=== PATIENT | female | born 1940 | race Caucasian/White ===

== ENCOUNTER → 2016-09-09 | Outpatient (CLI) | payer BC ==
[~2016-09-09] MED LIST: ANT125 PO; ASPI81TA28 PO; CALCTAB5 PO; CHOL100010 PO; CHOL2000 PO; HYDR-5688 PO; LEVO25TA34 PO; LEVO25TA5 PO; LISI-461 PO; MECL1TAB40 PO; MULT-190 PO; MULTTAB58 PO; PANT40TA PO; PSYL55.43 PO; SENNTAB23 PO; SIMV20TA2 PO; SYMIN160 INH; TIOTCAP INH; TRAZ100T29 PO
--- NOTE | 2016-09-09 12:27 | DIAGNOSTIC IMAGING REPORT ---
CT OF THE CHEST WITHOUT IV CONTRAST CLINICAL HISTORY: Pulmonary nodule. COMPARISON STUDY: Chest CT March 10, 2016 and October 04, 2014. CT DOSE: 196.64 mGy.cm TECHNIQUE: Axial images of the chest were obtained without IV contrast. Images were reviewed in the axial, sagittal, and coronal planes. IV contrast was not administered for this examination. FINDINGS: No enlarged axillary, mediastinal or hilar lymph nodes are present. The 11 mm ground glass nodule with the left upper lobe shown on image 58 of 301 remains unchanged since exam of March 10, 2016. A 6 mm left lower lobe groundglass nodule shown on image 103 is also unchanged. A few additional pulmonary nodules are unchanged. There are no new nodules. There is no pneumothorax or pleural effusion. Mild cardiomegaly is noted. There is no pericardial effusion. Post surgical findings within the lumbar spine are partially imaged. Compression deformity of the T12 vertebral body is unchanged. IMPRESSION: 1. No significant change in the 11 mm groundglass nodule within the left upper lobe. Despite stability, this may reflect a low-grade malignancy and continued imaging follow up is recommended. 2. No change in the 6 mm groundglass nodule within the left lower lobe which should be assessed on subsequent exams. 3. No new pulmonary nodules identified. 4. No thoracic lymphadenopathy. Electronically signed by: William Pathka M.D. 09/09/2016 12:25 PM
== END | disposition home or self-care (01) ==
LOC: C.CTS 11:36
PROVIDERS: ATTEND Internal Medicine Pulmonary Disease
DX: R91.1 Solitary pulmonary nodule (principal)

== ENCOUNTER → 2016-11-13 | Outpatient (CLI) | payer BC ==
[~2016-11-13] MED LIST changes: -CHOL2000 PO; -HYDR-5688 PO; -LEVO25TA5 PO; -LISI-461 PO; -MECL1TAB40 PO
--- NOTE | 2016-11-13 16:02 | MAMMOGRAPHY REPORT ---
BILATERAL DIGITAL SCREENING MAMMOGRAM TOMOSYNTHESIS WITH CAD: 11/13/2016 CLINICAL HISTORY: Routine screening. Patient has no complaints. TECHNIQUE: Breast tomosynthesis in addition to standard 2D mammography was performed. Current study was also evaluated with a Computer Aided Detection (CAD) system. COMPARISON: Comparison is made to exams dated: 11/15/2015 ultrasound, 11/15/2015 mammogram, 11/11/2015 mammogram, 11/07/2014 mammogram, 07/06/2014 ultrasound, and 07/06/2014 mammogram - [facility]. BREAST COMPOSITION: The tissue of both breasts is heterogeneously dense, which may obscure small ma sses. FINDINGS: No suspicious masses, calcifications, or areas of architectural distortion are noted in e ither breast. There has been no significant interval change compared to prior exams. IMPRESSION: ACR BI-RADS CATEGORY 1: NEGATIVE There is no mammographic evidence of malignancy. A 1 year screening mammogram is recommended. The p atient will receive written notification of the results. Approximately 10% of breast cancers are not detected with mammography. A negative mammographic repor t should not delay biopsy if a clinically suggestive mass is present. Rosa Bullock M.D. /:11/13/2016 13:38:29 Director Of Women'S Services: Katalina Yo, [facility] letter sent: Normal 1/2 BI-RADS Code: ACR BI-RADS Category 1: Negative
== END | disposition home or self-care (01) ==
LOC: C.MAMM 08:55
PROVIDERS: ATTEND Family Medicine
DX: Z12.31 Encounter for screening mammogram for malignant neoplasm of breast (principal)

== ENCOUNTER → 2017-01-22 | Outpatient (CLI) | payer BC ==
--- NOTE | 2017-01-22 11:11 | DIAGNOSTIC IMAGING REPORT ---
RIGHT FOOT MIN 3 VIEWS ROUTINE CLINICAL HISTORY: PAIN IN RIGHT FOOT Right pain COMPARISON: None. DISCUSSION: Moderate generalized degenerative change. Significant degenerative change of the articular surface loss distal aspect second metatarsal. Probable prior bunionectomy distal first metatarsal. There is no evidence for soft tissue swelling. IMPRESSION: Degenerative and apparent postoperative change. No acute process. Electronically signed by: Jeff Pastor M.D. 01/22/2017 11:10 AM Dictated Date/Time: 01/22/2017 11:06 AM
== END | disposition home or self-care (01) ==
LOC: C.RAD1850 10:55
PROVIDERS: ATTEND Family Medicine
DX: M79.671 Pain in right foot (principal)

== ENCOUNTER → 2017-01-29 | Outpatient (CLI) | payer BC ==
--- NOTE | 2017-01-29 15:20 | DIAGNOSTIC IMAGING REPORT ---
RIGHT ANKLE 3 VIEWS HISTORY: RIGHT ANKLE PAIN Right COMPARISON: None. FINDINGS: There is no fracture or dislocation. Diffuse soft tissue swelling. No radiopaque foreign bodies. IMPRESSION: No fractures. Electronically signed by: Mikel Carney M.D. 01/29/2017 3:19 PM Dictated Date/Time: 01/29/2017 3:18 PM
== END | disposition home or self-care (01) ==
LOC: C.RDSM 14:18
PROVIDERS: ATTEND Physician Assistant
DX: M79.671 Pain in right foot (principal)

== ENCOUNTER → 2017-06-03 | Outpatient (CLI) | payer BC ==
--- NOTE | 2017-06-03 12:07 | DIAGNOSTIC IMAGING REPORT ---
VIDEO SWALLOW CLINICAL HISTORY: 76 years-old Female with R13.10 Dysphagiascheduled at [facility] on 06/[facility]17 at 11:30/ patient a. Acute dysphagia. TECHNIQUE: Video fluoroscopic evaluation of swallowing was performed in the AP and lateral projections by the speech pathology staff. The patient is fed nectar-thick and thin liquid barium, a barium coated wafer, and barium pudding. FLUOROSCOPY TIME: 1.7 minutes. COMPARISON STUDY: CT chest 09/09/2016. FINDINGS: There is normal hyoid excursion and epiglottic deflection. There is minimal penetration of thin liquids without aspiration identified. Swallowing function is otherwise within normal limits. Fusion hardware at C3-C4 incidentally noted. IMPRESSION: 1. No aspiration identified. 2. Please see the speech pathologist report for detailed findings and recommendations. Electronically signed by: Emiliano Rain M.D. 06/03/2017 12:06 PM Dictated Date/Time: 06/03/2017 12:02 PM
--- NOTE | 2017-06-03 17:59 | SWALLOWING EVALUATION ---
REFERRING SPEECH PATHOLOGIST: n/a HISTORY: This 76 year-old female was referred for a VFSS at [facility] in order to address c/o globus sensation. The patient has a PMH significant for GERD (Protonix q.d.), hypertension, asthma, depression and c-spine surgery occurring in 2008. Currently the patient's diet level is regular. PROCEDURE: The patient was seen in the Radiology Department of [facility] for the VFSS. Cursory examination of the oral cavity revealed upper and lower dentures of adequate fit. Movement of the articulators was WNL. The patient was seated on a stool and was viewed in both the Anterior-Posterior (A-P) and Lateral planes. Volitional phonation exercises completed in the A-P plane revealed bilateral vocal fold movement and vocal intensity within functional limits. In the lateral plane, the patient was given the following boluses: 1 tsp. thin liquid barium x 2, single swallow thin liquid barium self-presented from a cup, sequential swallows of thin liquid barium self-presented from a straw, 1 tsp. nectar-thick liquid barium, single swallow nectar-thick liquid barium self-presented from a straw, 1 tsp. barium pudding, and 1 club cracker with barium pudding. The patient was then repositioned into the A-P plane and given 1 tsp. barium pudding. RESULTS: Oral Stage: Labial seal, lingual control during oral bolus hold, mastication, bolus transport were all complete/WNL. There was collection of cracker bolus on tongue, palate and teeth after initial swallow of cracker but this cleared with dry swallows the patient produced independently. Initiation of pharyngeal swallow when the bolus head was in the valleculae. Oral stage of swallow WNL. Pharyngeal Stage: Soft palate elevation, laryngeal elevation, anterior hyoid excursion, epiglottic inversion, laryngeal vestibular closure, pharyngeal stripping wave and pharyngeal contraction were complete. Distention and duration of PES opening was complete. Tongue base retraction was complete. No pharyngeal bolus retention after the swallow. There was no aspiration during this study. The patient demonstrated normal pharyngeal swallow function. Esophageal Stage: A pudding bolus transited the esophagus without retention. SUMMARY/RECOMMENDATIONS: This patient presents with normal oral-pharyngeal swallow mechanics. The following is recommended: 1. If globus sensation persists, then consider a SLIPPERY diet. Choose foods that are slippery, loose, moist; avoid foods that are doughy, thick, pasty, dry (e.g. soft breads); use condiments/healthy oils/sauces as needed to make foods slippery 2. Consideration of f/u with gastroenterology if globus sensation persists. Can be a sign of poor GERD control. 3. Pt demonstrated obvious s/s anxiety/depression. Became tearful when discussing family-related stress she is experiencing. Anxiety can contribute to globus sensation/digestive issues. Consider f/u for anxiety. A summary of the results and recommendations was discussed with the patient and her immediately following the study. They are anticipating f/u with referring PA-C and/or PCP. Thank you for referral of this patient. Please contact me at if any additional information is needed.
== END | disposition home or self-care (01) ==
LOC: C.RAD 11:00
PROVIDERS: ATTEND Physician Assistant
DX: R13.10 Dysphagia, unspecified (principal)

== ENCOUNTER → 2017-06-18 | Outpatient (CLI) | payer BC ==
[2017-06-18 17:19] LABS: BASO % 0.8 %; BASO ABS # 0.06 K/uL (0-0.2); COMPLETE YES; EOS % 2.5 %; HEMATOCRIT 44.9 % (37-47); IG% 0.1 %; LYMPH % 19.7 %; LYMPH ABS # 1.43 K/uL (1.2-3.4); MEAN CELL VOLUME 97.4 fL (80-100); MEAN CORPUSCULAR HEMOGLOBIN 31.7 pg (25-34); MEAN CORPUSCULAR HGB CONC 32.5 g/dl (32-36); MEAN PLATELET VOLUME 11.4 fL (7.4-10.4); MONO % 11.1 %; NEUT % 65.8 %; PLATELET COUNT 186 K/uL (130-400); RED BLOOD COUNT 4.61 M/uL (4.2-5.4); WHITE BLOOD COUNT 7.27 K/uL (4.8-10.8)
[2017-06-18 17:41] LABS: ALT/SGPT 55 U/L (12-78); AMYLASE 60 U/L (25-115); AST/SGOT 33 U/L (15-37); BLOOD UREA NITROGEN 25 mg/dl (7-18); BUN/CREATININE RATIO 26.1 (10-20); CALCIUM 8.9 mg/dl (8.5-10.1); CARBON DIOXIDE 31 mmol/L (21-32); CHLORIDE 105 mmol/L (98-107); CREATININE 0.95 mg/dl (0.60-1.20); GLUCOSE 96 mg/dl (70-99); POTASSIUM 4.3 mmol/L (3.5-5.1); SODIUM 138 mmol/L (136-145)
[2017-06-18 17:43] LABS: ALB/GLOB RATIO 1.3 (0.9-2); ALKALINE PHOSPHATASE 122 U/L (45-117)
== END | disposition home or self-care (01) ==
LOC: C.LAB1850 16:42
PROVIDERS: ATTEND Family Medicine
DX: K21.9 Gastro-esophageal reflux disease without esophagitis (principal)

== ENCOUNTER 2017-08-14 19:15 | Emergency (ER) | payer BC ==
[~2017-08-14] VITALS: Ht 149.9 cm; Wt 62.0 kg
[2017-08-14 19:18] VITALS: TEMP 36.9; Ht 149.9 cm; Wt 62.0 kg
[2017-08-14] MEDS ORDERED: CHOL2000 PO (19:58)
[2017-08-14] MEDS ORDERED: LEVO25TA5 PO (20:00)
[2017-08-14] MEDS ORDERED: MECL1TAB40 PO (20:01)
[2017-08-14] MEDS ORDERED: LISI-461 PO (20:04)
--- NOTE | 2017-08-14 20:13 | DIAGNOSTIC IMAGING REPORT ---
R KNEE 1 OR 2 VIEWS ROUTINE CLINICAL HISTORY: Right knee pain following fall with twisting injury. COMPARISON: Right knee radiographs September 20, 2013. FINDINGS: Alignment of the right knee is anatomic. Total right knee arthroplasty is noted. There is no periprosthetic fracture or lucency. A suspected small to moderate size right knee joint effusion is present. IMPRESSION: 1. Status post total right knee arthroplasty. No periprosthetic fracture or lucency. 2. Suspected small to moderate right knee joint effusion. Electronically signed by: William Pathak M.D. 08/14/2017 8:12 PM Dictated Date/Time: 08/14/2017 8:11 PM
--- NOTE | 2017-08-14 20:18 | EMERGENCY ROOM VISIT NOTE ---
ED Visit Note First contact with patient: 19:22 CHIEF COMPLAINT: Right Knee injury HISTORY OF PRESENT ILLNESS: This 77-year-old female presents the ER with chief complaint of right knee pain. The patient states at approximately 4:30 she was in a crawl space and twisted her right knee and then fell striking the inside of her right knee on floor. The patient states she is able to bear weight but it is painful. The patient had a right knee replacement done in [address] Dillon. The patient denies any locking or giving out of the knee. The patient does admit that she normally has a "clunk" in her right knee. REVIEW OF SYSTEMS: 6 system review was performed and was negative unless stated otherwise in history of present illness. PMH: The patient is healthy; asthma, GERD, hypothyroidism, right knee replacement SOCIAL HISTORY: Patient lives with her .. PHYSICAL EXAM: Vital Signs: Were reviewed Reviewed Nurse's notes. GENERAL: 77- year-old white female appears in no acute distress. MENTAL STATUS: Alert, oriented, and cooperative. RIGHT KNEE: No gross bony deformity noted. No erythema or edema noted. There is a vertical incision noted consistent with her prior knee replacement. The patient has tenderness palpation over the medial joint space otherwise nontender. The patient has slight increased lasticity with anterior drawer. There is no joint effusion. Full range of motion. EMERGENCY DEPARTMENT COURSE: The patient was evaluated. The patient was offered pain medication but declined. The patient was independently evaluated by Dr. Gay who agreed with treatment plan. X-ray of the right knee was ordered by the radiologist and myself. DIAGNOSTICS:R KNEE 1 OR 2 VIEWS ROUTINE CLINICAL HISTORY: Right knee pain following fall with twisting injury. COMPARISON: Right knee radiographs September 20, 2013. FINDINGS: Alignment of the right knee is anatomic. Total right knee arthroplasty is noted. There is no periprosthetic fracture or lucency. A suspected small to moderate size right knee joint effusion is present. IMPRESSION: 1. Status post total right knee arthroplasty. No periprosthetic fracture or lucency. 2. Suspected small to moderate right knee joint effusion. Electronically signed by: William Pathak M.D. 08/14/2017 8:12 PM Dictated Date/Time: 08/14/2017 8:11 PM The patient was informed of the findings. The patient was placed in a knee immobilizer and given a walker. The patient was discharged home in stable condition. DIAGNOSIS: Right Sprained Knee DISCHARGE INSTRUCTIONS: Ibuprofen 600 mg every 6 hours with food for pain. Ice and elevation as much as possible over the next 24 hours. Wear knee immobilizer and use walker for ambulation until evaluated by orthopedics. Call Dr. Dillon on Wednesday for follow-up appointment. Problem List Medical Problems: (1) Asthma Status: Chronic Current/Historical Medications Scheduled Aspirin (Aspirin Ec), 81 MG PO DAILY Budesonide/Formoterol Fumarate (Symbicort 160/4.5 Inhaler ), 2 PUFFS INH BID Calcium (Caltrate), 1,200 MG PO DAILY Cholecalciferol (Vitamin D3), 2,000 UNITS PO DAILY Levothyroxine Sodium (Levothyroxine Sodium), 25 MCG PO DAILY Lisinopril (Zestril), 10 MG PO DAILY Multiple Vitamin (Multivitamin), 1 TAB PO DAILY Ocuvite Preservision (Ocuvite Preservision), 1 TAB PO BID Pantoprazole (Protonix), 40 MG PO DAILY Psyllium (Metamucil Powder), 2 TBS PO BID PRN Sennosides-Docusate Sodium (Stool Softener), 100 MG PO BID Simvastatin (Zocor), 20 MG PO QPM Tiotropium [place] (Spiriva Handihaler), 1 CAP INH DAILY Trazodone Hcl (Trazodone), 100 MG PO HS Scheduled PRN Meclizine Hcl (Meclizine Hcl), 12.5 MG PO TID PRN for Dizziness or Vertigo Allergies Coded Allergies: Adhesives (Verified Allergy, Unknown, LOCAL SKIN IRRITATION, 04/06/16) Vital Signs Date Time Temp Pulse Resp B/P (MAP) Pulse Ox O2 Delivery O2 Flow Rate FiO2 08/14/17 19:18 36.9 90 16 170/91 97 Room Air Departure Information Referrals Brandyn Pelayo D.O. (PCP) Patient Instructions My [facility]
--- NOTE | 2017-08-14 20:20 | EMERGENCY ROOM VISIT NOTE ---
ED Visit Note First contact with patient: 19:22 This Patient was discussed with the physician client account assistant, Francine Pastor PA-C. The pertinent historical and physical exam findings were confirmed. I agree with the studies ordered and with the interpretations of these studies. I agree with the disposition and care plan.
[2017-08-14] MEDS ORDERED: IBUPROFEN 600 MG TAB PO STA (20:38)
[2017-08-14 20:53] VITALS: BP 174/82; PULSE 89; O2SAT 93
== END 2017-08-14 20:50 | disposition home or self-care (01) ==
LOC: C.EDB 19:15 → C.EDD 20:50
DX: S83.91XA Sprain of unspecified site of right knee, initial encounter (principal); W01.198A Fall on same level from slipping, tripping and stumbling with subsequent striking against other object, initial encounter; Z96.651 Presence of right artificial knee joint; J45.909 Unspecified asthma, uncomplicated; K21.9 Gastro-esophageal reflux disease without esophagitis; E03.9 Hypothyroidism, unspecified; Z79.82 Long term (current) use of aspirin; Z79.899 Other long term (current) drug therapy

== ENCOUNTER → 2017-08-24 | Outpatient (CLI) | payer BC ==
[~2017-08-24] MED LIST changes: -ANT125 PO; -CHOL100010 PO; +CHOL2000 PO; -LEVO25TA34 PO; +LEVO25TA5 PO; +LISI-461 PO; +MECL1TAB40 PO
--- NOTE | 2017-08-24 17:07 | DIAGNOSTIC IMAGING REPORT ---
CT OF THE RIGHT KNEE WITHOUT CONTRAST CLINICAL HISTORY: Acute right knee pain. COMPARISON STUDY: Right knee radiographs August 14, 2017. TECHNIQUE: Axial images of the right knee were obtained without IV contrast. Sagittal and coronal reconstructions were viewed. FINDINGS: Note is made of an acute nondisplaced periprosthetic fracture that involves the medial femoral condyle. This extends to the cortex of the medial metaphysis. Evaluation for additional fractures is difficult given the fact related to the right knee arthroplasty. However, no additional fractures are identified. Subcutaneous edema is noted as well as a moderate sized right knee joint effusion. There may be a small popliteal cyst, partially imaged on this exam. IMPRESSION: 1. Acute nondisplaced periprosthetic fracture of the medial femoral condyle, as described above. 2. No additional fractures identified although evaluation is difficult given streak artifact from the right knee arthroplasty. 3. Moderate size right knee joint effusion. Electronically signed by: William Pathak M.D. 08/24/2017 5:06 PM Dictated Date/Time: 08/24/2017 4:54 PM
== END | disposition home or self-care (01) ==
LOC: C.CTS 15:20
PROVIDERS: ATTEND Orthopaedic Surgery
DX: M97.11XA Periprosthetic fracture around internal prosthetic right knee joint, initial encounter (principal); M25.461 Effusion, right knee; Z96.651 Presence of right artificial knee joint

== ENCOUNTER → 2017-09-21 | Outpatient (CLI) | payer BC ==
--- NOTE | 2017-09-21 15:26 | DIAGNOSTIC IMAGING REPORT ---
CHEST 2 VIEWS ROUTINE CLINICAL HISTORY: CHRONIC COUGH, CHRONIC OBSTRUCTIVE PULMONARY DISEASE COMPARISON STUDY: 10/04/2014 FINDINGS: The cardiac and mediastinal contours are normal. There is no evidence of focal pulmonary consolidation. There is no evidence of failure. No pleural effusions are visualized.[ There are postsurgical changes within the cervical spine and lumbar spine. There is a T12 compression deformity. T12 pedicle screws continue to project over the T11-12 disc on the lateral view. IMPRESSION: No active disease in the chest. Electronically signed by: Rian Carson M.D. 09/21/2017 3:25 PM Dictated Date/Time: 09/21/2017 3:24 PM
== END | disposition home or self-care (01) ==
LOC: C.RAD1850 15:07
PROVIDERS: ATTEND Physician Assistant
DX: J44.9 Chronic obstructive pulmonary disease, unspecified (principal)

== ENCOUNTER → 2017-11-16 | Outpatient (CLI) | payer BC ==
--- NOTE | 2017-11-16 15:12 | MAMMOGRAPHY REPORT ---
BILATERAL DIGITAL SCREENING MAMMOGRAM TOMOSYNTHESIS WITH CAD: 11/16/2017 CLINICAL HISTORY: Routine screening. Patient has no complaints. TECHNIQUE: Breast tomosynthesis in addition to standard 2D mammography was performed. Current study was also evaluated with a Computer Aided Detection (CAD) system. COMPARISON: Comparison is made to exams dated: 11/13/2016 mammogram, 11/15/2015 mammogram, 11/11/2015 ma mmogram, 11/07/2014 mammogram, 07/06/2014 mammogram, and 11/06/2013 mammogram - [facility]. BREAST COMPOSITION: The tissue of both breasts is heterogeneously dense, which may obscure small mas ses. FINDINGS: There are stable asymmetries in the medial right breast. Mild vascular calcification and s cattered benign-appearing coarse, rounded punctate microcalcifications. No new suspicious mass, arch itectural distortion or cluster of microcalcifications is seen. IMPRESSION: ACR BI-RADS CATEGORY 1: NEGATIVE There is no mammographic evidence of malignancy. A 1 year screening mammogram is recommended. The pa tient will receive written notification of the results. Approximately 10% of breast cancers are not detected with mammography. A negative mammographic report should not delay biopsy if a clinically suggestive mass is present. Zeinab Wadsworth M.D. ay/:11/16/2017 14:16:49 Negative Restorer: Rochelle COMER(Nikhil)(Amanda)(BD), [facility] letter sent: Normal 1/2 BI-RADS Code: ACR BI-RADS Category 1: Negative
== END | disposition home or self-care (01) ==
LOC: C.MAMM 09:51
PROVIDERS: ATTEND Family Medicine
DX: Z12.31 Encounter for screening mammogram for malignant neoplasm of breast (principal)

== ENCOUNTER 2022-06-17 13:10 | Inpatient (IN) ==
[2022-06-17] MEDS ORDERED: MoRPHine SULFATE 2 MG/ML CARP IV PRN (13:26)
--- NOTE | 2022-06-17 13:40 | Emergency Department Note ---
Impression & Plan Closed hip fracture, Fall ED Provider Note NAME: BARBARA ORTIZ AGE: 81 SEX: F : 1940 ARRIVES VIA: Ambulance INFORMANT: Patient ED PROVIDER(S): Song Barragan DO CHIEF COMPLAINT: left hip pain HPI: Patient is an 81-year-old female who presents the ER for left hip pain. This started earlier today about an hour prior to arrival where she fell onto her left hip. She was unable to get up. Pain is a 10 out of 10. Significantly worse with movement. She did hit her head but denies any headache or neck pain. No chest pain or shortness of breath. No nausea vomiting or diarrhea. No other exacerbating or remitting factors. ROS: See above HPI for pertinent positives & negatives. A total of 10 systems reviewed and were otherwise negative. PAST MEDICAL HISTORY:See Below PAST SURGICAL HISTORY:See Below FAMILY HISTORY:See Below SOCIAL HISTORY:See Below HOME MEDICATIONS:See Below ALLERGIES:See Below VITALS:See Below PHYSICAL EXAMINATION: GENERAL: alert, well appearing, well nourished, no distress, non-toxic HEAD: normal cephalic, atraumatic EYE EXAM: normal conjunctiva, PERRL and EOM's grossly intact OROPHARYNX:mucous membranes are moist NECK: supple, no nuchal rigidity, no adenopathy, non-tender CHEST: stable to compression anteriorly and posteriorly LUNGS: clear to auscultation. Normal chest wall mechanics HEART: no murmurs, S1 normal and S2 normal ABDOMEN: abdomen soft, non-tender, normo-active bowel sounds, no masses, no rebound or guarding. PELVIS: stable to compression anteriorly and posteriorly BACK: Back is symmetrical on inspection and there is no deformity, no midline tenderness, no CVA tenderness. UPPER EXTREMITIES: full active and passive range of motion of all joints without tenderness to palpation LOWER EXTREMITIES: No tenderness on palpation entire right lower extremity. Tenderness on palpation of the left hip. No tenderness throughout the mid femur, knee tib-fib or ankle. DPs 2 out of 4. NEURO EXAM: Normal sensorium, cranial nerves II-XII grossly intact, normal speech, no gross weakness of arms. GCS: 15. MEDICAL DECISION MAKING: Patient is a 81-year-old female who presents ER following mechanical fall. IV was established blood was obtained. Labs show no significant leukocytosis or anemia. INR unremarkable. BMP with creatinine 1.23. LFTs bilirubin was unremarkable. UA was clean. COVID was negative. X-rays of the pelvis and hip show left intertroch fracture. CT head and chest x-ray was unremarkable. Patient was given IV morphine. She was updated bedside. Discussed with hospitalist for further evaluation Dr. Andre Chawla. Triage Nursing notes reviewed. Limited review of prior medical records performed Vital Signs: reviewed and remarkable for HTN Differential diagnosis: Differential diagnoses include major intracranial, cervical, spinal, thoracic, abdominal, pelvic and neurologic injury. Fracture, contusion, sprain, strain, laceration, abrasions included as well. ER treatment provided: See below Diagnostics interpreted by me: ECG: Sinus rhythm rate 85 Left bundle branch block Left axis QTC 483 Cardiac Monitoring: An order was placed for continuous cardiac monitoring. The monitor shows a rate of 90 with sinus rhythm. Laboratory studies: As stated above and show below. Imaging studies: X-ray of the left hip shows a fracture CT head was negative Consultation(s): As described above Procedures: none Critical Care: None Past Med/Surg History Medical History Asthma Chronic back pain Chronic obstructive pulmonary disease Dyslipidemia GERD (gastroesophageal reflux disease) Hyperlipidemia Hypertension Hypothyroidism Multiple pulmonary nodules determined by computed tomography of lung Osteoarthritis Pulmonary nodule Spinal stenosis Surgical History H/O rotator cuff surgery H/O Spinal surgery History of appendectomy History of bilateral cataract extraction History of bladder surgery bladder tack History of bunionectomy of left great toe History of bunionectomy of right great toe History of carpal tunnel surgery of left wrist History of colonoscopy History of dilatation and curettage History of esophagogastroduodenoscopy (EGD) History of hysterectomy History of lumbar spinal fusion x4 History of open reduction and internal fixation (ORIF) procedure left wrist, hardware removed History of repair of right rotator cuff History of tooth extraction all teeth History of total right knee replacement (TKR) Hx of cataract surgery Hx of cervical spine surgery normal ROM Family History Sister Family history of diabetes mellitus 2 Other No family history of adverse response to anesthesia Social History Smoking Status: Never smoker Second Hand Exposure: Yes; Hx Alcohol Use: No Hx Substance Use: No Preferred Language: Moldovan Communication Ability: Effective Visual Impairment: Partially Limited Hearing Ability: Normal Bindery Machine Tender Required: No Beliefs That Will Affect Care: None marital status: Current Living Situation: Spouse and Family Current Living Situation Comment: Lives with and grandson Feels Safe at Home: Yes caffeine: Yes during the past year weight has: remained stable Assistive Devices: Denture - Upper, Denture - Lower, Glasses and Nebulizer Allergies Allergies Allergy/AdvReac Type Severity Reaction Status Date / Time adhesive Allergy Mild LOCAL SKIN Verified 06/17/22 14:59 IRRITATION Home Meds Home Medications Medication Instructions Recorded Confirmed meclizine 12.5 mg tablet 12.5 mg PO TID PRN Dizziness 12/21/18 06/17/22 multivitamin 1 tab PO QAM 12/21/18 06/17/22 pantoprazole 40 mg tablet,delayed 40 mg PO QAM 12/21/18 06/17/22 release vitamins A,C,O-htjp-gumfzj 2,148 1 tab PO BID 12/21/18 06/17/22 mcg-113 mg-45 mg-17.4 mg tablet (PreserVision AREDS) levothyroxine 25 mcg tablet 25 mcg PO QAM 07/25/19 06/17/22 (Synthroid) meloxicam 15 mg tablet 15 mg PO QAM 07/25/19 06/17/22 simvastatin 20 mg tablet 20 mg PO QPM 07/25/19 06/17/22 calcium carbonate 600 mg-vitamin 1 tab PO QAM 12/23/20 06/17/22 D3 20 mcg (800 unit) chewable tablet (Caltrate 600 plus D) acetaminophen 325 mg capsule 325 mg PO QID PRN Sleep 02/13/22 06/17/22 (Tylenol) irbesartan 150 mg tablet 150 mg PO DAILY 02/13/22 06/17/22 tramadol 50 mg tablet 50 mg PO DAILY 02/13/22 06/17/22 trazodone 100 mg tablet 100 mg PO HS 02/13/22 06/17/22 amlodipine 2.5 mg tablet 2.5 mg PO DAILY 02/20/22 06/17/22 Previous Rx's Medication Instructions Recorded fluticasone fur. 100 mcg-umeclid 1 inh inhalation DAILY #3 Inhalers 06/10/22 62.5 mcg-vilant 25 mcg inhalat.powder (Trelegy Ellipta) Results & Data (ED) Vital Signs Vital Signs - 24 hr 06/17/22 13:19 06/17/22 14:45 06/17/22 16:00 Temperature 37.0 C Temperature Source Oral Pulse Rate 83 Pulse Rate [Apical] 80 89 Pulse Rhythm Regular Pulse Rhythm [Apical] Regular Pulse Strength Normal Pulse Strength [Apical] Normal Respiratory Rate 20 18 18 Respiratory Effort / Characteristics Non-Labored Spontaneous Non-Labored Respiratory Depth Normal Normal Respiratory Pattern Regular Regular Blood Pressure 205/79 H Blood Pressure [Left Arm] 171/70 H 141/66 H Blood Pressure Mean 121 Blood Pressure Mean [Left Arm] 103 91 Blood Pressure Position Sitting Blood Pressure Position [Left Arm] Lying Pulse Oximetry 97 96 97 Oxygen Delivery Method Room Air Room Air Sepsis Recent Fever Within 48 Hours No Sepsis New/Unexplained Change in Mental Status No Sepsis Action Taken by Nursing No Action Required Laboratory Data Result diagrams: 06/17/22 13:30 06/17/22 13:30 Lab Results 06/17/22 06/17/22 06/17/22 Range/Units 13:30 13:30 13:30 WBC 7.30 (4.8-10.8) K/ul RBC 4.07 (3.93-5.22) M/uL Hgb 13.7 (12.0-16.0) g/dl Hct 40.3 (34.1-44.9) % MCV 99.0 (80.0-100.0) fL MCH 33.7 (25.0-34.0) pg MCHC 34.0 (32.0-36.0) g/dL RDW Std Deviation 45.2 (36.4-46.3) fL RDW Coeff of Rajiv 12.3 (11.5-14.5) % Plt Count 145 (130-400) K/uL MPV 11.0 (9.4-12.3) fL Immature Gran % (Auto) 0.4 % Neut % (Auto) 73.6 % Lymph % (Auto) 14.7 % [place] % (Auto) 9.3 % Eos % (Auto) 1.2 % Baso % (Auto) 0.8 % Neut # (Auto) 5.37 (1.4-6.5) K/uL Lymph # (Auto) 1.07 L (1.2-3.4) K/uL [place] # (Auto) 0.68 (0.24-0.82) K/uL Eos # (Auto) 0.09 (0-0.50) K/uL Baso # (Auto) 0.06 (0-0.2) K/uL Immature Gran # (Auto) 0.03 H (0.00-0.02) K/uL PT 10.9 (9.0-12.0) Seconds INR 1.0 (0.9-1.1) APTT 22.0 (21.0-31.0) Seconds PTT Ratio 0.8 Sodium 140 (136-145) mmol/L Potassium 4.9 (3.5-5.1) mmol/L Chloride 106 (98-107) mmol/L Carbon Dioxide 27 (21-32) mmol/L Anion Gap 7 (3-11) BUN 38 H (6-23) mg/dl Creatinine 1.23 H (0.6-1.2) mg/dl Est Cr Clr Drug Dosing 26.4 ml/min Est GFR ( Amer) 47.0 ml/min Est GFR (Non-Af Amer) 40.5 ml/min BUN/Creatinine Ratio 30.9 H (10-20) Glucose 149 H (70-99(Fasting)) mg/dl Calcium 10.0 (8.5-10.1) mg/dl Total Bilirubin 0.6 (0.2-1.0) mg/dl AST 24 (13-39) U/L ALT 21 (7-52) U/L Alkaline Phosphatase 62 (34-104) U/L Total Protein 6.5 (6.0-8.3) gm/dl Albumin 4.0 (3.4-5.0) gm/dl Globulin 2.5 (2.5-4.0) gm/dl Albumin/Globulin Ratio 1.6 (0.9-2) Urine Color Urine Appearance (Clear) Urine pH (4.5-7.5) Ur Specific [place] (1.000-1.030) Urine Protein (Negative) Urine Glucose (UA) (Negative) Urine Ketones (Negative) Urine Blood (Negative) Urine Nitrite (Negative) Urine Bilirubin (Negative) Urine Urobilinogen (Negative) Ur Leukocyte Esterase (Negative) Urine WBC (Auto) (0-5) /hpf Urine RBC (Auto) (0-4) /hpf U Hyaline Cast (Auto) (0-5) /lpf U Epithel Cells (Auto) (0-5) /lpf Urine Bacteria (Auto) (Negative) SARS-CoV-2, RNA, NAAT (NEGATIVE) 06/17/22 06/17/22 Range/Units 14:46 15:53 WBC (4.8-10.8) K/ul RBC (3.93-5.22) M/uL Hgb (12.0-16.0) g/dl Hct (34.1-44.9) % MCV (80.0-100.0) fL MCH (25.0-34.0) pg MCHC (32.0-36.0) g/dL RDW Std Deviation (36.4-46.3) fL RDW Coeff of Rajiv (11.5-14.5) % Plt Count (130-400) K/uL MPV (9.4-12.3) fL Immature Gran % (Auto) % Neut % (Auto) % Lymph % (Auto) % [place] % (Auto) % Eos % (Auto) % Baso % (Auto) % Neut # (Auto) (1.4-6.5) K/uL Lymph # (Auto) (1.2-3.4) K/uL [place] # (Auto) (0.24-0.82) K/uL Eos # (Auto) (0-0.50) K/uL Baso # (Auto) (0-0.2) K/uL Immature Gran # (Auto) (0.00-0.02) K/uL PT (9.0-12.0) Seconds INR (0.9-1.1) APTT (21.0-31.0) Seconds PTT Ratio Sodium (136-145) mmol/L Potassium (3.5-5.1) mmol/L Chloride (98-107) mmol/L Carbon Dioxide (21-32) mmol/L Anion Gap (3-11) BUN (6-23) mg/dl Creatinine (0.6-1.2) mg/dl Est Cr Clr Drug Dosing ml/min Est GFR ( Amer) ml/min Est GFR (Non-Af Amer) ml/min BUN/Creatinine Ratio (10-20) Glucose (70-99(Fasting)) mg/dl Calcium (8.5-10.1) mg/dl Total Bilirubin (0.2-1.0) mg/dl AST (13-39) U/L ALT (7-52) U/L Alkaline Phosphatase (34-104) U/L Total Protein (6.0-8.3) gm/dl Albumin (3.4-5.0) gm/dl Globulin (2.5-4.0) gm/dl Albumin/Globulin Ratio (0.9-2) Urine Color Yellow Urine Appearance Clear (Clear) Urine pH 6.5 (4.5-7.5) Ur Specific [place] 1.014 (1.000-1.030) Urine Protein Negative (Negative) Urine Glucose (UA) Negative (Negative) Urine Ketones Negative (Negative) Urine Blood Negative (Negative) Urine Nitrite Negative (Negative) Urine Bilirubin Negative (Negative) Urine Urobilinogen Negative (Negative) Ur Leukocyte Esterase Trace H (Negative) Urine WBC (Auto) 1-5 (0-5) /hpf Urine RBC (Auto) 0-4 (0-4) /hpf U Hyaline Cast (Auto) 0 (0-5) /lpf U Epithel Cells (Auto) 10-20 H (0-5) /lpf Urine Bacteria (Auto) Negative (Negative) SARS-CoV-2, RNA, NAAT NEGATIVE (NEGATIVE) Administered Medications Discontinued Medications Hydromorphone HCl (Hydromorphone Inj 0.5 Mg/0.5 Ml Syr) 0.5 mg IV NOW STA Stop: 06/17/22 16:28 Last Admin: 06/17/22 16:42 Dose: 0.5 mg Documented By: ANDREINA Hydroxyzine HCl (Hydroxyzine Hcl 25 Mg Tab) 25 mg PO NOW STA Stop: 06/17/22 17:31 Last Admin: 06/17/22 17:39 Dose: 25 mg Documented By: ANDREINA Acetaminophen (Ofirmev) 1,000 mg in 100 mls @ 400 mls/hr IV NOW STA Stop: 06/17/22 15:40 Last Infusion: 06/17/22 15:56 Dose: 0 mls/hr Documented By: Admin: 06/17/22 15:36 Dose: 400 mls/hr Documented By: ANDREINA Lidocaine (Lidocaine 5% 1 Patch) Confirm Administered Dose 1 patch TD .STK-MED ONE Stop: 06/17/22 16:38 Last Admin: 06/17/22 17:37 Dose: Not Given Documented By: ANDREINA Morphine Sulfate (Morphine Sulfate 2 Mg/Ml Carp) 2 mg IV Q1H PRN PRN Reason: Moderate Pain (Rating 3,4,5,6) Stop: 07/01/22 13:25 Last Admin: 06/17/22 13:40 Dose: 2 mg Documented By: JORDAN Morphine Sulfate (Morphine Sulfate 4 Mg/Ml 1 Ml Carp\Vial) 4 mg IV Q1H PRN PRN Reason: Severe Pain (Rating 7,8,9,10) Stop: 07/01/22 13:25 Last Admin: 06/17/22 15:37 Dose: 4 mg Documented By: Admin: 06/17/22 14:41 Dose: 4 mg Documented By: SR Imaging Data Radiologist's Impression: Hip/Pelvis X-Ray 06/17/22 13:26 XR hip LT 2V w pelvis CLINICAL HISTORY: l hip pain TECHNIQUE: 2 views of the left hip and single frontal view of the pelvis were obtained. Comparison: None available at the time of this dictation. FINDINGS: There is a comminuted intratrochanteric fracture of the left femur. Degenerative changes are seen in the hip joint. Posterior fixation hardware is seen in the spine. Soft tissue swelling is seen. IMPRESSION: Comminuted intratrochanteric fracture of the left femur. ACT 112: Negative or not required by law. Electronically signed by: Sohail Calhoun M.D. 06/17/2022 2:[address] 06/17/22 13:28 CT head/brain wo con CLINICAL HISTORY: 81 years-old Female with jacobo. Acute headache TECHNIQUE: Multiple axial CT images of the head were obtained without contrast. A dose lowering technique was utilized adhering to the principles of ALARA. CT DOSE: 638.56 mGycm COMPARISON: Head CT 12/23/2020 FINDINGS: No acute intracranial hemorrhage, midline shift, intracranial mass, territorial ischemia or abnormal extra-axial collection. Age-related involutional changes with likely ex vacuo ventriculomegaly. White matter hypodensities suggest chronic microvascular ischemic disease. The calvarium is intact. Prior bilateral lens repair. The paranasal sinuses, mastoid air cells, and middle ear cavities are clear. IMPRESSION: No acute intracranial abnormality. ACT 112: Negative or not required by law. The above report was generated using voice recognition software. It may contain grammatical, syntax or spelling errors. Electronically signed by: Derrick Rain M.D. 06/17/2022 2:35 PM Chest X-Ray 06/17/22 15:06 XR chest 1V portable HISTORY: 81 years-old Female pre-op preoperative exam. No acute chest complaints COMPARISON: Chest radiograph 04/06/2022 TECHNIQUE: Portable AP view of the chest FINDINGS: The cardiac silhouette is mildly enlarged. Atherosclerosis of the aorta. No pneumothorax, pleural effusion, airspace consolidation or overt pulmonary edema. Degenerative changes of the shoulders and spine. Levoscoliosis of the thoracolumbar junction with partially imaged thoracolumbar spinal fusion hardware. Surgical anchors within the right humeral head. IMPRESSION: No acute process. ACT 112: Negative or not required by law. The above report was generated using voice recognition software. It may contain grammatical, syntax or spelling errors. Electronically signed by: Derrick Rain M.D. 06/17/2022 3:45 PM Discharge Plan Visit Data Chief Complaint: Hip Pain ED Provider: Song Barragan Discharge Problem: Closed hip fracture, Fall Forms Stand Alone Forms: [facility] Prescriptions Prescriptions: No Action irbesartan 150 mg tablet 150 mg PO DAILY tramadol 50 mg tablet 50 mg PO DAILY acetaminophen [Tylenol] 325 mg capsule 325 mg PO QID PRN (Reason: Sleep) amlodipine 2.5 mg tablet 2.5 mg PO DAILY Trelegy Ellipta 100-62.5-25 mcg blister with device 1 inh INH DAILY Qty: 3 1RF meloxicam 15 mg tablet 15 mg PO QAM levothyroxine [Synthroid] 25 mcg tablet 25 mcg PO QAM simvastatin 20 mg tablet 20 mg PO QPM multivitamin Tablet 1 tab PO QAM meclizine 12.5 mg Tablet 12.5 mg PO TID PRN (Reason: Dizziness) pantoprazole 40 mg Tablet,Delayed Release (Dr/Ec) 40 mg PO QAM PreserVision AREDS 7,160-113-100 [id number] Tablet 1 tab PO BID trazodone 100 mg tablet 100 mg PO HS Caltrate 600 plus D 600 mg (1,500 mg)-800 unit Tablet,Chewable 1 tab PO QAM Referrals Referrals: Brandyn Pelayo, [Primary Care Provider] -
[2022-06-17 13:41] LABS: Basophils # (auto) 0.06 K/uL (0-0.2); Basophils % (auto) 0.8 %; Eosinophils # (auto) 0.09 K/uL (0-0.50); Eosinophils % (auto) 1.2 %; Hematocrit (blood only) 40.3 % (34.1-44.9); Hemoglobin 13.7 g/dl (12.0-16.0); Immature Granulocytes # (auto) 0.03 K/uL (0.00-0.02); Immature Granulocytes % (auto) 0.4 %; Lymphocytes # (auto) 1.07 K/uL (1.2-3.4); Lymphocytes % (auto) 14.7 %; Mean Corpuscular Hemoglobin 33.7 pg (25.0-34.0); Monocytes # (auto) 0.68 K/uL (0.24-0.82); Monocytes % (auto) 9.3 %; Neutrophils # (auto) 5.37 K/uL (1.4-6.5); Neutrophils % (auto) 73.6 %; Platelet Count 145 K/uL (130-400); RDW Coefficient of Variation 12.3 % (11.5-14.5); RDW Standard Deviation 45.2 fL (36.4-46.3); Red Blood Count 4.07 M/uL (3.93-5.22)
[2022-06-17 13:56] LABS: Partial Thromboplastin Ratio 0.8; Prothrombin Time 10.9 Seconds (9.0-12.0)
[2022-06-17 14:11] LABS: Albumin Globulin Ratio 1.6 (0.9-2); BUN Creatinine Ratio 30.9 (10-20); Bilirubin,Total 0.6 mg/dl (0.2-1.0); Creatinine Clr Calc Pharmacy 26.4 ml/min; Est GFR (Non-African American) 40.5 ml/min; Globulin 2.5 gm/dl (2.5-4.0); Potassium 4.9 mmol/L (3.5-5.1); Total Protein 6.5 gm/dl (6.0-8.3)
--- NOTE | 2022-06-17 14:28 | XRay Report ---
XR hip LT 2V w pelvis CLINICAL HISTORY: l hip pain TECHNIQUE: 2 views of the left hip and single frontal view of the pelvis were obtained. Comparison: None available at the time of this dictation. FINDINGS: There is a comminuted intratrochanteric fracture of the left femur. Degenerative changes are seen in the hip joint. Posterior fixation hardware is seen in the spine. Soft tissue swelling is seen. IMPRESSION: Comminuted intratrochanteric fracture of the left femur. ACT 112: Negative or not required by law. Electronically signed by: Sohail Calhoun M.D. 06/17/2022 2:26 PM
--- NOTE | 2022-06-17 14:36 | CT Scan Report ---
CT head/brain wo con CLINICAL HISTORY: 81 years-old Female with jacobo. Acute headache TECHNIQUE: Multiple axial CT images of the head were obtained without contrast. A dose lowering tech nique was utilized adhering to the principles of ALARA. CT DOSE: 638.56 mGycm COMPARISON: Head CT 12/23/2020 FINDINGS: No acute intracranial hemorrhage, midline shift, intracranial mass, territorial ischemia or abnormal extra-axial collection. Age-related involutional changes with likely ex vacuo ventriculomegaly. White matter hypodensities suggest chronic microvascular ischemic disease. The calvarium is intact. Prior bilateral lens repair. The paranasal sinuses, mastoid air cells, and middle ear cavities are clear. IMPRESSION: No acute intracranial abnormality. ACT 112: Negative or not required by law. The above report was generated using voice recognition software. It may contain grammatical, syntax o r spelling errors. Electronically signed by: Derrick Rain M.D. 06/17/2022 2:35 PM
[2022-06-17] MEDS: MoRPHine SULFATE 4 MG/ML 1 ML CARP\\VIAL IV PRN ×2 (14:41→15:37)
--- NOTE | 2022-06-17 14:44 | Electrocardiogram Report ---
Test Reason : Blood Pressure : / mmHG Vent. Rate : 085 BPM Atrial Rate : 085 BPM P-R Int : 140 ms QRS Dur : 134 ms QT Int : 406 ms P-R-T Axes : 081 -66 104 degrees QTc Int : 483 ms Poor data quality, interpretation may be adversely affected Sinus rhythm with Premature atrial complexes Left axis deviation Left bundle branch block Abnormal ECG When compared with ECG of 23-DEC-2020 17:58, Premature atrial complexes are now Present QT has lengthened Confirmed by Buddy Foy ([id number]) on 06/17/2022 2:44:36 PM Referred By: Confirmed By:Buddy Foy
--- NOTE | 2022-06-17 14:46 | History & Physical Report ---
Date of Service June 17, 2022 Assessment & Plan (1) Intertrochanteric fracture of left femur: Plan: - Hip XR: Comminuted intratrochanteric fracture of the left femur. - Per patient request, Kim Buckner consulted for surgical management. Appreciate their recommendations and assistance. - NPO for now, will make HH diet with NPO at midnight pending surgery consult. - Pain control with Tylenol, Dilaudid prn. Morphine has been unhelpful in ED. - EKG with known LBBB, LAD, unchanged; new PACs compared to last admission. - CXR w/o acute findings. - RCRI: 0 points, 3.9% risk. - Patient has a reasonable exercise tolerance, can complete seam taper machine, ambulate up and down stairs, shop at [employer] without CP or SOB. - Not on blood thinners. - Heparin for DVT ppx pre-op. (2) JUAN (acute kidney injury): Plan: - Cr mildly elevated at 1.2, baseline 0.9 one year ago. - Ordered IVF, repeat BMP in AM. - Hold nephrotoxins, renally dose meds as able. (3) Chronic obstructive pulmonary disease: Plan: - Chronic, stable. - Continue home Trelegy inhale or hospital formulay equivalent. (4) Hypertension: Plan: - Continue amlodipine and irbesartan. (5) Hyperlipidemia: Plan: - Continue simvastatin. (6) Hypothyroidism: Plan: - Continue Synthroid 25 mcg daily. (7) GERD (gastroesophageal reflux disease): Plan: - Continue Protonix. (8) Spinal stenosis: Plan: - Pain management at home includes tramadol 50 mg daily, meloxicam 15 mg daily, Tylenol as needed. Reports this barely manages her pain. - Also having uncontrolled hip pain, will have Tylenol for mild pain, Dilaudid f or moderate to severe pain, lidocaine patches also added on. (9) Multiple pulmonary nodules determined by computed tomography of lung: Plan: - 1.1 cm, being followed by pulmonary, no growth 2018 - 2019. Plan - Admit to med/sug. - SCDs, heparin for VTE ppx. - Full Code. History of Present Illness Chief Complaint: left hip pain after ground level fall this afternoon Primary Care Provider: Brandyn Pelayo DO Nevaeh Almaraz is an 81-year-old female with past medical history significant for COPD, vertigo, dyslipidemia, hypertension, hypothyroidism, chronic low back pain, and GERD who is presenting today with hip pain. About an hour before patient arrived in the ED, she fell at her home landing on her left hip. She w as reaching over to grab the remote off her coffee table when she fell. She is not sure if she was dizzy prior to falling but states she very well could've been as she struggles with vertigo. She denies chest pain, shortness of breath, palpitations, lightheadedness, or nausea preceding the fall. Her pain is a 10 out of 10 and is limiting her ability to move and get up off the floor. She also hit her head during the fall, but denies loss of consciousness or head/neck pain. She is not on any blood thinners. She does not have pain anywhere else besides her left hip. She was down for approx 20 minutes before EMS arrived. Left hip XR reveals a comminuted intratrochanteric fracture of the left femur. Head CT unremarkable. Labs w/ slight elevation in Cr @ 1.23, baseline from over one year ago 0.9. Otherwise unremarkable. Allergies Allergy/AdvReac Type Severity Reaction Status Date / Time adhesive Allergy Mild LOCAL SKIN Verified 06/17/22 14:59 IRRITATION Home Medications Medication Instructions Recorded Confirmed Type meclizine 12.5 mg tablet 12.5 mg PO TID PRN Dizziness 12/21/18 06/17/22 History multivitamin 1 tab PO QAM 12/21/18 06/17/22 History pantoprazole 40 mg tablet,delayed 40 mg PO QAM 12/21/18 06/17/22 History release vitamins A,C,Q-aeue-embnbx 2,148 1 tab PO BID 12/21/18 06/17/22 History mcg-113 mg-45 mg-17.4 mg tablet (PreserVision AREDS) levothyroxine 25 mcg tablet 25 mcg PO QAM 07/25/19 06/17/22 History (Synthroid) meloxicam 15 mg tablet 15 mg PO QAM 07/25/19 06/17/22 History simvastatin 20 mg tablet 20 mg PO QPM 07/25/19 06/17/22 History calcium carbonate 600 mg-vitamin 1 tab PO QAM 12/23/20 06/17/22 History D3 20 mcg (800 unit) chewable tablet (Caltrate 600 plus D) acetaminophen 325 mg capsule 325 mg PO QID PRN Sleep 02/13/22 06/17/22 History (Tylenol) irbesartan 150 mg tablet 150 mg PO DAILY 02/13/22 06/17/22 History tramadol 50 mg tablet 50 mg PO DAILY 02/13/22 06/17/22 History trazodone 100 mg tablet 100 mg PO HS 02/13/22 06/17/22 History amlodipine 2.5 mg tablet 2.5 mg PO DAILY 02/20/22 06/17/22 History fluticasone fur. 100 mcg-umeclid 1 inh inhalation DAILY #3 Inhalers 06/10/22 06/17/22 Rx 62.5 mcg-vilant 25 mcg inhalat.powder (Trelegy Ellipta) Past Med/Surg History Medical History Asthma Chronic back pain Chronic obstructive pulmonary disease Dyslipidemia GERD (gastroesophageal reflux disease) Hyperlipidemia Hypertension Hypothyroidism Multiple pulmonary nodules determined by computed tomography of lung Osteoarthritis Pulmonary nodule Spinal stenosis Surgical History H/O rotator cuff surgery H/O Spinal surgery History of appendectomy History of bilateral cataract extraction History of bladder surgery bladder tack History of bunionectomy of left great toe History of bunionectomy of right great toe History of carpal tunnel surgery of left wrist History of colonoscopy History of dilatation and curettage History of esophagogastroduodenoscopy (EGD) History of hysterectomy History of lumbar spinal fusion x4 History of open reduction and internal fixation (ORIF) procedure left wrist, hardware removed History of repair of right rotator cuff History of tooth extraction all teeth History of total right knee replacement (TKR) Hx of cataract surgery Hx of cervical spine surgery normal ROM Family History Sister Family history of diabetes mellitus 2 Other No family history of adverse response to anesthesia Social History Smoking Status: Never smoker Second Hand Exposure: Yes; Hx Alcohol Use: No Hx Substance Use: No Preferred Language: Ethiopian Communication Ability: Effective Visual Impairment: Partially Limited Hearing Ability: Normal Catcher Filter Tip Required: No Beliefs That Will Affect Care: None marital status: Current Living Situation: Spouse and Family Current Living Situation Comment: Lives with and grandson Feels Safe at Home: Yes caffeine: Yes during the past year weight has: remained stable Assistive Devices: Denture - Upper, Denture - Lower, Glasses and Nebulizer Review of Systems Review of Systems: Constitutional: No fever/chills, weakness, fatigue, myalgias, anorexia, night sweats Eyes: No diplopia, no worsening or blurred vision ENT: normal hearing, no trouble swallowing Respiratory: No cough, sputum, dyspnea at rest or on exertion Cardiovascular: No chest pain, tightness or palpitations Abdomen: No pain, nausea, vomiting, diarrhea or constipation : Denies dysuria, hematuria, increased urgency/frequency, urinary retention Musculoskeletal: left hip pain 06/15; no calf pain, swelling Neurologic: No weakness, numbness/tingling, or balance problems Psychiatric: No anxiety or depression Skin: No rash or itch Physical Exam Physical Exam: General: awake, alert, no apparent distress Head: Normocephalic, atraumatic ENT: PERRL, EOMI, no pharyngeal exudate, mucous membranes moist Chest: Clear to auscultation, on room air, no adventitious breath sounds Cardiac: Regular rate and rhythm, no murmur, no JVD, normal peripheral pulses, good capillary refill Abdominal: NABS x 4 quadrants, soft, nontender to palpation, no rebound, guarding or tenderness Extremities: left hip pain with palpation, shortened and externally rotated, ROM severely limited 2/2 pain; pulses intact and equal in lower extremites; right leg with full strength, no tenderness or deformities noted otherwise Psych: Normal mood and affect Neuro: AAO x 3, strength intact bilaterally and rated 5/5, no motor deficits, speech is clear, no peripheral sensory deficits Skin: no rash or erythema Results & Data Results & Data ([facility]) Vital Signs (Past 12 Hours) Vital Signs Temp Pulse Resp BP Pulse Ox O2 Del Method 06/17/22 13:19 37.0 C 83 20 205/79 H 97 Room Air Laboratory Results Abnormal lab results 06/17/22 06/17/22 06/17/22 Range/Units 13:30 13:30 14:46 Lymph # (Auto) 1.07 L (1.2-3.4) K/uL Immature Gran # (Auto) 0.03 H (0.00-0.02) K/uL BUN 38 H (6-23) mg/dl Creatinine 1.23 H (0.6-1.2) mg/dl BUN/Creatinine Ratio 30.9 H (10-20) Glucose 149 H (70-99(Fasting)) mg/dl Ur Leukocyte Esterase Trace H (Negative) U Epithel Cells (Auto) 10-20 H (0-5) /lpf Diagnostic Findings Hip/Pelvis X-Ray 06/17/22 13:26 XR hip LT 2V w pelvis CLINICAL HISTORY: l hip pain TECHNIQUE: 2 views of the left hip and single frontal view of the pelvis were obtained. Comparison: None available at the time of this dictation. FINDINGS: There is a comminuted intratrochanteric fracture of the left femur. Degenerative changes are seen in the hip joint. Posterior fixation hardware is seen in the spine. Soft tissue swelling is seen. IMPRESSION: Comminuted intratrochanteric fracture of the left femur. ACT 112: Negative or not required by law. Electronically signed by: Sohail Calhoun M.D. 06/17/2022 2:[address] 06/17/22 13:28 CT head/brain wo con CLINICAL HISTORY: 81 years-old Female with jacobo. Acute headache TECHNIQUE: Multiple axial CT images of the head were obtained without contrast. A dose lowering technique was utilized adhering to the principles of ALARA. CT DOSE: 638.56 mGycm COMPARISON: Head CT 12/23/2020 FINDINGS: No acute intracranial hemorrhage, midline shift, intracranial mass, territorial ischemia or abnormal extra-axial collection. Age-related involutional changes with likely ex vacuo ventriculomegaly. White matter hypodensities suggest chronic microvascular ischemic disease. The calvarium is intact. Prior bilateral lens repair. The paranasal sinuses, mastoid air cells, and middle ear cavities are clear. IMPRESSION: No acute intracranial abnormality. ACT 112: Negative or not required by law. The above report was generated using voice recognition software. It may contain grammatical, syntax or spelling errors. Electronically signed by: Derrick Rain M.D. 06/17/2022 2:35 PM ECG Additional Comments: Sinus rhythm with Premature atrial complexes Left axis deviation Left bundle branch block Abnormal ECG When compared with ECG of 23-DEC-2020 17:58, Premature atrial complexes are now Present QT has lengthened Supervising Physician Co-Signing Physician Notes Patient seen and examined, chart reviewed, case discussed with Scarlett Rojas PA-C and I agree with the assessment and plan as above except as otherwise noted Labs and images reviewed 81-year-old female with a past medical history of hypertension, pulmonary nodules, COPD, hyperlipidemia, hypertension, hypothyroid, GERD who presents with a comminuted intertrochanteric fracture of the left femur after a fall, CThead is normal.Left hip TTP, shortened, externally rotated, neurovascularly intact. Acute left intertrochanteric hip fracture: Ortho consulted for operative management. 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 Pain control as above. N.p.o. pending evaluation. Continue Harper. Hypertension: Continue amlodipine. Hold irbesartan in anticipation of operative intervention, resume 24 hours postop if creatinine normal. Hyperlipidemia: Continue simvastatin GERD: Continue PPI Hypothyroidism: TSH/T4 pending, continue Synthroid COPD: No acute wheezing, appears at baseline. Continue home inhaler/formulary equivalent PG Care Time/CCT Total # of Minutes Spent Total Time Spent with Patient: Total time spent is greater than 50% in coordination of care (as documented) at patient's floor/unit and/or counseling patient: Coding Level of Care Code 75921 Initial Inpt Care Lvl 3 Diagnoses Intertrochanteric fracture of left femur S72.142A JUAN (acute kidney injury) N17.9 Chronic obstructive pulmonary disease J44.9 Hypertension I10 Hyperlipidemia E78.5 Hypothyroidism E03.9 GERD (gastroesophageal reflux disease) K21.9 Spinal stenosis M48.00 Multiple pulmonary nodules determined by computed tomography of lung R91.8
[2022-06-17 15:02] LABS: Appearance Urine Clear (Clear); Bacteria Urine Automated Negative (Negative); Bilirubin Urine Negative (Negative); Blood Urine Negative (Negative); Cast Urine Automated 0 /lpf (0-5); Color Urine Yellow; Glucose Urine UA Negative (Negative); Ketones Urine Negative (Negative); Leukocyte Esterase Urine Trace (Negative); Nitrite Urine Negative (Negative); Protein Urine Negative (Negative); RBC Urine Automated 0-4 /hpf (0-4); Specific Gravity Urine 1.014 (1.000-1.030); Urobilinogen Urine Negative (Negative); pH Urine 6.5 (4.5-7.5)
[2022-06-17] MEDS ORDERED: ACETAMINOPHEN 1,000 MG/100 ML VIAL IV STA (15:26)
--- NOTE | 2022-06-17 15:46 | XRay Report ---
XR chest 1V portable HISTORY: 81 years-old Female pre-op preoperative exam. No acute chest complaints COMPARISON: Chest radiograph 04/06/2022 TECHNIQUE: Portable AP view of the chest FINDINGS: The cardiac silhouette is mildly enlarged. Atherosclerosis of the aorta. No pneumothorax, pleural eff usion, airspace consolidation or overt pulmonary edema. Degenerative changes of the shoulders and spi ne. Levoscoliosis of the thoracolumbar junction with partially imaged thoracolumbar spinal fusion kaatlina dware. Surgical anchors within the right humeral head. IMPRESSION: No acute process. ACT 112: Negative or not required by law. The above report was generated using voice recognition software. It may contain grammatical, syntax o r spelling errors. Electronically signed by: Derrick Rain M.D. 06/17/2022 3:45 PM
[2022-06-17] MEDS ORDERED: HYDROmorphone INJ 0.5 MG/0.5 ML SYR IV STA (16:27)
[2022-06-17] MEDS ORDERED: LIDOCAINE 5% 1 PATCH TD ONE (16:37)
[2022-06-17] MEDS ORDERED: hydrOXYzine HCl 25 MG TAB PO STA (17:30)
[2022-06-17] MEDS ORDERED: bisacodyL 10 MG SUPP PR PRN (18:51)
[2022-06-17] MEDS ORDERED: POLYETHYLENE (MIRALAX) 17 GM PACK PO PRN (18:51)
[2022-06-17] MEDS ORDERED: NALOXONE HCL 0.4 MG/1 ML VIAL/CARP IV PRN (18:51)
[2022-06-17] MEDS ORDERED: MECLIZINE 12.5 MG TAB PO PRN (18:51)
[2022-06-17] MEDS ORDERED: MAGNESIUM HYDROXIDE SUSP 30 ML UDC PO PRN (18:51)
[2022-06-17] MEDS ORDERED: LACTATED RINGER'S 1,000 ML IV SCH (18:51)
[2022-06-17] MEDS ORDERED: ONDANSETRON INJ 2 MG/ML 2 ML VIAL IV PRN (18:51)
[2022-06-17] MEDS ORDERED: HYDROmorphone INJ 0.5 MG/0.5 ML SYR IV PRN ×2 (18:51)
[2022-06-17] MEDS: LIDOCAINE 5% 1 PATCH TD SCH (19:29)
[2022-06-17] MEDS ORDERED: NON-FORMULARY MEDICATION (Vitamins A,C,E-Zinc-Copper [Preservision Areds] 7,160-113-100 un PO SCH (21:00)
[2022-06-17] MEDS: GABAPENTIN 300 MG CAP PO SCH (21:33)
[2022-06-17] MEDS: traZODone HCL 100 MG TAB PO SCH (21:34)
[2022-06-17] MEDS: SIMVASTATIN 20 MG TAB PO SCH (21:34)
[2022-06-17] MEDS: DOCUSATE SODIUM/SENNA 50/8.6MG TAB PO SCH (21:34)
--- NOTE | 2022-06-18 07:31 | Hospitalist Progress Note ---
Date of Service June 18, 2022 Assessment & Plan (1) Intertrochanteric fracture of left femur: Plan: - Hip XR: Comminuted intratrochanteric fracture of the left femur. - Per patient request, Kim Buckner consulted for surgical management. Appreciate their recommendations and assistance. Scheduled for L long trochanteric nail placement with Dr. Forte. - Perioperative considerations given: - EKG with known LBBB, LAD, unchanged; new PACs compared to last admission. - CXR w/o acute findings. - RCRI: 0 points, 3.9% risk. - Patient has a reasonable exercise tolerance, can complete bottom stainer, ambulate up and down stairs, shop at [employer] without CP or SOB. - Not on blood thinners. - Heparin for DVT ppx pre-op. - NPO - Hold irbesartan - Pain control with Tylenol, Dilaudid prn. Morphine was unhelpful in ED. (2) JUAN (acute kidney injury): Plan: - Cr mildly elevated at 1.2 and BUN 38, baseline 0.9 one year ago. - Continue mIVF - Hold nephrotoxins, renally dose meds as able - Hold irbesartan - Monitor (3) Chronic obstructive pulmonary disease: Plan: - Chronic, stable. - Continue home Trelegy inhale or hospital formulay equivalent. (4) Hypertension: Plan: - Continue amlodipine - Hold irbesartan (5) Hyperlipidemia: Plan: - Continue simvastatin. (6) Hypothyroidism: Plan: - Continue Synthroid 25 mcg daily. (7) GERD (gastroesophageal reflux disease): Plan: - Continue Protonix. (8) Spinal stenosis: Plan: - Pain management at home includes tramadol 50 mg daily, meloxicam 15 mg daily, Tylenol as needed. Reports this barely manages her pain. - Also having uncontrolled hip pain, will have Tylenol for mild pain, Dilaudid for moderate to severe pain, lidocaine patches also added on. - Will require further pain regimen adjustment once acute issues are settled (9) Multiple pulmonary nodules determined by computed tomography of lung: Plan: - 1.1 cm, being followed by pulmonary, no growth 2018 - 2019. Plan Dispo: MS PPX: SCDs, heparin pre-op Diet: NPO Code: Full Admission and Anticipated Discharge Date Admission Date: June 17, 2022 Supervising Physician Co-Signing Physician Notes I personally examined the patient and verified all betancourt points of history and exam, discussed case, and agree with decision making with Dr Cruz. 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 Appears comfortable. Vitals noted, in general she is in no distress at rest. Breathing unlabored no accessory muscle use good effort. Skin shows no rashes no pallor or icterus. Hip fracture4 OR later today. Pain appears controlled. Outpatient bone health work-up. Acute blood loss anemiahemodynamically stable, I do suspect her JUAN is at least in part caused by this, however. Follow hemoglobin, follow hemodynamics. AKIlikely volume/blood loss related. Give fluids, follow. Hold Mobic and losartan. Follow basic metabolic panel in the morning. Otherwise as above Subjective NAEO. Feeling better this AM but stiff. Pain adequately controlled. No CP, palpitations, SOB. No lightheadedness/dizziness at this time. Reviewed HPI - no significant additions. Review of Systems Review of Systems: as per HPI Physical Exam Physical Exam: General: 81-year old female who is alert, oriented, and appears in no acute distress. HEENT: NCAT. - Eyes - Sclera are white, anicteric, and without injection. - Mouth - MMM - Neck - supple, no appreciable JVD Cardiac: Normal rate and regular rhythm; S1 and S2 present with grade 1/6 LISA at the RUSB Pulmonary: Good respiratory effort with symmetric expansion of the chest. No use of accessory muscles. Lungs were clear to auscultation bilaterally with no crackles or wheezes. Abdominal: Normoactive bowel sounds. Abdomen was soft, nondistended, and non- tender to palpation. Extremities: No bruising over lateral L hip. Mild TTP. Upper and lower extremities are warm and well perfused. No peripheral edema in the lower extremities bilaterally. Distal LLE strength 5/5, DP pulse 2+, capillary refill < 2 seconds. Psych: Well-developed, well-nourished, appropriately dressed for occasion. Behavior is cooperative and appropriate. Affect is WNL. Insight is appropriate. Results & Data Results & Data ([facility]) Vital Signs (Past 12 Hours) Vital Signs Temp Pulse Pulse Resp BP BP Pulse Ox 06/18/22 06:00 06/18/22 02:00 06/17/22 20:45 37 C 82 18 160/70 H 97 06/18/22 00:45 36.9 C 68 16 166/63 H 94 06/17/22 22:51 06/17/22 19:36 70 06/17/22 20:30 37.0 C 82 18 160/70 H 97 Pulse Ox O2 Del Method O2 Del Method 06/18/22 06:00 97 Room Air 06/18/22 02:00 96 Room Air 06/17/22 20:45 Room Air 06/18/22 00:45 Room Air 06/17/22 22:51 96 Room Air 06/17/22 19:36 06/17/22 20:30 Room Air Resident Activity Tracking Resident Involvement: Resident Care Provided Care Provided: Adult Hospital Medicine
[2022-06-18 07:41] LABS: Hematocrit (blood only) 32.3 % (34.1-44.9); Hemoglobin 10.7 g/dl (12.0-16.0); Mean Corpuscular Hemoglobin 33.5 pg (25.0-34.0); Mean Corpuscular Hgb Conc 33.1 g/dL (32.0-36.0); Mean Corpuscular Volume 101.3 fL (80.0-100.0); Mean Platelet Volume 10.9 fL (9.4-12.3); Platelet Count 132 K/uL (130-400); RDW Coefficient of Variation 12.7 % (11.5-14.5); RDW Standard Deviation 47.4 fL (36.4-46.3); Red Blood Count 3.19 M/uL (3.93-5.22); White Blood Count 8.99 K/ul (4.8-10.8)
[2022-06-18] MEDS ORDERED: LACTATED RINGER'S 1,000 ML IV SCH (07:45)
[2022-06-18 07:55] LABS: BUN Creatinine Ratio 25.2 (10-20); Creatinine Clr Calc Pharmacy 22.7 ml/min; Est GFR (African American) 39.2 ml/min; Est GFR (Non-African American) 33.8 ml/min; Potassium 4.8 mmol/L (3.5-5.1)
[2022-06-18] MEDS: LIDOCAINE 5% 1 PATCH TD SCH (08:04)
[2022-06-18] MEDS: UMECLIDINIUM/VILANTEROL 62.5/25MCG 7 PUFFS/INHALER INH SCH (08:05)
[2022-06-18] MEDS: FLUTICASONE FUROATE 100MCG 14 PUFFS/INHALER INH SCH (08:05)
[2022-06-18 08:22] LABS: Basophils # (auto) 0.06 K/uL (0-0.2); Basophils % (auto) 0.7 %; Eosinophils # (auto) 0.21 K/uL (0-0.50); Eosinophils % (auto) 2.3 %; Immature Granulocytes # (auto) 0.04 K/uL (0.00-0.02); Immature Granulocytes % (auto) 0.4 %; Lymphocytes # (auto) 1.21 K/uL (1.2-3.4); Lymphocytes % (auto) 13.5 %; Monocytes # (auto) 1.09 K/uL (0.24-0.82); Monocytes % (auto) 12.1 %; Neutrophils # (auto) 6.38 K/uL (1.4-6.5)
[2022-06-18] MEDS ORDERED: traMADol HCL 50 MG TABLET PO SCH (09:00)
[2022-06-18] MEDS ORDERED: MELOXICAM 7.5 MG TAB PO SCH (09:00)
[2022-06-18] MEDS ORDERED: IRBESARTAN 150 MG TAB PO SCH (09:00)
[2022-06-18] MEDS: MULTIVITAMIN TAB PO SCH (09:26)
[2022-06-18] MEDS: LEVOTHYROXINE SODIUM 25 MCG TABLET PO SCH (09:26)
[2022-06-18] MEDS: GABAPENTIN 300 MG CAP PO SCH ×2 (09:26→20:14)
[2022-06-18] MEDS: amLODIPine BESYLATE 5 MG TAB PO SCH (09:26)
[2022-06-18] MEDS: CALCIUM 600MG + VIT D 400 IU TAB PO SCH (09:26)
[2022-06-18] MEDS: PANTOprazole 40 MG TAB PO SCH (09:27)
--- NOTE | 2022-06-18 11:26 | Orthopedic Consultation ---
Date of Service June 18, 2022 Assessment & Plan (1) Closed intertrochanteric fracture of left femur: Patient was seen and evaluated at the bedside. Her was present. I discussed the diagnosis, prognosis and recommended treatment. She has an unstable and comminuted intertrochanteric fracture. I recommend surgical stabilization with a long trochanteric fixation nail. We discussed the risks of surgery includes but is not limited to, infection, blood loss, neurovascular injury, need for repeat or revision surgery, nonunion, malunion, symptomatic hardware, pain syndromes, blood clots, and complications related to anesthesia including . We discussed the expected outcomes and need for rehabilitation following fracture fixation. I expect her to be weightbearing as tolerated pending the outcome of the surgery. DVT prophylaxis should last for at least 6 weeks. Routine perioperative antibiotic prophylaxis. After discussion of the risks and benefits of surgical intervention, patient and her are agreeable to proceed. She has macular degeneration and had difficulty with signing her name by the consent. It was countersigned by her who was present for the entire discussion. It was witnessed by the nurse as well. On-call to the OR. N.p.o. until the surgery today. Continue bedrest for now. History of Present Illness Reason for Consultation: Left hip fracture Requesting Physician: . Attending Physician: Song Parikh DO 81-year-old female with past medical history significant for COPD, vertigo, dyslipidemia, hypertension, hypothyroidism, and lumbar spinal fusion admitted for hip pain after a fall at home. She was brought to the ER by EMS. She was reaching over to grab the remote off her coffee table when she fell. She was unable to get off the floor until EMS arrived and helped her. She also hit her head during the fall, but denies loss of consciousness or head/neck pain. She is not on any blood thinners. She also reports some left shoulder pain now that she has been admitted. Denied previous history of shoulder treatment there. Remains with motion but it is painful. Denies any other sites of pain. Allergies Allergy/AdvReac Type Severity Reaction Status Date / Time adhesive Allergy Mild LOCAL SKIN Verified 06/17/22 14:59 IRRITATION Home Medications Medication Instructions Recorded Confirmed Type meclizine 12.5 mg tablet 12.5 mg PO TID PRN Dizziness 12/21/18 06/17/22 History multivitamin 1 tab PO QAM 12/21/18 06/17/22 History pantoprazole 40 mg tablet,delayed 40 mg PO QAM 12/21/18 06/17/22 History release vitamins A,C,V-rdwr-tmexqu 2,148 1 tab PO BID 12/21/18 06/17/22 History mcg-113 mg-45 mg-17.4 mg tablet (PreserVision AREDS) levothyroxine 25 mcg tablet 25 mcg PO QAM 07/25/19 06/17/22 History (Synthroid) meloxicam 15 mg tablet 15 mg PO QAM 07/25/19 06/17/22 History simvastatin 20 mg tablet 20 mg PO QPM 07/25/19 06/17/22 History calcium carbonate 600 mg-vitamin 1 tab PO QAM 12/23/20 06/17/22 History D3 20 mcg (800 unit) chewable tablet (Caltrate 600 plus D) acetaminophen 325 mg capsule 325 mg PO QID PRN Sleep 02/13/22 06/17/22 History (Tylenol) irbesartan 150 mg tablet 150 mg PO DAILY 02/13/22 06/17/22 History tramadol 50 mg tablet 50 mg PO DAILY 02/13/22 06/17/22 History trazodone 100 mg tablet 100 mg PO HS 02/13/22 06/17/22 History amlodipine 2.5 mg tablet 2.5 mg PO DAILY 02/20/22 06/17/22 History fluticasone fur. 100 mcg-umeclid 1 inh inhalation DAILY #3 Inhalers 06/10/22 06/17/22 Rx 62.5 mcg-vilant 25 mcg inhalat.powder (Trelegy Ellipta) Past Med/Surg History Medical History Asthma Chronic back pain Chronic obstructive pulmonary disease Dyslipidemia GERD (gastroesophageal reflux disease) Hyperlipidemia Hypertension Hypothyroidism Multiple pulmonary nodules determined by computed tomography of lung Osteoarthritis Pulmonary nodule Spinal stenosis Surgical History H/O rotator cuff surgery H/O Spinal surgery History of appendectomy History of bilateral cataract extraction History of bladder surgery bladder tack History of bunionectomy of left great toe History of bunionectomy of right great toe History of carpal tunnel surgery of left wrist History of colonoscopy History of dilatation and curettage History of esophagogastroduodenoscopy (EGD) History of hysterectomy History of lumbar spinal fusion x4 History of open reduction and internal fixation (ORIF) procedure left wrist, hardware removed History of repair of right rotator cuff History of tooth extraction all teeth History of total right knee replacement (TKR) Hx of cataract surgery Hx of cervical spine surgery normal ROM Family History Sister Family history of diabetes mellitus 2 Other No family history of adverse response to anesthesia Social History Smoking Status: Never smoker Second Hand Exposure: Yes; Hx Alcohol Use: No Hx Substance Use: No Preferred Language: Indonesian Communication Ability: Effective Visual Impairment: Partially Limited Hearing Ability: Normal Grain Shipper Required: No Beliefs That Will Affect Care: None marital status: Current Living Situation: Spouse Current Living Situation Comment: Lives with and grandson Feels Safe at Home: Yes Safety Concerns: Feels Safe At This Time caffeine: Yes during the past year weight has: remained stable Assistive Devices: Cane and Walker Review of Systems All systems reviewed & are unremarkable except as noted in HPI & below. Physical Exam Left upper extremity: Slight appearance of ecchymosis about her proximal humerus. She is able to forward elevate and externally rotate. She can touch the top of her head with some discomfort. She has mild tenderness over the greater trochanter and over onto the clavicle. Full active range of motion of the elbow, wrist, digits. She is neurovascular intact. LLE: She is focally tender about the greater trochanter. No soft tissue compromise. Mildly tender down the thigh. No para-articular knee tenderness. She would not activate her knee extensor. Positive DF/PF/EHL. DNVI RUE and RLE: Full active range of motion to all joints without palpable tenderness. Neurovascular intact. Constitutional WD/WN, vitals as above Respiratory normal respiratory effort; no respiratory distress Cardiovascular Extremities: normal capillary refill; no edema Chest (Breasts) Chest: normal inspection of chest Skin no rashes, warm and dry Psychiatric A+Ox3, euthymic affect Results & Data Results & Data Laboratory Results H & H 06/17/22 06/18/22 Range/Units 13:30 06:49 Hgb 13.7 10.7 L D (12.0-16.0) g/dl Hct 40.3 32.3 L (34.1-44.9) % Coagulation 06/17/22 Range/Units 13:30 INR 1.0 (0.9-1.1) Diagnostic Findings Radiographs and CT were reviewed. I agree with the radiologist that there is a comminuted peritrochanteric fracture with some extension into the lesser trochanter. The femoral head and neck are intact. Distal fragment slightly externally rotated as expected. Seems to have relatively well-preserved joint space. Remainder of her radiographs from the ER were negative for fracture. PG Care Time/CCT Total # of Minutes Spent Total Time Spent with Patient: Total time spent is greater than 50% in coordination of care (as documented) at patient's floor/unit and/or counseling patient: Coding Level of Care Code 48354 Inpt Consult Level 4 (57 - DECISION FOR SURGERY) Diagnoses Closed intertrochanteric fracture of left femur S72.142A
[2022-06-18] MEDS ORDERED: fentaNYL citrate 100 MCG/2 ML VIAL ONE (13:55)
[2022-06-18] MEDS ORDERED: PROPOFOL IV EMULSION 10 MG/ML 20 ML VIAL IV ONE (13:55)
[2022-06-18] MEDS ORDERED: MIDAZOLAM HCL 1 MG/ML 2ML VIAL ONE (13:55)
--- NOTE | 2022-06-18 13:56 | Anesthesiology Consultation ---
Date of Service June 18, 2022 Assessment & Plan Chart Review Chart Review: Acceptable Risk for Surgery Consults Requested none History Surgery Operation Date: 06/18/22 09:00 Proposed Procedures p Left Long Troch Nail - Aditya Forte MD Height/Weight Height: 4 ft 10 in Weight: 59.4 kg Allergies Allergy/AdvReac Type Severity Reaction Status Date / Time adhesive Allergy Mild LOCAL SKIN Verified 06/17/22 14:59 IRRITATION Medications Home Medications Medication Instructions Recorded Confirmed Last Taken meclizine 12.5 mg tablet 12.5 mg PO TID PRN Dizziness 12/21/18 06/17/22 02/06/19 08:00 multivitamin 1 tab PO QAM 12/21/18 06/17/22 06/17/22 pantoprazole 40 mg tablet,delayed 40 mg PO QAM 12/21/18 06/17/22 06/17/22 release vitamins A,C,G-zoen-hmvhyn 2,148 1 tab PO BID 12/21/18 06/17/22 06/17/22 mcg-113 mg-45 mg-17.4 mg tablet (PreserVision AREDS) levothyroxine 25 mcg tablet 25 mcg PO QAM 07/25/19 06/17/22 06/17/22 (Synthroid) meloxicam 15 mg tablet 15 mg PO QAM 07/25/19 06/17/22 06/17/22 simvastatin 20 mg tablet 20 mg PO QPM 07/25/19 06/17/22 06/16/22 calcium carbonate 600 mg-vitamin 1 tab PO QAM 12/23/20 06/17/22 06/17/22 D3 20 mcg (800 unit) chewable tablet (Caltrate 600 plus D) acetaminophen 325 mg capsule 325 mg PO QID PRN Sleep 02/13/22 06/17/22 Unknown (Tylenol) irbesartan 150 mg tablet 150 mg PO DAILY 02/13/22 06/17/22 06/17/22 tramadol 50 mg tablet 50 mg PO DAILY 02/13/22 06/17/22 Unknown trazodone 100 mg tablet 100 mg PO HS 02/13/22 06/17/22 06/16/22 amlodipine 2.5 mg tablet 2.5 mg PO DAILY 02/20/22 06/17/22 06/17/22 fluticasone fur. 100 mcg-umeclid 1 inh inhalation DAILY #3 Inhalers 06/10/22 06/17/22 06/17/22 62.5 mcg-vilant 25 mcg inhalat.powder (Trelegy Ellipta) Active Medications Generic Name Dose Route Start Last Admin Trade Name Tonnyq PRN Reason Stop Dose Admin Amlodipine Besylate 2.5 mg 06/18/22 09:00 06/18/22 09:26 Amlodipine Besylate 5 Mg Tab PO 07/18/22 08:59 Not Given DAILY JESUS Calcium/Vitamin D 1 tab 06/18/22 09:00 06/18/22 09:26 Calcium 600mg + Vit D 400 Iu Tab PO 07/18/22 08:59 Not Given QAM JESUS Fluticasone Furoate 1 puffs 06/18/22 09:00 06/18/22 08:05 Fluticasone Furoate 100mcg 14 Puffs/Inhaler INH 07/18/22 08:59 1 puffs DAILY JESUS Administration Gabapentin 300 mg 06/17/22 21:00 06/18/22 09:26 Gabapentin 300 Mg Cap PO 07/17/22 20:59 Not Given BID JESUS Hydromorphone HCl 0.5 mg 06/17/22 18:51 06/17/22 20:45 Hydromorphone Inj 0.5 Mg/0.5 Ml Syr IV 07/01/22 18:50 0.5 mg Q3H PRN Administration Severe Pain Lactated Ringer's 1,000 mls @ 80 mls/hr 06/18/22 07:45 06/18/22 07:53 Lr IV 06/18/22 20:14 80 mls/hr .[id number] JESSU Administration Levothyroxine Sodium 25 mcg 06/18/22 06:30 06/18/22 09:26 Levothyroxine Sodium 25 Mcg Tablet PO 07/18/22 06:29 Not Given DAILYBB JESUS Lidocaine 1 patch 06/17/22 16:30 06/18/22 08:04 Lidocaine 5% 1 Patch TD 07/17/22 16:29 1 patch QAM JESUS Administration Miscellaneous 1 each 06/17/22 21:00 06/17/22 20:40 Remove Lidoderm Patch N/A 07/17/22 20:59 Not Given DAILY@2100 JESUS Multivitamins 1 tab 06/18/22 09:00 06/18/22 09:26 Multivitamin Tab PO 07/18/22 08:59 Not Given QAM JESUS Pantoprazole Sodium 40 mg 06/18/22 09:00 06/18/22 09:27 Pantoprazole 40 Mg Tab PO 07/18/22 08:59 Not Given QAM JESUS Senna/Docusate Sodium 2 tab 06/17/22 21:00 06/17/22 21:34 Docusate Sodium/Senna 50/8.6mg Tab PO 07/17/22 20:59 2 tab HS JESUS Administration Simvastatin 20 mg 06/17/22 21:00 06/17/22 21:34 Simvastatin 20 Mg Tab PO 07/17/22 20:59 20 mg QPM JESUS Administration Tramadol HCl 50 mg 06/18/22 09:00 06/18/22 09:27 Tramadol Hcl 50 Mg Tablet PO 07/18/22 08:59 Not Given DAILY JESUS Trazodone HCl 100 mg 06/17/22 21:00 06/17/22 21:34 Trazodone Hcl 100 Mg Tab PO 07/17/22 20:59 100 mg HS JESUS Administration Umeclidinium/Vilanterol 1 puffs 06/18/22 09:00 06/18/22 08:05 Umeclidinium/Vilanterol 62.5/25mcg 7 Puffs/Inhaler INH 07/18/22 08:59 1 puffs DAILY JESUS Administration NPO Date Last Intake of Fluids: 06/17/22 Time Last Intake of Fluids: 18:00 Date Last Intake of Solids: 06/17/22 Time Last Intake of Solids: 18:00 Past Medical History Medical History Asthma Chronic back pain Chronic obstructive pulmonary disease Dyslipidemia GERD (gastroesophageal reflux disease) Hyperlipidemia Hypertension Hypothyroidism Multiple pulmonary nodules determined by computed tomography of lung Osteoarthritis Pulmonary nodule Spinal stenosis Past Family History Family History Sister Family history of diabetes mellitus 2 Other No family history of adverse response to anesthesia Past Surgical History Surgical History H/O rotator cuff surgery H/O Spinal surgery History of appendectomy History of bilateral cataract extraction History of bladder surgery bladder tack History of bunionectomy of left great toe History of bunionectomy of right great toe History of carpal tunnel surgery of left wrist History of colonoscopy History of dilatation and curettage History of esophagogastroduodenoscopy (EGD) History of hysterectomy History of lumbar spinal fusion x4 History of open reduction and internal fixation (ORIF) procedure left wrist, hardware removed History of repair of right rotator cuff History of tooth extraction all teeth History of total right knee replacement (TKR) Hx of cataract surgery Hx of cervical spine surgery normal ROM Social History Smoking Status: Never smoker Hx Alcohol Use: No Hx Substance Use: No substance use type: does not use Physical Exam Vital Signs Last Vital Signs Temp 36.9 C 06/18/22 12:57 Pulse 72 06/18/22 12:57 Resp 18 06/18/22 12:57 BP 130/49 L 06/18/22 12:57 Pulse Ox 96 06/18/22 12:57 O2 Del Method 06/18/22 12:57 Testing Laboratory Results 06/18/22 06:49 06/18/22 06:49 PT 10.9 Seconds (9.0-12.0) 06/17/22 13:30 INR 1.0 (0.9-1.1) 06/17/22 13:30 APTT 22.0 Seconds (21.0-31.0) 06/17/22 13:30 Urine Color Yellow 06/17/22 14:46 Urine Appearance Clear (Clear) 06/17/22 14:46 Urine pH 6.5 (4.5-7.5) 06/17/22 14:46 Ur Specific [place] 1.014 (1.000-1.030) 06/17/22 14:46 Urine Protein Negative (Negative) 06/17/22 14:46 Urine Glucose (UA) Negative (Negative) 06/17/22 14:46 Urine Ketones Negative (Negative) 06/17/22 14:46 Urine Nitrite Negative (Negative) 06/17/22 14:46 Ur Leukocyte Esterase Trace (Negative) H 06/17/22 14:46 Urine WBC (Auto) 1-5 /hpf (0-5) 06/17/22 14:46 Urine RBC (Auto) 0-4 /hpf (0-4) 06/17/22 14:46 U Hyaline Cast (Auto) 0 /lpf (0-5) 06/17/22 14:46 U Epithel Cells (Auto) 10-20 /lpf (0-5) H 06/17/22 14:46 Urine Bacteria (Auto) Negative (Negative) 06/17/22 14:46 Blood Type A Negative 06/17/22 19:53 Antibody Screen NEGATIVE 06/17/22 19:53
[2022-06-18] MEDS ORDERED: BUPIVACAINE 0.5 % 5 MG/1 ML MPF 30ML VIAL ONE (14:00)
[2022-06-18] MEDS ORDERED: EPINEPHrine INJ 1 MG/ML AMP ONE (14:00)
[2022-06-18] MEDS ORDERED: BUPIVACAINE 0.5 % 5 MG/1 ML PF 10ML VIAL ONE (14:04)
[2022-06-18] MEDS ORDERED: ATROPINE SULFATE 0.1 MG/ML 10ML SYR IV PRN (14:08)
[2022-06-18] MEDS ORDERED: KETAMINE 50 MG/5 ML SYRINGE ONE (14:08)
[2022-06-18] MEDS ORDERED: ePHEDrine sulfate 50 MG/ML AMP IV PRN (14:08)
[2022-06-18] MEDS ORDERED: ONDANSETRON INJ 2 MG/ML 2 ML VIAL IV PRN (14:08)
[2022-06-18] MEDS ORDERED: fentaNYL citrate 100 MCG/2 ML VIAL IV PRN (14:08)
[2022-06-18] MEDS ORDERED: PROMETHAZINE HCL 12.5 MG in SODIUM CHLORIDE 0.9% 50 ML IV PRN (14:08)
[2022-06-18] MEDS ORDERED: HYDROmorphone INJ 2 MG/ML SYR/VIAL IV PRN (14:08)
[2022-06-18] MEDS ORDERED: ceFAZolin 2000MG 2,000 MG/15 ML SYR IV ONE (14:11)
[2022-06-18] MEDS ORDERED: ceFAZolin 2,000 MG/15 ML IV PUSH IV ONE (14:13)
[2022-06-18] MEDS ORDERED: TRANEXAMIC ACID 100 MG/ML 10 ML VIAL IV ONE (16:00)
[2022-06-18] MEDS ORDERED: TRANEXAMIC ACID / 0.7% NACL 1,000 MG/100 ML BAG IV SCH (16:15)
--- NOTE | 2022-06-18 16:25 | Anesthesiology Progress Note ---
Date of Service June 18, 2022 Anesthesia Post Procedure Vital Signs Vital Signs: Temp Pulse Pulse Pulse Resp BP BP 06/18/22 16:15 60 17 130/60 06/18/22 16:09 37.3 C 73 18 149/58 H 06/18/22 12:57 36.9 C 72 72 18 130/49 L 06/18/22 07:40 37.2 C 71 16 151/66 H 06/18/22 06:00 06/18/22 02:00 06/17/22 20:45 37 C 82 18 160/70 H 06/18/22 00:45 36.9 C 68 16 166/63 H 06/17/22 22:51 06/17/22 19:36 70 06/17/22 20:30 37.0 C 82 18 160/70 H 06/17/22 19:07 06/17/22 18:00 87 20 140/68 Pulse Ox Pulse Ox O2 Del Method O2 Del Method O2 Flow Rate 06/18/22 16:15 100 Oxymask 5 06/18/22 16:09 99 Oxymask 5 06/18/22 12:57 96 Room Air 06/18/22 07:40 92 Room Air 06/18/22 06:00 97 Room Air 06/18/22 02:00 96 Room Air 06/17/22 20:45 97 Room Air 06/18/22 00:45 94 Room Air 06/17/22 22:51 96 Room Air 06/17/22 19:36 06/17/22 20:30 97 Room Air 06/17/22 19:07 Room Air 06/17/22 18:00 93 Pain Intensity Left Hip: Pain Intensity: 10 Transfer of Care Handoff Completed per policy Notes Mental Status: alert / awake / arousable and participated in evaluation Nausea / Vomiting: adequately controlled Pain: adequately controlled Airway Patency, RR, SpO2: stable & adequate BP & HR: stable & adequate Hydration State: stable & adequate Neuraxial Anesthesia: was administered and sensory block is resolving Anesthetic Complications: no major complications apparent and Pt Satisfied with anesthetic care
--- NOTE | 2022-06-18 16:27 | Operative Report ---
PG Post Operative Report Pre & Post Diagnosis Operation Date: 06/18/22 09:00 Pre-Op Diagnosis: Closed intertrochanteric fracture of left femur Post-Op Diagnosis: Closed intertrochanteric fracture of left femur I identified the patient and participated in the time-out.: Yes Procedure Operation Date: 06/18/22 09:00 Actual Procedures p Left peritrochanteric femur fracture closed reduction and internal fixation with Long cephalomedullary trochanteric fixation Nail(Left) - Aditya Forte MD Surgeon Aditya Forte MD Law Office Manager Gray Gallo PA-C Estimated Blood Loss 50 Findings See Below Peritrochanteric femur fracture with subdural extension to the lesser trochanter. All [employer] implants: 10 mm/130 degree titanium cannulated trochanteric fixation nail of 360 mm length. 11.0 mm titanium helical blade of 100mm length. Distal interlock screw measuring 40 mm. Specimens none Anesthesia Type MAC Spinal Regional Complications none Disposition Accompanied Patient To Recovery: No Disposition: Surgical ICU Indications 81-year-old female sustained fall onto her left hip at home resulting in inability to bear weight. She was taken to the emergency room by EMS and found to have a peritrochanteric femur fracture. We were consulted for definitive management. I explained the diagnosis, prognosis, and recommended treatment of surgical stabilization of the patient and her at the bedside today. She was otherwise cleared from medical standpoint for surgery. Risks and benefits of cephalomedullary nail fixation were explained in detail to the patient and her . They are agreeable to proceed. Informed consent was obtained on the floor. Description of Procedure On the day of surgery should be was greeted in the preoperative holding area and the informed consent was reviewed and confirmed. The surgical site was then identified by the patient and signed by myself. The patient was taken to the operating placed by the OR table and anesthesia was induced. The patient is then positioned on the fracture table. All kelly prominences were well padded. The operative foot was placed in the fracture boot with abundant padding. The well leg was secured. We then positioned the lower extremities in a scissor fashion with a non-op leg flexed down to allow visualization with fluoroscopy which was confirmed before we prepped and draped. Surgical timeout was called and verified by all present. Antibiotics were infused, and equipment was available and functional. The procedure was initiated with a closed reduction maneuvers. Gentle in-line traction pulled the fracture out to length. The limb was then internally rotated to reduce the proximal femur. Flexion and adduction were used to adjust the reduction and allow access to the greater trochanter. We had adequate reduction prior to prepping and draping. The leg was then prepped and draped in usual sterile fashion. Surgical timeout was reconfirmed. We initiated the surgical internal fixation portion with finding the start point with the tip of the greater trochanter. Fluoroscopic guidance was used and a small poke hole was established. The start point was confirmed on fluoroscopy in AP and lateral planes and the pin was advanced using a mallet. An incision was made about the pin to allow access for the reamers. The pin was then advanced past the lesser trochanter, and its position was confirmed using AP and lateral fluoroscopy. Using the protective sleeve, the opening reamer was advanced under power with fluoroscopic guidance over the guidepin. It was advanced slowly and we did ream out some lateral bone of the trochanter. The reduction wire was then advanced down the distal femur to the level of the superior pole of the patella. Measurement was taken from the tip of the trochanter down to the end of the guidewire, and the 360 was selected. We then began sequential reaming. We started with 12.5 and used fluoroscopy to guide our reaming. 12.5 reamer ran into significant chatter, so I backed it down to 11.5, which remained with significant chatter. We selected a 10 mm nail that was loaded onto the jig and advanced manually down the canal, while ensuring maintenance of the reduction on fluoroscopy. We then tapped it down into place until we achieve the good position for our cephalo-medullary screw. The cannula was placed on the jig to allow positioning of the cephalo-medullary screw. The skin incision was made in the appropriate spot. The jig cannulas were then placed against the lateral cortex. The cephalo-medullary screw guidepin was advanced towards the femoral head. The center-center position was confirmed on fluoroscopy in AP and lateral planes. The length of the screw was measured off the guide. The helical blade screw was then opened on the back table and prepared on the screwdriver. The lateral cortical opening drill, followed by the triple drill reamer for the helical blade was advanced under fluoroscopic guidance. The helical blade was advanced over the guidepin to appropriate position. The helical blade was locked in rotation and then the traction was taken off. Fluoroscopy confirmed maintenance of reduction and adequate position of the implant. The compression sleeve was then advanced against the lateral femur to improve the trochanteric-shaft reduction and compress the intertrochanteric region fracture. Attention was then directed distally to perform the interlock screws in using perfect [place] technique. 1 interlock screw was placed with a 5 mm diameter. The length was measured using a depth gauge, with fluoroscopic guidance. This completed the fixation. This completed the fixation of the fracture. Fluoroscopy was used in both AP a nd lateral planes to evaluate the entirety of the fracture and implant. Reduction and implant positions were acceptable. The wounds were then thoroughly irrigated with bulb syringe and normal saline. The deep fascial layer was approximated with 0 Vicryl suture. The dermal layer was approximated using 2-0 Vicryl suture. The final skin closure was completed with xavier. Wounds were dressed with sterile Xeroform, sterile gauze, and Tegaderm over ABDs. The patient tolerated procedure well, awoke from anesthesia without complication, was extubated in the operating room, and transferred to the PACU in stable condition. Disposition: The patient be weightbearing as tolerated. I recommended routine DVT prophylaxis consisting of low molecular weight heparin while an inpatient and transition to oral aspirin, if tolerable, as the patient transitions out of the hospital. DVT prophylaxis should last 6 weeks. 24 hours of antibiotic prophylaxis should be continued. Physician community assistant attestation: Gray Gallo PA-C was present and scrubbed for the duration of the case. He was essential to prepping/draping, patient positioning, retraction, and assistance with wound closure. Skilled assistance was necessary for set up and fracture reduction. I attest to the content of the Intraoperative Record and any orders documented therein. Any exceptions are noted below.
--- NOTE | 2022-06-18 17:13 | Billing Data ---
Date of Service June 18, 2022 Coding Level of Care Code 90995 Subseq Hosp Care Lvl 2
--- NOTE | 2022-06-18 17:13 | Billing Data ---
Date of Service June 18, 2022 Coding Level of Care Code 01280 Subseq Hosp Care Lvl 2
--- NOTE | 2022-06-18 17:36 | XRay Report ---
XR femur LT 2V routine CLINICAL HISTORY: Post op TECHNIQUE: 2 radiographic views of the left femur were obtained. Comparison: Comparison is made to left hip radiograph 06/17/2022 FINDINGS: Postoperative changes of femoral cathie placement are noted. Surgical xavier, soft tissue swelling, and subcutaneous emphysema are seen. A bony fragment of the lesser trochanter is incidentally noted. IMPRESSION: Expected postoperative appearance. ACT 112: Negative or not required by law. Electronically signed by: Sohail Calhoun M.D. 06/18/2022 5:35 PM
--- NOTE | 2022-06-18 17:38 | Fluoroscopy Report ---
FL hip LT 2-3V CLINICAL HISTORY: LT TROCH NAIL TECHNIQUE: 6 views were obtained with the C-arm in the OR with the above procedure. Total fluoroscopy time was 109.6 seconds. Comparison: Comparison is made to left hip radiograph 06/17/2022 FINDINGS/IMPRESSION: Intraoperative images were obtained of left trochanteric nail placement. Please correlate with intraoperative fluoroscopy and operative report. ACT 112: Negative or not required by law. Electronically signed by: Sohail Calhoun M.D. 06/18/2022 5:36 PM
[2022-06-18] MEDS: traMADol HCL 50 MG TABLET PO PRN (20:12)
[2022-06-18] MEDS: SIMVASTATIN 20 MG TAB PO SCH (20:13)
[2022-06-18] MEDS: DOCUSATE SODIUM/SENNA 50/8.6MG TAB PO SCH (20:13)
[2022-06-18] MEDS: traZODone HCL 100 MG TAB PO SCH (20:13)
[2022-06-18] MEDS: ceFAZolin 2000MG 2,000 MG/15 ML SYR IV SCH (22:08)
[2022-06-19 06:12] LABS: Basophils # (auto) 0.06 K/uL (0-0.2); Basophils % (auto) 0.7 %; Eosinophils # (auto) 0.07 K/uL (0-0.50); Eosinophils % (auto) 0.8 %; Hematocrit (blood only) 28.8 % (34.1-44.9); Hemoglobin 9.9 g/dl (12.0-16.0); Immature Granulocytes # (auto) 0.02 K/uL (0.00-0.02); Immature Granulocytes % (auto) 0.2 %; Lymphocytes # (auto) 1.04 K/uL (1.2-3.4); Lymphocytes % (auto) 11.8 %; Mean Corpuscular Hemoglobin 33.6 pg (25.0-34.0); Mean Corpuscular Hgb Conc 34.4 g/dL (32.0-36.0); Mean Corpuscular Volume 97.6 fL (80.0-100.0); Mean Platelet Volume 10.9 fL (9.4-12.3); Monocytes # (auto) 1.21 K/uL (0.24-0.82); Monocytes % (auto) 13.7 %; Neutrophils # (auto) 6.45 K/uL (1.4-6.5); Neutrophils % (auto) 72.8 %; Platelet Count 131 K/uL (130-400); RDW Coefficient of Variation 12.3 % (11.5-14.5); RDW Standard Deviation 44.2 fL (36.4-46.3); Red Blood Count 2.95 M/uL (3.93-5.22); White Blood Count 8.85 K/ul (4.8-10.8)
[2022-06-19] MEDS: ceFAZolin 2000MG 2,000 MG/15 ML SYR IV SCH (06:31)
[2022-06-19] MEDS: LEVOTHYROXINE SODIUM 25 MCG TABLET PO SCH (06:31)
[2022-06-19 06:36] LABS: BUN Creatinine Ratio 29.1 (10-20); Calcium 8.9 mg/dl (8.5-10.1); Creatinine Clr Calc Pharmacy 25.6 ml/min; Est GFR (African American) 45.2 ml/min; Potassium 4.3 mmol/L (3.5-5.1)
[2022-06-19] MEDS ORDERED: ENOXAPARIN INJ 40 MG/0.4 ML SYR SQ SCH (09:00)
[2022-06-19] MEDS: PANTOprazole 40 MG TAB PO SCH (09:22)
[2022-06-19] MEDS: MULTIVITAMIN TAB PO SCH (09:22)
[2022-06-19] MEDS: amLODIPine BESYLATE 5 MG TAB PO SCH (09:22)
[2022-06-19] MEDS: CALCIUM 600MG + VIT D 400 IU TAB PO SCH (09:23)
[2022-06-19] MEDS: GABAPENTIN 300 MG CAP PO SCH ×2 (09:23→21:13)
[2022-06-19] MEDS: UMECLIDINIUM/VILANTEROL 62.5/25MCG 7 PUFFS/INHALER INH SCH (09:24)
[2022-06-19] MEDS: FLUTICASONE FUROATE 100MCG 14 PUFFS/INHALER INH SCH (09:24)
[2022-06-19] MEDS: LIDOCAINE 5% 1 PATCH TD SCH (09:25)
[2022-06-19] MEDS: traMADol HCL 50 MG TABLET PO PRN (11:40)
--- NOTE | 2022-06-19 17:22 | Hospitalist Progress Note ---
Date of Service June 19, 2022 Assessment & Plan (1) Intertrochanteric fracture of left femur: Plan: - Now postop day 1, pain controlled. PT/OT eval and treat. Anticipate need for rehab. (2) JUAN (acute kidney injury): Plan: - Probably relates to acute blood loss anemianot unexpected with a long bone fracture. As far as acute blood loss anemia, appears to be leveling out. As far as AKIimproved with fluids. Orthostasis likely relates to both, was going to give more fluids, but after further review felt it more prudent to hold antihypertensives and follow. (3) Chronic obstructive pulmonary disease: Plan: - Chronic, stable. No complaints of dyspnea today - Continue home Trelegy inhale or hospital formulay equivalent. (4) Hypertension: Plan: - With orthostasis, hold meds for now (5) Hyperlipidemia: Plan: - Continue simvastatin. (6) Hypothyroidism: Plan: - Continue Synthroid 25 mcg daily. (7) GERD (gastroesophageal reflux disease): Plan: - Continue Protonix. (8) Spinal stenosis: Plan: - Pain management at home includes tramadol 50 mg daily, meloxicam 15 mg daily, Tylenol as needed. With JUAN, holding meloxicam at this time -Currently notes the pain is under reasonable control (9) Multiple pulmonary nodules determined by computed tomography of lung: Plan: - 1.1 cm, being followed by pulmonary, no growth 2018 - 2019. Plan Dispo: Anticipate need for rehab PPX: Nayan Hanson Code: Full Admission and Anticipated Discharge Date Admission Date: June 17, 2022 Subjective Generally feeling okay. Notes a degree of pain, but nothing that is uncontrolled, worse with movement. No other acute complaints. Was orthostatic with PT. Discussed with patient that she very likely will need rehab, she understands Review of Systems Review of Systems: All systems reviewed & are unremarkable except as noted in HPI & below Physical Exam Physical Exam: General she is awake and alert pleasant no distress. HEENT normocephalic atraumatic mucous membranes moist. Breathing unlabored no accessory muscle use good effort. Skin shows no rashes no pallor or icterus. Neuro without focal deficits. Results & Data Results & Data ([facility]) Vital Signs (Past 12 Hours) Vital Signs Temp Pulse Resp BP BP Pulse Ox Pulse Ox 06/19/22 15:07 98.2 F 71 16 115/64 92 06/19/22 06:55 97.9 F 69 16 117/59 L 92 06/19/22 06:00 97 O2 Del Method O2 Del Method 06/19/22 15:07 Room Air 06/19/22 06:55 Room Air 06/19/22 06:00 Room Air PG Care Time/CCT Total # of Minutes Spent Total Time Spent with Patient: Total time spent is greater than 50% in coordination of care (as documented) at patient's floor/unit and/or counseling patient: Coding Level of Care Code 28403 Subseq Hosp Care Lvl 3 Diagnoses Intertrochanteric fracture of left femur S72.142A JUAN (acute kidney injury) N17.9 Chronic obstructive pulmonary disease J44.9 Hypertension I10 Hyperlipidemia E78.5 Hypothyroidism E03.9 GERD (gastroesophageal reflux disease) K21.9 Spinal stenosis M48.00 Multiple pulmonary nodules determined by computed tomography of lung R91.8
--- NOTE | 2022-06-19 18:55 | Orthopedic Progress Note ---
Date of Service June 19, 2022 Assessment & Plan (1) Closed intertrochanteric fracture of left femur: POD1 s/p Left long cephalomedullary trochanteric fixation nail for peritrochanteric fracture. Making progress as expected. Likely experiencing acute blood loss anemia. Continue to follow. - Recommend 6 weeks of DVT prophylaxis. Consider Lovenox while inpatient and transition to oral aspirin if no other contraindication as an outpatient. -24-hour antibiotic surgical prophylaxis complete -Continue current pain management -PT/OT: WBAT Dispo: Per therapy recommendations. We will continue to follow. We will need to see blood count stabilized prior to discharge. Subjective Seen this morning on rounds. She reported that pain was tolerable, particular when she is at rest. Discomfort only when moving. Denies nausea and has good appetite. States that she wishes to go home versus nursing facility or rehab Review of Systems All systems reviewed & are unremarkable except as noted in HPI & below. Physical Exam LLE: Dressing is clean and dry without evidence of drainage. Positive DF/PF/EHL. DNVI Constitutional WD/WN, vitals as above no acute distress and not intoxicated appearing Respiratory normal respiratory effort; no labored breathing Cardiovascular Extremities: normal capillary refill Results & Data Results & Data Laboratory Results H & H 06/17/22 06/18/22 06/19/22 Range/Units 13:30 06:49 05:53 Hgb 13.7 10.7 L D 9.9 L (12.0-16.0) g/dl Hct 40.3 32.3 L 28.8 L (34.1-44.9) % Coagulation 06/17/22 Range/Units 13:30 INR 1.0 (0.9-1.1) Diagnostic Findings PG Care Time/CCT Total # of Minutes Spent Total Time Spent with Patient: Total time spent is greater than 50% in coordination of care (as documented) at patient's floor/unit and/or counseling patient: Coding Level of Care Code 01708 Post Operative Follow-Up Diagnoses Closed intertrochanteric fracture of left femur S72.142A
[2022-06-19] MEDS: SIMVASTATIN 20 MG TAB PO SCH (21:13)
[2022-06-19] MEDS: traZODone HCL 100 MG TAB PO SCH (21:13)
[2022-06-19] MEDS: DOCUSATE SODIUM/SENNA 50/8.6MG TAB PO SCH (21:14)
[2022-06-20] MEDS: LEVOTHYROXINE SODIUM 25 MCG TABLET PO SCH (06:17)
[2022-06-20 07:48] LABS: Basophils # (auto) 0.04 K/uL (0-0.2); Basophils % (auto) 0.5 %; Eosinophils # (auto) 0.02 K/uL (0-0.50); Eosinophils % (auto) 0.3 %; Hematocrit (blood only) 26.3 % (34.1-44.9); Hemoglobin 9.1 g/dl (12.0-16.0); Immature Granulocytes # (auto) 0.03 K/uL (0.00-0.02); Immature Granulocytes % (auto) 0.4 %; Lymphocytes # (auto) 0.82 K/uL (1.2-3.4); Lymphocytes % (auto) 10.3 %; Mean Corpuscular Hemoglobin 33.8 pg (25.0-34.0); Mean Corpuscular Hgb Conc 34.6 g/dL (32.0-36.0); Mean Corpuscular Volume 97.8 fL (80.0-100.0); Monocytes # (auto) 1.03 K/uL (0.24-0.82); Monocytes % (auto) 12.9 %; Neutrophils # (auto) 6.05 K/uL (1.4-6.5); Neutrophils % (auto) 75.6 %; Platelet Count 126 K/uL (130-400); Platelet Estimate Decreased (Normal); RDW Coefficient of Variation 12.4 % (11.5-14.5); RDW Standard Deviation 44.6 fL (36.4-46.3); Red Blood Count 2.69 M/uL (3.93-5.22); White Blood Count 7.99 K/ul (4.8-10.8)
[2022-06-20 08:12] LABS: BUN Creatinine Ratio 29.1 (10-20); Calcium 8.9 mg/dl (8.5-10.1); Creatinine Clr Calc Pharmacy 23.1 ml/min; Est GFR (African American) 39.8 ml/min; Est GFR (Non-African American) 34.4 ml/min; Potassium 4.5 mmol/L (3.5-5.1)
[2022-06-20] MEDS: MULTIVITAMIN TAB PO SCH (09:49)
[2022-06-20] MEDS: PANTOprazole 40 MG TAB PO SCH (09:49)
[2022-06-20] MEDS: FLUTICASONE FUROATE 100MCG 14 PUFFS/INHALER INH SCH (09:50)
[2022-06-20] MEDS: UMECLIDINIUM/VILANTEROL 62.5/25MCG 7 PUFFS/INHALER INH SCH (09:50)
[2022-06-20] MEDS: GABAPENTIN 300 MG CAP PO SCH ×2 (09:50→20:21)
[2022-06-20] MEDS: CALCIUM 600MG + VIT D 400 IU TAB PO SCH (09:50)
[2022-06-20] MEDS: ENOXAPARIN INJ 30 MG/0.3 ML SYR SQ SCH (09:50)
[2022-06-20] MEDS: LIDOCAINE 5% 1 PATCH TD SCH (09:51)
[2022-06-20] MEDS: LACTATED RINGER'S 1,000 ML IV SCH (10:01)
--- NOTE | 2022-06-20 17:22 | Hospitalist Progress Note ---
Date of Service June 20, 2022 Assessment & Plan (1) Intertrochanteric fracture of left femur: Plan: - Now postop day 2, pain controlled. PT/OT eval and treat. Anticipate need for rehab. (2) JUAN (acute kidney injury): Plan: - Probably relates to acute blood loss anemianot unexpected with a long bone fracture. As far as acute blood loss anemia, appears to have stabilized. As far as AKIgive more fluids, continue to hold ARB and NSAID, BMP tomorrow. (3) Chronic obstructive pulmonary disease: Plan: - Chronic, stable. No complaints of dyspnea today - Continue home Trelegy inhale or hospital formulay equivalent. (4) Hypertension: Plan: - With orthostasis, holding meds for now did not have orthostatic symptoms with therapy today (5) Hyperlipidemia: Plan: - Continue simvastatin. (6) Hypothyroidism: Plan: - Continue Synthroid 25 mcg daily. (7) GERD (gastroesophageal reflux disease): Plan: - Continue Protonix. (8) Spinal stenosis: Plan: - Pain management at home includes tramadol 50 mg daily, meloxicam 15 mg daily, Tylenol as needed. With JUAN, holding meloxicam at this time -Currently continues to note the pain is under reasonable control (9) Multiple pulmonary nodules determined by computed tomography of lung: Plan: - 1.1 cm, being followed by pulmonary, no growth 2018 - 2019. Plan Dispo: Anticipate need for rehab PPX: Nayan Hanson Code: Full Admission and Anticipated Discharge Date Admission Date: June 17, 2022 Subjective Generally feeling better. Did better with PT today. No lightheadedness. Pain under reasonable control. Family present. Updated the best my ability and to their satisfaction. Review of Systems Review of Systems: All systems reviewed & are unremarkable except as noted in HPI & below Physical Exam Physical Exam: In general she is awake and alert pleasant no distress. HEENT normocephalic atraumatic mucous membranes moist. Breathing unlabored no accessory muscle use good effort. Skin shows no rashes no pallor or icterus. Neuro without focal deficits. Results & Data Results & Data ([facility]) Vital Signs (Past 12 Hours) Vital Signs Temp Pulse Resp BP Pulse Ox O2 Del Method 06/20/22 14:41 98.1 F 80 16 117/70 95 Room Air 06/20/22 07:37 98.2 F 70 16 132/66 93 Room Air PG Care Time/CCT Total # of Minutes Spent Total Time Spent with Patient: Total time spent is greater than 50% in coordination of care (as documented) at patient's floor/unit and/or counseling patient: Coding Level of Care Code 92687 Subseq Hosp Care Lvl 3 Diagnoses Intertrochanteric fracture of left femur S72.142A JUAN (acute kidney injury) N17.9 Chronic obstructive pulmonary disease J44.9 Hypertension I10 Hyperlipidemia E78.5 Hypothyroidism E03.9 GERD (gastroesophageal reflux disease) K21.9 Spinal stenosis M48.00 Multiple pulmonary nodules determined by computed tomography of lung R91.8
--- NOTE | 2022-06-20 19:14 | Orthopedic Progress Note ---
Date of Service June 20, 2022 Assessment & Plan (1) Closed intertrochanteric fracture of left femur: POD2 s/p Left long cephalomedullary trochanteric fixation nail for peritrochanteric fracture. Continue plan of care. - Recommend 6 weeks of DVT prophylaxis. Consider transition to oral aspirin if no other contraindication as an outpatient. -Continue current pain management -PT/OT: WBAT Dispo: Remains inpatient for medical needs. No further orthopedic intervention expected. We will continue to follow. Subjective Chart reviewed. No new issues. Review of Systems All systems reviewed & are unremarkable except as noted in HPI & below. Physical Exam . Results & Data Results & Data Laboratory Results . Diagnostic Findings . PG Care Time/CCT Total # of Minutes Spent Total Time Spent with Patient: Total time spent is greater than 50% in coordination of care (as documented) at patient's floor/unit and/or counseling patient: Coding Level of Care Code 84748 Post Operative Follow-Up Diagnoses Closed intertrochanteric fracture of left femur S72.142A
[2022-06-20] MEDS: traMADol HCL 50 MG TABLET PO PRN (20:15)
[2022-06-20] MEDS: DOCUSATE SODIUM/SENNA 50/8.6MG TAB PO SCH (20:18)
[2022-06-20] MEDS: SIMVASTATIN 20 MG TAB PO SCH (20:22)
[2022-06-20] MEDS: traZODone HCL 100 MG TAB PO SCH (20:23)
[2022-06-21] MEDS: LACTATED RINGER'S 1,000 ML IV SCH ×2 (00:11→12:36)
[2022-06-21] MEDS: traMADol HCL 50 MG TABLET PO PRN ×2 (03:16→17:08)
[2022-06-21] MEDS: LEVOTHYROXINE SODIUM 25 MCG TABLET PO SCH (05:32)
[2022-06-21 06:57] LABS: Basophils # (auto) 0.06 K/uL (0-0.2); Basophils % (auto) 0.9 %; Eosinophils # (auto) 0.15 K/uL (0-0.50); Eosinophils % (auto) 2.2 %; Hematocrit (blood only) 23.3 % (34.1-44.9); Immature Granulocytes # (auto) 0.03 K/uL (0.00-0.02); Immature Granulocytes % (auto) 0.4 %; Lymphocytes # (auto) 1.43 K/uL (1.2-3.4); Lymphocytes % (auto) 21.3 %; Mean Corpuscular Hemoglobin 33.6 pg (25.0-34.0); Mean Corpuscular Hgb Conc 34.3 g/dL (32.0-36.0); Mean Corpuscular Volume 97.9 fL (80.0-100.0); Mean Platelet Volume 10.9 fL (9.4-12.3); Monocytes # (auto) 0.94 K/uL (0.24-0.82); Neutrophils # (auto) 4.09 K/uL (1.4-6.5); Neutrophils % (auto) 61.2 %; Platelet Count 126 K/uL (130-400); RDW Coefficient of Variation 12.3 % (11.5-14.5); Red Blood Count 2.38 M/uL (3.93-5.22)
[2022-06-21 07:28] LABS: BUN Creatinine Ratio 26.2 (10-20); Calcium 8.6 mg/dl (8.5-10.1); Creatinine Clr Calc Pharmacy 23.1 ml/min; Est GFR (African American) 39.8 ml/min; Est GFR (Non-African American) 34.4 ml/min; Potassium 4.5 mmol/L (3.5-5.1)
[2022-06-21] MEDS: GABAPENTIN 300 MG CAP PO SCH ×2 (08:42→20:19)
[2022-06-21] MEDS: CALCIUM 600MG + VIT D 400 IU TAB PO SCH (08:43)
[2022-06-21] MEDS: PANTOprazole 40 MG TAB PO SCH (08:43)
[2022-06-21] MEDS: MULTIVITAMIN TAB PO SCH (08:44)
[2022-06-21] MEDS: ENOXAPARIN INJ 30 MG/0.3 ML SYR SQ SCH (08:45)
[2022-06-21] MEDS: UMECLIDINIUM/VILANTEROL 62.5/25MCG 7 PUFFS/INHALER INH SCH (08:46)
[2022-06-21] MEDS: FLUTICASONE FUROATE 100MCG 14 PUFFS/INHALER INH SCH (08:46)
[2022-06-21] MEDS: LIDOCAINE 5% 1 PATCH TD SCH (09:47)
[2022-06-21 10:34] LABS: Appearance Urine Clear (Clear); Bacteria Urine Automated Negative (Negative); Bilirubin Urine Negative (Negative); Blood Urine 2+ (Negative); Color Urine Dark Yellow; Epithelial Cell Urine Auto >30 /lpf (0-5); Glucose Urine UA Negative (Negative); Ketones Urine Negative (Negative); Leukocyte Esterase Urine 1+ (Negative); Nitrite Urine Negative (Negative); Protein Urine Trace (Negative); RBC Urine Automated >30 /hpf (0-4); Specific Gravity Urine 1.018 (1.000-1.030); Urobilinogen Urine Negative (Negative); pH Urine 5.5 (4.5-7.5)
[2022-06-21 10:50] LABS: Creatinine Urine Random 115.7 mg/dl
--- NOTE | 2022-06-21 11:25 | Orthopedic Progress Note ---
Date of Service June 21, 2022 Assessment & Plan (1) Closed intertrochanteric fracture of left femur: POD3 s/p Left long cephalomedullary trochanteric fixation nail for peritrochanteric fracture. Acute blood loss anemia - expect eduard at 72 hrs from surgery. - No changes to POC. - Recommend 6 weeks of DVT prophylaxis. Consider transition to oral aspirin if no other contraindication as an outpatient. -Continue current pain management -PT/OT: WBAT Dispo: Will follow peripherally until d/c. Contact me via [employer] w any questions. Subjective Reports continued pain in the hip but is feeling better. Does feel tired but denies lighteadedness. Wanted to know when she will be transferred. Review of Systems All systems reviewed & are unremarkable except as noted in HPI & below. Physical Exam LLE: dressing taken down - wounds well approx without erythema or drainage. Thigh compartments soft. DNVI. good quad set but unable to SLR without assist Constitutional WD/WN, vitals as above no acute distress and not intoxicated appearing Respiratory normal respiratory effort; no labored breathing Cardiovascular Extremities: normal capillary refill Results & Data Results & Data Laboratory Results . H & H 06/17/22 06/18/22 06/19/22 Range/Units 13:30 06:49 05:53 Hgb 13.7 10.7 L D 9.9 L (12.0-16.0) g/dl Hct 40.3 32.3 L 28.8 L (34.1-44.9) % 06/20/22 06/21/22 Range/Units 06:54 06:42 Hgb 9.1 L 8.0 L (12.0-16.0) g/dl Hct 26.3 L 23.3 L (34.1-44.9) % Coagulation 06/17/22 Range/Units 13:30 INR 1.0 (0.9-1.1) Diagnostic Findings . PG Care Time/CCT Total # of Minutes Spent Total Time Spent with Patient: Total time spent is greater than 50% in coordination of care (as documented) at patient's floor/unit and/or counseling patient: Coding Level of Care Code 75862 Post Operative Follow-Up Diagnoses Closed intertrochanteric fracture of left femur S72.142A
--- NOTE | 2022-06-21 16:57 | Billing Data ---
Date of Service June 21, 2022 Coding Level of Care Code 63065 Subseq Hosp Care Lvl 3
--- NOTE | 2022-06-21 16:57 | Hospitalist Progress Note ---
Date of Service June 21, 2022 Assessment & Plan (1) Intertrochanteric fracture of left femur: Plan: - Now postop day 3, pain remains controlled. PT/OT eval and treat. Anticipate need for rehab. Stable to go when available (2) JUAN (acute kidney injury): Plan: - Probably relates to acute blood loss anemianot unexpected with a long bone fracture. As far as acute blood loss anemia, appears to have stabilized. No clear indication for transfusion, particularly as long as creatinine starts to improve as far as AKIhas been given a decent amount of IV fluid, continue to hold ARB and NSAID, BMP tomorrow. May take a few days to return to baseline (3) Chronic obstructive pulmonary disease: Plan: - Chronic, stable. No complaints of dyspnea today - Continue home Trelegy inhale or hospital formulay equivalent. (4) Hypertension: Plan: - Holding off on home meds for now due to JUAN, as blood pressure rises, can probably resume some but would hold off on ARB until last (5) Hyperlipidemia: Plan: - Continue simvastatin. (6) Hypothyroidism: Plan: - Continue Synthroid 25 mcg daily. (7) GERD (gastroesophageal reflux disease): Plan: - Continue Protonix. (8) Spinal stenosis: Plan: - Pain management at home includes tramadol 50 mg daily, meloxicam 15 mg daily, Tylenol as needed. With JUAN, holding meloxicam at this time -Currently continues to note the pain is under reasonable control (9) Multiple pulmonary nodules determined by computed tomography of lung: Plan: - 1.1 cm, being followed by pulmonary, no growth 2018 - 2019. Plan Dispo: Anticipate need for rehab PPX: Nayan Hanson Code: Full Admission and Anticipated Discharge Date Admission Date: June 17, 2022 Subjective Feels like she did okay with PT. Definitely felt like she did better than yesterday. Was able to use a bedside commode. Notes that pain is under decent control. Review of Systems Review of Systems: All systems reviewed & are unremarkable except as noted in HPI & below Physical Exam Physical Exam: Vitals noted, in general she is awake and alert pleasant no distress. HEENT normocephalic atraumatic mucous membranes moist. Breathing unlabored no accessory muscle use good effort. Skin shows no rashes no pallor or icterus. Neuro without focal deficits. Results & Data Results & Data ([facility]) Vital Signs (Past 12 Hours) Vital Signs Temp Pulse Pulse Resp BP Pulse Ox O2 Del Method 06/21/22 16:00 99.0 F 78 18 151/63 H 06/21/22 12:00 99.0 F 70 16 130/62 94 Room Air 06/21/22 07:45 Room Air 06/21/22 07:30 98.4 F 75 16 128/67 93 06/21/22 07:47 99.5 F 70 18 136/68 94 Room Air PG Care Time/CCT Total # of Minutes Spent Total Time Spent with Patient: Total time spent is greater than 50% in coordination of care (as documented) at patient's floor/unit and/or counseling patient: Coding Level of Care Code 51157 Subseq Hosp Care Lvl 3 Diagnoses Intertrochanteric fracture of left femur S72.142A JUAN (acute kidney injury) N17.9 Chronic obstructive pulmonary disease J44.9 Hypertension I10 Hyperlipidemia E78.5 Hypothyroidism E03.9 GERD (gastroesophageal reflux disease) K21.9 Spinal stenosis M48.00 Multiple pulmonary nodules determined by computed tomography of lung R91.8
[2022-06-21] MEDS: traZODone HCL 100 MG TAB PO SCH (20:19)
[2022-06-21] MEDS: DOCUSATE SODIUM/SENNA 50/8.6MG TAB PO SCH (20:19)
[2022-06-21] MEDS: SIMVASTATIN 20 MG TAB PO SCH (20:19)
[2022-06-22] MEDS: LACTATED RINGER'S 1,000 ML IV SCH ×2 (00:33→13:33)
[2022-06-22] MEDS: LEVOTHYROXINE SODIUM 25 MCG TABLET PO SCH (05:39)
[2022-06-22] MEDS: CALCIUM 600MG + VIT D 400 IU TAB PO SCH (08:29)
[2022-06-22] MEDS: GABAPENTIN 300 MG CAP PO SCH ×2 (08:29→22:38)
[2022-06-22] MEDS: PANTOprazole 40 MG TAB PO SCH (08:29)
[2022-06-22] MEDS: LIDOCAINE 5% 1 PATCH TD SCH (08:30)
[2022-06-22] MEDS: FLUTICASONE FUROATE 100MCG 14 PUFFS/INHALER INH SCH (08:30)
[2022-06-22] MEDS: ENOXAPARIN INJ 30 MG/0.3 ML SYR SQ SCH (08:30)
[2022-06-22] MEDS: MULTIVITAMIN TAB PO SCH (08:30)
[2022-06-22] MEDS: UMECLIDINIUM/VILANTEROL 62.5/25MCG 7 PUFFS/INHALER INH SCH (08:31)
[2022-06-22] MEDS: ACETAMINOPHEN 500 MG TAB PO PRN ×2 (08:43→16:33)
[2022-06-22] MEDS ORDERED: HYDROmorphone INJ 0.5 MG/0.5 ML SYR IV PRN (09:55)
--- NOTE | 2022-06-22 12:16 | Hospitalist Progress Note ---
Date of Service June 22, 2022 Assessment & Plan (1) Intertrochanteric fracture of left femur: Plan: (1) Intertrochanteric fracture of left femur: - POD4, pain remains controlled - PT/OT ongoing - Medically stable - Pt accepted to [facility], insurance authorization request submitted today and pending (2) JUAN (acute kidney injury): - Likely pre-renal due to acute blood loss anemia with long bone fracture - Cr 1.23 on admission, 1.41 06/21 - Continue IVF - Continue holding home losartan, meloxicam - Trend BMP (3) Chronic obstructive pulmonary disease: - Chronic, stable. No complaints of dyspnea today - Respiratory status stable on RA - Continue daily fluticasone, umeclidinium/vilanterol (4) Hypertension: - BP stable while meds on hold - Holding home amlodipine, irbesartan for now due to JUAN - BP stable, resume medications as able with Cr improvement (5) Hyperlipidemia: - Continue simvastatin. (6) Hypothyroidism: - Continue Synthroid 25 mcg daily. (7) GERD (gastroesophageal reflux disease): - Continue Protonix. (8) Spinal stenosis: - Pain management at home includes tramadol 50 mg daily, meloxicam 15 mg daily, Tylenol PRN - Hold meloxicam for JUAN - Pain control adequate currently (9) Multiple pulmonary nodules determined by computed tomography of lung: - 1.1 cm, being followed by pulmonary, no growth 2018 - 2019. Plan Dispo: Accepted to [facility] pending insurance authorization Diet: Heart healthy PPX: SCDs, Lovenox Code: Full (2) JUAN (acute kidney injury): (3) Chronic obstructive pulmonary disease: (4) Hypertension: (5) Hyperlipidemia: (6) Hypothyroidism: (7) GERD (gastroesophageal reflux disease): (8) Spinal stenosis: (9) Multiple pulmonary nodules determined by computed tomography of lung: Admission and Anticipated Discharge Date Admission Date: June 17, 2022 Supervising Physician Co-Signing Physician Notes Resident Physician Supervision Note: I independently interviewed and examined the patient and verified the betancourt history and physical, reviewed labs and image studies and agree with resident findings and care plan. Subjective No acute events overnight. Pt does report improvement in her hip pain. Notes less soreness than on day prior. Tylenol does help with pain relief. Denies any chest pain, dyspnea, weakness or numbness. Aware she is now pending rehab placement. Review of Systems Review of Systems: Per subjective Physical Exam Physical Exam: General: awake, alert, no apparent distress Head: Normocephalic, atraumatic ENT: Mucous membranes moist Chest: Clear to auscultation, on room air, no adventitious breath sounds Cardiac: Regular rate and rhythm, no murmur, no JVD, good capillary refill Abdominal: soft, nontender to palpation, nondistended, no rebound or guarding Extremities: left hip pain with palpation but no ecchymoses, erythema or drainage, ROM examination deferred, neurovascularly intact b/l Psych: Normal mood and affect Skin: no rash or erythema LLE: dressing taken down - wounds well approx without erythema or drainage. Thigh compartments soft. DNVI. good quad set but unable to SLR without assist Results & Data Results & Data ([facility]) Vital Signs (Past 12 Hours) Vital Signs Temp Pulse Resp BP Pulse Ox O2 Del Method 06/22/22 07:45 89 L Room Air 06/22/22 07:19 37.0 C 74 12 134/66 90 Room Air Resident Activity Tracking Resident Involvement: Resident Care Provided Care Provided: Adult Hospital Medicine
[2022-06-22] MEDS: traMADol HCL 50 MG TABLET PO PRN ×2 (13:36→22:35)
[2022-06-22] MEDS: DOCUSATE SODIUM/SENNA 50/8.6MG TAB PO SCH (22:37)
[2022-06-22] MEDS: SIMVASTATIN 20 MG TAB PO SCH (22:38)
[2022-06-22] MEDS: traZODone HCL 100 MG TAB PO SCH (22:39)
[2022-06-23] MEDS: LACTATED RINGER'S 1,000 ML IV SCH (02:31)
[2022-06-23] MEDS: ACETAMINOPHEN 500 MG TAB PO PRN ×2 (05:29→12:26)
[2022-06-23] MEDS: LEVOTHYROXINE SODIUM 25 MCG TABLET PO SCH (05:30)
--- NOTE | 2022-06-23 07:25 | Hospitalist Progress Note ---
Date of Service June 23, 2022 Assessment & Plan (1) Intertrochanteric fracture of left femur: Plan: (1) Intertrochanteric fracture of left femur: - POD4, pain remains controlled - PT/OT ongoing - Medically stable - Pt accepted to [facility], insurance authorization request submitted today and pending (2) JUAN (acute kidney injury): - Likely pre-renal due to acute blood loss anemia with long bone fracture - Cr 1.23 on admission, 1.41 06/21 - Continue IVF - Continue holding home losartan, meloxicam - Trend BMP (3) Chronic obstructive pulmonary disease: - Chronic, stable. No complaints of dyspnea today - Respiratory status stable on RA - Continue daily fluticasone, umeclidinium/vilanterol (4) Hypertension: - BP stable while meds on hold - Holding home amlodipine, irbesartan for now due to JUAN - BP stable, resume medications as able with Cr improvement (5) Hyperlipidemia: - Continue simvastatin. (6) Hypothyroidism: - Continue Synthroid 25 mcg daily. (7) GERD (gastroesophageal reflux disease): - Continue Protonix. (8) Spinal stenosis: - Pain management at home includes tramadol 50 mg daily, meloxicam 15 mg daily, Tylenol PRN - Hold meloxicam for JUAN - Pain control adequate currently (9) Multiple pulmonary nodules determined by computed tomography of lung: - 1.1 cm, being followed by pulmonary, no growth 2018 - 2019. Plan Dispo: Accepted to [facility] pending insurance authorization Diet: Heart healthy PPX: SCDs, Lovenox Code: Full (2) JUAN (acute kidney injury): (3) Chronic obstructive pulmonary disease: (4) Hypertension: (5) Hyperlipidemia: (6) Hypothyroidism: (7) GERD (gastroesophageal reflux disease): (8) Spinal stenosis: (9) Multiple pulmonary nodules determined by computed tomography of lung: Admission and Anticipated Discharge Date Admission Date: June 17, 2022 Subjective No acute events overnight. Pt does report improvement in her hip pain. Notes less soreness than on day prior. Tylenol does help with pain relief. Denies any chest pain, dyspnea, weakness or numbness. Aware she is now pending rehab placement. Review of Systems Review of Systems: Per subjective Physical Exam Physical Exam: General: awake, alert, no apparent distress Head: Normocephalic, atraumatic ENT: Mucous membranes moist Chest: Clear to auscultation, on room air, no adventitious breath sounds Cardiac: Regular rate and rhythm, no murmur, no JVD, good capillary refill Abdominal: soft, nontender to palpation, nondistended, no rebound or guarding Extremities: left hip pain with palpation but no ecchymoses, erythema or drainage, ROM examination deferred, neurovascularly intact b/l Psych: Normal mood and affect Skin: no rash or erythema LLE: dressing taken down - wounds well approx without erythema or drainage. Thigh compartments soft. DNVI. good quad set but unable to SLR without assist Results & Data Results & Data ([facility]) Vital Signs (Past 12 Hours) Vital Signs Temp Pulse Resp BP Pulse Ox O2 Del Method 06/22/22 21:00 Room Air 06/22/22 22:15 37 C 80 16 130/80 95 Room Air Resident Activity Tracking Resident Involvement: Resident Care Provided Care Provided: Adult Hospital Medicine
[2022-06-23 08:54] LABS: BUN Creatinine Ratio 28.1 (10-20); Calcium 8.8 mg/dl (8.5-10.1); Creatinine Clr Calc Pharmacy 25.5 ml/min; Est GFR (African American) 44.8 ml/min; Est GFR (Non-African American) 38.6 ml/min; Potassium 4.2 mmol/L (3.5-5.1)
--- NOTE | 2022-06-23 09:54 | Discharge Summary ---
Date of Service June 23, 2022 Admission HPI Per Admitting Provider Nevaeh Almaraz is an 81-year-old female with past medical history significant for COPD, vertigo, dyslipidemia, hypertension, hypothyroidism, chronic low back pain, and GERD who is presenting today with hip pain. About an hour before patient arrived in the ED, she fell at her home landing on her left hip. She was reaching over to grab the remote off her coffee table when she fell. She is not sure if she was dizzy prior to falling but states she very well could've been as she struggles with vertigo. She denies chest pain, shortness of breath, palpitations, lightheadedness, or nausea preceding the fall. Her pain is a 10 out of 10 and is limiting her ability to move and get up off the floor. She also hit her head during the fall, but denies loss of consciousness or head/neck pain. She is not on any blood thinners. She does not have pain anywhere else besides her left hip. She was down for approx 20 minutes before EMS arrived. Left hip XR reveals a comminuted intratrochanteric fracture of the left femur. Head CT unremarkable. Labs w/ slight elevation in Cr @ 1.23, baseline from over one year ago 0.9. Otherwise unremarkable. Admission Exam Per Admitting Provider General: awake, alert, no apparent distress Head: Normocephalic, atraumatic ENT: PERRL, EOMI, no pharyngeal exudate, mucous membranes moist Chest: Clear to auscultation, on room air, no adventitious breath sounds Cardiac: Regular rate and rhythm, no murmur, no JVD, normal peripheral pulses, good capillary refill Abdominal: NABS x 4 quadrants, soft, nontender to palpation, no rebound, guarding or tenderness Extremities: left hip pain with palpation, shortened and externally rotated, ROM severely limited 2/2 pain; pulses intact and equal in lower extremites; right leg with full strength, no tenderness or deformities noted otherwise Psych: Normal mood and affect Neuro: AAO x 3, strength intact bilaterally and rated 5/5, no motor deficits, speech is clear, no peripheral sensory deficits Skin: no rash or erythema Principal Diagnosis Intertrochanteric hip fracture s/p nailing repair Discharge Exam General: awake, alert, no apparent distress Head: Normocephalic, atraumatic ENT: Mucous membranes moist Chest: Clear to auscultation, on room air, no increased breath sounds Cardiac: Regular rate and rhythm, normal S1 and S2, no murmur, good capillary refill Abdominal: soft, nontender to palpation, nondistended, no rebound or guarding Extremities: left hip pain with palpation but no ecchymoses, erythema or drainage, ROM examination deferred, neurovascularly intact b/l Psych: Normal mood and affect Skin: no rash or erythema Discharge Data Allergies Allergy/AdvReac Type Severity Reaction Status Date / Time adhesive Allergy Mild LOCAL SKIN Verified 06/17/22 14:59 IRRITATION Consultations 06/17/22 15:47 ED Decision to Admit Stat 06/17/22 18:51 Consult Anesthesiology Routine Consult Orthopedic Surgery Routine Procedures Performed Operation Date: 06/18/22 09:00 Actual Procedures p Left Long Troch Nail(Left) - Aditya Forte MD Ordered Studies XR hip LT 2V w pelvis CLINICAL HISTORY: l hip pain TECHNIQUE: 2 views of the left hip and single frontal view of the pelvis were obtained. Comparison: None available at the time of this dictation. FINDINGS: There is a comminuted intratrochanteric fracture of the left femur. Degenerative changes are seen in the hip joint. Posterior fixation hardware is seen in the spine. Soft tissue swelling is seen. IMPRESSION: Comminuted intratrochanteric fracture of the left femur. XR femur LT 2V routine CLINICAL HISTORY: Post op TECHNIQUE: 2 radiographic views of the left femur were obtained. Comparison: Comparison is made to left hip radiograph 06/17/2022 FINDINGS: Postoperative changes of femoral cathie placement are noted. Surgical xavier, soft tissue swelling, and subcutaneous emphysema are seen. A bony fragment of the lesser trochanter is incidentally noted. IMPRESSION: Expected postoperative appearance. Hospital Course (1) Closed intertrochanteric fracture of left femur: (1) Intertrochanteric fracture of left femur: - POD5, pain remains controlled on regimen of home regimen of tramadol 50 mg PRN and Tylenol PRN - Medically stable - [facility], discharged on 06/23 for rehab stay (2) JUAN (acute kidney injury): - Likely pre-renal due to acute blood loss anemia with long bone fracture - Cr 1.23 on admission, 1.41 -> 1.28 on on 06/23 - IVF discontinued on day of discharge - Continue holding home irbesartan, meloxicam on discharge - Continue to trend BMP until JUAN resolution (3) Chronic obstructive pulmonary disease: - Chronic, stable. No complaints of dyspnea at time of discharge - Respiratory status stable on RA at time of discharge - Continue daily fluticasone, umeclidinium/vilanterol (4) Hypertension: - BP stable while medications on hold - Continue to hold home amlodipine, irbesartan on discharge due to JUAN - BP stable, resume medications as able with Cr improvement and as BP rises (5) Hyperlipidemia: - Continue simvastatin. (6) Hypothyroidism: - Continue Synthroid 25 mcg daily. (7) GERD (gastroesophageal reflux disease): - Continue Protonix. (8) Spinal stenosis: - Pain management at home includes tramadol 50 mg daily, meloxicam 15 mg daily, Tylenol PRN - Continue holding meloxicam for JUAN - Pain control adequate at time of discharge (9) Multiple pulmonary nodules determined by computed tomography of lung: - 1.1 cm, being followed by pulmonary, no growth 2018 - 2019. Diet: Heart healthy PPX: SCDs, Lovenox 30 mg SQ daily Code: Full (2) Fall: (3) JUAN (acute kidney injury): (4) Chronic obstructive pulmonary disease: (5) Hyperlipidemia: (6) Hypertension: Total Time Total Time Spent Total Time Spent (In Minutes): 30 Discharge Plan Discharge Items Patient Disposition: Transfer Inpatient Rehab Fac Reason For Visit: HIP PAIN Discharge Diagnosis: Left intertrochanteric hip fracture s/p repair Activity: Resume your previous activity Non-emergency contact: Primary Care Provider and Surgeon Call non-emergency contact if: your symptoms worsen, your pain is worsening and you have a fever Follow-up/Referrals: Brandyn Pelayo DO [Primary Care Provider] - Diet: Heart Healthy Addtl Attending Provider Instructions: Orthopaedic Instructions after Hip Fracture Surgery: Please keep your wound clean and dry. Do not remove any of the xavier. [place] were removed at your follow-up appointment with orthopedic surgery. Please continue daily dressing changes until your follow-up appointment. If there is no drainage onto the dressing for total of 24 hours, you may shower after 5 days from surgery. Allow soap and water to run over the incision, no scrubbing, and pat dry. Do not submerse (sitting in bathtub, hot tub, jacuzzi, pool, etc) the wound for at least 3 weeks. You may bear weight on your lower extremities as tolerated. (1) Intertrochanteric fracture of left femur: - POD5, pain remains controlled on regimen of home regimen of tramadol 50 mg PRN and Tylenol PRN - Medically stable - Pt [facility], discharged on 06/23 for rehab stay (2) JUAN (acute kidney injury): - Likely pre-renal due to acute blood loss anemia with long bone fracture - Cr 1.23 on admission, 1.41 -> 1.28 on on 06/23 - Continue holding home irbesartan, meloxicam - Please continue to trend BMP (3) Chronic obstructive pulmonary disease: - Chronic, stable. No complaints of dyspnea at time of discharge - Respiratory status stable on RA at time of discharge - Continue daily fluticasone, umeclidinium/vilanterol (4) Hypertension: - BP stable while medications on hold - Please continue to hold home amlodipine, irbesartan for now due to JUAN - BP stable, resume medications as able with Cr improvement and as BP rises (5) Hyperlipidemia: - Continue simvastatin. (6) Hypothyroidism: - Continue Synthroid 25 mcg daily. (7) GERD (gastroesophageal reflux disease): - Continue Protonix. (8) Spinal stenosis: - Pain management at home includes tramadol 50 mg daily, meloxicam 15 mg daily, Tylenol PRN - Please continue to hold meloxicam for JUAN - Pain control adequate at time of discharge (9) Multiple pulmonary nodules determined by computed tomography of lung: - 1.1 cm, being followed by pulmonary, no growth 2018 - 2019. Diet: Heart healthy PPX: SCDs, Lovenox 30 mg SQ daily Code: Full Pending Studies at Discharge: No Stand-Alone Forms: My [facility] Vital Vio Skilled Items Patient informed of condition?: Yes DNR: No Discharge Level of Care: Acute rehab Communicable Disease: No Discharge Prognosis: Stable Lines: None Urinary Catheter: No Medications and DC Order Prescriptions: Continued tramadol 50 mg tablet 50 mg PO DAILY acetaminophen [Tylenol] 325 mg capsule 325 mg PO QID PRN (Reason: Sleep) amlodipine 2.5 mg tablet 2.5 mg PO DAILY Trelegy Ellipta 100-62.5-25 mcg blister with device 1 inh INH DAILY Qty: 3 1RF levothyroxine [Synthroid] 25 mcg tablet 25 mcg PO QAM simvastatin 20 mg tablet 20 mg PO QPM multivitamin Tablet 1 tab PO QAM meclizine 12.5 mg Tablet 12.5 mg PO TID PRN (Reason: Dizziness) pantoprazole 40 mg Tablet,Delayed Release (Dr/Ec) 40 mg PO QAM PreserVision AREDS [id number] Tablet 1 tab PO BID trazodone 100 mg tablet 100 mg PO HS Caltrate 600 plus D 600 mg (1,500 mg)-800 unit Tablet,Chewable 1 tab PO QAM Discontinued irbesartan 150 mg tablet 150 mg PO DAILY meloxicam 15 mg tablet 15 mg PO QAM Discharge Orders: Discharge Order (Routine); Ordered 06/23/22 Ordered By: Amairani Baumann Admission Data Admit Date/Time: 06/17/22 15:05 Attending Provider: Krystle Nichols Admit Provider: Andre Mckeon Primary Care Provider: Brandyn Pelayo Other Providers: Andre Mckeon ; Timothy Tate ; Andre Prescott ; [facility] ; [facility] ; [place] ; Song Parikh Supervising Physician Co-Signing Physician Notes Resident Physician Supervision Note: I independently interviewed and examined the patient and verified the betancourt history and physical, reviewed labs and image studies and agree with resident findings and care plan.
[2022-06-23] MEDS: CALCIUM 600MG + VIT D 400 IU TAB PO SCH (10:29)
[2022-06-23] MEDS: PANTOprazole 40 MG TAB PO SCH (10:30)
[2022-06-23] MEDS: MULTIVITAMIN TAB PO SCH (10:30)
[2022-06-23] MEDS: UMECLIDINIUM/VILANTEROL 62.5/25MCG 7 PUFFS/INHALER INH SCH (10:30)
[2022-06-23] MEDS: GABAPENTIN 300 MG CAP PO SCH (10:30)
[2022-06-23] MEDS: ENOXAPARIN INJ 30 MG/0.3 ML SYR SQ SCH (10:30)
[2022-06-23] MEDS: FLUTICASONE FUROATE 100MCG 14 PUFFS/INHALER INH SCH (10:31)
[2022-06-23] MEDS: LIDOCAINE 5% 1 PATCH TD SCH (10:31)
== END 2022-06-23 12:59 | DRG 481 ==
LOC: ED 13:10 → SUATTDRO 15:05 → EDINP 15:05 → 3E 20:34
DX: Z96.651 Presence of right artificial knee joint; N17.9 Acute kidney failure, unspecified; Z79.890 Hormone replacement therapy; I10 Essential (primary) hypertension; E78.5 Hyperlipidemia, unspecified; Z98.1 Arthrodesis status; Y92.009 Unspecified place in unspecified non-institutional (private) residence as the place of occurrence of the external cause; S72.142A Displaced intertrochanteric fracture of left femur, initial encounter for closed fracture; R91.8 Other nonspecific abnormal finding of lung field; D62 Acute posthemorrhagic anemia; M48.00 Spinal stenosis, site unspecified; E03.9 Hypothyroidism, unspecified; W18.39XA Other fall on same level, initial encounter; J44.9 Chronic obstructive pulmonary disease, unspecified; I44.7 Left bundle-branch block, unspecified; K21.9 Gastro-esophageal reflux disease without esophagitis

== ENCOUNTER 2024-10-22 08:06 | Inpatient (IN) ==
[2024-10-22] MEDS: NITROGLYCERIN 60 SPRAYS/4.9 GM SPRAY SL ONE (08:12)
--- OUTSIDE RECORDS SUMMARY | 2024-10-22 08:12 | External Medical Summary | Continuity of Care Document ---
Author Name Unknown Organization [id number] Address [address] [place] [id number] Care Team Providers Care Shield Cleaner Name Role Phone Renita Shanks Primary Care Physician [phone] [facility] [id number] Date(s): 10/18/24 - 10/18/24 [facility] 0 [facility] [address] [address] Encounter Diagnosis Fracture of femur, distal, right, closed(Discharge Diagnosis) - 10/18/24 Discharge Disposition: Home or Self Care Attending Physician: MD Kenyon, Andre White Encounter Type: Clinic Allergies, Adverse Reactions, Alerts Substance Criticality Severity Reaction Reaction Severity Status Adhesive bandage Act min Immunizations Given and Recorded Vaccine Date Status Refusal Reason influenza virus vaccine, inactivated 06/03/22 Give n influenza virus vaccine, inactivated 05/28/21 Give n influenza virus vaccine, inactivated 1 05/24/20 Gi shauna influenza virus vaccine, inactivated 06/06/19 Give n influenza virus vaccine, inactivated 06/01/18 Give n influenza virus vaccine, inactivated 05/17/17 Give n influenza virus vaccine, inactivated 06/16/16 Give n influenza virus vaccine, inactivated 06/10/15 Give n influenza virus vaccine, inactivated 05/30/14 Give n influenza virus vaccine, inactivated 06/06/13 Give n influenza virus vaccine, inactivated 06/02/12 Give n SARS-CoV-2 (COVID-19) mRNA BNT-162b2 vax 2 11/15/20 Recorded SARS-CoV-2 (COVID-19) mRNA BNT-162b2 vax 3 10/25/20 Recorded zoster vaccine, inactivated 4 06/01/20 Recorded zoster vaccine, inactivated 5 03/12/20 Recorded tetanus/diphtheria/pertuss, acel (Tdap) 03/06/20 G iven tetanus/diphtheria/pertuss, acel (Tdap) 11/08/07 R ecorded pneumococcal 13-valent vaccine 04/02/15 Recorded pneumococcal 23-valent vaccine 04/07/10 Recorded pneumococcal 23-valent vaccine 06/20/03 Recorded zoster vaccine live 09/06/07 Recorded zoster vaccine live 6 09/06/07 Recorded 1Early/Late Reason: Early/Late Reason: Other : on time 2Result Comment: 2021-04-22: Historical information-source unspecified 3Result Comment: 2021-04-22: Historical information-source unspecified 4Result Comment: 2021-04-22: Historical information-source unspecified 5Result Comment: 2021-04-22: Historical information-source unspecified 6Result Comment: 2021-04-22: Historical information-source unspecified Medications amLODIPine 5 mg oral tablet Start: 08/22/24 8:27:00 AM EST, 1 tab, PO, Daily Start Date: 08/22/24 Status: Ordered Repeat number: 1 aspirin 81 mg oral tablet, chewable Start: 08/06/24 5:04:00 PM EST, 1 tab, PO, Daily Start Date: 08/06/24 Status: Ordered Repeat number: 1 atorvastatin 40 mg oral tablet Start: 08/06/24 5:04:00 PM EST, 1 tab, PO, qhs Start Date: 08/06/24 Status: Ordered Repeat number: 1 Brilinta (ticagrelor) 90 mg oral tablet Start: 08/06/24 5:04:00 PM EST, 1 tab, PO, q12h Start Date: 08/06/24 Status: Ordered Repeat number: 1 Gemtesa Start: 07/27/24 3:18:00 PM EST, 75 mg =, PO, Daily Start Date: 07/27/24 Status: Ordered Repeat number: 1 irbesartan 300 mg oral tablet Start: 07/27/24 7:04:00 AM EST, 1 tab, PO, Daily Start Date: 07/27/24 Status: Ordered Repeat number: 1 levothyroxine 25 mcg (0.025 mg) oral tablet Start: 01/11/24 1:13:00 PM EDT, 1 tab, PO, Daily, Disp# 90 tab, Refills: 3, [facility] Start Date: 01/11/24 Status: Ordered Quantity: 90.0 Unit: tab Repeat number: 1 Lovenox 40 mg/0.4 mL injectable solution Start: 08/22/24 8:27:00 AM EST, 0.4 mL, subQ, Daily Start Date: 08/22/24 Status: Ordered Repeat number: 1 Metamucil [place] Smooth Texture Start: 10/22/10 10:14:00 AM EST, 3.4 g =, PO, Daily Start Date: 10/22/10 Status: Ordered Repeat number: 1 metoprolol succinate (ER) Start: 08/06/24 5:04:00 PM EST, 100 mg =, PO, Daily Start Date: 08/06/24 Status: Ordered Repeat number: 1 MiraLax Start: 08/12/24 9:47:00 AM EST, 17 g =, PO, Daily, PRN: Constipation Start Date: 08/12/24 Status: Ordered Repeat number: 1 oxyCODONE 5 mg oral tablet Start: 08/06/24 5:04:00 PM EST, 5 mg =, PO, q4h, Refills: 0, PRN: pain - severe (7-10) Start Date: 08/06/24 Status: Ordered Repeat number: 1 oxyCODONE 5 mg oral tablet Start: 08/06/24 5:04:00 PM EST, 2.5 mg =, PO, q4h, Refills: 0, PRN: pain - moderate (4-6) Start Date: 08/06/24 Status: Ordered Repeat number: 1 pantoprazole 40 mg oral delayed release tablet Start: 09/24/23 6:45:00 AM EST, 1 tab, PO, Daily, Disp# 90 tab, Refills: 3, DIRECTED., Pharmacy: [facility] Start Date: 09/24/23 Status: Ordered Quantity: 90.0 Unit: tab Repeat number: 1 PreserVision Start: 10/22/10 10:11:00 AM EST, PO, Daily Start Date: 10/22/10 Status: Ordered Repeat number: 1 senna (sennosides) 8.6 mg oral tablet Start: 08/12/24 9:47:00 AM EST, 1 tab, PO, Daily Start Date: 08/12/24 Status: Ordered Repeat number: 1 simvastatin 20 mg oral tablet Start: 08/22/24 8:27:00 AM EST, 1 tab, PO, qhs Start Date: 08/22/24 Status: Ordered Repeat number: 1 traZODone 100 mg oral tablet Start: 09/08/23 10:45:00 AM EST, 1 tab, PO, qhs, Disp# 90 tab, Refills: 3, Pharmacy: [facility] Start Date: 09/08/23 Status: Ordered Quantity: 90.0 Unit: tab Repeat number: 1 Trelegy Ellipta Start: 04/23/21 8:58:00 AM EDT, 1 puff, inhaled, Daily Start Date: 04/23/21 Status: Ordered Repeat number: 1 Tylenol 500 mg oral tablet Start: 08/06/24 5:04:00 PM EST, 2 tab, PO, q8h Start Date: 08/06/24 Status: Ordered Repeat number: 1 Vitamin D3 Start: 08/06/24 5:04:00 PM EST, 125 mcg =, PO, Daily Start Date: 08/06/24 Status: Ordered Repeat number: 1 Mental Status 10/18/24 Barriers to Learning one year None evide nt Mandatory Health Literacy Documentation Yes Health Literacy Communication Barriers N ever Primary Language Maltese Problem List Condition Confirmation Course Effective Dates Status H ealth Status Informant Memory loss Confirmed Active Atherosclerosis of aorta 1 Confirmed Active BACK PAIN, CHRONIC Confirmed Active Nevus Confirmed Active Carpal tunnel syndrome Confirmed Active Chronic kidney disease, stage 3a 2 Confirmed Active COPD (chronic obstructive pulmonary disease) Confirmed Active Fracture of femur, distal, right, closed Confirmed Active Osteoarthritis Confirmed Active Dizziness Confirmed Active Exudative age-related macular degeneration, bilateral, stage unspecified 3 Confirmed Active Pain in left foot Confirmed Active GERD (gastroesophageal reflux disease) Confirmed Active Hand pain, left Confirmed Active Hypercalcemia Confirmed Active Hyperlipidemia Confirmed Active Hypertension Confirmed Active Hypothyroidism Confirmed Active Inflamed seborrheic keratosis Confirmed Active LBBB (left bundle branch block) Confirmed Active Macrocytosis Confirmed Active Melanocytic nevus of trunk Confirmed Active OSTEOPOROSIS Confirmed Active Medicare annual wellness visit, subsequent Confirmed Active Periprosthetic fracture of knee Confirmed Active Thrombocytopenia Confirmed Active Pulmonary nodule Confirmed Active 1see outside rad/study 04/27/2022 04/06/2022 Two view Chest FINDINGS: The cardiomediastinal silhouetteis unremarkable noting atherosclerotic calcification of the thoracic aorta. Cret 0.96/eGFR 59; 06/19/21 Cret 0.91/eGFR 59 3See outside note 01/28/2022 12/31/2021 [facility] Ashish Clemons MD Diagnosis Diagnosis Type Effective Dates Health Status Cl inical Service Informant Fracture of femur, distal, right, closed Discharge Diagnosis 10/18/24 Non-Specified Procedures Procedure Date Related Diagnosis Body Site Status Closed reduction of peritroc hanteric fracture of femur 06/18/[address] of head 1 06/17/22 Completed Skeletal X-ray of pelvis and hip 2 06/17/22 Completed Mammogram - screening 3 09/04/21 C ompleted Bilateral digital screening mammogram tomosynthesis with synthetic 2D with CAD 4 05/03/20 Completed Colonoscopy 5 01/04/19 Completed Mammogram 6 11/17/[address] 7 02/22/18 Completed Mammogram 8 11/16/17 Completed Chest x-ray 9 09/21/[address] of right knee without contrast 10 08/24/17 Completed X-ray of right knee 11 08/14/17 Co mpleted Biopsy of esophagus 12 07/21/17 Co mpleted BIOPSY OF STOMACH 13 07/21/17 Comp leted Upper GI endoscopy 14 07/21/17 Com pleted Videofluoroscopy swallow 15 06/03/17 Completed Mammogram 16 11/29/[address] 17 03/10/16 Completed Mammogram - screening 11/11/15 Com pleted Bone density scan 03/19/15 Complet ed Colonoscopy 12/11/13 Completed Appendectomy Completed Back Surgery (L4-L5) Comp leted bilateal bunionectomy Com pleted cataracts surgery Complet ed Cervical spine surgery Co mpleted Hysterectomy Completed knee surgery Completed Radial fracture Completed Shoulder surgery Complete d Surgery 18 Completed 1Impression: No acute intracranial abnormlity. 2Impression: Comminuted intratrochanteric fracture of the left femur. 3There is no mammographic evidence of malignancy. A 1 year screening mammogram is recommended. 4Impression: ACR BI RADS CATEGORY 2: Benign There is no mammographic evidence of malignancy. 5Diverticulosis in the sigmoid colon. No specimens collected. Repeat in 5 years. 6impression There is no mammographic evidence of malignancy 1 year screening recommended 7No significant change the preceding study Stable mixed solid and groundglass irregular left apical 11 mm nodule. A low- grade malignancy remains the diagnosis of exclusion. Stable indeterminate 7mm groundglass left lower lobe pulmonary nodule. No evidence of pathologic adenopathy. 8There is no mammographic evidence of malignancy. A 1 yr screening is recommended. 9No active disease in the chest 101. Acute nondisplaced periprosthetic fracture of the medial femoral condyle, as described above. 2. No additional fractures identified although evaluation is difficult given streak artifact from the right knee arthoplasty. 11status post total right knee arthroplasty No periprosthetic fracture or lucency. Suspected small tomoderate right knee joint effusion 12mild to moderate ative esophagitis with fungal microorganisms morphologically compatide with tommy species 13moderate chronic active gastritis withheliconacter pylori-like microorganism. 14Monilial esophagitis. Biopsied. Small hiatal hernia. Normal stomach, biopsied. Normal examined duodenum. Await pathology. 151. no aspiration identified 2. please see the speech pathologist report for detailed findings and recommendations 16wnl 17Multiple pulmonary nodules as described 18left wrist 08/08/13 Social History Social History Type Response Tobacco 1 Smoking Status Never smoked cigaret eliseo Sex Female Sex Representation Female (finding) 1Never Implantable Device List Procedure Provider Procedure Date Device Type Site Unknown Unknown 07/27/24 Unknown Unknown Device Identifier Serial Number Lot or Batch Number Manufacturing Date Expiration Date Distinct Identification Code MRI Safety Implantable Status Assigning Authority Unknown Unknown [id number] Unknown 05/06/34 Unknown Unknown Active Unk nown Unknown Unknown [id number] Unknown 12/04/32 Unknown Unknown Active Unk nown Unknown Unknown [id number] Unknown 07/06/33 Unknown Unknown Active Un known Unknown Unknown [id number] Unknown 06/05/33 Unknown Unknown Active Unk nown Unknown Unknown [id number] Unknown 02/03/34 Unknown Unknown Active Unk nown Unknown Unknown NA Unknown Unknown Unknown Unknown Active Unkn own Unknown Unknown NA Unknown Unknown Unknown Unknown Active Unkn own Unknown Unknown NA Unknown Unknown Unknown Unknown Active Unkn own Unknown Unknown NA Unknown Unknown Unknown Unknown Active Unkn own Unknown Unknown NA Unknown Unknown Unknown Unknown Active Unkn own Unknown Unknown NA Unknown Unknown Unknown Unknown Active Unkn own Unknown Unknown NA Unknown Unknown Unknown Unknown Active Unkn own Unknown Unknown NA Unknown Unknown Unknown Unknown Active Unkn own Ortho Outpt Note * Lori Trent: PERFORM, MODIFY, MODIFY, MODIFY, MODIFY MD Kenyon, Andre White: MODIFY Event Display: Ortho Outpt Note Authored Date: [id number] Name:BARBARA ORTIZ Patient Number:[id number] :1940 Date of Service:10/18/2024 CHIEF COMPLAINT: F/u3 months s/p right femur ORIF, DOS: 07/27/24 HPI: Arely Barrientos presents today forfollow up3 months s/p right femur ORIF, DOS: 07/27/24. She presents today with her and an aide from [place] at [facility]. [facility] and her says she was able to walk well with a walker recently. Her explains that she is likely going to be leaving the [facility] soon and moving into an assisted living facility. PHYSICAL EXAM: Focusing on the patient'sRIGHTlower extremity: 1+ edema of the lower leg Femur does not appear to be particularly tender 5/5 Kneeflexion strength 5-/5 Knee extension strength Difficulty with straight leg raise Knee ROM: 0 / 10 / 100 20lag with active extension, good strength DIAGNOSTIC REVIEW: 2views of theright femurobtained today and personally interpreted by me taken at [facility] show hip joint looks normal. There is evidence of intact right TKA with alateral plate and screws andretrograde intramedullary nail. Hardware is in good alignment with no evidence of hardware failure. There is some medial callous formation. Fracture of the distal femur. There is ossification ofthe quadriceps tendon area. WBC count on 09/28/24: 8 IMPRESSION: 84 year old female3 months s/p right femur ORIF, DOS: 07/27/24. PLAN: - I advised the patient to elevate the leg to improve swelling. Continue to ambulate with a walker during PT. - Follow up in 3 months with x-rays, continue physical therapy. ATTESTATION: I, Lori Trent, have scribed for, and in the presence of, Andre Prescott, on this date,10/18/2024 14:30:33. Electronic Signature on File CC: Jonelle A Abrahan, ULTRASOUND SUPERVISOR [address] [facility] [address] [place] [address] CC: ROBERT Dean [address] [facility] [address] [place] [address] CC: Demond Cabral MD [address] [facility] [address] [place] [address] Electronically Reviewed/Signed by: Lori Trent Author Signature Dt/Tm:10/18/2024 02:42 PM Electronically Reviewed/Signed by: Andre Prescott MD Cosigner Signature Dt/Tm: 10/18/2024 05:22 PM Division of Sports Medicine [facility] Patient Care team information Care Team Personnel Name: MD Rimma, Renita Davis Position: Referring Member Role: Primary Care Provider Address: [facility] [address] Telecom: [phone] Name: CONSUELO Monahan Christina L Position: Physician - Podiatry Member Role: Lifetime Relationship Address: [address] Telecom: [phone] Care Team Related Persons Name: DIAMOND ORTIZ Insurance Providers Guarantor name: BARBARA ORTIZ Health Plan Information #: 1 Payer: [employer] Member Number: [id number] Policy Number: NA Group Number: [id number] Health Plan Information #: 2 Payer: [employer] Member Number: [id number] Policy Number: NA Group Number: [id number]
[2024-10-22] MEDS: SODIUM CHLORIDE 0.9% 1,000 ML IV ONE ×2 (08:30→09:21)
[2024-10-22 08:33] LABS: iSTAT Creatinine 1.4 mg/dl (0.6-1.3); iSTAT Hemoglobin 11.9 g/dl (12.0-16.0); iSTAT Ionized Calcium 1.21 mmol/l (1.12-1.32); iSTAT Potassium 4.8 mmol/L (3.3-5.0)
--- NOTE | 2024-10-22 08:35 | XRay Report ---
XR chest 1V portable CLINICAL HISTORY: Sepsis. Shortness of breath. COMPARISON STUDY: Chest radiograph September 26, 2024. Chest CT February 10, 2024. FINDINGS: Postoperative findings within the spine are incidentally noted. There is no pneumothorax. T race bilateral pleural effusions are present. There has been interval extensive consolidation which i nvolves the majority of the left lung. Interstitial thickening within the right lung may represent an infectious process as well. There is no evidence for pulmonary edema. IMPRESSION: 1. Interval development of extensive left lung consolidation consistent with pneumonia. Interstitial thickening within the right lung, also likely infectious. 2. Trace bilateral pleural effusions. ACT 112: Negative or not required by law. Electronically signed by: William Pathak M.D. 10/22/2024 8:34 AM
[2024-10-22 08:37] LABS: Base Excess VBG -7.5 mEq/L; HCO3 VBG 22 mmol/L; Oxygen Saturation VBG < 60.0 %; PCO2 VBG 64 mmHg (38-50); PO2 VBG 37 mmHg; pH VBG 7.15 (7.36-7.41)
[2024-10-22 08:39] LABS: Hematocrit (blood only) 35.7 % (37.0-47.0); Mean Corpuscular Hemoglobin 28.9 pg (25.0-34.0); Mean Corpuscular Hgb Conc 30.8 g/dL (32.0-36.0); Mean Corpuscular Volume 93.7 fL (80.0-100.0); Mean Platelet Volume 10.2 fL (9.4-12.4); Platelet Count 524 K/uL (130-400); RDW Coefficient of Variation 13.6 % (11.5-14.5); RDW Standard Deviation 46.4 fL (36.4-46.3); Red Blood Count 3.81 M/uL (4.20-5.40); White Blood Count 25.71 K/ul (4.8-10.8)
[2024-10-22 08:45] LABS: Partial Thromboplastin Ratio 0.8; Partial Thromboplastin Time 22 Seconds (21-31); Prothrombin Time 10.4 Seconds (9.0-12.0)
[2024-10-22] MEDS: cefTRIAXone SODIUM 2,000 MG/50 ML BAG IV STA (08:49)
--- NOTE | 2024-10-22 08:54 | Emergency Department Note ---
Impression & Plan Pneumonia, Respiratory failure, Elevated troponin I level, Hypoxia ED Provider Note NAME: BARBARA ORTIZ AGE: 84 SEX: F : 1940 ARRIVES VIA: Ambulance INFORMANT: Patient, EMS ED PROVIDER(S): Buddy Gay DO CHIEF COMPLAINT: Shortness of breath HPI: The patient is an 84-year-old female who presented to the emergency department for an evaluation of shortness of breath. The patient describes an acute onset of shortness of breath. History is very limited because of patient with respiratory distress. She was placed on 100% nonrebreather mask prior to arrival. The patient has a history of coronary artery disease. I was notified by the prehospital personnel to evaluate the patient's prehospital EKG as they were concerned about the presence of dyspnea. The patient is able to answer in one-word answers. She does state that she has no chest pain. She only complains of severe shortness of breath. She denies having any fever or hemoptysis. ROS: See above HPI for pertinent positives & negatives. A total of 10 systems reviewed and were otherwise negative. PAST MEDICAL HISTORY: See Below PAST SURGICAL HISTORY: See Below FAMILY HISTORY: See Below SOCIAL HISTORY: See Below HOME MEDICATIONS: See Below ALLERGIES: See Below VITALS: See Below PHYSICAL EXAMINATION: GENERAL: The patient is awake and alert. She is very anxious. EYES: The conjunctivae are clear. The pupils are round and reactive. EARS, NOSE, MOUTH AND THROAT: The nose is without any evidence of any deformity. NECK: The neck is nontender and supple. JVD was noted bilaterally. RESPIRATORY: Diminished breath sounds are noted throughout with rales throughout. CARDIOVASCULAR: Tachycardic and regular heart sounds were noted to auscultation. There is no definite murmur. GASTROINTESTINAL: The abdomen is soft. Abdomen is nontender. MUSCULOSKELETAL/EXTREMITIES: There is no evidence of gross deformity full range of motion is noted in the hips and shoulders. SKIN: Skin is warm and dry. Chronic venous stasis changes are noted in both lower extremities. NEUROLOGIC: Patient is awake alert and oriented x3 MEDICAL DECISION MAKING: The patient is an 84-year-old female who presented to the emergency department with an acute onset of shortness of breath. The patient was placed on 100% nonrebreather but when she arrived in the emergency department she was still very short of breath. She was placed on BiPAP. Because of the acute onset of her symptoms as well as the patient's cardiac history and her elevated blood pressure she was initially felt to be in pulmonary edema. She was given 1 dose of nitro spray without any significant improvement. She continued to have worsening shortness of breath. The decision was made to intubate the patient for continued and worsening oxygen requirement. The patient did improve after intubation. She was found to have a unilateral infiltrate which was extensive on the left. For this reason she was further treated with IV antibiotics as well as IV fluids. I discussed patient's laboratory and radiographic studies with her . I discussed her condition with the on-call [facility] hospitalist as well as the [facility] lithographic etcher and the ICU attending. The patient's condition slowly improved while in the emergency department. She did have a few episodes of hypotension. She was treated with 1 dose of push dose epinephrine. Triage Nursing notes reviewed. Prior medical records reviewed Vital Signs: reviewed and remarkable for tachycardia and hypotension. Differential diagnosis: Reactive airway disease, pneumonia, pneumothorax, COPD, CHF, infections, cardiac ischemia, pulmonary embolism, musculoskeletal, gastrointestinal, as well as other pathologies. ER treatment provided: See below Diagnostics interpreted by me: ECG: EKG was obtained in the emergency department. My interpretation is sinus tachycardia at 142 bpm. No PVCs were noted. Left bundle branch block pattern was noted with nonspecific ST depressions as well as elevations in the anterior leads. This was compared to a tracing from June 17, 2022. The left bundle branch block is not new. The increased rate is however new. Prehospital EKG was evaluated. My interpretation is sinus tachycardia at 142 bpm. Left bundle branch block pattern was noted. This compares similar to the initial tracing obtained in the emergency department. Cardiac Monitoring: An order was placed for continuous cardiac monitoring. The monitor shows a rate of 103 bpm with sinus tachycardia. Laboratory studies: As stated above and show below. Imaging studies: See below. Radiographic imaging was reviewed by myself Consultation(s): I discussed this case with Dr. Gallardo who is on-call for [facility] cardiology. I discussed this case with Dr. Gaston who is on-call for the [facility] hospitalist group I discussed this case with Dr. Ochoa who is on for the ICU. He does recommend broadening the antibiotic coverage to include vancomycin as well as atypical coverage. ED COURSE: Procedures: Endotracheal Intubation Indication: respiratory failure. The patient was on 100% oxygen via NRB prior to the procedure. Suction, airway equipment, RSI drugs, respiratory equipment, and appropriate personnel were prepared prior to the initiation of the procedure. A time out was taken. Induction was performed with Ketamine and rocuronium. After observing the clinical benefit of the medications, the airway was easily visualized utilizing a glide scope. A 7.5 size ETT tube was placed atraumatically to 22 cm using standard technique. The cuff inflated without signs of malfunction. There were bilateral breath sounds, positive colormetric change, no gastric sounds, a good capnography waveform, and post procedure pulse oximetry was 98%. Post intubation sedation and paralysis was administered using propofol. There were no complications. Critical Care: I have personally spent greater than 45 minutes of critical care time in the direct management of this patient. This includes bedside care, interpretation of diagnostic studies, and testing, discussion with consultants, patient, and family members, and other required patient management activities. This 45 minutes is in excess of all separately billable procedures. 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, thoracolumbar region Postlaminectomy syndrome of lumbosacral region Skin tear of left lower leg without complication Chondrocalcinosis of left knee Multiple pulmonary nodules determined by computed tomography of lung Pulmonary nodule Chronic obstructive pulmonary disease (Chronic) Hyperlipidemia (Chronic) Hypothyroidism (Chronic) GERD (gastroesophageal reflux disease) (Chronic) Chronic back pain (Chronic) Spinal stenosis (Chronic) Osteoarthritis (Chronic) Dyslipidemia (Chronic) Asthma (Chronic) Medical History History of non-ST elevation myocardial infarction (NSTEMI) 07/2024 [facility] [place]. PCI to RCA History of femur fracture (06/17/22) comminuted intratrochanteric fracture of the left femur from a fall Fall Closed intertrochanteric fracture of left femur Surgical History Hx of cardiac cath 07/2024 [facility] [place]. PCI to RCA History of repair of right rotator cuff History of bladder surgery bladder tack History of hysterectomy History of dilatation and curettage History of bunionectomy of right great toe History of open reduction and internal fixation (ORIF) procedure left wrist, hardware removed History of carpal tunnel surgery of left wrist History of lumbar spinal fusion x4--T12-S1 fusion Hx of cervical spine surgery normal ROM History of total right knee replacement (TKR) History of colonoscopy History of esophagogastroduodenoscopy (EGD) History of appendectomy History of tooth extraction all teeth History of bilateral cataract extraction Hx of cataract surgery H/O rotator cuff surgery H/O Spinal surgery Family History Sister Family history of diabetes mellitus 2 Other No family history of adverse response to anesthesia Social History Smoking Status: Unknown if ever smoked Second Hand Exposure: Yes; Do You Dip or Chew Tobacco: No; Hx Alcohol Use: No Hx Substance Use: No Preferred Language: Honduran Communication Ability: Effective Visual Impairment: Partially Limited Hearing Ability: Normal Window Installation Subcontractor Required: No Beliefs That Will Affect Care: Spiritual marital status: Current Living Situation: Spouse Current Living Situation Comment: Lives with and grandson Feels Safe at Home: Yes Diet: regular caffeine: Yes during the past year weight has: remained stable Assistive Devices: Cane and Walker Allergies Allergies Allergy/AdvReac Type Severity Reaction Status Date / Time adhesive Allergy Mild LOCAL SKIN Verified 09/26/24 13:38 IRRITATION Home Meds Home Medications Medication Instructions Recorded Confirmed multivitamin 1 tab PO QAM 12/21/18 09/26/24 levothyroxine 25 mcg tablet 25 mcg PO QAM 07/25/19 09/26/24 (Synthroid) acetaminophen 500 mg tablet 1,000 mg PO BID PRN 04/15/23 09/26/24 [facility]ph[facility] W[employer] P[employer] miscellaneous 09/28/24 aspirin 81 mg tablet,delayed 81 mg PO DAILY 09/28/24 release atorvastatin 40 mg tablet 40 mg PO DAILY 09/28/24 cholecalciferol (vitamin D3) 125 125 mcg PO DAILY 09/28/24 mcg (5,000 unit) capsule guaifenesin 100 mg/5 mL oral liquid 200 mg PO Q4H PRN 09/28/24 oxycodone 5 mg tablet 5 mg PO Q4H PRN 09/28/24 polyethylene glycol 3350 17 gram 17 g PO DAILY 09/28/24 oral powder packet sennosides 8.6 mg tablet (senna) 8.6 mg PO DAILY 09/28/24 ticagrelor 90 mg tablet 90 mg PO BID 09/28/24 Previous Rx's Medication Instructions Recorded albuterol sulfate 90 mcg/actuation 2 inh inhalation QID PRN shortness 06/09/23 aerosol inhaler of breath or wheezing #8.5 grams pantoprazole 40 mg tablet,delayed 40 mg PO QAM #90 tabs 05/01/24 release fluticasone fur. 100 mcg-umeclid 1 inh inhalation DAILY #3 Inhalers 05/29/24 62.5 mcg-vilant 25 mcg inhalat.powder (Trelegy Ellipta) vibegron 75 mg tablet 75 mg PO DAILY #90 tabs 07/13/24 trazodone 100 mg tablet 50 mg (1/2 x 100 mg) PO HS #90 tabs 09/26/24 irbesartan 300 mg tablet 300 mg PO DAILY #90 tabs 10/03/24 Results & Data (ED) Vital Signs Vital Signs - 24 hr 10/22/24 08:06 10/22/24 08:06 10/22/24 08:12 Temperature 36.6 C Temperature Source Temporal Artery Scan Pulse Rate 141 H 142 H Pulse Rate from SpO2 Sensor Respiratory Rate 39 H 31 H Respiratory Effort / Characteristics Short of Breath Short of Breath Respiratory Depth Respiratory Pattern Blood Pressure 157/96 H Blood Pressure Mean 116 Pulse Oximetry 95 Oxygen Delivery Method Non-rebreather Non-rebreather Oxygen Flow Rate 15 15 Fraction of Inspired Oxygen Sepsis Recent Fever Within 48 Hours No Sepsis New/Unexplained Change in Mental Status Yes Sepsis Action Taken by Nursing Physician Notified End-Tidal CO2 10/22/24 08:13 10/22/24 08:15 10/22/24 08:16 Temperature Temperature Source Pulse Rate 141 H Pulse Rate from SpO2 Sensor 136 H Respiratory Rate 36 H Respiratory Effort / Characteristics Respiratory Depth Respiratory Pattern Blood Pressure 157/96 H 150/88 H Blood Pressure Mean 124 115 Pulse Oximetry 99 Oxygen Delivery Method BiPAP Oxygen Flow Rate Fraction of Inspired Oxygen 100 Sepsis Recent Fever Within 48 Hours Sepsis New/Unexplained Change in Mental Status Sepsis Action Taken by Nursing End-Tidal CO2 10/22/24 08:17 10/22/24 08:18 10/22/24 08:18 Temperature Temperature Source Pulse Rate 142 H 140 H 139 H Pulse Rate from SpO2 Sensor 139 H Respiratory Rate 35 H 35 H Respiratory Effort / Characteristics Spontaneous Accessory Muscle Use Labored Pursed Lip Retracting Short of Breath Respiratory Depth Deep Respiratory Pattern Tachypnea Blood Pressure Blood Pressure Mean Pulse Oximetry 97 99 Oxygen Delivery Method BiPAP Oxygen Flow Rate Fraction of Inspired Oxygen 70 100 Sepsis Recent Fever Within 48 Hours Sepsis New/Unexplained Change in Mental Status Sepsis Action Taken by Nursing End-Tidal CO2 10/22/24 08:30 10/22/24 08:37 10/22/24 08:38 Temperature Temperature Source Pulse Rate Pulse Rate from SpO2 Sensor Respiratory Rate Respiratory Effort / Characteristics Respiratory Depth Respiratory Pattern Blood Pressure 153/112 H 44/26 L 48/32 L Blood Pressure Mean 124 33 37 Pulse Oximetry Oxygen Delivery Method Oxygen Flow Rate Fraction of Inspired Oxygen Sepsis Recent Fever Within 48 Hours Sepsis New/Unexplained Change in Mental Status Sepsis Action Taken by Nursing End-Tidal CO2 10/22/24 08:39 10/22/24 08:40 10/22/24 08:40 Temperature Temperature Source Pulse Rate 135 H 166 H Pulse Rate from SpO2 Sensor 128 H Respiratory Rate 24 24 Respiratory Effort / Characteristics Respiratory Depth Respiratory Pattern Blood Pressure 198/135 H Blood Pressure Mean 160 Pulse Oximetry 94 96 Oxygen Delivery Method Mechanical Vent Oxygen Flow Rate Fraction of Inspired Oxygen 100 Sepsis Recent Fever Within 48 Hours Sepsis New/Unexplained Change in Mental Status Sepsis Action Taken by Nursing End-Tidal CO2 36 10/22/24 08:45 10/22/24 08:45 10/22/24 08:45 Temperature Temperature Source Pulse Rate 150 H Pulse Rate from SpO2 Sensor 150 H Respiratory Rate 24 Respiratory Effort / Characteristics Respiratory Depth Respiratory Pattern Blood Pressure 136/88 136/88 Blood Pressure Mean 105 105 Pulse Oximetry 100 Oxygen Delivery Method Mechanical Vent Oxygen Flow Rate Fraction of Inspired Oxygen Sepsis Recent Fever Within 48 Hours Sepsis New/Unexplained Change in Mental Status Sepsis Action Taken by Nursing End-Tidal CO2 38 10/22/24 08:50 10/22/24 08:51 10/22/24 08:55 Temperature Temperature Source Pulse Rate 142 H 142 H Pulse Rate from SpO2 Sensor 142 H Respiratory Rate 28 H 28 H Respiratory Effort / Characteristics Respiratory Depth Respiratory Pattern Blood Pressure 105/66 Blood Pressure Mean 74 Pulse Oximetry 99 100 Oxygen Delivery Method Mechanical Vent Oxygen Flow Rate Fraction of Inspired Oxygen 100 Sepsis Recent Fever Within 48 Hours Sepsis New/Unexplained Change in Mental Status Sepsis Action Taken by Nursing End-Tidal CO2 31 30 10/22/24 08:55 10/22/24 09:00 10/22/24 09:00 Temperature Temperature Source Pulse Rate Pulse Rate from SpO2 Sensor Respiratory Rate Respiratory Effort / Characteristics Respiratory Depth Respiratory Pattern Blood Pressure 102/63 87/56 L 87/56 L Blood Pressure Mean 73 64 64 Pulse Oximetry Oxygen Delivery Method Oxygen Flow Rate Fraction of Inspired Oxygen Sepsis Recent Fever Within 48 Hours Sepsis New/Unexplained Change in Mental Status Sepsis Action Taken by Nursing End-Tidal CO2 10/22/24 09:03 10/22/24 09:06 10/22/24 09:09 Temperature Temperature Source Pulse Rate 142 H 141 H Pulse Rate from SpO2 Sensor 142 H 141 H Respiratory Rate 28 H 28 H Respiratory Effort / Characteristics Respiratory Depth Respiratory Pattern Blood Pressure 106/65 Blood Pressure Mean 77 Pulse Oximetry 100 100 Oxygen Delivery Method Mechanical Vent Mechanical Vent Oxygen Flow Rate Fraction of Inspired Oxygen Sepsis Recent Fever Within 48 Hours Sepsis New/Unexplained Change in Mental Status Sepsis Action Taken by Nursing End-Tidal CO2 31 31 10/22/24 09:10 10/22/24 09:15 10/22/24 09:15 Temperature Temperature Source Pulse Rate Pulse Rate from SpO2 Sensor Respiratory Rate Respiratory Effort / Characteristics Respiratory Depth Respiratory Pattern Blood Pressure 113/69 85/53 L 85/53 L Blood Pressure Mean 86 59 59 Pulse Oximetry Oxygen Delivery Method Oxygen Flow Rate Fraction of Inspired Oxygen Sepsis Recent Fever Within 48 Hours Sepsis New/Unexplained Change in Mental Status Sepsis Action Taken by Nursing End-Tidal CO2 10/22/24 09:15 10/22/24 09:35 Temperature Temperature Source Pulse Rate 132 H 103 H Pulse Rate from SpO2 Sensor 132 H Respiratory Rate 28 H Respiratory Effort / Characteristics Respiratory Depth Respiratory Pattern Blood Pressure Blood Pressure Mean Pulse Oximetry 100 Oxygen Delivery Method Mechanical Vent Oxygen Flow Rate Fraction of Inspired Oxygen Sepsis Recent Fever Within 48 Hours Sepsis New/Unexplained Change in Mental Status Sepsis Action Taken by Nursing End-Tidal CO2 29 Home Medications Current Medication List: was personally reviewed by me Laboratory Data Attestation: I reviewed the patient's lab results. 10/22/24 08:15 10/22/24 08:15 Lab Results 10/22/24 10/22/24 10/22/24 Range/Units 08:15 08:21 08:53 WBC 25.71 H (4.8-10.8) K/ul RBC 3.81 L (4.20-5.40) M/uL Hgb 11.0 L (12.0-16.0) g/dl POC Hgb 11.9 L (12.0-16.0) g/dl Hct 35.7 L (37.0-47.0) % POC Hct 35 L (37-47) % MCV 93.7 (80.0-100.0) fL MCH 28.9 (25.0-34.0) pg MCHC 30.8 L (32.0-36.0) g/dL RDW Std Deviation 46.4 H (36.4-46.3) fL RDW Coeff of Rajiv 13.6 (11.5-14.5) % Plt Count 524 H (130-400) K/uL MPV 10.2 (9.4-12.4) fL Immature Gran % (Auto) 0.6 % Neut % (Auto) 87.2 % Lymph % (Auto) 7.4 % [place] % (Auto) 3.1 % Eos % (Auto) 1.0 % Baso % (Auto) 0.7 % Neut # (Auto) 22.44 H (1.40-6.50) K/uL Lymph # (Auto) 1.90 (1.20-3.40) K/uL [place] # (Auto) 0.80 H (0.11-0.59) K/uL Eos # (Auto) 0.25 (0.00-0.50) K/uL Baso # (Auto) 0.17 (0.00-0.20) K/uL Immature Gran # (Auto) 0.15 (0.01-0.20) K/uL Polychromasia 1+ PT 10.4 (9.0-12.0) Seconds INR 1.0 (0.9-1.1) APTT 22 (21-31) Seconds PTT Ratio 0.8 Specimen Type POC pH (7.35-7.45) POC pCO2 (35-46) mmHg POC pO2 (80-95) mmHg POC HCO3 (19-24) sonja/L POC Base Excess (-9-1.8) sonja/L POC ABG O2 Sat (90-95) % VBG pH 7.15 L (7.36-7.41) VBG pCO2 64 H (38-50) mmHg VBG pO2 37 mmHg VBG HCO3 22 mmol/L VBG O2 Saturation < 60.0 % VBG Base Excess -7.5 mEq/L POC Sodium 133 L (135-144) mmol/L Sodium 134 L (136-145) mmol/L POC Potassium 4.8 (3.3-5.0) mmol/L Potassium 4.7 (3.5-5.1) mmol/L POC Chloride 100 L (101-112) mmol/L Chloride 98 (98-107) mmol/L Carbon Dioxide 24 (21-32) mmol/L POC Total CO2 26 (24-31) mmol/L Anion Gap 12 H (3-11) POC Anion Gap 13.0 L (16-25) mmol/L POC BUN 27 H (7-18) mg/dl BUN 30 H (6-23) mg/dl Creatinine 1.21 H (0.6-1.2) mg/dl POC Creatinine 1.4 H (0.6-1.3) mg/dl Est Cr Clr Drug Dosing Not Reportable eGFR 43.65 BUN/Creatinine Ratio 24.8 H (10-20) Glucose 253 H (70-99(Fasting)) mg/dl POC Glucose (other) 254 H (70-99) mg/dl Lactate (0.4-2.0) mmol/L Calcium 9.4 (8.6-10.3) mg/dl POC Ioniz Calcium Leatha 1.21 (1.12-1.32) mmol/l Magnesium 2.2 (1.7-2.4) mg/dl Total Bilirubin 0.3 (0.2-1.0) mg/dl Direct Bilirubin 0.0 (0-0.2) mg/dl AST 45 H (13-39) U/L ALT 36 (7-52) U/L Alkaline Phosphatase 126 H (34-104) U/L Troponin I High Sens 125.1 H* (0-14) pg/ml B-Natriuretic Peptide 734 H (0-100) pg/ml Total Protein 6.4 (6.0-8.3) gm/dl Albumin 3.3 L (3.4-5.0) gm/dl Procalcitonin 0.13 (0-0.5) ng/ml Urine Color Urine Appearance (Clear) Urine pH (4.5-7.5) Ur Specific [place] (1.000-1.030) Urine Protein (Negative) Urine Glucose (UA) (Negative) Urine Ketones (Negative) Urine Blood (Negative) Urine Nitrite (Negative) Urine Bilirubin (Negative) Urine Urobilinogen (Negative) Ur Leukocyte Esterase (Negative) Urine WBC (Auto) (0-5) /hpf Urine RBC (Auto) (0-2) /hpf U Hyaline Cast (Auto) (0-2) /lpf U Epithel Cells (Auto) (0-2) /hpf Urine Bacteria (Auto) (None Seen) Adenovirus (PCR) Not Detected (NotDetected) B. pertussis DNA (PCR) Not Detected (NotDetected) B.parapertussis DNA PCR Not Detected (NotDetected) C. pneumoniae DNA (PCR) Not Detected (NotDetected) Coronavirus OC43 (PCR) Not Detected (NotDetected) Coronavirus HKU1 (PCR) Not Detected (NotDetected) Coronavirus 229E (PCR) Not Detected (NotDetected) SARS-CoV-2 (PCR) Not Detected (NotDetected) Coronavirus NL63 (PCR) Not Detected (NotDetected) Human Metapneumovir PCR Not Detected (NotDetected) Influenza Type A (PCR) Not Detected (NotDetected) Influenza Type B (PCR) Not Detected (NotDetected) M. pneumoniae (PCR) Not Detected (NotDetected) Parainfluenza 1 (PCR) Not Detected (NotDetected) Parainfluenza 2 (PCR) Not Detected (NotDetected) Parainfluenza 3 (PCR) Not Detected (NotDetected) Parainfluenza 4 (PCR) Not Detected (NotDetected) RSV (PCR) Not Detected (NotDetected) Entero/Rhino (PCR) Not Detected (NotDetected) 02/16/25 02/16/25 02/16/25 Range/Units 08:57 09:20 09:29 WBC (4.8-10.8) K/ul RBC (4.20-5.40) M/uL Hgb (12.0-16.0) g/dl POC Hgb 8.8 L (12.0-16.0) g/dl Hct (37.0-47.0) % POC Hct 26 L (37-47) % MCV (80.0-100.0) fL MCH (25.0-34.0) pg MCHC (32.0-36.0) g/dL RDW Std Deviation (36.4-46.3) fL RDW Coeff of Rajiv (11.5-14.5) % Plt Count (130-400) K/uL MPV (9.4-12.4) fL Immature Gran % (Auto) % Neut % (Auto) % Lymph % (Auto) % [place] % (Auto) % Eos % (Auto) % Baso % (Auto) % Neut # (Auto) (1.40-6.50) K/uL Lymph # (Auto) (1.20-3.40) K/uL [place] # (Auto) (0.11-0.59) K/uL Eos # (Auto) (0.00-0.50) K/uL Baso # (Auto) (0.00-0.20) K/uL Immature Gran # (Auto) (0.01-0.20) K/uL Polychromasia PT (9.0-12.0) Seconds INR (0.9-1.1) APTT (21-31) Seconds PTT Ratio Specimen Type Arterial POC pH 7.29 L (7.35-7.45) POC pCO2 41 (35-46) mmHg POC pO2 186 H (80-95) mmHg POC HCO3 20 (19-24) sonja/L POC Base Excess -7.0 (-9-1.8) sonja/L POC ABG O2 Sat 100.0 H (90-95) % VBG pH (7.36-7.41) VBG pCO2 (38-50) mmHg VBG pO2 mmHg VBG HCO3 mmol/L VBG O2 Saturation % VBG Base Excess mEq/L POC Sodium 137 (135-144) mmol/L Sodium (136-145) mmol/L POC Potassium 3.5 (3.3-5.0) mmol/L Potassium (3.5-5.1) mmol/L POC Chloride (101-112) mmol/L Chloride (98-107) mmol/L Carbon Dioxide (21-32) mmol/L POC Total CO2 21 L (24-31) mmol/L Anion Gap (3-11) POC Anion Gap (16-25) mmol/L POC BUN (7-18) mg/dl BUN (6-23) mg/dl Creatinine (0.6-1.2) mg/dl POC Creatinine (0.6-1.3) mg/dl Est Cr Clr Drug Dosing eGFR BUN/Creatinine Ratio (10-20) Glucose (70-99(Fasting)) mg/dl POC Glucose (other) (70-99) mg/dl Lactate 5.6 H* (0.4-2.0) mmol/L Calcium (8.6-10.3) mg/dl POC Ioniz Calcium [place]atha (1.12-1.32) mmol/l Magnesium (1.7-2.4) mg/dl Total Bilirubin (0.2-1.0) mg/dl Direct Bilirubin (0-0.2) mg/dl AST (13-39) U/L ALT (7-52) U/L Alkaline Phosphatase (34-104) U/L Troponin I High Sens (0-14) pg/ml B-Natriuretic Peptide (0-100) pg/ml Total Protein (6.0-8.3) gm/dl Albumin (3.4-5.0) gm/dl Procalcitonin (0-0.5) ng/ml Urine Color Yellow Urine Appearance Clear (Clear) Urine pH 7.0 (4.5-7.5) Ur Specific [place] 1.018 (1.000-1.030) Urine Protein 1+ H (Negative) Urine Glucose (UA) Negative (Negative) Urine Ketones Negative (Negative) Urine Blood Negative (Negative) Urine Nitrite Negative (Negative) Urine Bilirubin Negative (Negative) Urine Urobilinogen Negative (Negative) Ur Leukocyte Esterase Negative (Negative) Urine WBC (Auto) 0-5 (0-5) /hpf Urine RBC (Auto) 0-2 (0-2) /hpf U Hyaline Cast (Auto) 0-2 (0-2) /lpf U Epithel Cells (Auto) 0-2 (0-2) /hpf Urine Bacteria (Auto) None Seen (None Seen) Adenovirus (PCR) (NotDetected) B. pertussis DNA (PCR) (NotDetected) B.parapertussis DNA PCR (NotDetected) C. pneumoniae DNA (PCR) (NotDetected) Coronavirus OC43 (PCR) (NotDetected) Coronavirus HKU1 (PCR) (NotDetected) Coronavirus 229E (PCR) (NotDetected) SARS-CoV-2 (PCR) (NotDetected) Coronavirus NL63 (PCR) (NotDetected) Human Metapneumovir PCR (NotDetected) Influenza Type A (PCR) (NotDetected) Influenza Type B (PCR) (NotDetected) M. pneumoniae (PCR) (NotDetected) Parainfluenza 1 (PCR) (NotDetected) Parainfluenza 2 (PCR) (NotDetected) Parainfluenza 3 (PCR) (NotDetected) Parainfluenza 4 (PCR) (NotDetected) RSV (PCR) (NotDetected) Entero/Rhino (PCR) (NotDetected) Administered Medications Propofol (Diprivan) 1,000 mg in 100 mls @ 6.924 mls/hr IV .[id number] [facility]; Protocol Stop: 10/25/24 08:59 Last Admin: 10/22/24 09:44 Dose: 20 mcg/kg/min, 6.9 mls/hr Documented By: MINE Co-signed By: ARACELI Sodium Chloride (Nss) 1,000 mls @ 999 mls/hr IV .[id number] ONE Stop: 10/22/24 10:10 Last Infusion: 10/22/24 09:31 Dose: Infused Documented By: Admin: 10/22/24 08:30 Dose: 999 mls/hr Documented By: MINE Sodium Chloride (Nss) 1,000 mls @ 999 mls/hr IV .Q1H1M ONE Stop: 10/22/24 10:13 Last Admin: 10/22/24 09:21 Dose: 999 mls/hr Documented By: MINE Discontinued Medications Ceftriaxone Sodium (Rocephin) 2,000 mg in 50 mls @ 100 mls/hr IV NOW STA Stop: 10/22/24 08:55 Last Infusion: 10/22/24 09:31 Dose: Infused Documented By: Admin: 10/22/24 08:49 Dose: 100 mls/hr Documented By: LATANYA Nitroglycerin (Nitroglycerin 60 Sprays/4.9 Gm Moyers) Confirm Administered Dose 1 sprays SL .STK-MED ONE Stop: 10/22/24 08:11 Last Admin: 10/22/24 08:12 Dose: 1 sprays Documented By: LATANYA Propofol (Propofol Iv Emulsion 10 Mg/Ml 100 Ml Vial) Confirm Administered Dose 1,000 mg IV .STK-MED ONE Stop: 10/22/24 08:59 Last Admin: 10/22/24 09:44 Dose: Not Given Documented By: MINE Imaging Data Attestation: I personally reviewed and interpreted this imaging study as follows: My Impression: 1 view chest x-ray was obtained in the emergency department. My interpretation is large left infiltrate, final report below. Repeat chest x-ray was obtained after intubation. Endotracheal tube appears to be in good placement. The NG tube is also in proper placement. Final report below. Radiologist's Impression: Chest X-Ray 10/22/24 08:08 XR chest 1V portable CLINICAL HISTORY: Sepsis. Shortness of breath. COMPARISON STUDY: Chest radiograph September 26, 2024. Chest CT February 10, 2024. FINDINGS: Postoperative findings within the spine are incidentally noted. There is no pneumothorax. Trace bilateral pleural effusions are present. There has been interval extensive consolidation which involves the majority of the left lung. Interstitial thickening within the right lung may represent an infectious process as well. There is no evidence for pulmonary edema. IMPRESSION: 1. Interval development of extensive left lung consolidation consistent with pneumonia. Interstitial thickening within the right lung, also likely infectious. 2. Trace bilateral pleural effusions. ACT 112: Negative or not required by law. Electronically signed by: William Pathak M.D. 10/22/2024 8:34 AM Chest X-Ray 10/22/24 08:45 XR chest 1V portable CLINICAL HISTORY: intubation COMPARISON STUDY: Chest radiograph performed earlier today. FINDINGS: The tip of the endotracheal tube is 3.2 cm above the ruiz. The tip of the nasogastric tube is within the body of the stomach. Extensive left lung consolidation is again noted. Interstitial thickening and patchy right lung opacities are present. There is no pneumothorax. There are trace bilateral pleural effusions. Cardiomediastinal silhouette is stable allowing for patient rotation. There are postoperative findings within the spine. IMPRESSION: 1. Satisfactory positioning of the endotracheal and nasogastric tubes. 2. Redemonstration of extensive left lung consolidation consistent with pneumonia. Interstitial thickening and patchy right lung opacities are also likely infectious. Mild superimposed pulmonary edema cannot be excluded. 3. Trace bilateral pleural effusions. ACT 112: Negative or not required by law. Electronically signed by: William Pathak M.D. 10/22/2024 9:08 AM Discharge Plan Visit Data Chief Complaint: Respiratory Distress Stated Complaint: SOB ED Provider: Buddy Gay Discharge Problem: Pneumonia, Respiratory failure, Elevated troponin I level, Hypoxia Patient Disposition: Being Evaluated by Hospitalist Forms Stand Alone Forms: My [facility] Prescriptions Prescriptions: No Action Trelegy Ellipta 100-62.5-25 mcg blister with device 1 inh INH DAILY Qty: 3 1RF vibegron 75 mg tablet 75 mg PO DAILY Qty: 90 3RF Triad Hydrophilic Wound Paste paste miscellaneous guaifenesin 100 mg/5 mL liquid 200 mg PO Q4H PRN polyethylene glycol 3350 17 gram powder in packet 17 g PO DAILY cholecalciferol (vitamin D3) 125 mcg (5,000 unit) capsule 125 mcg PO DAILY aspirin 81 mg tablet,delayed release (DR/EC) 81 mg PO DAILY sennosides [senna] 8.6 mg tablet 8.6 mg PO DAILY atorvastatin 40 mg tablet 40 mg PO DAILY ticagrelor 90 mg tablet 90 mg PO BID oxycodone 5 mg tablet 5 mg PO Q4H PRN irbesartan 300 mg tablet 300 mg PO DAILY Qty: 90 3RF albuterol sulfate 90 mcg/actuation HFA aerosol inhaler 2 inh inhalation QID PRN (Reason: shortness of breath or wheezing) Qty: 8.5 3RF acetaminophen 500 mg tablet 1,000 mg PO BID PRN pantoprazole 40 mg tablet,delayed release (DR/EC) 40 mg PO QAM Qty: 90 3RF trazodone 100 mg tablet 50 mg PO HS Qty: 90 3RF levothyroxine [Synthroid] 25 mcg tablet 25 mcg PO QAM multivitamin Tablet 1 tab PO QAM Referrals Referrals: Andre Lawson MD [Outside Practitioners] -
[2024-10-22 09:05] LABS: Alanine Aminotransferase 36 U/L (7-52); Albumin Level 3.3 gm/dl (3.4-5.0); Alkaline Phosphatase 126 U/L (34-104); Anion Gap 12 (3-11); Aspartate Aminotransferase 45 U/L (13-39); BUN Creatinine Ratio 24.8 (10-20); Bilirubin,Total 0.3 mg/dl (0.2-1.0); Blood Urea Nitrogen 30 mg/dl (6-23); Calcium 9.4 mg/dl (8.6-10.3); Carbon Dioxide 24 mmol/L (21-32); Chloride 98 mmol/L (98-107); Glucose 253 mg/dl (70-99(Fasting)); Magnesium 2.2 mg/dl (1.7-2.4); Potassium 4.7 mmol/L (3.5-5.1); Sodium 134 mmol/L (136-145); Total Protein 6.4 gm/dl (6.0-8.3)
[2024-10-22 09:07] LABS: Basophils # (auto) 0.17 K/uL (0.00-0.20); Basophils % (auto) 0.7 %; Eosinophils # (auto) 0.25 K/uL (0.00-0.50); Immature Granulocytes # (auto) 0.15 K/uL (0.01-0.20); Immature Granulocytes % (auto) 0.6 %; Lymphocytes % (auto) 7.4 %; Monocytes % (auto) 3.1 %; Neutrophils # (auto) 22.44 K/uL (1.40-6.50); Neutrophils % (auto) 87.2 %; Polychromasia 1+
--- NOTE | 2024-10-22 09:10 | XRay Report ---
XR chest 1V portable CLINICAL HISTORY: intubation COMPARISON STUDY: Chest radiograph performed earlier today. FINDINGS: The tip of the endotracheal tube is 3.2 cm above the ruiz. The tip of the nasogastric tub e is within the body of the stomach. Extensive left lung consolidation is again noted. Interstitial t hickening and patchy right lung opacities are present. There is no pneumothorax. There are trace bila teral pleural effusions. Cardiomediastinal silhouette is stable allowing for patient rotation. There are postoperative findings within the spine. IMPRESSION: 1. Satisfactory positioning of the endotracheal and nasogastric tubes. 2. Redemonstration of extensive left lung consolidation consistent with pneumonia. Interstitial thick ening and patchy right lung opacities are also likely infectious. Mild superimposed pulmonary edema c annot be excluded. 3. Trace bilateral pleural effusions. ACT 112: Negative or not required by law. Electronically signed by: William Pathak M.D. 10/22/2024 9:08 AM
[2024-10-22 09:16] LABS: Troponin I High Sensitivity 125.1 pg/ml (0-14)
[2024-10-22] MEDS ORDERED: STAT IV Infusion **Titration per Protocol STA (09:32)
[2024-10-22] MEDS ORDERED: VANCOMYCIN CONSULT ACTIVE PRN ×2 (09:38→10:14)
[2024-10-22 09:43] LABS: iSTAT Arterial Blood Gas HCO3 20 meg/L (19-24); iSTAT Arterial Blood Gas pCO2 41 mmHg (35-46); iSTAT Arterial Blood Gas pH 7.29 (7.35-7.45); iSTAT Arterial Blood Gas pO2 186 mmHg (80-95); iSTAT Carbon Dioxide 21 mmol/L (24-31); iSTAT Hematocrit 26 % (37-47); iSTAT Hemoglobin 8.8 g/dl (12.0-16.0); iSTAT Potassium 3.5 mmol/L (3.3-5.0); iSTAT Sample Type Arterial; iSTAT Sodium 137 mmol/L (135-144)
[2024-10-22] MEDS: PROPOFOL IV EMULSION 10 MG/ML 100 ML VIAL IV ONE (09:44)
[2024-10-22] MEDS: propofoL 1,000 MG/100 ML VIAL IV SCH (09:44)
[2024-10-22 09:55] LABS: Adenovirus PCR Not Detected (NotDetected); Bordetella parapertussis PCR Not Detected (NotDetected); Bordetella pertussis PCR Not Detected (NotDetected); Chlamydia pneumoniae PCR Not Detected (NotDetected); Coronavirus 229E PCR Not Detected (NotDetected); Coronavirus CoV-2 (COVID19)PCR Not Detected (NotDetected); Coronavirus HKU1 PCR Not Detected (NotDetected); Coronavirus NL63 PCR Not Detected (NotDetected); Coronavirus OC43PCR Not Detected (NotDetected); Human Metapneumovirus PCR Not Detected (NotDetected); Influenza A PCR Not Detected (NotDetected); Influenza B PCR Not Detected (NotDetected); Mycoplasma pneumoniae PCR Not Detected (NotDetected); Parainfluenza Virus 1 PCR Not Detected (NotDetected); Parainfluenza Virus 2 PCR Not Detected (NotDetected); Parainfluenza Virus 3 PCR Not Detected (NotDetected); Parainfluenza Virus 4 PCR Not Detected (NotDetected); Respiratory Syncytial VirusPCR Not Detected (NotDetected); Rhinovirus/Enterovirus PCR Not Detected (NotDetected)
[2024-10-22 09:55] LABS: Appearance Urine Clear (Clear); Bacteria Urine Automated None Seen (None Seen); Bilirubin Urine Negative (Negative); Blood Urine Negative (Negative); Color Urine Yellow; Epithelial Cell Urine Auto 0-2 /hpf (0-2); Glucose Urine UA Negative (Negative); Ketones Urine Negative (Negative); Leukocyte Esterase Urine Negative (Negative); Nitrite Urine Negative (Negative); Protein Urine 1+ (Negative); RBC Urine Automated 0-2 /hpf (0-2); Specific Gravity Urine 1.018 (1.000-1.030); Urobilinogen Urine Negative (Negative); WBC Urine Automated 0-5 /hpf (0-5)
[2024-10-22 09:56] LABS: Cast Urine Automated 0-2 /lpf (0-2)
--- NOTE | 2024-10-22 10:09 | History & Physical Report ---
Date of Service October 22, 2024 Assessment & Plan (1) Respiratory failure: Plan: Nevaeh Webster is an 84-year-old female with past medical history of NSTEMI, heart failure with midrange ejection fracture 45-50%, COPD, depression/anxiety, chronic aspiration presents to the ER with acute hypoxic respiratory failure who was initially suspected to have CHF and on further evluation was suspected to have septic Left PNA requiring intubation. Acute hypoxic respiratory failure s/p Intubation 2/2 suspected pneumonia, +/- CHF ETT placed for respiratory failure. Sedated on propofol. She is improving with fluids, Levophed available if needed/further fluid limited by CHF Chest x-ray with extensive left lung consolidation consistent with pneumonia. Pleural effusions are present, pulmonary edema is not excluded -Suspect most likely due to pneumonia. Left lung consolidations, leukocytosis are present. VBG 7.15/64/37/22 acute decompensated respiratory acidosis Patient does have pleural effusions and history of CHF with some lower extremity edema; heart rate down trended and blood pressures improved with 2 L of fluid. Per discussion with [facility] patient had a sudden decompensation this morning and had not reported infectious symptoms in the preceding week, did have a left leg injury last week with swelling. Doppler ordered. CTA deferred pending Doppler and clinical progression, can follow-up with CTA if indicated. Echo is pending. Repeat VBG postintubation improving, 7.29/41/186/20 Sepsis, pneumonia Hypotension, tachycardic, respiratory failure Received 2 L NSS in the ER, sepsis target 1731 cc Lactate elevated 5.6, repeat pending Additional fluid limited by suspected CHF/cardiopulmonary overload - Antibiotics broadened to cefepime/vancomycin/azithromycin. QT normal. Renally adjusted for calculated creatinine clearance of approximately 1415, adjust as needed based on renal function CAD w/ hx RCA PCI, history of heart failure with midrange EF and severe residual multivessel disease, suspected demand ischemia Reviewed with cardiology. Wide-complex tachycardia on admission with baseline left bundle branch block. Improving post fluids heart rate in the 100s. Troponin is elevated, suspect demand that this is reactive to sepsis and hypoxia and not employment representative of ACS. Heparinization not recommended at this time from a cardiac standpoint but will monitor closely. Patient is high risk for intervention/cath and has known high risk residual disease. Has a history of PCI x 1. Brilinta continued through OG tube ETT in place. Patient did not take any medications this morning per the [facility]. Cardiac medicines including asa/ticagrelor continued via OG Hold ARB/hydrochlorothiazide for hypotension Troponin 125, repeat pending. BNP 734 cath 08/02/2024: Triple-vessel CAD, PCI to 90% mid RCA with DESIRAE. Residual coronary disease including severely stenosed lesions of the LMCALADLCx bifurcationLADD1 bifurcation 90%. Mild to moderate nonobstructive CAD. EKG with baseline left bundle branch block EKG on admission with wide QRS tachycardia, LBBB redemonstrated. QTc 439. NOBLE pending/ Last echo 2023 with EF 47%, lateral and inferior wall hypokinesis. Mild AAS with peak velocity 1.93 - Repeat EKG post fluids and rate improvement pending Left lower extremity swelling Bilateral but left greater than right lower extremity edema and with 2-3 cm of calf asymmetry greater on the left Patient did have a leg strike last week per [facility] staff. Dopplers ordered. Small overlying contusion with clot, dressing in place, no surrounding erythema/warmth suggestive of cellulitis COPD Home inhalers held Hypothyroidism Synthroid early held, may convert to IV 70% dose reduction if prolonged ability to tolerate p.o. Closed right femur fracture S/p total joint arthroplasty 07/2024. Per [facility] healed from this back in July however has generally poor mobility and mostly wheelchair-bound at their facility GERD PPI continued for hx and ulcer ppx, converted to IV DVT prophylaxis: Heparin subcu due to renal dysfunction CODE STATUS: Conditional code. Okay with temporary intubation while evaluating for potential reversible causes of respiratory failure (sepsis/pneumonia/CHF), but per conversation with she would not want resuscitation in the event of a complete arrest. No CPR, no electrical cardioversion, no cardiopulmonary resuscitation in the event of a respiratory/cardiac arrest. 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 History collected from patient's and from the [facility] nurse, history is not available from patient due to ETT and sedation. Nevaeh is a 84-year-old female resident of the [facility] with a history of heart failure with midrange EF, CAD with 1 stent to RCA, history of wheelchair-bound status with recent right hip fracture ORIF last April per but with poor mobility and pain since. She was in her otherwise state of health and had not been complaining of fever, chills, or dyspnea either this morning the preceding few days. This morning she did feel little bit nauseous when she was down to breakfast but had no episodes of vomiting. She was subsequently found by nursing staff a short time later minimally responsive in her wheelchair and was brought emergently to the ER for assessment. On ER assessment she was tachycardic, hypotensive and intubated for acute hypoxic respiratory failure. No recent complaints of chest pain but does have a complicated cardiac history with a history of PCI to RCA and residual multivessel disease on medical therapy. High risk for further catheterization/intervention on prior assessments. Does have a history of heart failure but has not had an exacerbation recently. Some swelling in the lower extremities at baseline. Per staff does not take Lasix regularly. Medical History: Reviewed with facility Medications: Reviewed reviewed with facility. Did not take medications this morning Surgical History: Reviewed Allergies: Reviewed with facility. No known drug allergies Social History: Reviewed Code Status: Conditional code. Okay with intubation for airway protection/ventilation while pursuing reversible causes however would not want CPR/cardiopulmonary resuscitation/shocks/meds in the event of an arrest/CODE BLUE situation. Allergies Allergy/AdvReac Type Severity Reaction Status Date / Time adhesive Allergy Mild LOCAL SKIN Verified 09/26/24 13:38 IRRITATION Home Medications Medication Instructions Recorded Confirmed Type multivitamin 1 tab PO QAM 12/21/18 10/22/24 History levothyroxine 25 mcg tablet 25 mcg PO QAM 07/25/19 10/22/24 History (Synthroid) acetaminophen 500 mg tablet 1,000 mg PO TID 04/15/23 10/22/24 History albuterol sulfate 90 mcg/actuation 2 inh inhalation QID PRN shortness 06/09/23 10/22/24 Rx aerosol inhaler of breath or wheezing #8.5 grams pantoprazole 40 mg tablet,delayed 40 mg PO QAM #90 tabs 05/01/24 10/22/24 Rx release fluticasone fur. 100 mcg-umeclid 1 inh inhalation DAILY #3 Inhalers 05/29/24 10/22/24 Rx 62.5 mcg-vilant 25 mcg inhalat.powder (Trelegy Ellipta) vibegron 75 mg tablet 75 mg PO DAILY #90 tabs 07/13/24 10/22/24 Rx trazodone 100 mg tablet 50 mg (1/2 x 100 mg) PO HS #90 tabs 09/26/24 10/22/24 Rx aspirin 81 mg tablet,delayed 81 mg PO DAILY 09/28/24 10/22/24 History release atorvastatin 40 mg tablet 40 mg PO DAILY 09/28/24 10/22/24 History cholecalciferol (vitamin D3) 125 125 mcg PO DAILY 09/28/24 10/22/24 History mcg (5,000 unit) capsule oxycodone 5 mg tablet 2.5 - 5 mg PO .Q4-6H PRN Pain 09/28/24 10/22/24 History polyethylene glycol 3350 17 gram 17 g PO DAILY 09/28/24 10/22/24 History oral powder packet sennosides 8.6 mg tablet (senna) 8.6 mg PO DAILY 09/28/24 10/22/24 History ticagrelor 90 mg tablet 90 mg PO BID 09/28/24 10/22/24 History diclofenac sodium 1 % topical gel 2 g topical DIRECTED PRN Pain 10/22/24 10/22/24 History irbesartan 300 1 tab PO DAILY 10/22/24 10/22/24 History mg-hydrochlorothiazide 12.5 mg tablet sertraline 25 mg tablet 25 mg PO DAILY 10/22/24 10/22/24 History Past Med/Surg History Problem List Aortic stenosis Congestive heart failure Cardiomyopathy Left bundle branch block Hypoxia (Acute) Elevated troponin I level (Acute) Respiratory failure (Acute) Pneumonia (Acute) Depression Acute heart failure with mildly reduced ejection fraction (HFmrEF, 41-49%) Coronary artery disease Closed fracture of femur (Acute ~07/26/24) : Total joint arthroplasty with acute, angulated, comminuted and displaced periprosthetic distal right femoral fracture Urinary urgency Shortness of breath on exertion Dizziness Osteoporosis Primary hypertension 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, thoracolumbar region Postlaminectomy syndrome of lumbosacral region Skin tear of left lower leg without complication Chondrocalcinosis of left knee Multiple pulmonary nodules determined by computed tomography of lung Pulmonary nodule Chronic obstructive pulmonary disease (Chronic) Hyperlipidemia (Chronic) Hypothyroidism (Chronic) GERD (gastroesophageal reflux disease) (Chronic) Chronic back pain (Chronic) Spinal stenosis (Chronic) Osteoarthritis (Chronic) Dyslipidemia (Chronic) Asthma (Chronic) Medical History History of non-ST elevation myocardial infarction (NSTEMI) 07/[place] [facility] [place] PCI to RCA History of femur fracture (06/17/22) comminuted intratrochanteric fracture of the left femur from a fall Fall Closed intertrochanteric fracture of left femur Surgical History Hx of cardiac cath 07/2024 [facility] [place] PCI to RCA History of repair of right rotator cuff History of bladder surgery bladder tack History of hysterectomy History of dilatation and curettage History of bunionectomy of right great toe History of open reduction and internal fixation (ORIF) procedure left wrist, hardware removed History of carpal tunnel surgery of left wrist History of lumbar spinal fusion x4--T12-S1 fusion Hx of cervical spine surgery normal ROM History of total right knee replacement (TKR) History of colonoscopy History of esophagogastroduodenoscopy (EGD) History of appendectomy History of tooth extraction all teeth History of bilateral cataract extraction Hx of cataract surgery H/O rotator cuff surgery H/O Spinal surgery Family History Sister Family history of diabetes mellitus 2 Other No family history of adverse response to anesthesia Social History Smoking Status: Unknown if ever smoked Second Hand Exposure: Yes; Do You Dip or Chew Tobacco: No; Hx Alcohol Use: No Hx Substance Use: No Preferred Language: Wolof Communication Ability: Effective Visual Impairment: Partially Limited Hearing Ability: Normal Support Representative Required: No Beliefs That Will Affect Care: Spiritual marital status: Current Living Situation: Spouse Current Living Situation Comment: Lives with and grandson Feels Safe at Home: Yes Diet: regular caffeine: Yes during the past year weight has: remained stable Assistive Devices: Cane and Walker Physical Exam Physical Exam: General: ETT in place, sedated. HEENT: Atraumatic, normocephalic. ETT in place. Pupils reactive to light bilaterally, does not follow commands Pulm: Scattered slight crackles L, improved with intubation, good air movement bilaterally. Cardiac: Tachycardic, regular. Radial pulses intact and symmetrical. Abdominal: Soft, nondistended Extremities: Mild left calf asymmetry. Left briseno contusion/wound with overlying dressing, no warmth/erythema. Bilateral mild pitting edema left greater than right. Right briseno with small contusion but no overlying wound. Results & Data Results & Data Vital Signs (Past 12 Hours) Vital Signs Temp Pulse Resp BP Pulse Ox O2 Del Method O2 Flow Rate 10/22/24 09:15 132 H 28 H 100 Mechanical Vent 10/22/24 09:15 85/53 L 10/22/24 09:15 85/53 L 10/22/24 09:10 113/69 10/22/24 09:09 141 H 28 H 100 Mechanical Vent 10/22/24 09:06 106/65 10/22/24 09:03 142 H 28 H 100 Mechanical Vent 10/22/24 09:00 87/56 L 10/22/24 09:00 87/56 L 10/22/24 08:55 102/63 10/22/24 08:55 142 H 28 H 100 10/22/24 08:51 142 H 28 H 99 Mechanical Vent 10/22/24 08:50 105/66 10/22/24 08:45 150 H 24 100 Mechanical Vent 10/22/24 08:45 136/88 10/22/24 08:45 136/88 10/22/24 08:40 198/135 H 10/22/24 08:40 166 H 24 96 10/22/24 08:39 135 H 24 94 Mechanical Vent 10/22/24 08:38 48/32 L 10/22/24 08:37 44/26 L 10/22/24 08:30 153/112 H 10/22/24 08:18 139 H 35 H 99 BiPAP 10/22/24 08:18 140 H 35 H 97 10/22/24 08:17 142 H 10/22/24 08:16 150/88 H 10/22/24 08:15 141 H 36 H 99 BiPAP 10/22/24 08:13 157/96 H 10/22/24 08:12 142 H 31 H 10/22/24 08:06 Non-rebreather 15 10/22/24 08:06 36.6 C 141 H 39 H 157/96 H 95 Non-rebreather 15 FiO2 10/22/24 09:15 10/22/24 09:15 10/22/24 09:15 10/22/24 09:10 10/22/24 09:09 10/22/24 09:06 10/22/24 09:03 10/22/24 09:00 10/22/24 09:00 10/22/24 08:55 10/22/24 08:55 100 10/22/24 08:51 10/22/24 08:50 10/22/24 08:45 10/22/24 08:45 10/22/24 08:45 10/22/24 08:40 10/22/24 08:40 100 10/22/24 08:39 10/22/24 08:38 10/22/24 08:37 10/22/24 08:30 10/22/24 08:18 100 10/22/24 08:18 70 10/22/24 08:17 10/22/24 08:16 10/22/24 08:15 100 10/22/24 08:13 10/22/24 08:12 10/22/24 08:06 10/22/24 08:06 PG Care Time/CCT Total # of Minutes Spent Total Time Spent with Patient: Total time spent is greater than 50% in coordination of care (as documented) at patient's floor/unit and/or counseling patient: Coding Level of Care Code 46357 INT INP/OBS CARE 3/75MIN Diagnoses Respiratory failure J96.90 Pneumonia J18.9 Acute heart failure with mildly reduced ejection fraction (HFmrEF, 41-49%) I50.21
[2024-10-22] MEDS: VANCOMYCIN HCL 1,250 MG in SODIUM CHLORIDE 0.9% 500 ML IV ONE (10:16)
--- NOTE | 2024-10-22 10:18 | Cardiology Consultation ---
Date of Consultation October 22, 2024 Assessment & Plan (1) Respiratory failure: (2) Coronary artery disease: (3) Elevated troponin I level: (4) Left bundle branch block: (5) Cardiomyopathy: (6) Congestive heart failure: (7) Aortic stenosis: Plan 1. Hypoxic respiratory failure: The primary etiology would likely be the pneumonia identified on her x-ray. Few symptoms leading to acute decompensation today. Some concern for pulmonary embolus which will be evaluated. Likely also an element of pulmonary edema based on her known reduced LV systolic function and likely transient ischemia today. Intubated and on supplemental oxygen. 2. Coronary disease: She is known to have severe multivessel disease. She underwent percutaneous intervention to the right coronary in July 2024. At that time she did have symptoms of angina. No symptoms leading up to her event today. No chest pain at the time of her initial triage today. I do not think she is suffering from an acute coronary syndrome, but is likely to have significant ischemia based on her known anatomy. Unlikely to be a good candidate for any intervention based on the nature of her disease. At this point, care would simply be supportive with maintenance of good oxygenation, normal heart rate, reversal of acidosis and avoidance of significant hemodynamic derangements. 3. Left bundle branch block: Old. While this can mask an acute event, her presentation is more consistent with a pulmonary process. I did not recommend emergent angiography. Knowing her anatomy from July, she would be very high risk for any intervention and I would reserve catheterization only if we felt this would be an immediate life saving procedure with a reasonable long-term prognosis. 4. Aortic stenosis: Mild in July 2024. 5. Elevated troponin: She is undoubtedly going to have significantly elevated cardiac biomarkers based on her known anatomy and her presentation. Again, I do not think this is vaccine customer representative of an acute coronary syndrome but does represent ischemia in the setting of hypoxia, tachycardia and acidosis with known severe coronary disease. 6. Cardiomyopathy: She was noted to have an element of mildly reduced LV systolic function in July 2024. Likely ischemic. LV function appears worse based on comparison to her report from [facility] [place]. I'm sure she had a period of ischemia involving her Lcx and LAD territories. Likely some injury as a result. I don' think the mechanism is an ACS. On irbesartan as an outpatient. No additional regimen for heart failure. We'll need to monitor as she recovers and consider more aggressive treatment. 7. Acute on chronic congestive heart failure: She likely has an element of pulmonary edema. This is based on her known cardiomyopathy likely worsened by ischemia. If she is hemodynamically stable we could entertain the option of mild diuresis. We can observe her oxygenation while on mechanical ventilation. History of Present Illness Reason for Consultation: Left bundle branch block, hypoxic respiratory failure, history of coronary disease Requesting Physician: Victor Hugo Attending Physician: Linda History of Present Illness The patient is an 84-year-old woman with a history of coronary artery disease having previously undergone percutaneous intervention to the right coronary artery in July 2024. She presented to the hospital locally at that time after a mechanical fall resulting in a femur fracture. Due to the complex nature of the fracture she was transferred to [facility] for operative intervention. While an inpatient she was noted to have chest pain and elevated cardiac biomarkers. This prompted cardiac catheterization which revealed severe multivessel disease including what appeared to be an acute lesion in the right coronary artery. She underwent percutaneous intervention to the right coronary at that time. The residual severe disease was not addressed and treatment was deferred in order to get a better understanding of associated symptoms. The patient is currently undergoing physical therapy locally. Her was present and provided the entire history. It seems that she has been slowly progressing according to her therapists. She is able to ambulate to some degree with a walker. She has an element of chronic dyspnea and uses inhaled therapy including recent nebulizers. However, she was brought to the hospital emergently this morning as she became acutely dyspneic. According to reports she was in her usual state of health until she suddenly developed significant dyspnea and altered level of consciousness. In the emergency room she was noted to be markedly tachypneic, tachycardic and hypoxic. She required emergent intubation. An x-ray obtained suggested an element of mild pulmonary edema and multilobar pneumonia. The does not recall any new recent symptoms. No history of fevers or chills. The patient did not complain of chest pain recently or at the time of her triage today. Allergies Allergy/AdvReac Type Severity Reaction Status Date / Time adhesive Allergy Mild LOCAL SKIN Verified 09/26/24 13:38 IRRITATION Home Medications Medication Instructions Recorded Confirmed Type multivitamin 1 tab PO QAM 12/21/18 10/22/24 History levothyroxine 25 mcg tablet 25 mcg PO QAM 07/25/19 10/22/24 History (Synthroid) acetaminophen 500 mg tablet 1,000 mg PO TID 04/15/23 10/22/24 History albuterol sulfate 90 mcg/actuation 2 inh inhalation QID PRN shortness 06/09/23 10/22/24 Rx aerosol inhaler of breath or wheezing #8.5 grams pantoprazole 40 mg tablet,delayed 40 mg PO QAM #90 tabs 05/01/24 10/22/24 Rx release fluticasone fur. 100 mcg-umeclid 1 inh inhalation DAILY #3 Inhalers 05/29/24 10/22/24 Rx 62.5 mcg-vilant 25 mcg inhalat.powder (Trelegy Ellipta) vibegron 75 mg tablet 75 mg PO DAILY #90 tabs 07/13/24 10/22/24 Rx trazodone 100 mg tablet 50 mg (1/2 x 100 mg) PO HS #90 tabs 09/26/24 10/22/24 Rx aspirin 81 mg tablet,delayed 81 mg PO DAILY 09/28/24 10/22/24 History release atorvastatin 40 mg tablet 40 mg PO DAILY 09/28/24 10/22/24 History cholecalciferol (vitamin D3) 125 125 mcg PO DAILY 09/28/24 10/22/24 History mcg (5,000 unit) capsule oxycodone 5 mg tablet 2.5 - 5 mg PO .Q4-6H PRN Pain 09/28/24 10/22/24 History polyethylene glycol 3350 17 gram 17 g PO DAILY 09/28/24 10/22/24 History oral powder packet sennosides 8.6 mg tablet (senna) 8.6 mg PO DAILY 09/28/24 10/22/24 History ticagrelor 90 mg tablet 90 mg PO BID 09/28/24 10/22/24 History diclofenac sodium 1 % topical gel 2 g topical DIRECTED PRN Pain 10/22/24 10/22/24 History irbesartan 300 1 tab PO DAILY 10/22/24 10/22/24 History mg-hydrochlorothiazide 12.5 mg tablet sertraline 25 mg tablet 25 mg PO DAILY 10/22/24 10/22/24 History Patient History Medical History History of non-ST elevation myocardial infarction (NSTEMI) 07/2024 [facility] [place]. PCI to RCA History of femur fracture (06/17/22) comminuted intratrochanteric fracture of the left femur from a fall Fall Closed intertrochanteric fracture of left femur Surgical History Hx of cardiac cath 07/2024 [facility] [place]. PCI to RCA History of repair of right rotator cuff History of bladder surgery bladder tack History of hysterectomy History of dilatation and curettage History of bunionectomy of right great toe History of open reduction and internal fixation (ORIF) procedure left wrist, hardware removed History of carpal tunnel surgery of left wrist History of lumbar spinal fusion x4--T12-S1 fusion Hx of cervical spine surgery normal ROM History of total right knee replacement (TKR) History of colonoscopy History of esophagogastroduodenoscopy (EGD) History of appendectomy History of tooth extraction all teeth History of bilateral cataract extraction Hx of cataract surgery H/O rotator cuff surgery H/O Spinal surgery Family History Sister Family history of diabetes mellitus 2 Other No family history of adverse response to anesthesia Social History Smoking Status: Never smoker Second Hand Exposure: Yes; Do You Dip or Chew Tobacco: No; Hx Alcohol Use: No Hx Substance Use: No Preferred Language: Somali Communication Ability: Effective Visual Impairment: Partially Limited Hearing Ability: Normal [employer]ker Required: No Beliefs That Will Affect Care: None marital status: Current Living Situation: Prison Current Living Situation Comment: Lives with and grandson Feels Safe at Home: Declines to Answer Diet: regular caffeine: Yes during the past year weight has: remained stable Assistive Devices: Denture - Upper, Denture - Lower, Glasses, Walker and Wheelchair Review of Systems Review of Systems: Unobtainable due to endotracheal tube Physical Exam Physical Exam: Intubated and sedated. HEENT: Sclerae are anicteric. Neuro: Unobtainable due to sedation. Lungs: Coarse breath sounds in the upper lobes with reduced breath sounds on the left. Cardiac: The rhythm was regular and fast. No murmurs. Abdomen: The abdomen was soft and nontender. Extremities: Patient has bilateral radial pulses that are equal in intensity. There is no evidence cyanosis or clubbing. Mild lower extremity edema bilaterally. Bandage on the left tibia. Skin: There are no rashes noted on examination today. Results & Data Vital Signs (Past 12 Hours) Vital Signs Temp Pulse Pulse Resp BP BP Pulse Ox 10/22/24 10:00 97 H 28 H 99/53 L 97 10/22/24 09:55 126/63 10/22/24 09:50 101 H 28 H 117/58 L 100 10/22/24 09:45 124/60 10/22/24 09:40 123/62 10/22/24 09:35 120/55 L 10/22/24 09:35 103 H 10/22/24 09:30 113/60 10/22/24 09:25 117/67 10/22/24 09:20 117 H 28 H 82/51 L 100 10/22/24 09:15 132 H 28 H 100 10/22/24 09:15 85/53 L 10/22/24 09:15 85/53 L 10/22/24 09:10 113/69 10/22/24 09:09 141 H 28 H 100 10/22/24 09:06 106/65 10/22/24 09:03 142 H 28 H 100 10/22/24 09:00 87/56 L 10/22/24 09:00 87/56 L 10/22/24 08:55 102/63 10/22/24 08:55 142 H 28 H 100 10/22/24 08:51 142 H 28 H 99 10/22/24 08:50 105/66 10/22/24 08:45 150 H 24 100 10/22/24 08:45 136/88 10/22/24 08:45 136/88 10/22/24 08:40 198/135 H 10/22/24 08:40 166 H 24 96 10/22/24 08:39 135 H 24 94 10/22/24 08:38 48/32 L 10/22/24 08:37 44/26 L 10/22/24 08:30 153/112 H 10/22/24 08:18 139 H 35 H 99 10/22/24 08:18 140 H 35 H 97 10/22/24 08:17 142 H 10/22/24 08:16 150/88 H 02/16/25 08:15 141 H 36 H 99 10/22/24 08:13 157/96 H 10/22/24 08:12 142 H 31 H 10/22/24 08:06 10/22/24 08:06 36.6 C 141 H 39 H 157/96 H 95 O2 Del Method O2 Flow Rate FiO2 10/22/24 10:00 Room Air 10/22/24 09:55 10/22/24 09:50 10/22/24 09:45 10/22/24 09:40 10/22/24 09:35 10/22/24 09:35 10/22/24 09:30 10/22/24 09:25 10/22/24 09:20 10/22/24 09:15 Mechanical Vent 10/22/24 09:15 10/22/24 09:15 10/22/24 09:10 10/22/24 09:09 Mechanical Vent 10/22/24 09:06 10/22/24 09:03 Mechanical Vent 10/22/24 09:00 10/22/24 09:00 10/22/24 08:55 10/22/24 08:55 100 10/22/24 08:51 Mechanical Vent 10/22/24 08:50 10/22/24 08:45 Mechanical Vent 10/22/24 08:45 10/22/24 08:45 10/22/24 08:40 10/22/24 08:40 100 10/22/24 08:39 Mechanical Vent 10/22/24 08:38 10/22/24 08:37 10/22/24 08:30 10/22/24 08:18 BiPAP 100 10/22/24 08:18 70 10/22/24 08:17 10/22/24 08:16 10/22/24 08:15 BiPAP 100 10/22/24 08:13 10/22/24 08:12 10/22/24 08:06 Non-rebreather 15 10/22/24 08:06 Non-rebreather 15 Laboratory Results Abnormal Lab Results 10/22/24 10/22/24 10/22/24 08:15 08:21 08:53 WBC 25.71 H RBC 3.81 L Hgb 11.0 L POC Hgb 11.9 L Hct 35.7 L POC Hct 35 L MCV 93.7 MCH 28.9 MCHC 30.8 L RDW Std Deviation 46.4 H RDW Coeff of Rajiv 13.6 Plt Count 524 H MPV 10.2 Immature Gran % (Auto) 0.6 Neut % (Auto) 87.2 Lymph % (Auto) 7.4 Luna % (Auto) 3.1 Eos % (Auto) 1.0 Baso % (Auto) 0.7 Neut # (Auto) 22.44 H Lymph # (Auto) 1.90 Luna # (Auto) 0.80 H Eos # (Auto) 0.25 Baso # (Auto) 0.17 Immature Gran # (Auto) 0.15 Polychromasia 1+ PT 10.4 INR 1.0 APTT 22 PTT Ratio 0.8 Specimen Type POC pH POC pCO2 POC pO2 POC HCO3 POC Base Excess POC ABG O2 Sat VBG pH 7.15 L VBG pCO2 64 H VBG pO2 37 VBG HCO3 22 VBG O2 Saturation < 60.0 VBG Base Excess -7.5 POC Sodium 133 L Sodium 134 L POC Potassium 4.8 Potassium 4.7 POC Chloride 100 L Chloride 98 Carbon Dioxide 24 POC Total CO2 26 Anion Gap 12 H POC Anion Gap 13.0 L POC BUN 27 H BUN 30 H Creatinine 1.21 H POC Creatinine 1.4 H Est Cr Clr Drug Dosing Not Reportable eGFR 43.65 BUN/Creatinine Ratio 24.8 H Glucose 253 H POC Glucose (other) 254 H Lactate Calcium 9.4 POC Ioniz Calcium Leatha 1.21 Magnesium 2.2 Total Bilirubin 0.3 Direct Bilirubin 0.0 AST 45 H ALT 36 Alkaline Phosphatase 126 H Troponin I High Sens 125.1 H* B-Natriuretic Peptide 734 H Total Protein 6.4 Albumin 3.3 L Procalcitonin 0.13 Urine Color Urine Appearance Urine pH Ur Specific Bingham Urine Protein Urine Glucose (UA) Urine Ketones Urine Blood Urine Nitrite Urine Bilirubin Urine Urobilinogen Ur Leukocyte Esterase Urine WBC (Auto) Urine RBC (Auto) U Hyaline Cast (Auto) U Epithel Cells (Auto) Urine Bacteria (Auto) Adenovirus (PCR) Not Detected B. pertussis DNA (PCR) Not Detected B.parapertussis DNA PCR Not Detected C. pneumoniae DNA (PCR) Not Detected Coronavirus OC43 (PCR) Not Detected Coronavirus HKU1 (PCR) Not Detected Coronavirus 229E (PCR) Not Detected SARS-CoV-2 (PCR) Not Detected Coronavirus NL63 (PCR) Not Detected Human Metapneumovir PCR Not Detected Influenza Type A (PCR) Not Detected Influenza Type B (PCR) Not Detected M. pneumoniae (PCR) Not Detected Parainfluenza 1 (PCR) Not Detected Parainfluenza 2 (PCR) Not Detected Parainfluenza 3 (PCR) Not Detected Parainfluenza 4 (PCR) Not Detected RSV (PCR) Not Detected Entero/Rhino (PCR) Not Detected 10/22/24 10/22/24 10/22/24 08:57 09:20 09:29 WBC RBC Hgb POC Hgb 8.8 L Hct POC Hct 26 L MCV MCH MCHC RDW Std Deviation RDW Coeff of Rajiv Plt Count MPV Immature Gran % (Auto) Neut % (Auto) Lymph % (Auto) Luna % (Auto) Eos % (Auto) Baso % (Auto) Neut # (Auto) Lymph # (Auto) Luna # (Auto) Eos # (Auto) Baso # (Auto) Immature Gran # (Auto) Polychromasia PT INR APTT PTT Ratio Specimen Type Arterial POC pH 7.29 L POC pCO2 41 POC pO2 186 H POC HCO3 20 POC Base Excess -7.0 POC ABG O2 Sat 100.0 H VBG pH VBG pCO2 VBG pO2 VBG HCO3 VBG O2 Saturation VBG Base Excess POC Sodium 137 Sodium POC Potassium 3.5 Potassium POC Chloride Chloride Carbon Dioxide POC Total CO2 21 L Anion Gap POC Anion Gap POC BUN BUN Creatinine POC Creatinine Est Cr Clr Drug Dosing eGFR BUN/Creatinine Ratio Glucose POC Glucose (other) Lactate 5.6 H* Calcium POC Ioniz Calcium Leatha Magnesium Total Bilirubin Direct Bilirubin AST ALT Alkaline Phosphatase Troponin I High Sens B-Natriuretic Peptide Total Protein Albumin Procalcitonin Urine Color Yellow Urine Appearance Clear Urine pH 7.0 Ur Specific [place] 1.018 Urine Protein 1+ H Urine Glucose (UA) Negative Urine Ketones Negative Urine Blood Negative Urine Nitrite Negative Urine Bilirubin Negative Urine Urobilinogen Negative Ur Leukocyte Esterase Negative Urine WBC (Auto) 0-5 Urine RBC (Auto) 0-2 U Hyaline Cast (Auto) 0-2 U Epithel Cells (Auto) 0-2 Urine Bacteria (Auto) None Seen Adenovirus (PCR) B. pertussis DNA (PCR) B.parapertussis DNA PCR C. pneumoniae DNA (PCR) Coronavirus OC43 (PCR) Coronavirus HKU1 (PCR) Coronavirus 229E (PCR) SARS-CoV-2 (PCR) Coronavirus NL63 (PCR) Human Metapneumovir PCR Influenza Type A (PCR) Influenza Type B (PCR) M. pneumoniae (PCR) Parainfluenza 1 (PCR) Parainfluenza 2 (PCR) Parainfluenza 3 (PCR) Parainfluenza 4 (PCR) RSV (PCR) Entero/Rhino (PCR) Diagnostic Findings Chest x-ray obtained the time of admission revealed left lobar pneumonia with an element of mild pulmonary vascular congestion. Echocardiogram 10/22/2024: MOderately reduced LV systolic function with EF 35- 40%. Regional wall motion abnormalities. Normal RV size and function. Mild MR ECG Additional Comments: Sinus tachycardia with left bundle branch block. PG Care Time/CCT Total # of Minutes Spent Total Time Spent with Patient: Total time spent is greater than 50% in coordination of care (as documented) at patient's floor/unit and/or counseling patient: Coding Level of Care Code 71786 CRITICAL CARE 1ST 30-74M Diagnoses Respiratory failure J96.90 Coronary artery disease I25.10 Elevated troponin I level R79.89 Left bundle branch block I44.7 Cardiomyopathy I42.9 Congestive heart failure I50.9 Aortic stenosis I35.0 Time Spent (min) 32
--- NOTE | 2024-10-22 10:38 | Critical Care Consultation ---
Date of Consultation October 22, 2024 Assessment & Plan (1) Pneumonia: (2) Acute heart failure with mildly reduced ejection fraction (HFmrEF, 41-49%): (3) Multiple pulmonary nodules determined by computed tomography of lung: (4) Chronic obstructive pulmonary disease: (5) Cardiomyopathy: (6) Aortic stenosis: Plan Impression: 84-year-old female with multiple medical issues admitted with acute onset of shortness of breath with leukocytosis and dense consolidation within t he left lung. She was intubated with borderline hemodynamics. Cardiology consultation has been obtained and echocardiogram is pending. Recommendations: 1. Neurologic: Currently sedated on propofol. Will avoid benzodiazepines which may exacerbate delirium in patients with some cognitive dysfunction. Patient has known neurocognitive dysfunction at baseline but according to her was able to get up and around somewhat independently but not able to live independently. 2. Cardiovascular: Patient's been seen by cardiology. Echocardiogram pending. Known severe multivessel coronary disease. Agree with cardiology that she is unlikely to be a good candidate for intervention in the absence of overt cardiogenic shock or caleb ST elevations. She has known aortic stenosis which could complicate issues but will follow-up with the severity on follow-up echocardiogram. May require some additional fluids versus pressors if hemodynamics become problematic. Will trend lactate 3. Pulmonary: Dense consolidation in the left lung. On mechanical ventilation. Continue lung protective strategies. Somewhat complicated by the fact that it is a unilateral lung injury. Will try and target somewhat lower PEEP as people preferentially go to the good lung and may result in overdistention. See comments on ID below. History of groundglass pulmonary nodules for which the patient has declined intervention in the past. Unlikely to be related to the current process. Aspiration event certainly likely. Suspicion for thromboembolic disease is low or given the x-ray appearance however duplex ultrasound of the lower extremities have been ordered. 4. GI: N.p.o. for now. If unable to liberate from mechanical ventilator in the next 24 hours we will consider initiation of enteric feeding. GI prophylaxis will be initiated if the patient develops pressor requirement. Given prior history of aspiration, this will need to be investigated further if the patient liberate from mechanical ventilator prior to feeding. 5. Renal: The patient has slight increase in her serum creatinine today. Acid- base status demonstrates acute respiratory and metabolic acidosis with elevated lactate. Follow-up blood gas shows improvement in respiratory acidosis. Will see how her metabolic acidosis response. Think the patient is a poor dialysis candidate in the event of progression to renal failure. 6. Endocrine: Glycemic control per protocol. 7. Heme-onc: Stable anemia. No indication for transfusion and no evidence of acute blood loss currently. Thrombocytosis likely secondary to acute phase reactant/infection. 8. ID: Patient has been in and out of the hospital and multiple occasions in the last 90 days which places her at risk for resistant organisms. Recommend Zosyn or cefepime with vancomycin and azithromycin. Check Legionella urinary antigen. Will proceed with bronchoscopy with BAL on the left to exclude alveolar hemorrhage and obtain lower respiratory specimens for microbiologic analysis. Antibiotics will be adjusted based on data. Discussed with the patient's at bedside. No other family locally. This is the second marriage for both of them. He is in agreement to intubation in the short-term in the hopes that she can be stabilized but does not want aggressive life-sustaining measures including additional ACLS/cardioversion or CPR. He would be okay with pressors in the short-term if needed. He is agreeable to placement of a central line and arterial line as well as bronchoscopy if they are necessary. Verbal consent obtained. Patient is critically ill at this point time with significant possibility of clinical deterioration and/or . A total of 55 minutes in critical care time was spent evaluation management coordination of care for this patient excluding procedures History of Present Illness History of Present Illness Asked by hospitalist to assist in evaluation management of this patient with hypoxemic respiratory failure requiring intubation mechanical ventilation. History is obtained from discussion with the ER staff and hospitalist as well as review the electronic medical record and interviewed the patient's at bedside. The patient is an 84-year-old female with some cognitive decline. She has been in long-term/assisted living since July. She is followed by Dr. Nguyễn in the pulmonary clinic whom she last saw about 6 months ago for some groundglass pulmonary nodules which she has declined intervention for. At that point time he noted an abnormal swallow evaluation as well. Since that time her course has been complicated by cardiac procedures performed at [facility] as well as a hip surgery performed here and the patient is had difficulty recovering. She was apparently well this morning she then developed the acute onset of shortness of breath and was brought to the emergency room in extremis. She was intubated due to respiratory failure. Chest x-ray demonstrated opacities throughout the left hemithorax. White count was elevated. She was acidotic. Lactate was elevated. She was administered antibiotics in the form of Rocephin and admitted to the hospitalist. Pulmonary was consulted for additional management. Allergies Allergy/AdvReac Type Severity Reaction Status Date / Time adhesive Allergy Mild LOCAL SKIN Verified 09/26/24 13:38 IRRITATION Home Medications Medication Instructions Recorded Confirmed Type multivitamin 1 tab PO QAM 12/21/18 10/22/24 History levothyroxine 25 mcg tablet 25 mcg PO QAM 07/25/19 10/22/24 History (Synthroid) acetaminophen 500 mg tablet 1,000 mg PO TID 04/15/23 10/22/24 History albuterol sulfate 90 mcg/actuation 2 inh inhalation QID PRN shortness 06/09/23 10/22/24 Rx aerosol inhaler of breath or wheezing #8.5 grams pantoprazole 40 mg tablet,delayed 40 mg PO QAM #90 tabs 05/01/24 10/22/24 Rx release fluticasone fur. 100 mcg-umeclid 1 inh inhalation DAILY #3 Inhalers 05/29/24 10/22/24 Rx 62.5 mcg-vilant 25 mcg inhalat.powder (Trelegy Ellipta) vibegron 75 mg tablet 75 mg PO DAILY #90 tabs 07/13/24 10/22/24 Rx trazodone 100 mg tablet 50 mg (1/2 x 100 mg) PO HS #90 tabs 09/26/24 10/22/24 Rx aspirin 81 mg tablet,delayed 81 mg PO DAILY 09/28/24 10/22/24 History release atorvastatin 40 mg tablet 40 mg PO DAILY 09/28/24 10/22/24 History cholecalciferol (vitamin D3) 125 125 mcg PO DAILY 09/28/24 10/22/24 History mcg (5,000 unit) capsule oxycodone 5 mg tablet 2.5 - 5 mg PO .Q4-6H PRN Pain 09/28/24 10/22/24 History polyethylene glycol 3350 17 gram 17 g PO DAILY 09/28/24 10/22/24 History oral powder packet sennosides 8.6 mg tablet (senna) 8.6 mg PO DAILY 09/28/24 10/22/24 History ticagrelor 90 mg tablet 90 mg PO BID 09/28/24 10/22/24 History diclofenac sodium 1 % topical gel 2 g topical DIRECTED PRN Pain 10/22/24 10/22/24 History irbesartan 300 1 tab PO DAILY 10/22/24 10/22/24 History mg-hydrochlorothiazide 12.5 mg tablet sertraline 25 mg tablet 25 mg PO DAILY 10/22/24 10/22/24 History Patient History Medical History History of non-ST elevation myocardial infarction (NSTEMI) [place] [facility] [place] History of femur fracture (06/17/22) comminuted intratrochanteric fracture of the left femur from a fall Fall Closed intertrochanteric fracture of left femur Surgical History Hx of cardiac cath [place] [facility] [place] History of repair of right rotator cuff History of bladder surgery bladder tack History of hysterectomy History of dilatation and curettage History of bunionectomy of right great toe History of open reduction and internal fixation (ORIF) procedure left wrist, hardware removed History of carpal tunnel surgery of left wrist History of lumbar spinal fusion x4--T12-S1 fusion Hx of cervical spine surgery normal ROM History of total right knee replacement (TKR) History of colonoscopy History of esophagogastroduodenoscopy (EGD) History of appendectomy History of tooth extraction all teeth History of bilateral cataract extraction Hx of cataract surgery H/O rotator cuff surgery H/O Spinal surgery Family History Sister Family history of diabetes mellitus 2 Other No family history of adverse response to anesthesia Social History Smoking Status: Unknown if ever smoked Second Hand Exposure: Yes; Do You Dip or Chew Tobacco: No; Hx Alcohol Use: No Hx Substance Use: No Preferred Language: Upper Sorbian Communication Ability: Effective Visual Impairment: Partially Limited Hearing Ability: Normal Ore Digger Required: No Beliefs That Will Affect Care: Spiritual marital status: Current Living Situation: Spouse Current Living Situation Comment: Lives with and grandson Feels Safe at Home: Yes Diet: regular caffeine: Yes during the past year weight has: remained stable Assistive Devices: Cane and Walker Review of Systems Review of Systems: Unobtainable due to endotracheal tube Physical Exam Constitutional: + mechanically ventilated Elderly female intubated and sedated Neck: trachea midline, no thyromegaly Respiratory: Auscultation: + crackles Intubated, mechanical breath sounds. Crackles on the left. No wheezes Cardiovascular: Rate/Rhythm: + tachycardic Heart Sounds: normal S1, normal S2 and + murmur Extremities: + edema Gastrointestinal (Abdomen): normal bowel sounds, soft, nontender, no hepatosplenomegaly Musculoskeletal: Extremities: extremities normal to inspection Skin: no rashes, warm and dry Neurologic: Sedated Lymphatic: no cervical lymphadenopathy Results & Data Results & Data Vital Signs (Past 12 Hours) Vital Signs Temp Pulse Pulse Resp BP BP Pulse Ox 10/22/24 10:00 97 H 28 H 99/53 L 97 10/22/24 09:55 126/63 10/22/24 09:50 101 H 28 H 117/58 L 100 10/22/24 09:45 124/60 10/22/24 09:40 123/62 10/22/24 09:35 120/55 L 10/22/24 09:35 103 H 10/22/24 09:30 113/60 10/22/24 09:25 117/67 10/22/24 09:20 117 H 28 H 82/51 L 100 10/22/24 09:15 132 H 28 H 100 10/22/24 09:15 85/53 L 10/22/24 09:15 85/53 L 10/22/24 09:10 113/69 10/22/24 09:09 141 H 28 H 100 10/22/24 09:06 106/65 10/22/24 09:03 142 H 28 H 100 10/22/24 09:00 87/56 L 10/22/24 09:00 87/56 L 10/22/24 08:55 102/63 10/22/24 08:55 142 H 28 H 100 10/22/24 08:51 142 H 28 H 99 10/22/24 08:50 105/66 10/22/24 08:45 150 H 24 100 10/22/24 08:45 136/88 10/22/24 08:45 136/88 10/22/24 08:40 198/135 H 10/22/24 08:40 166 H 24 96 10/22/24 08:39 135 H 24 94 10/22/24 08:38 48/32 L 10/22/24 08:37 44/26 L 10/22/24 08:30 153/112 H 10/22/24 08:18 139 H 35 H 99 10/22/24 08:18 140 H 35 H 97 10/22/24 08:17 142 H 10/22/24 08:16 150/88 H 10/22/24 08:15 141 H 36 H 99 10/22/24 08:13 157/96 H 10/22/24 08:12 142 H 31 H 10/22/24 08:06 10/22/24 08:06 36.6 C 141 H 39 H 157/96 H 95 O2 Del Method O2 Flow Rate FiO2 10/22/24 10:00 Room Air 10/22/24 09:55 10/22/24 09:50 10/22/24 09:45 10/22/24 09:40 10/22/24 09:35 10/22/24 09:35 10/22/24 09:30 10/22/24 09:25 10/22/24 09:20 10/22/24 09:15 Mechanical Vent 10/22/24 09:15 10/22/24 09:15 10/22/24 09:10 10/22/24 09:09 Mechanical Vent 10/22/24 09:06 10/22/24 09:03 Mechanical Vent 10/22/24 09:00 10/22/24 09:00 10/22/24 08:55 10/22/24 08:55 100 10/22/24 08:51 Mechanical Vent 10/22/24 08:50 10/22/24 08:45 Mechanical Vent 10/22/24 08:45 10/22/24 08:45 10/22/24 08:40 10/22/24 08:40 100 10/22/24 08:39 Mechanical Vent 10/22/24 08:38 10/22/24 08:37 10/22/24 08:30 10/22/24 08:18 BiPAP 100 10/22/24 08:18 70 10/22/24 08:17 10/22/24 08:16 10/22/24 08:15 BiPAP 100 10/22/24 08:13 10/22/24 08:12 10/22/24 08:06 Non-rebreather 15 10/22/24 08:06 Non-rebreather 15 Critical Care Results & Data Vital Signs (Past 12 Hours) Vital Signs Temp Pulse Pulse Resp BP BP Pulse Ox 10/22/24 10:00 97 H 28 H 99/53 L 97 10/22/24 09:55 126/63 10/22/24 09:50 101 H 28 H 117/58 L 100 10/22/24 09:45 124/60 10/22/24 09:40 123/62 10/22/24 09:35 120/55 L 10/22/24 09:35 103 H 10/22/24 09:30 113/60 10/22/24 09:25 117/67 10/22/24 09:20 117 H 28 H 82/51 L 100 10/22/24 09:15 132 H 28 H 100 10/22/24 09:15 85/53 L 10/22/24 09:15 85/53 L 10/22/24 09:10 113/69 10/22/24 09:09 141 H 28 H 100 10/22/24 09:06 106/65 10/22/24 09:03 142 H 28 H 100 10/22/24 09:00 87/56 L 10/22/24 09:00 87/56 L 10/22/24 08:55 102/63 10/22/24 08:55 142 H 28 H 100 10/22/24 08:51 142 H 28 H 99 10/22/24 08:50 105/66 10/22/24 08:45 150 H 24 100 10/22/24 08:45 136/88 10/22/24 08:45 136/88 10/22/24 08:40 198/135 H 10/22/24 08:40 166 H 24 96 10/22/24 08:39 135 H 24 94 10/22/24 08:38 48/32 L 10/22/24 08:37 44/26 L 10/22/24 08:30 153/112 H 10/22/24 08:18 139 H 35 H 99 10/22/24 08:18 140 H 35 H 97 10/22/24 08:17 142 H 10/22/24 08:16 150/88 H 10/22/24 08:15 141 H 36 H 99 10/22/24 08:13 157/96 H 10/22/24 08:12 142 H 31 H 10/22/24 08:06 10/22/24 08:06 36.6 C 141 H 39 H 157/96 H 95 O2 Del Method O2 Flow Rate FiO2 10/22/24 10:00 Room Air 10/22/24 09:55 10/22/24 09:50 10/22/24 09:45 10/22/24 09:40 10/22/24 09:35 10/22/24 09:35 10/22/24 09:30 10/22/24 09:25 10/22/24 09:20 10/22/24 09:15 Mechanical Vent 10/22/24 09:15 10/22/24 09:15 10/22/24 09:10 10/22/24 09:09 Mechanical Vent 10/22/24 09:06 10/22/24 09:03 Mechanical Vent 10/22/24 09:00 10/22/24 09:00 10/22/24 08:55 10/22/24 08:55 100 10/22/24 08:51 Mechanical Vent 10/22/24 08:50 10/22/24 08:45 Mechanical Vent 10/22/24 08:45 10/22/24 08:45 10/22/24 08:40 10/22/24 08:40 100 10/22/24 08:39 Mechanical Vent 10/22/24 08:38 10/22/24 08:37 10/22/24 08:30 10/22/24 08:18 BiPAP 100 10/22/24 08:18 70 10/22/24 08:17 10/22/24 08:16 10/22/24 08:15 BiPAP 100 10/22/24 08:13 10/22/24 08:12 10/22/24 08:06 Non-rebreather 15 10/22/24 08:06 Non-rebreather 15 Lab & Micro Results (Past 24 Hours) RBC 3.81 M/uL (4.20-5.40) L 10/22/24 WBC 25.71 K/ul (4.8-10.8) H 10/22/24 Hgb 11.0 g/dl (12.0-16.0) L 10/22/24 Hct 35.7 % (37.0-47.0) L 10/22/24 MCV 93.7 fL (80.0-100.0) 10/22/24 MCH 28.9 pg (25.0-34.0) 10/22/24 MCHC 30.8 g/dL (32.0-36.0) L 10/22/24 RDW Standard Deviation 46.4 fL (36.4-46.3) H 10/22/24 RDW Coefficient of Variation 13.6 % (11.5-14.5) 10/22/24 Plt Count 524 K/uL (130-400) H 10/22/24 MPV 10.2 fL (9.4-12.4) 10/22/24 Neutrophils (%) (Auto) 87.2 % 10/22/24 Lymphocytes (%) (Auto) 7.4 % 10/22/24 Monocytes # (Auto) 0.80 K/uL (0.11-0.59) H 10/22/24 Eosinophils # (Auto) 0.25 K/uL (0.00-0.50) 10/22/24 Immature Granulocyte % (Auto) 0.6 % 10/22/24 Neutrophils # (Auto) 22.44 K/uL (1.40-6.50) H 10/22/24 Lymphocytes # (Auto) 1.90 K/uL (1.20-3.40) 10/22/24 Monocytes # (Auto) 0.80 K/uL (0.11-0.59) H 10/22/24 Eosinophils # (Auto) 0.25 K/uL (0.00-0.50) 10/22/24 Basophils # (Auto) 0.17 K/uL (0.00-0.20) 10/22/24 Immature Granulocyte # (Auto) 0.15 K/uL (0.01-0.20) 5 Polychromasia 1+ 10/22/24 Na 134 mmol/L (136-145) L 10/22/24 K 4.7 mmol/L (3.5-5.1) 10/22/24 Cl 98 mmol/L (98-107) 10/22/24 CO2 24 mmol/L (21-32) 10/22/24 Anion Gap 12 (3-11) H 10/22/24 BUN 30 mg/dl (6-23) H 10/22/24 Creatinine 1.21 mg/dl (0.6-1.2) H 10/22/24 BUN/Creatinine Ratio 24.8 (10-20) H 10/22/24 Glu 253 mg/dl (70-99(Fasting)) H 10/22/24 Ca 9.4 mg/dl (8.6-10.3) 10/22/24 Total Bilirubin 0.3 mg/dl (0.2-1.0) 10/22/24 Direct Bilirubin 0.0 mg/dl (0-0.2) 10/22/24 AST 45 U/L (13-39) H 10/22/24 ALT 36 U/L (7-52) 10/22/24 Alkaline Phosphatase 126 U/L (34-104) H 10/22/24 TP 6.4 gm/dl (6.0-8.3) 10/22/24 Albumin 3.3 gm/dl (3.4-5.0) L 10/22/24 Mg 2.2 mg/dl (1.7-2.4) 10/22/24 08:15 Calcium Level 9.4 mg/dl (8.6-10.3) 10/22/24 08:15 Prothromb Time International Ratio 1.0 (0.9-1.1) 10/22/24 08:1 5 Venous Blood pH 7.15 (7.36-7.41) L 10/22/24 08:15 Venous Blood Partial Pressure CO2 64 mmHg (38-50) H 10/22/24 08 :15 Venous Blood Partial Pressure O2 37 mmHg 10/22/24 08:15 Venous Blood HCO3 22 mmol/L 10/22/24 08:15 Venous Blood Base Excess -7.5 mEq/L 10/22/24 08:15 Venous Blood Oxygen Saturation < 60.0 % 10/22/24 08:15 Diagnostic Findings (Past 24 Hours) Chest X-Ray 10/22/24 08:08 XR chest 1V portable CLINICAL HISTORY: Sepsis. Shortness of breath. COMPARISON STUDY: Chest radiograph September 26, 2024. Chest CT February 10, 2024. FINDINGS: Postoperative findings within the spine are incidentally noted. There is no pneumothorax. Trace bilateral pleural effusions are present. There has been interval extensive consolidation which involves the majority of the left lung. Interstitial thickening within the right lung may represent an infectious process as well. There is no evidence for pulmonary edema. IMPRESSION: 1. Interval development of extensive left lung consolidation consistent with pn eumonia. Interstitial thickening within the right lung, also likely infectious. 2. Trace bilateral pleural effusions. ACT 112: Negative or not required by law. Electronically signed by: William Pathak M.D. 10/22/2024 8:34 AM Chest X-Ray 10/22/24 08:45 XR chest 1V portable CLINICAL HISTORY: intubation COMPARISON STUDY: Chest radiograph performed earlier today. FINDINGS: The tip of the endotracheal tube is 3.2 cm above the ruiz. The tip of the nasogastric tube is within the body of the stomach. Extensive left lung consolidation is again noted. Interstitial thickening and patchy right lung opacities are present. There is no pneumothorax. There are trace bilateral pleural effusions. Cardiomediastinal silhouette is stable allowing for patient rotation. There are postoperative findings within the spine. IMPRESSION: 1. Satisfactory positioning of the endotracheal and nasogastric tubes. 2. Redemonstration of extensive left lung consolidation consistent with pneumonia. Interstitial thickening and patchy right lung opacities are also likely infectious. Mild superimposed pulmonary edema cannot be excluded. 3. Trace bilateral pleural effusions. ACT 112: Negative or not required by law. Electronically signed by: William Pathak M.D. 10/22/2024 9:08 AM I & O Totals 24 Hours 10/21/24 10/22/24 10/23/24 06:59 06:59 06:59 Intake Total 2049 Output Total 200 / 200 Balance 1850 / 1850 Cumulative 10/22/24 08:02 thru 10/22/24 10:18 Intake Total 2049 Output Total 200 Balance 1850 RT Ventilator Mngmt (Last Documented) Ventilator Ordered Settings Ventilator Support Mode Assist Control 10/22/24 08:55 Respiratory Rate 28 10/22/24 10:00 Ventilator Tidal Volume 400 10/22/24 08:55 Setting Minute Ventilation 11.5 10/22/24 08:55 Positive End Expiratory 5 10/22/24 08:55 Pressure Fraction of Inspired Oxygen 100 10/22/24 08:55 Machine Comment VBG 7.15, RR inc per Dr. 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
[2024-10-22] MEDS ORDERED: AZITHROMYCIN 500 MG VIAL IV ONE (10:48)
[2024-10-22] MEDS: NOREPINEPHRINE/D5W 4 MG/250 ML PLCT IV SCH (10:59)
--- NOTE | 2024-10-22 11:47 | Ultrasound Report ---
LEFT LOWER EXTREMITY VENOUS DOPPLER CLINICAL HISTORY: LLE swelling, injury. R/o DVT COMPARISON STUDY: Left lower extremity venous Doppler ultrasound August 16, 2009. TECHNIQUE: Sonography of the deep venous system of the left lower extremity was performed. Compressi on and augmentation were evaluated. FINDINGS: The left common femoral, superficial femoral and popliteal veins were compressible. Augmen tation was normal. Flow was shown within the deep calf vessels. IMPRESSION: No evidence of deep venous thrombus within the left lower extremity. ACT 112: Negative or not required by law. Electronically signed by: William Pathak M.D. 10/22/2024 11:45 AM
--- NOTE | 2024-10-22 11:49 | Procedure Note ---
Procedure Note: Bronchoscopy Procedure Procedure: Fiberoptic bronchoscopy Bronchoalveolar lavage Provider: Toño Ochoa MD Consent: Verbal consent obtained from the patient's spouse prior to the procedure. Indication: Abnormal chest x-ray Procedure: Patient was in the ICU on mechanical ventilator. Appropriate radiographic studies have been reviewed prior to the procedure. She is placed on her percent FiO2 on the ventilator. The fiberoptic scope was advanced through the existing endotracheal tube via the Bodai adapter. The tube was sounded and found to be in good position. There were thick mucoid secretions present within the endotracheal tube and trachea which were suctioned free. Once the trachea was cleared, a systematic inspection of the airways was conducted. Airways on the right and left demonstrated normal anatomic configuration with normal mucosa and no significant endobronchial abnormalities. Minimal secretions were identified. At that point in time the scope was wedged into the left upper lobe. A BAL was performed with instillation of 3 sequential aliquots of 30 cc of saline. Return was optimal and was bloody throughout but did not appear to be increasingly bloody with serial samples. The bronchoscope was then removed from the airways. The patient tolerated the procedure well without obvious complication. Patient was returned to the recovery room. Impression: 1. Endotracheal tube in good position. 2. Successful BAL left upper lobe with bloody return, not entirely consistent with alveolar hemorrhage [facility] [place] Procedure Codes (Charges) Pulmonary/Thoracic Procedure 1: Pulmonary and Thoracic: 86017 Dx bronchoscopy/BAL
[2024-10-22] MEDS: AZITHROMYCIN 500 MG in SODIUM CHLORIDE 0.9% 250 ML IV ONE (12:00)
[2024-10-22] MEDS: STAT IV Infusion **Titration per Protocol STA (12:01)
[2024-10-22] MEDS: RAPID SEQUENCE INDUCTION BAG ONE (12:01)
--- NOTE | 2024-10-22 12:13 | Pharmacy Report ---
Pharmacy PK ABX Note - Date of Service October 22, 2024 - Assessment and Plan Assessment 84 year old F receiving vancomycin, cefepime, azithromycin for treatment of pneumonia. Pertinent microbiologic data includes: Blood cultures pending, BAL cultures pending, sputum culture pending. WBC 25, procal 0.13, hypotensive on norepinephrine, intubated. Plan Vancomycin * Loading dose: 1250 mg IV x 1 * Maintenance dose: 750 mg IV every 24 hours * Regimen is predicted to achieve target AUC/JENNIFER of 400-600 mg/L.hr * Random level to be ordered if continued > 48 hours Pharmacy will continue to follow and will adjust dose/frequency as necessary. Thank you. Pharmacy has transitioned to AUC monitoring for vancomycin. AUC/JENNIFER is the preferred PK/PD target and is associated with decreased risk of nephrotoxicity compared to traditional trough targets.
[2024-10-22] MEDS: HYDROCORTISONE SOD SUCCINATE 100 MG/2 ML VIAL ONE (12:20)
[2024-10-22] MEDS: HYDROCORTISONE SOD 100 MG in SYRINGE 0 ML IV STA (12:20)
[2024-10-22] MEDS: LACTATED RINGER'S 1,000 ML IV ONE (12:20)
[2024-10-22] MEDS ORDERED: PANTOprazole 40 MG/10 ML SYR IV SCH (12:28)
[2024-10-22] MEDS: fentaNYL citrate PF 100 MCG/2 ML VIAL IV STA (12:33)
--- NOTE | 2024-10-22 12:53 | Procedure Note ---
Procedure Note Date of Service October 22, 2024 CENTRAL LINE PROCEDURE NOTE: Procedure: Central Line Placement Provider: Toño Ochoa MD Indication: Central Drug Administration, Poor Venous Access, Multiple Lab Draws Necessary, etc. Anesthesia: 5 cc lidocaine 1% Site: Left subclavian Verbal consent was obtained from the patient's significant other is the patient was intubated and sedated. Procedure was urgent as the patient was hypotensive on pressors. A time-out was completed verifying correct patient, procedure, site, positioning, and implants(s) or special equipment if applicable. Patients left neck was cleansed and draped in the typical sterile fashion using Chloraprep. Landmarks were identified. The infraclavicular space was easily palpated. Lidocaine was used for local anesthesia in the skin and subcutaneous tissues. After adequate anesthetization was achieved, the left subclavian vein was cannulated under direct ultrasound guidance using an introducer needle on a syringe. Good venous blood return was maintained prior to removal of syringe from introducer needle. Using Seldinger Technique, a guide wire was advanced through the introducer needle without resistance. The introducer needle was removed leaving the wire in place. A small incision was made in penetrating fashion at the guide wire insertion site utilizing an 11 blade scalpel. The dilator was advanced to the vessel without resistance. The dilator was exchanged for the triple lumen catheter which was advanced into the vessel without resistance. The guide wire was removed intact from the catheter without issue. Claves were placed on each catheter tip with confirmation of good blood flow from each lumen. Each port was easily flushed with sterile saline. The catheter was placed at the hub and sutured in place. BioPatch was applied to the catheter and a sterile Tegaderm dressing was applied over the catheter with careful attention to sterility. Patient tolerated procedure well. No immediate complications were met. Post procedure x-ray was ordered and is pending Images obtained are saved for permanent record EBL: 5 mL [facility] Procedure Codes (Charges) Tubes, Drains, and Vasc Access Procedure 1: Tubes, Drains, and Vasc Access: [id number] Place catheter in vein superior or inferior vena cava Coding CPT Codes Tubes, Drains, and Vasc Access - Tubes, Drains, and Vasc Access: [id number] Place catheter in vein superior or inferior vena cava ([id number]) Additional Codes Date of Service (PG.SURGERY)
--- NOTE | 2024-10-22 12:55 | Procedure Note ---
Procedure Note Date of Service October 22, 2024 ARTERIAL LINE PROCEDURE NOTE: Procedure: Arterial Line Placement Provider: Toño Ochoa MD Indication: Monitoring on Pressors Anesthesia: 3 cc 1% lidocaine locally Procedure was emergent. Patient intubated on the ventilator on pressors. Verbal consent obtained from the patient's significant other A time-out was completed verifying correct patient, procedure, site, positioning, and implant(s) or special equipment if applicable. Patient's left groin was cleaned and draped in normal sterile fashion and a sterile field established. Chlorhexidine was allowed to dry completely. Ultrasound was performed using sterile aseptic technique and the femoral artery and vein were easily identified. Artery was pulsatile. Local anesthesia was achieved with instillation of 3 cc 1% lidocaine under ultrasound visualization. Using an 18- gauge needle and under direct ultrasound visualization, the left femoral artery was accessed. Pulsatile blood flow was returned. Syringe was detached from the needle confirming again pulsatile blood flow. A wire was passed through the needle into the artery and the needle removed leaving the wire in place. A skin luis antonio was made with a scalpel over the wire. A 12 cm catheter was then threaded over the wire into the artery and the wire removed. Pulsatile blood flow was again confirmed. The catheter was attached to the pressure monitoring system and an arterial waveform was confirmed. The catheter was sutured in place using silk sutures and a sterile dressing/Biopatch was applied. Patient tolerated the procedure well without obvious complication Blood Loss: Minimal Complications: None [facility] Procedure Codes (Charges) Tubes, Drains, and Vasc Access Procedure 1: Tubes, Drains, and Vasc Access: [id number] Arterial Cath/Cannulation Sampling/Monitoring/Transfusion Procedure 2: Tubes, Drains, and Vasc Access: [id number] Ultrasound Guidance For Vascular Coding CPT Codes Tubes, Drains, and Vasc Access - Tubes, Drains, and Vasc Access: [id number] Arterial Cath/Cannulation Sampling/Monitoring/Transfusion ([id number]) Tubes, Drains, and Vasc Access - Tubes, Drains, and Vasc Access: [id number] Ultrasound Guidance For Vascular ([id number]) Additional Codes Date of Service (PG.SURGERY)
[2024-10-22] MEDS ORDERED: FLUDROCORTISONE ACETATE 0.1 MG TAB PO SCH (13:00)
[2024-10-22] MEDS ORDERED: HYDROCORTISONE SOD 50 MG in SYRINGE 0 ML IV SCH (13:00)
[2024-10-22] MEDS: PANTOprazole 40 MG/10 ML SYR IV SCH (13:18)
[2024-10-22] MEDS: CEFEPIME 2000MG 2,000 MG/20 ML SYR IV ONE (13:19)
[2024-10-22] MEDS: ICU Protocol for HYPERglycemia SCH ×2 (13:45→17:44)
[2024-10-22] MEDS: ASPIRIN 81 MG CHEW OG SCH (13:48)
[2024-10-22] MEDS: TICAGRELOR 90 MG TAB OG SCH (13:48)
--- NOTE | 2024-10-22 13:52 | XRay Report ---
KUB CLINICAL HISTORY: OG placement COMPARISON STUDY: KUB August 19, 2014. FINDINGS: Tip of nasogastric tube is within the distal body of the stomach. Bowel gas pattern is norm al. There are postoperative findings within the spine as well as both femurs. Suspected central line projects over the left groin. IMPRESSION: Tip of nasogastric tube within the body of the stomach. ACT 112: Negative or not required by law. Electronically signed by: William Pathak M.D. 10/22/2024 1:51 PM
--- NOTE | 2024-10-22 13:52 | XRay Report ---
XR chest 1V portable CLINICAL HISTORY: central line placement, OG PLACEMENT COMPARISON STUDY: Chest radiograph October 22, 2024 at 8:44 AM. FINDINGS: The tip of the endotracheal tube is 1.7 cm above the ruiz. Tip of nasogastric tube is wit hin the body of the stomach, as shown on KUB. There is no pneumothorax following placement of a left subclavian central line. Tip projects over the cavoatrial junction. Left lung consolidation is again noted as well as patchy right lung airspace opacities. There is a trace left pleural effusion. Postop erative findings within the spine are incidentally noted. IMPRESSION: 1. Satisfactory positioning of lines and tubes. 2. No pneumothorax following placement of a left subclavian central line. 3. Redemonstration of left lung pneumonia and patchy right lung opacities. ACT 112: Negative or not required by law. Electronically signed by: William Pathak M.D. 10/22/2024 1:50 PM
[2024-10-22 14:31] LABS: Neutrophil Body Fluid Man 88 %
[2024-10-22 14:32] LABS: Fluid Mono/Macrophage 12 %; Lymphocyte Body Fluid Man 0 %
--- NOTE | 2024-10-22 15:26 | XCELERA ---
[id number]
[2024-10-22] MEDS ORDERED: ICU Protocol for HYPERglycemia STA (16:10)
[2024-10-22] MEDS ORDERED: Nursing to Pharmacy Communication SCH (16:15)
[2024-10-22] MEDS: HEPARIN 25000 UNIT/500 ML D5W 25,000 UNITS/500 ML BAG IV SCH (16:16)
[2024-10-22] MEDS: Heparin IV Adult Wt-Based Low-Dose w/ INITIAL Bolus Protocol IV STA (16:17)
[2024-10-22] MEDS: HEPARIN SOD (PORCINE) 1000 UNIT/ML IV ONE (16:17)
[2024-10-22] MEDS ORDERED: ICU Protocol for HYPERglycemia SCH (16:30)
[2024-10-22] MEDS: ICU ELECTROLYTE REPLACEMENT PROTOCOL SCH (17:43)
[2024-10-22] MEDS: VANCOMYCIN HCL 750 MG in SODIUM CHLORIDE 0.9% 250 ML IV SCH (17:43)
[2024-10-22] MEDS: PROPOFOL BOLUS FROM BAG IV PRN (19:41)
[2024-10-22] MEDS ORDERED: HEPARIN SOD 5,000 UNIT/0.5 ML VIAL SQ SCH (21:00)
[2024-10-22 23:11] LABS: ANTI-Xa, UFH(UnfractionatedHep 0.62 IU/ml (0.3-0.7)
[2024-10-22] MEDS: CEFEPIME 1000MG 1,000 MG/10 ML SYR IV SCH (23:52)
[2024-10-23 04:32] LABS: Hemoglobin 8.4 g/dl (12.0-16.0); Mean Corpuscular Hemoglobin 28.5 pg (25.0-34.0); Mean Corpuscular Hgb Conc 32.3 g/dL (32.0-36.0); Mean Corpuscular Volume 88.1 fL (80.0-100.0); Mean Platelet Volume 10.1 fL (9.4-12.4); Platelet Count 392 K/uL (130-400); RDW Coefficient of Variation 13.6 % (11.5-14.5); Red Blood Count 2.95 M/uL (4.20-5.40); White Blood Count 31.89 K/ul (4.8-10.8)
[2024-10-23 04:39] LABS: iSTAT Art Bld Gas pCO2 Correct 33 mmHg (35-46); iSTAT Art Bld Gas pH Corrected 7.411 (7.35-7.45); iSTAT Arterial Blood Gas HCO3 21 meg/L (19-24); iSTAT Arterial Blood Gas pCO2 30 mmHg (35-46); iSTAT Arterial Blood Gas pH 7.46 (7.35-7.45); iSTAT Arterial Blood Gas pO2 127 mmHg (80-95); iSTAT Arterial Blood Gas pO2 C 147; iSTAT Carbon Dioxide 22 mmol/L (24-31); iSTAT FiO2 40 %; iSTAT Hematocrit 27 % (37-47); iSTAT Hemoglobin 9.2 g/dl (12.0-16.0); iSTAT Potassium 4.1 mmol/L (3.3-5.0); iSTAT Sample Type Arterial; iSTAT Sodium 134 mmol/L (135-144)
[2024-10-23 04:46] LABS: Basophils # (auto) 0.11 K/uL (0.00-0.20); Basophils % (auto) 0.3 %; Eosinophils # (auto) 0.01 K/uL (0.00-0.50); Immature Granulocytes # (auto) 0.24 K/uL (0.01-0.20); Immature Granulocytes % (auto) 0.8 %; Lymphocytes # (auto) 1.02 K/uL (1.20-3.40); Lymphocytes % (auto) 3.2 %; Monocytes # (auto) 1.86 K/uL (0.11-0.59); Monocytes % (auto) 5.8 %; Neutrophils # (auto) 28.65 K/uL (1.40-6.50); Neutrophils % (auto) 89.9 %; Polychromasia 1+
[2024-10-23 05:00] LABS: Albumin Globulin Ratio 1.1 (0.9-2); Albumin Level 2.7 gm/dl (3.4-5.0); BUN Creatinine Ratio 28.2 (10-20); Bilirubin,Total 0.3 mg/dl (0.2-1.0); Calcium 8.5 mg/dl (8.6-10.3); Globulin 2.4 gm/dl (2.5-4.0); Magnesium 1.9 mg/dl (1.7-2.4); Phosphorus 4.1 mg/dl (2.5-4.9); Potassium 4.1 mmol/L (3.5-5.1); Total Protein 5.1 gm/dl (6.0-8.3)
[2024-10-23] MEDS: MAGNESIUM OXIDE 400 MG TAB NG SCH (06:14)
[2024-10-23] MEDS: ATORVASTATIN 40 MG TAB OG SCH (07:57)
--- NOTE | 2024-10-23 08:28 | XRay Report ---
EXAM: XR chest 1V portable CLINICAL HISTORY: Resp failure. TECHNIQUE: An X-ray image of the chest is obtained in AP projection. COMPARISON: CR dated 09/26/2024. FINDINGS: Endotracheal tube appears to be low-lying approximately 1.5 cm above ruiz needs to be is repositioned. Pulmonary Parenchyma: Multiple patchy opacities seen in the left mid and lower zones. Small atelectatic bands seen in the right lower zone. Mild pleural reaction left costophrenic recess causing the blunting of costophrenic angle. clear right one. Heart and Mediastinum: Cardiomegaly. No mediastinal widening or masses. No hilar or mediastinal lymphadenopathy. Bony Thorax: Bony thorax appears intact without fractures or deformities. Soft Tissues: Soft tissues overlying the chest wall are unremarkable. IMPRESSION: 1. Multiple patchy opacities seen in the left mid and lower zones, interval progression, can be Post-inflammatory. Suggest clinical and lab correlation. 2. Endotracheal tube is low-lying approximately 1.5 cm above the ruiz, repositioning is advised. 3. Small atelectatic band right lower zone, more prominent. 4. Cardiomegaly. 5. Mild pleural reaction left costophrenic recess, mild progression. 6. Comparing the previous x-ray dated 09/26/2024 there is interval progression. Electronically signed by Alissa Bond 10-23-2024 08:28 AM
[2024-10-23] MEDS ORDERED: ASPIRIN 81 MG ECTAB PO SCH (09:00)
[2024-10-23] MEDS ORDERED: AZITHROMYCIN 500 MG VIAL IV SCH (09:00)
--- NOTE | 2024-10-23 09:05 | Critical Care Progress Note ---
Date of Service October 23, 2024 Assessment & Plan (1) Pneumonia: (2) Acute heart failure with mildly reduced ejection fraction (HFmrEF, 41-49%): (3) Multiple pulmonary nodules determined by computed tomography of lung: (4) Chronic obstructive pulmonary disease: (5) Cardiomyopathy: (6) Aortic stenosis: Plan Impression: 84-year-old female with multiple medical issues admitted with acute onset of shortness of breath with leukocytosis and dense consolidation within the left lung. She was intubated with borderline hemodynamics. Recommendations: 1. Neurologic: Currently sedated on propofol. Will avoid benzodiazepines which may exacerbate delirium in patients with some cognitive dysfunction. Patient has known neurocognitive dysfunction at baseline but according to her was able to get up and around somewhat independently but not able to live independently. 2. Cardiovascular: Patient's been seen by cardiology. Echocardiogram reviewed. Known severe multivessel coronary disease. Agree with cardiology that she is unlikely to be a good candidate for intervention in the absence of overt cardiogenic shock or caleb ST elevations. She has known aortic stenosis which could complicate issues but will follow-up with the severity on follow-up echocardiogram. May require some additional fluids versus pressors if hemodynamics become problematic. Lactate downtrending will recheck: Resolved -Decreasing vasoactive requirements suspect this is depressed function secondary to infection/stress burden 3. Pulmonary: Dense consolidation in the left lung: Improved. On mechanical ventilation: Minimal settings. Continue lung protective strategies. -Trial of extubation History of groundglass pulmonary nodules for which the patient has declined intervention in the past. Unlikely to be related to the current process. Aspiration event certainly likely. Suspicion for thromboembolic disease is low or given the x-ray appearance duplex ultrasound of the left lower extremity is negative -Reviewed bronchoscopy notes 4. GI: N.p.o. for now. GI prophylaxis will be initiated if the patient develops pressor requirement. Given prior history of aspiration, this will need to be investigated further if the patient liberate from mechanical ventilator prior to feeding. 5. Renal: Creatinine improved. Think the patient is a poor dialysis candidate in the event of progression to renal failure. 6. Endocrine: Glycemic control per protocol. 7. Heme-onc: Stable anemia. No indication for transfusion and no evidence of acute blood loss currently. Thrombocytosis likely secondary to acute phase reactant/infection. 8. ID: Patient has been in and out of the hospital and multiple occasions in the last 90 days which places her at risk for resistant organisms. -MRSA swab negative can discontinue vancomycin given rapid improvement in oxygenation and chest x-ray -Continue cefepime Zithromax. Discussed with the patient's at bedside. No other family locally. He is in agreement to intubation in the short-term in the hopes that she can be stabilized but does not want aggressive life-sustaining measures including additional ACLS/cardioversion or CPR. He would be okay with pressors in the short-term if needed. Patient is critically ill at this point time with significant possibility of clinical deterioration and/or . A total of 35 minutes in critical care time was spent evaluation management coordination of care for this patient excluding procedures Admission and Anticipated Discharge Date Admission Date: October 22, 2024 Subjective No overnight events. Decreased ventilator requirements, following simple two- step commands Physical Exam Physical Exam: General: Sedated. nontoxic. Skin: Warm, dry, Head: Atraumatic Ears, nose, mouth and throat: airway obscured by endotracheal tube Cardiovascular: Normal peripheral perfusion Respiratory: Ventilator settings reviewed Gastrointestinal: Non distended Musculoskeletal: No deformity Results & Data Results & Data Vital Signs (Past 12 Hours) Vital Signs Temp Pulse Resp BP Pulse Ox FiO2 10/23/24 07:57 63 16 99 30 10/23/24 06:00 37 C 10/23/24 05:50 37.0 C 63 16 100 10/23/24 05:35 37.0 C 62 16 100 10/23/24 05:20 37.0 C 74 25 H 100 10/23/24 05:08 37.0 C 65 16 100 10/23/24 05:00 112/49 L 10/23/24 04:56 37.0 C 65 21 100 10/23/24 04:20 16 10/23/24 04:00 111/53 L 10/23/24 04:00 36.8 C 65 18 100 10/23/24 04:00 111/53 L 10/23/24 04:00 40 10/23/24 03:45 36.8 C 55 L 18 100 10/23/24 03:33 36.8 C 59 L 18 100 10/23/24 03:30 19 40 10/23/24 03:12 36.8 C 56 L 18 100 10/23/24 03:00 108/47 L 10/23/24 03:00 108/47 L 10/23/24 02:51 36.9 C 58 L 18 100 10/23/24 02:42 37.0 C 59 L 18 100 10/23/24 02:30 37.0 C 59 L 18 100 10/23/24 02:12 36.9 C 60 18 100 10/23/24 02:06 37.0 C 60 18 100 10/23/24 02:00 101/49 L 10/23/24 01:57 36.9 C 61 18 100 10/23/24 01:40 37.0 C 59 L 18 100 10/23/24 01:35 37.0 C 61 18 100 10/23/24 01:26 37.0 C 62 18 100 10/23/24 01:11 37.0 C 63 18 100 10/23/24 01:03 37.0 C 62 18 100 10/23/24 01:00 105/46 L 10/23/24 01:00 105/46 L 10/23/24 01:00 36.9 C 10/23/24 00:39 37.0 C 61 18 100 10/23/24 00:30 37.0 C 62 18 100 10/23/24 00:00 37.0 C 68 18 99 10/23/24 00:00 137/63 10/23/24 00:00 137/63 10/23/24 00:00 67 10/23/24 00:00 60 10/23/24 00:00 113/44 L 10/22/24 23:51 37.0 C 65 18 100 10/22/24 23:45 37.0 C 67 18 100 10/22/24 23:36 63 19 100 40 10/22/24 23:21 37.0 C 61 18 100 10/22/24 23:18 37.0 C 65 18 100 10/22/24 23:00 114/53 L 10/22/24 23:00 114/53 L 10/22/24 23:00 114/53 L 10/22/24 23:00 36.9 C 60 20 100 10/22/24 23:00 114/53 L 10/22/24 22:51 36.9 C 61 20 100 10/22/24 22:30 37.0 C 62 20 100 10/22/24 22:18 37.0 C 63 20 100 10/22/24 22:06 37.0 C 63 20 100 10/22/24 22:00 96/50 L 10/22/24 21:54 37.0 C 65 20 100 10/22/24 21:48 37.0 C 64 20 100 10/22/24 21:39 37.0 C 65 20 100 10/22/24 21:27 37.0 C 66 20 100 10/22/24 21:12 37.0 C 63 20 100 10/22/24 21:10 20 40 10/22/24 21:09 37.0 C 64 20 100 Critical Care Results & Data Vital Signs (Past 12 Hours) Vital Signs Temp Pulse Resp BP Pulse Ox FiO2 10/23/24 07:57 63 16 99 30 10/23/24 06:00 37 C 10/23/24 05:50 37.0 C 63 16 100 10/23/24 05:35 37.0 C 62 16 100 10/23/24 05:20 37.0 C 74 25 H 100 10/23/24 05:08 37.0 C 65 16 100 10/23/24 05:00 112/49 L 10/23/24 04:56 37.0 C 65 21 100 10/23/24 04:20 16 10/23/24 04:00 111/53 L 10/23/24 04:00 36.8 C 65 18 100 10/23/24 04:00 111/53 L 10/23/24 04:00 40 10/23/24 03:45 36.8 C 55 L 18 100 10/23/24 03:33 36.8 C 59 L 18 100 10/23/24 03:30 19 40 10/23/24 03:12 36.8 C 56 L 18 100 10/23/24 03:00 108/47 L 10/23/24 03:00 108/47 L 10/23/24 02:51 36.9 C 58 L 18 100 10/23/24 02:42 37.0 C 59 L 18 100 10/23/24 02:30 37.0 C 59 L 18 100 10/23/24 02:12 36.9 C 60 18 100 10/23/24 02:06 37.0 C 60 18 100 10/23/24 02:00 101/49 L 10/23/24 01:57 36.9 C 61 18 100 10/23/24 01:40 37.0 C 59 L 18 100 10/23/24 01:35 37.0 C 61 18 100 10/23/24 01:26 37.0 C 62 18 100 10/23/24 01:11 37.0 C 63 18 100 10/23/24 01:03 37.0 C 62 18 100 10/23/24 01:00 105/46 L 10/23/24 01:00 105/46 L 10/23/24 01:00 36.9 C 10/23/24 00:39 37.0 C 61 18 100 10/23/24 00:30 37.0 C 62 18 100 10/23/24 00:00 37.0 C 68 18 99 10/23/24 00:00 137/63 10/23/24 00:00 137/63 10/23/24 00:00 67 10/23/24 00:00 60 10/23/24 00:00 113/44 L 10/22/24 23:51 37.0 C 65 18 100 10/22/24 23:45 37.0 C 67 18 100 10/22/24 23:36 63 19 100 40 10/22/24 23:21 37.0 C 61 18 100 10/22/24 23:18 37.0 C 65 18 100 10/22/24 23:00 114/53 L 10/22/24 23:00 114/53 L 10/22/24 23:00 114/53 L 10/22/24 23:00 36.9 C 60 20 100 10/22/24 23:00 114/53 L 10/22/24 22:51 36.9 C 61 20 100 10/22/24 22:30 37.0 C 62 20 100 10/22/24 22:18 37.0 C 63 20 100 10/22/24 22:06 37.0 C 63 20 100 10/22/24 22:00 96/50 L 10/22/24 21:54 37.0 C 65 20 100 10/22/24 21:48 37.0 C 64 20 100 10/22/24 21:39 37.0 C 65 20 100 10/22/24 21:27 37.0 C 66 20 100 Lab & Micro Results (Past 24 Hours) RBC 2.95 M/uL (4.20-5.40) L 10/23/24 WBC 31.89 K/ul (4.8-10.8) H* 10/23/24 Hgb 8.4 g/dl (12.0-16.0) L 10/23/24 Hct 26.0 % (37.0-47.0) L 10/23/24 MCV 88.1 fL (80.0-100.0) 10/23/24 MCH 28.5 pg (25.0-34.0) 10/23/24 MCHC 32.3 g/dL (32.0-36.0) 10/23/24 RDW Standard Deviation 44.0 fL (36.4-46.3) 10/23/24 RDW Coefficient of Variation 13.6 % (11.5-14.5) 10/23/24 Plt Count 392 K/uL (130-400) 10/23/24 MPV 10.1 fL (9.4-12.4) 10/23/24 Neutrophils (%) (Auto) 89.9 % 10/23/24 Lymphocytes (%) (Auto) 3.2 % 10/23/24 Monocytes # (Auto) 1.86 K/uL (0.11-0.59) H 10/23/24 Eosinophils # (Auto) 0.01 K/uL (0.00-0.50) 10/23/24 Immature Granulocyte % (Auto) 0.8 % 10/23/24 Neutrophils # (Auto) 28.65 K/uL (1.40-6.50) H 10/23/24 Lymphocytes # (Auto) 1.02 K/uL (1.20-3.40) L 10/23/24 Monocytes # (Auto) 1.86 K/uL (0.11-0.59) H 10/23/24 Eosinophils # (Auto) 0.01 K/uL (0.00-0.50) 10/23/24 Basophils # (Auto) 0.11 K/uL (0.00-0.20) 10/23/24 Immature Granulocyte # (Auto) 0.24 K/uL (0.01-0.20) H 10/23 Polychromasia 1+ 10/23/24 Na 134 mmol/L (136-145) L 10/23/24 K 4.1 mmol/L (3.5-5.1) 10/23/24 Cl 105 mmol/L (98-107) 10/23/24 CO2 22 mmol/L (21-32) 10/23/24 Anion Gap 7 (3-11) 10/23/24 BUN 29 mg/dl (6-23) H 10/23/24 Creatinine 1.03 mg/dl (0.6-1.2) 10/23/24 BUN/Creatinine Ratio 28.2 (10-20) H 10/23/24 Glu 134 mg/dl (70-99(Fasting)) H 10/23/24 Ca 8.5 mg/dl (8.6-10.3) L 10/23/24 Phosphorus Level 4.1 mg/dl (2.5-4.9) 10/23/24 Total Bilirubin 0.3 mg/dl (0.2-1.0) 10/23/24 AST 63 U/L (13-39) H 10/23/24 ALT 34 U/L (7-52) 10/23/24 Alkaline Phosphatase 81 U/L (34-104) 10/23/24 TP 5.1 gm/dl (6.0-8.3) L 10/23/24 Albumin 2.7 gm/dl (3.4-5.0) L 10/23/24 Globulin 2.4 gm/dl (2.5-4.0) L 10/23/24 Albumin/Globulin Ratio 1.1 (0.9-2) 10/23/24 Mg 1.9 mg/dl (1.7-2.4) 10/23/24 04:11 Calcium Level 8.5 mg/dl (8.6-10.3) L 10/23/24 04:11 Microbiology 10/22/24 08:15 Aerobic Blood Culture - Preliminary Blood No growth in Aerobic bottle after 24 hours. Anaerobic Blood Culture - Preliminary No growth in Anaerobic bottle after 24 hours. 10/22/24 11:50 Gram Stain - Final Ba Lavage,Left Upper Lobe Bronchial Culture - Preliminary Light normal tha present, final report to follow. 10/22/24 10:50 Gram Stain - Final Sputum,Vent Suction Sputum Culture - Preliminary Light normal tha present, final report to follow. Diagnostic Findings (Past 24 Hours) Venous Doppler Study 10/22/24 10:07 LEFT LOWER EXTREMITY VENOUS DOPPLER CLINICAL HISTORY: LLE swelling, injury. R/o DVT COMPARISON STUDY: Left lower extremity venous Doppler ultrasound August 16, 2009. TECHNIQUE: Sonography of the deep venous system of the left lower extremity was performed. Compression and augmentation were evaluated. FINDINGS: The left common femoral, superficial femoral and popliteal veins were compressible. Augmentation was normal. Flow was shown within the deep calf vessels. IMPRESSION: No evidence of deep venous thrombus within the left lower extremity. ACT 112: Negative or not required by law. Electronically signed by: William Pathak M.D. 10/22/2024 11:45 AM Chest X-Ray 10/22/24 13:06 XR chest 1V portable CLINICAL HISTORY: central line placement, OG PLACEMENT COMPARISON STUDY: Chest radiograph October 22, 2024 at 8:44 AM. FINDINGS: The tip of the endotracheal tube is 1.7 cm above the ruiz. Tip of nasogastric tube is within the body of the stomach, as shown on KUB. There is no pneumothorax following placement of a left subclavian central line. Tip projects over the cavoatrial junction. Left lung consolidation is again noted as well as patchy right lung airspace opacities. There is a trace left pleural effusion. Postoperative findings within the spine are incidentally noted. IMPRESSION: 1. Satisfactory positioning of lines and tubes. 2. No pneumothorax following placement of a left subclavian central line. 3. Redemonstration of left lung pneumonia and patchy right lung opacities. ACT 112: Negative or not required by law. Electronically signed by: William Pathak M.D. 10/22/2024 1:50 PM KUB X-Ray 10/22/24 13:07 KUB CLINICAL HISTORY: OG placement COMPARISON STUDY: KUB August 19, 2014. FINDINGS: Tip of nasogastric tube is within the distal body of the stomach. Bowel gas pattern is normal. There are postoperative findings within the spine as well as both femurs. Suspected central line projects over the left groin. IMPRESSION: Tip of nasogastric tube within the body of the stomach. ACT 112: Negative or not required by law. Electronically signed by: William Pathak M.D. 10/22/2024 1:51 PM Chest X-Ray 10/23/24 06:00 EXAM: XR chest 1V portable CLINICAL HISTORY: Resp failure. TECHNIQUE: An X-ray image of the chest is obtained in AP projection. COMPARISON: CR dated 09/26/2024. FINDINGS: Endotracheal tube appears to be low-lying approximately 1.5 cm above ruiz needs to be is repositioned. Pulmonary Parenchyma: Multiple patchy opacities seen in the left mid and lower zones. Small atelectatic bands seen in the right lower zone. Mild pleural reaction left costophrenic recess causing the blunting of costophrenic angle. clear right one. Heart and Mediastinum: Cardiomegaly. No mediastinal widening or masses. No hilar or mediastinal lymphadenopathy. Bony Thorax: Bony thorax appears intact without fractures or deformities. Soft Tissues: Soft tissues overlying the chest wall are unremarkable. IMPRESSION: 1. Multiple patchy opacities seen in the left mid and lower zones, interval progression, can be Post-inflammatory. Suggest clinical and lab correlation. 2. Endotracheal tube is low-lying approximately 1.5 cm above the ruiz, repositioning is advised. 3. Small atelectatic band right lower zone, more prominent. 4. Cardiomegaly. 5. Mild pleural reaction left costophrenic recess, mild progression. 6. Comparing the previous x-ray dated 09/26/2024 there is interval progression. Electronically signed by Alissa Bond 10-23-2024 08:28 AM I & O Totals 24 Hours 10/22/24 10/23/24 10/24/24 06:59 06:59 06:59 Intake Total 4705.415 / 4705.415 32.663 / 32.663 Output Total 771 / 771 Balance 3934.415 / 3934.415 32.663 / 32.663 Cumulative 10/22/24 08:02 thru 10/23/24 08:50 Intake Total 4738.078 Output Total 771 Balance 3967.078 RT Ventilator Mngmt (Last Documented) Ventilator Ordered Settings Ventilator Support Mode Assist Control 10/23/24 07:57 Respiratory Rate 16 10/23/24 07:57 Ventilator Tidal Volume 380 10/23/24 07:57 Setting Minute Ventilation 6.1 10/23/24 07:57 Ventilator Positive Pressure 8 10/23/24 04:00 Support Setting Positive End Expiratory 8 10/23/24 07:57 Pressure Fraction of Inspired Oxygen 30 10/23/24 07:57 Machine Comment FIO2 weaned at this time 10/23/24 07:57 Ventilator - PT Measurements Respiratory Rate 16 Exhaled Tidal Volume 380 Minute Ventilation 6.1 Peak Inspiratory Airway 27 Pressure Plateau Pressure 21 Respiratory Cycle Inspiratory: 1:3.2 Expiratory Ratio Inspiratory Phase Time 0.90 End-Tidal CO2 27 Static Lung Compliance 29.23 Dynamic Lung Compliance 20.00 Normal Static Lung Compliance 45.00 Patient Measurements Comment adjustments made after ABG obtained. will continue to monitor. Coding Level of Care Code 40054 CRITICAL CARE 1ST 30-74M Diagnoses Pneumonia J18.9 Acute heart failure with mildly reduced ejection fraction (HFmrEF, 41-49%) I5 0.21 Multiple pulmonary nodules determined by computed tomography of lung R91.8 Chronic obstructive pulmonary disease J44.9 Cardiomyopathy I42.9 Aortic stenosis I35.0
[2024-10-23] MEDS ORDERED: CEFEPIME 2000MG 2,000 MG/20 ML SYR IV SCH (10:30)
[2024-10-23] MEDS: AZITHROMYCIN 250 MG in SODIUM CHLORIDE 0.9% 250 ML IV SCH (10:32)
[2024-10-23 11:12] LABS: iSTAT Art Bld Gas pCO2 Correct 24 mmHg (35-46); iSTAT Art Bld Gas pH Corrected 7.517 (7.35-7.45); iSTAT Arterial Blood Gas HCO3 20 meg/L (19-24); iSTAT Arterial Blood Gas pCO2 24 mmHg (35-46); iSTAT Arterial Blood Gas pH 7.52 (7.35-7.45); iSTAT Arterial Blood Gas pO2 222 mmHg (80-95); iSTAT Arterial Blood Gas pO2 C 222; iSTAT Carbon Dioxide 20 mmol/L (24-31); iSTAT FiO2 60 %; iSTAT Hematocrit 27 % (37-47); iSTAT Hemoglobin 9.2 g/dl (12.0-16.0); iSTAT Sample Type Arterial; iSTAT Site Art Line; iSTAT Sodium 133 mmol/L (135-144); iSTAT SpO2 100
--- NOTE | 2024-10-23 11:46 | Hospitalist Progress Note ---
Date of Service October 23, 2024 Assessment & Plan (1) Respiratory failure: Plan: Nevaeh Webster is an 84-year-old female with past medical history of NSTEMI, heart failure with midrange ejection fracture 45-50%, COPD, depression/anxiety, chronic aspiration presents to the ER with acute hypoxic respiratory failure who was initially suspected to have CHF and on further evluation was suspected to have septic Left PNA requiring intubation. Acute hypoxic respiratory failure s/p Intubation 2/2 suspected pneumonia, +/- CHF ETT placed for respiratory failure. Sedated on propofol. She is improving with fluids, Levophed available if needed/further fluid limited by CHF Chest x-ray with extensive left lung consolidation consistent with pneumonia. Pleural effusions are present, pulmonary edema is not excluded -Suspect most likely due to pneumonia. Left lung consolidations, leukocytosis are present. VBG 7.15/64/37/22 acute decompensated respiratory acidosis Patient does have pleural effusions and history of CHF with some lower extremity edema; heart rate down trended and blood pressures improved with 2 L of fluid. Per discussion with the [facility] patient had a sudden decompensation this morning and had not reported infectious symptoms in the preceding week, did have a left leg injury last week with swelling. Doppler ordered. CTA deferred pending Doppler and clinical progression, can follow-up with CTA if indicated. Repeat VBG postintubation improving, 7.29//186/20 Patient remains intubated, possible extubation later today or 10/24 Sepsis, pneumonia Hypotension, tachycardic, respiratory failure Received 2 L NSS in the ER, sepsis target 1731 cc Lactate elevated 5.6, repeat pending Additional fluid limited by suspected CHF/cardiopulmonary overload - Antibiotics broadened to cefepime/vancomycin/azithromycin. QT normal. Renally adjusted for calculated creatinine clearance of approximately 1415, adjust as needed based on renal function -stopped vanco. CAD w/ hx RCA PCI, history of heart failure with midrange EF and severe residual multivessel disease, suspected demand ischemia Reviewed with cardiology. Wide-complex tachycardia on admission with baseline left bundle branch block. Improving post fluids heart rate in the 100s. Troponin is elevated, suspect demand that this is reactive to sepsis and hypoxia and not business services representative of ACS. Heparinization not recommended at this time from a cardiac standpoint but will monitor closely. Patient is high risk for intervention/cath and has known high risk residual disease. Has a history of PCI x 1. Brilinta continued through OG tube ETT in place. Patient did not take any medications this morning per the [facility]. Cardiac medicines including asa/ticagrelor continued via OG Hold ARB/hydrochlorothiazide for hypotension Troponin 125, repeat pending. BNP 734 cath 08/02/2024: Triple-vessel CAD, PCI to 90% mid RCA with DESIRAE. Residual coronary disease including severely stenosed lesions of the LMCALADLCx bifurcationLADD1 bifurcation 90%. Mild to moderate nonobstructive CAD. EKG with baseline left bundle branch block EKG on admission with wide QRS tachycardia, LBBB redemonstrated. QTc 439. NOBLE pending/ Last echo 2023 with EF 47%, lateral and inferior wall hypokinesis. Mild AAS with peak velocity 1.93 - Repeat EKG post fluids and rate improvement pending Left lower extremity swelling Bilateral but left greater than right lower extremity edema and with 2-3 cm of calf asymmetry greater on the left Patient did have a leg strike last week per [facility] staff. Dopplers ordered. Small overlying contusion with clot, dressing in place, no surrounding erythema/warmth suggestive of cellulitis COPD Home inhalers held Hypothyroidism Synthroid early held, may convert to IV 70% dose reduction if prolonged ability to tolerate p.o. Closed right femur fracture S/p total joint arthroplasty 07/2024. Per [facility] healed from this back in July however has generally poor mobility and mostly wheelchair-bound at their facility GERD PPI continued for hx and ulcer ppx, converted to IV DVT prophylaxis: Heparin subcu due to renal dysfunction CODE STATUS: Conditional code. Okay with temporary intubation while evaluating for potential reversible causes of respiratory failure (sepsis/pneumonia/CHF), but per conversation with she would not want resuscitation in the event of a complete arrest. No CPR, no electrical cardioversion, no cardiopulmonary resuscitation in the event of a respiratory/cardiac arrest. Diet: N.p.o., OG for meds Disposition: ICU discussed with key maker (2) Pneumonia: (3) Acute heart failure with mildly reduced ejection fraction (HFmrEF, 41-49%): Admission and Anticipated Discharge Date Admission Date: October 22, 2024 Subjective 84 yo female is intubated. Physical Exam Physical Exam: General: ETT in place, sedated. HEENT: Atraumatic, normocephalic. Pulm: Scattered slight crackles on L, good air movement bilaterally. Cardiac: Tachycardic, regular. Radial pulses intact and symmetrical. Abdominal: Soft, nondistended Extremities: Mild left calf asymmetry. Left briseno contusion/wound with overlying dressing, no warmth/erythema. Bilateral mild pitting edema left greater than right. Right briseno with small contusion but no overlying wound. Results & Data Results & Data Vital Signs (Past 12 Hours) Vital Signs Temp Pulse Resp BP Pulse Ox O2 Del Method FiO2 10/23/24 10:31 73 22 98 30 10/23/24 10:00 142/63 H 10/23/24 10:00 36.8 C 77 33 H 99 10/23/24 09:32 24 30 10/23/24 09:09 36.8 C 59 L 20 99 10/23/24 09:00 104/47 L 10/23/24 08:57 36.8 C 60 21 98 10/23/24 08:18 36.9 C 63 16 99 10/23/24 08:00 122/50 L 10/23/24 08:00 Mechanical Vent 30 10/23/24 08:00 40 10/23/24 07:57 36.9 C 62 16 99 10/23/24 07:57 63 16 99 30 10/23/24 07:02 36.9 C 59 L 16 100 10/23/24 07:00 107/45 L 10/23/24 06:00 37 C 10/23/24 05:50 37.0 C 63 16 100 10/23/24 05:35 37.0 C 62 16 100 10/23/24 05:20 37.0 C 74 25 H 100 10/23/24 05:08 37.0 C 65 16 100 10/23/24 05:00 112/49 L 10/23/24 04:56 37.0 C 65 21 100 10/23/24 04:20 16 10/23/24 04:00 111/53 L 10/23/24 04:00 36.8 C 65 18 100 10/23/24 04:00 111/53 L 10/23/24 04:00 40 10/23/24 03:45 36.8 C 55 L 18 100 10/23/24 03:33 36.8 C 59 L 18 100 10/23/24 03:30 19 40 02/17/25 03:12 36.8 C 56 L 18 100 10/23/24 03:00 108/47 L 10/23/24 03:00 108/47 L 10/23/24 02:51 36.9 C 58 L 18 100 10/23/24 02:42 37.0 C 59 L 18 100 10/23/24 02:30 37.0 C 59 L 18 100 10/23/24 02:12 36.9 C 60 18 100 10/23/24 02:06 37.0 C 60 18 100 10/23/24 02:00 101/49 L 10/23/24 01:57 36.9 C 61 18 100 10/23/24 01:40 37.0 C 59 L 18 100 10/23/24 01:35 37.0 C 61 18 100 10/23/24 01:26 37.0 C 62 18 100 10/23/24 01:11 37.0 C 63 18 100 10/23/24 01:03 37.0 C 62 18 100 10/23/24 01:00 105/46 L 10/23/24 01:00 105/46 L 10/23/24 01:00 36.9 C 10/23/24 00:39 37.0 C 61 18 100 10/23/24 00:30 37.0 C 62 18 100 10/23/24 00:00 37.0 C 68 18 99 10/23/24 00:00 137/63 10/23/24 00:00 137/63 10/23/24 00:00 67 10/23/24 00:00 60 10/23/24 00:00 113/44 L 10/22/24 23:51 37.0 C 65 18 100 10/22/24 23:45 37.0 C 67 18 100 PG Care Time/CCT Total # of Minutes Spent Total Time Spent with Patient: Total time spent is greater than 50% in coordination of care (as documented) at patient's floor/unit and/or counseling patient: Coding Level of Care Code 27713 SUB INP/OBS CARE 3/50MIN Diagnoses Respiratory failure J96.90 Pneumonia J18.9 Acute heart failure with mildly reduced ejection fraction (HFmrEF, 41-49%) I50.21
[2024-10-23] MEDS: CEFEPIME 2000MG 2,000 MG/20 ML SYR IV SCH (12:00)
--- NOTE | 2024-10-23 12:20 | Cardiology Progress Note ---
Date of Service October 23, 2024 Assessment & Plan (1) Respiratory failure: (2) Coronary artery disease: (3) Elevated troponin I level: (4) Left bundle branch block: (5) Cardiomyopathy: (6) Congestive heart failure: (7) Aortic stenosis: Plan 1. Hypoxic respiratory failure: Likely combination of a primary pulmonary process and an element of pulmonary vascular congestion. Initial symptoms that she had pneumonia based on x-ray, but her quick turnaround and absence of e levated procalcitonin would suggest this may have been an aspiration event. Currently extubated on supplemental oxygen. 2. Coronary disease: She is known to have severe multivessel disease. Recent NSTEMI on continue dual antiplatelet therapy. She did not report symptoms of angina leading up to her episode or since. She was placed on systemic anticoagulation over concerns about her severe coronary disease in the setting of her critical illness. I think we can continue the heparin until this evening and then discontinue. 3. Left bundle branch block: Chronic. No worsening conduction disease on telemetry. No other arrhythmias. 4. Aortic stenosis: Mild in July 2024. None identified on her echocardiogram yesterday. 5. Elevated troponin: She definitely had an ischemic event. This is likely related to her acute illness in the setting of fixed coronary disease. Biomarkers have peaked and are improving. No chest pain. Not related to acute coronary syndrome. 6. Cardiomyopathy: Moderate reduced LV systolic function on echocardiogram yesterday. Hopefully this will improve as her clinical condition improves. Will continue supportive care. She would likely benefit from some diuresis now that she is extubated. She likely has an element of pulmonary vascular congestion. Hemodynamics much improved. We will start therapy for cardiomyopathy as she becomes more stable. This would include reinstitution of her irbesartan and initiation of beta-blockade. 7. Acute on chronic congestive heart failure: She likely has an element of pulmonary edema. Admission and Anticipated Discharge Date Admission Date: October 22, 2024 Subjective This afternoon the patient was extubated. She denied any pain. She states that her breathing is much improved. She did not recall any chest pain leading up to her event yesterday or during her rehab. She has had some difficulty with rehab by her report. Primarily poor progression. Review of Systems Review of Systems: Per HPI Physical Exam Physical Exam: Alert and oriented. Answers all questions appropriately. HEENT: Sclerae are anicteric. Extraocular movements intact. Neuro: No focal deficits. Lungs: Coarse breath sounds in both lobes. No expiratory wheezing. Cardiac: The rhythm was regular. No murmur Abdomen: The abdomen was soft and nontender. Extremities: Patient has bilateral radial pulses that are equal in intensity. There is no evidence cyanosis or clubbing. Mild lower extremity edema bilaterally. Bandage on the left tibia. Protective boots in place. Skin: There are no rashes noted on examination today. Results & Data Vital Signs (Past 12 Hours) Vital Signs Temp Pulse Resp BP Pulse Ox O2 Del Method FiO2 10/23/24 10:31 73 22 98 30 10/23/24 10:00 142/63 H 10/23/24 10:00 36.8 C 77 33 H 99 10/23/24 09:32 24 30 10/23/24 09:09 36.8 C 59 L 20 99 10/23/24 09:00 104/47 L 10/23/24 08:57 36.8 C 60 21 98 10/23/24 08:18 36.9 C 63 16 99 10/23/24 08:00 122/50 L 10/23/24 08:00 Mechanical Vent 30 10/23/24 08:00 40 10/23/24 07:57 36.9 C 62 16 99 10/23/24 07:57 63 16 99 30 10/23/24 07:02 36.9 C 59 L 16 100 10/23/24 07:00 107/45 L 10/23/24 06:00 37 C 10/23/24 05:50 37.0 C 63 16 100 10/23/24 05:35 37.0 C 62 16 100 10/23/24 05:20 37.0 C 74 25 H 100 10/23/24 05:08 37.0 C 65 16 100 10/23/24 05:00 112/49 L 10/23/24 04:56 37.0 C 65 21 100 10/23/24 04:20 16 10/23/24 04:00 111/53 L 10/23/24 04:00 36.8 C 65 18 100 10/23/24 04:00 111/53 L 10/23/24 04:00 40 10/23/24 03:45 36.8 C 55 L 18 100 10/23/24 03:33 36.8 C 59 L 18 100 10/23/24 03:30 19 40 10/23/24 03:12 36.8 C 56 L 18 100 10/23/24 03:00 108/47 L 10/23/24 03:00 108/47 L 10/23/24 02:51 36.9 C 58 L 18 100 10/23/24 02:42 37.0 C 59 L 18 100 10/23/24 02:30 37.0 C 59 L 18 100 10/23/24 02:12 36.9 C 60 18 100 10/23/24 02:06 37.0 C 60 18 100 10/23/24 02:00 101/49 L 10/23/24 01:57 36.9 C 61 18 100 10/23/24 01:40 37.0 C 59 L 18 100 10/23/24 01:35 37.0 C 61 18 100 10/23/24 01:26 37.0 C 62 18 100 10/23/24 01:11 37.0 C 63 18 100 10/23/24 01:03 37.0 C 62 18 100 10/23/24 01:00 105/46 L 10/23/24 01:00 105/46 L 10/23/24 01:00 36.9 C 10/23/24 00:39 37.0 C 61 18 100 10/23/24 00:30 37.0 C 62 18 100 Laboratory Results Abnormal Lab Results 10/22/24 10/22/24 10/22/24 10:27 11:50 12:58 WBC RBC Hgb POC Hgb Hct POC Hct MCV MCH MCHC RDW Std Deviation RDW Coeff of Rajiv Plt Count MPV Immature Gran % (Auto) Neut % (Auto) Lymph % (Auto) [place] % (Auto) Eos % (Auto) Baso % (Auto) Neut # (Auto) Lymph # (Auto) [place] # (Auto) Eos # (Auto) Baso # (Auto) Immature Gran # (Auto) Polychromasia Heparin Anti-Xa, Unfract Specimen Type Sample Site POC pH POC pCO2 POC pO2 POC HCO3 POC Total CO2 POC Base Excess O2 Sat Pulse Oximetry ABG pH (Temp Correct) ABG pCO2 (Temp Corrct POC ABG pO2 at Pt Temp POC ABG O2 Sat Tushar Test O2 Delivery Device Vent Mode POC FiO2 End Tidal CO2 POC Sodium Sodium POC Potassium Potassium Chloride Carbon Dioxide Anion Gap BUN Creatinine Est Cr Clr Drug Dosing eGFR BUN/Creatinine Ratio Glucose POC Glucose (other) Lactate Calcium Phosphorus Magnesium Total Bilirubin AST ALT Alkaline Phosphatase Troponin I High Sens 4393.8 H* D Total Protein Albumin Globulin Albumin/Globulin Ratio Random Cortisol 45.88 Fluid Neutrophils % 88 Fluid Lymphocytes % 0 Fl Monocyt/Macrophag % 12 10/22/24 10/22/24 10/22/24 13:27 17:43 18:31 WBC RBC Hgb POC Hgb Hct POC Hct MCV MCH MCHC RDW Std Deviation RDW Coeff of Rajiv Plt Count MPV Immature Gran % (Auto) Neut % (Auto) Lymph % (Auto) [place] % (Auto) Eos % (Auto) Baso % (Auto) Neut # (Auto) Lymph # (Auto) [place] # (Auto) Eos # (Auto) Baso # (Auto) Immature Gran # (Auto) Polychromasia Heparin Anti-Xa, Unfract Specimen Type Sample Site POC pH POC pCO2 POC pO2 POC HCO3 POC Total CO2 POC Base Excess O2 Sat Pulse Oximetry ABG pH (Temp Correct) ABG pCO2 (Temp Corrct POC ABG pO2 at Pt Temp POC ABG O2 Sat Tushar Test O2 Delivery Device Vent Mode POC FiO2 End Tidal CO2 POC Sodium Sodium POC Potassium Potassium Chloride Carbon Dioxide Anion Gap BUN Creatinine Est Cr Clr Drug Dosing eGFR BUN/Creatinine Ratio Glucose POC Glucose (other) 144 H 171 H Lactate Calcium Phosphorus Magnesium Total Bilirubin AST ALT Alkaline Phosphatase Troponin I High Sens 9114.5 H* D Total Protein Albumin Globulin Albumin/Globulin Ratio Random Cortisol Fluid Neutrophils % Fluid Lymphocytes % Fl Monocyt/Macrophag % 10/22/24 10/22/24 10/22/24 21:06 22:22 23:49 WBC RBC Hgb POC Hgb 9.2 L Hct POC Hct 27 L MCV MCH MCHC RDW Std Deviation RDW Coeff of Rajiv Plt Count MPV Immature Gran % (Auto) Neut % (Auto) Lymph % (Auto) [place] % (Auto) Eos % (Auto) Baso % (Auto) Neut # (Auto) Lymph # (Auto) [place] # (Auto) Eos # (Auto) Baso # (Auto) Immature Gran # (Auto) Polychromasia Heparin Anti-Xa, Unfract 0.62 Specimen Type Arterial Sample Site Art Line POC pH 7.52 H* POC pCO2 24 L POC pO2 222 H POC HCO3 20 POC Total CO2 20 L POC Base Excess -3.0 O2 Sat Pulse Oximetry 100 ABG pH (Temp Correct) 7.517 H* ABG pCO2 (Temp Corrct 24 L POC ABG pO2 at Pt Temp 222 POC ABG O2 Sat 100.0 H Tushar Test NA O2 Delivery Device Ventilator Vent Mode AC POC FiO2 60 End Tidal CO2 16 POC Sodium 133 L Sodium POC Potassium 4.0 Potassium Chloride Carbon Dioxide Anion Gap BUN Creatinine Est Cr Clr Drug Dosing eGFR BUN/Creatinine Ratio Glucose POC Glucose (other) 149 H Lactate Calcium Phosphorus Magnesium Total Bilirubin AST ALT Alkaline Phosphatase Troponin I High Sens Total Protein Albumin Globulin Albumin/Globulin Ratio Random Cortisol Fluid Neutrophils % Fluid Lymphocytes % Fl Monocyt/Macrophag % 10/23/24 10/23/24 10/23/24 00:27 04:11 04:22 WBC 31.89 H* RBC 2.95 L Hgb 8.4 L POC Hgb 9.2 L Hct 26.0 L POC Hct 27 L MCV 88.1 D MCH 28.5 MCHC 32.3 RDW Std Deviation 44.0 RDW Coeff of Rajiv 13.6 Plt Count 392 MPV 10.1 Immature Gran % (Auto) 0.8 Neut % (Auto) 89.9 Lymph % (Auto) 3.2 [place] % (Auto) 5.8 Eos % (Auto) 0.0 Baso % (Auto) 0.3 Neut # (Auto) 28.65 H Lymph # (Auto) 1.02 L [place] # (Auto) 1.86 H Eos # (Auto) 0.01 Baso # (Auto) 0.11 Immature Gran # (Auto) 0.24 H Polychromasia 1+ Heparin Anti-Xa, Unfract 0.50 Specimen Type Arterial Sample Site POC pH 7.46 H POC pCO2 30 L POC pO2 127 H POC HCO3 21 POC Total CO2 22 L POC Base Excess -3.0 O2 Sat Pulse Oximetry ABG pH (Temp Correct) 7.411 ABG pCO2 (Temp Corrct 33 L POC ABG pO2 at Pt Temp 147 POC ABG O2 Sat 99.0 H Tushar Test O2 Delivery Device Vent Mode POC FiO2 40 End Tidal CO2 POC Sodium 134 L Sodium 134 L POC Potassium 4.1 Potassium 4.1 Chloride 105 Carbon Dioxide 22 Anion Gap 7 BUN 29 H Creatinine 1.03 Est Cr Clr Drug Dosing 31.0 eGFR 52.95 BUN/Creatinine Ratio 28.2 H Glucose 134 H POC Glucose (other) Lactate Calcium 8.5 L Phosphorus 4.1 Magnesium 1.9 Total Bilirubin 0.3 AST 63 H ALT 34 Alkaline Phosphatase 81 Troponin I High Sens 9756.5 H* Total Protein 5.1 L D Albumin 2.7 L Globulin 2.4 L Albumin/Globulin Ratio 1.1 Random Cortisol Fluid Neutrophils % Fluid Lymphocytes % Fl Monocyt/Macrophag % 10/23/24 10/23/24 06:05 09:54 WBC RBC Hgb POC Hgb Hct POC Hct MCV MCH MCHC RDW Std Deviation RDW Coeff of Rajiv Plt Count MPV Immature Gran % (Auto) Neut % (Auto) Lymph % (Auto) [place] % (Auto) Eos % (Auto) Baso % (Auto) Neut # (Auto) Lymph # (Auto) [place] # (Auto) Eos # (Auto) Baso # (Auto) Immature Gran # (Auto) Polychromasia Heparin Anti-Xa, Unfract Specimen Type Sample Site POC pH POC pCO2 POC pO2 POC HCO3 POC Total CO2 POC Base Excess O2 Sat Pulse Oximetry ABG pH (Temp Correct) ABG pCO2 (Temp Corrct POC ABG pO2 at Pt Temp POC ABG O2 Sat Tushar Test O2 Delivery Device Vent Mode POC FiO2 End Tidal CO2 POC Sodium Sodium POC Potassium Potassium Chloride Carbon Dioxide Anion Gap BUN Creatinine Est Cr Clr Drug Dosing eGFR BUN/Creatinine Ratio Glucose POC Glucose (other) Lactate 0.8 Calcium Phosphorus Magnesium Total Bilirubin AST ALT Alkaline Phosphatase Troponin I High Sens 8012.7 H* Total Protein Albumin Globulin Albumin/Globulin Ratio Random Cortisol Fluid Neutrophils % Fluid Lymphocytes % Fl Monocyt/Macrophag % PG Care Time/CCT Total # of Minutes Spent Total Time Spent with Patient: Total time spent is greater than 50% in coordination of care (as documented) at patient's floor/unit and/or counseling patient: Coding Level of Care Code 29320 SUB INP/OBS CARE 3/50MIN Diagnoses Respiratory failure J96.90 Coronary artery disease I25.10 Elevated troponin I level R79.89 Left bundle branch block I44.7 Cardiomyopathy I42.9 Congestive heart failure I50.9 Aortic stenosis I35.0
--- NOTE | 2024-10-23 12:52 | Electrocardiogram Report ---
Test Reason : Blood Pressure : */* mmHG Vent. Rate : 142 BPM Atrial Rate : * BPM P-R Int : * ms QRS Dur : 140 ms QT Int : 286 ms P-R-T Axes : * -59 114 degrees QTcB Int : 439 ms Sinus tachycardia Left axis deviation Left bundle branch block Abnormal ECG When compared with ECG of 17-Jun-2022 13:43, Vent. rate has increased by 57 bpm Confirmed by Nathan Gallardo ([id number]) on 10/23/2024 12:52:07 PM Referred By: Andre Lawson Confirmed By: Nathan Gallardo
--- NOTE | 2024-10-23 12:53 | Electrocardiogram Report ---
Test Reason : Blood Pressure : */* mmHG Vent. Rate : 101 BPM Atrial Rate : 101 BPM P-R Int : 152 ms QRS Dur : 138 ms QT Int : 412 ms P-R-T Axes : 86 -56 120 degrees QTcB Int : 534 ms Sinus tachycardia Left axis deviation Left bundle branch block Abnormal ECG Confirmed by Nathan Gallardo ([id number]) on 10/23/2024 12:53:24 PM Referred By: Andre Lawson Confirmed By: Nathan Gallardo
[2024-10-23] MEDS: FUROSEMIDE INJ 20 MG/2 ML VIAL IV ONE (17:46)
[2024-10-24 05:33] LABS: Basophils # (auto) 0.14 K/uL (0.00-0.20); Basophils % (auto) 0.9 %; Eosinophils # (auto) 0.14 K/uL (0.00-0.50); Eosinophils % (auto) 0.9 %; Hematocrit (blood only) 23.2 % (37.0-47.0); Hemoglobin 7.6 g/dl (12.0-16.0); Immature Granulocytes # (auto) 0.07 K/uL (0.01-0.20); Immature Granulocytes % (auto) 0.5 %; Lymphocytes # (auto) 0.99 K/uL (1.20-3.40); Lymphocytes % (auto) 6.6 %; Mean Corpuscular Hemoglobin 28.8 pg (25.0-34.0); Mean Corpuscular Hgb Conc 32.8 g/dL (32.0-36.0); Mean Corpuscular Volume 87.9 fL (80.0-100.0); Mean Platelet Volume 9.9 fL (9.4-12.4); Monocytes # (auto) 1.09 K/uL (0.11-0.59); Monocytes % (auto) 7.3 %; Neutrophils # (auto) 12.52 K/uL (1.40-6.50); Neutrophils % (auto) 83.8 %; Platelet Count 263 K/uL (130-400); RDW Coefficient of Variation 13.7 % (11.5-14.5); RDW Standard Deviation 44.5 fL (36.4-46.3); Red Blood Count 2.64 M/uL (4.20-5.40); White Blood Count 14.95 K/ul (4.8-10.8)
[2024-10-24 05:40] LABS: ANTI-Xa, UFH(UnfractionatedHep 0.23 IU/ml (0.3-0.7)
[2024-10-24 06:00] LABS: Albumin Globulin Ratio 1.1 (0.9-2); Albumin Level 2.6 gm/dl (3.4-5.0); BUN Creatinine Ratio 26.7 (10-20); Bilirubin,Total 0.3 mg/dl (0.2-1.0); Calcium 8.5 mg/dl (8.6-10.3); Creatinine Clr Calc Pharmacy 34.7 ml/min; Globulin 2.4 gm/dl (2.5-4.0); Phosphorus 2.7 mg/dl (2.5-4.9); Potassium 3.4 mmol/L (3.5-5.1)
[2024-10-24 06:02] LABS: Polychromasia 1+
--- NOTE | 2024-10-24 06:21 | Procedure Note ---
Procedure Note Date of Service October 24, 2024 Note CODE HILDA I responded to a CODE HILDA was called overhead to room 102. Patient had a pulse and was sinus tachycardia on the monitor and did have a blood pressure and was being bagged by RT and the ICU PURCHASING ASSISTANT. They state patient was a respiratory arrest. I assisted RT and preparing equipment for intubation. Patient did begin to take a few spontaneous respirations although these were in adequate and irregular and patient still unresponsive to any verbal or painful stimuli. Due to concern for clinical course and need for airway protection, decision made to proceed with intubation. I supervised administration of medications including etomidate 30 mg and rocuronium 40 mg. I supervised the ICU PURCHASING ASSISTANT in intubation using video laryngoscopy. A 7.5 ET tube was visualized directly passing through the vocal cords. Following move all of stylette, color change noted on CO2 detector, condensation noted in ET tube, equal chest rise and fall, bilateral breath sounds noted. No gurgling or distention noted in the abdomen. Patient easily bagged. Patient did not require any chest compressions. Further mgmt deferred to ICU PURCHASING ASSISTANT and hospitalist who was present and had responded also. Coding
[2024-10-24] MEDS: fentaNYL citrate PF 100 MCG/2 ML VIAL IV PRN (06:26)
[2024-10-24] MEDS: RAPID SEQUENCE INDUCTION BAG ONE (06:26)
--- NOTE | 2024-10-24 06:31 | Communication Note ---
Date of Service: October 24, 2024 0600- Patient with acute decrease in HR to the 50s, she was noted to be unresponsive, with agonal breathing and a pulse. She was supported with BVM ve ntilations and 100% FIO2 without change in mentation or respiratory efforts. Oral suctioin and hypopharynx suctioned without any secretions or blood noted, lung sounds with rhonchi and wheezing. She was prepared for intubation as she is currently unable to protect her airway- See seperate procedure note. - Patient was previously just awake delirious yelling at the nurses, her left femoral arterial line had just been discontinued as well - Labs reviewed this morning- no severe derangements noted. HGB did decrease this morning to 7.6 however no obvious evidence of blood loss at this time and BP is stable - Pupils sluggish and RT appears greater than left on initial exam- will obtain CT head non con and CTA head eval for any large CVA or catastrophic head bleed - Doubt PE at this time as she has been on heparin infusion and was also without hypoxia once BVM applied as well as post intubation - Will re-evaluate labs when return to the ICU - Heparin infusion has been stopped until intracranial pathology ruled out. Scar Miguel
--- NOTE | 2024-10-24 06:36 | Procedure Note ---
Procedure Note Date of Service October 24, 2024 INTUBATION PROCEDURE NOTE: Proceduralist: Scar JONES ([facility]) Attending: Dr. Spears A time-out was completed verifying correct patient, procedure, site, positioning. Patient was evaluated and required intubation for - unresponsive agonal breat ankit Sedative agent used: Etomidate 30mg Paralysis agent used: Rocuronium 40mg Emergent consent was implied given patients ineffective respiratory efforts and being unresponsive to BVM support/rescue as well as need for airway protection. Following supportive care with BVM ventilations and 100% FIO2 and failure to respond nuerologically, The patient was prepared in the appropriate fashion and pre-oxygenated with BVM, dentures were not in place, and patient was positioned. Sedation was achieved utilizing 30mg Etomidate and 40mg Rocuronium, per Dr. Farris's direction. The patient was easily ventilated using [id number] to achieve adequate oxygenation. A 7.5 [place] endotracheal tube was placed under Video Laryngoscopy to 25 cm at the lip x1 attempt. The stylette was removed and balloon was inflated with 10mL of air. Appropriate Colorimetric change was appreciated. Bilateral breath sounds were heard without air sounds in the abdomen. Dr. Farris was present for the entire procedure. X P0st Intubation Chest X-ray confirms placement at the ruiz, the ETT was withdrawn 2cm to 23 cm at the lip. CXR is without pneumothorax. Patient tolerated the procedure well and there were no immediate complications. [facility] Procedure Codes (Charges) Resuscitation Resuscitation: 16331 Endotracheal Intubation, emergency Coding CPT Codes Resuscitation - Resuscitation: 28432 Endotracheal Intubation, emergency ([id number]) Additional Codes Date of Service ([email or web address])
[2024-10-24 06:42] LABS: iSTAT Art Bld Gas pCO2 Correct 56 mmHg (35-46); iSTAT Arterial Blood Gas HCO3 22 meg/L (19-24); iSTAT Arterial Blood Gas pCO2 56 mmHg (35-46); iSTAT Arterial Blood Gas pO2 227 mmHg (80-95); iSTAT Arterial Blood Gas pO2 C 227; iSTAT Carbon Dioxide 23 mmol/L (24-31); iSTAT FiO2 100 %; iSTAT Hematocrit 29 % (37-47); iSTAT Hemoglobin 9.9 g/dl (12.0-16.0); iSTAT Potassium 3.2 mmol/L (3.3-5.0); iSTAT Sample Type Arterial; iSTAT Site L Brachial; iSTAT Sodium 137 mmol/L (135-144); iSTAT SpO2 100
[2024-10-24] MEDS: OPTIRAY 320 125ml IV ONE (07:00)
--- NOTE | 2024-10-24 07:29 | CT Scan Report ---
EXAM: CT angio head w con CLINICAL HISTORY: confusion TECHNIQUE: Contrast enhanced thin slice CT angiography scan of the cerebral vessels was performed with intravenous contrast. Angiographic images were processed, 3D MIP images were acquired for interpretation. Contiguous axial images were obtained. Reformatted coronal and sagittal images were also reviewed. If IV contrast material had not been administered, the likelihood of detecting abnormalities relevant to the patients condition would have been substantially decreased. CT scan was performed according to ALARA (as low as reasonable achievable). COMPARISON: none. FINDINGS: Atherosclerotic calcifications are noted involving cavernous, glenoid and supraclinoid segments of bilateral internal carotid arteries. Bilateral internal carotid arteries show normal course, calibre and opacification in the canalicular and cavernous part. Their division into the anterior cerebral artery and middle cerebral artery is defined. A1, A2 and M1, M2 segments are normal on both the sides. Left vertebral artery is dominant and is forming the basilar artery. Absent V4 segment of right vertebral artery with right vertebral artery terminating into posterior inferior cerebellar artery. Basilar artery shows normal course, caliber and opacification. Its division into the posterior cerebral arteries is defined. Bilateral P1 and P2 segments are normal. Visualized venous structures show normal opacification. No evidence of intracranial aneurysm or AV malformation is seen. IMPRESSION: 1. Atherosclerotic calcifications are noted involving cavernous, glenoid and supraclinoid segments of bilateral internal carotid arteries. 2. No evidence of stenosis or aneurysm. No evidence of dissection. Electronically signed by Deandre Carlson 10-24-2024 07:29 AM
--- NOTE | 2024-10-24 07:30 | CT Scan Report ---
EXAM: CT head/brain wo con CLINICAL HISTORY: confusion TECHNIQUE: Multiple axial images are obtained from the skull base to the vertex without contrast. CT scan was performed according to ALARA (as low as reasonable achievable). COMPARISON: 17 June 2022. FINDINGS: There is cerebral atrophy. No evidence of space occupying lesion, hemorrhage, edema, mass effect, midline shift, extra axial collection, or hydrocephalus is noted. Basal cisterns are symmetric and normal in size and configuration. There are scattered periventricular hypodensities as can be seen with chronic microvascular ischemic changes. The joe-white matter differentiation is preserved. Visualized paranasal sinuses and mastoid air cells are well aerated. Orbital contents are within normal limits. Bony structures are intact. IMPRESSION: 1. No evidence of acute intracranial abnormality is demonstrated. 2. Chronic microvascular ischemic changes. 3. Cerebral atrophy. No other new interval abnormality since prior study. Electronically signed by Deandre Carlson 10-24-2024 07:29 AM
--- NOTE | 2024-10-24 07:31 | XRay Report ---
EXAM: XR chest 1V portable CLINICAL HISTORY: Post-intubation. TECHNIQUE: An X-ray image of the chest is obtained in AP projection. COMPARISON: CR dated 10/24/2024 and 10/23/2024. FINDINGS: The endotracheal tube seen low-lying approximately 1.2 cm above the ruiz needs to be repositioned. Pulmonary Parenchyma: Homogeneous opacification left mid and lower zones with blunting of left costophrenic recess. Few small ill-defined opacities are seen in the right mid and lower zones. Small/minimal pleural reaction in the right costophrenic recess. Heart and Mediastinum: Cardiomegaly. No mediastinal widening or masses. No hilar or mediastinal lymphadenopathy. Bony Thorax: The bony thorax appears intact without fractures or deformities. Soft Tissues: Soft tissues overlying the chest wall are unremarkable. IMPRESSION: 1. The endotracheal tube is low-lying approximately 1.2 cm above the ruiz and needs to be repositioned. 2. Interval worsening of homogeneous opacification left mid and lower zone causing the blunting of the costophrenic recess [small effusion] and multiple small ill-defined opacities seen in the right mid and lower zones. Postinflammatory. Suggest clinical and lab correlation. 3. Cardiomegaly. 4. Slight interval worsening was seen. [facility] was called on at 6:24 AM [facility], 10/24/2024, and Dr. Kohli was informed about the presence of Critical Medical Findings. Electronically signed by Alissa Bond 10-24-2024 07:30 AM
[2024-10-24 07:43] LABS: Magnesium 1.9 mg/dl (1.7-2.4)
--- NOTE | 2024-10-24 08:05 | XRay Report ---
EXAM: XR chest 1V portable CLINICAL HISTORY: Post intubation TECHNIQUE: An X-ray image of the chest is obtained in AP projection. COMPARISON: 10/24/2024 FINDINGS: The endotracheal tube seen in situ with distal tip approximately 4 cm above the ruiz (satisfactory) NGT with distal end not visualized. Pulmonary Parenchyma: Inhomogeneous opacification left mid and lower zones with blunting of left costophrenic recess. Unchanged. Few small ill-defined opacities are seen in the right mid and lower zones. Small/minimal pleural reaction in the right costophrenic recess. Heart and Mediastinum: Cardiomegaly. No mediastinal widening or masses. No hilar or mediastinal lymphadenopathy. Bony Thorax: The bony thorax appears intact without fractures or deformities. Soft Tissues: Soft tissues overlying the chest wall are unremarkable. IMPRESSION: 1. Endotracheal tube seen in situ with distal tip approximately 4 cm above the ruiz (satisfactory) 2. Inhomogeneous opacification in left mid and bilateral lower zones with blunting of left costophrenic recess. Unchanged. Electronically signed by Alissa Bond 10-24-2024 08:05 AM
[2024-10-24] MEDS: POTASSIUM CHLORIDE 20 MEQ/15 ML UDC NG SCH (08:12)
[2024-10-24] MEDS ORDERED: ROCURONIUM BROMIDE 10 MG/ML 5 ML VIAL IV ONE (08:16)
[2024-10-24] MEDS ORDERED: ETOMIDATE 2 MG/ML 20 ML VIAL IV ONE (08:16)
--- NOTE | 2024-10-24 09:37 | Critical Care Progress Note ---
Date of Service October 24, 2024 Assessment & Plan (1) Pneumonia: (2) Acute heart failure with mildly reduced ejection fraction (HFmrEF, 41-49%): (3) Multiple pulmonary nodules determined by computed tomography of lung: (4) Chronic obstructive pulmonary disease: (5) Cardiomyopathy: (6) Aortic stenosis: Plan Impression: 84-year-old female with multiple medical issues admitted with acute onset of shortness of breath with leukocytosis and dense consolidation within the left lung. She was intubated with borderline hemodynamics. Recommendations: 1. Neurologic: Unresponsiveness: Obtain MRI rule out CVA: Unlikely -Consider EEG 2. Cardiovascular: Patient's been seen by cardiology. Echocardiogram reviewed. Known severe multivessel coronary disease. Agree with cardiology that she is unlikely to be a good candidate for intervention in the absence of overt cardiogenic shock or caleb ST elevations. She has known aortic stenosis which could complicate issues but will follow-up with the severity on follow-up echocardiogram. May require some additional fluids versus pressors if hemodynamics become problematic. Lactate downtrending will recheck: Resolved -Patient was weaned off vasoactive medications yesterday -Consideration of cardiovascular arrhythmia/events leading to episode of unresponsiveness known severe aortic stenosis patient may not tolerate tachycardia 3. Pulmonary: Dense consolidation in the left lung: Improved. On mechanical ventilation: Minimal settings. -Patient again on minimal settings, continue antibiotics however I do not feel there is an intrinsic lung issue causing her rapid hypoxia which resolved upon intubation and mechanical ventilation History of groundglass pulmonary nodules for which the patient has declined intervention in the past. Unlikely to be related to the current process. Aspiration event certainly possible Suspicion for thromboembolic disease is low or given the x-ray appearance duplex ultrasound of the left lower extremity is negative -Reviewed bronchoscopy notes 4. GI: N.p.o. for now. GI prophylaxis will be initiated if the patient develops pressor requirement. Given prior history of aspiration, this will need to be investigated further if the patient liberate from mechanical ventilator prior to feeding. 5. Renal: Creatinine improved. Think the patient is a poor dialysis candidate in the event of progression to renal failure. 6. Endocrine: Glycemic control per protocol. 7. Heme-onc: Stable anemia. No indication for transfusion and no evidence of acute blood loss currently. Thrombocytosis likely secondary to acute phase reactant/infection. 8. ID: Patient has been in and out of the hospital and multiple occasions in the last 90 days which places her at risk for resistant organisms. -MRSA swab negative can discontinue vancomycin given rapid improvement in oxygenation and chest x-ray -Continue cefepime Zithromax. Discussed with the patient's at bedside. No other family locally. He is in agreement to intubation in the short-term in the hopes that she can be stabilized but does not want aggressive life-sustaining measures including additional ACLS/cardioversion or CPR. He would be okay with pressors in the short-term if needed. Will consult palliative care to assist in medical decision making and goals of care. Patient's MRI is unremarkable. Patient could certainly have aspiration events and given her severe aortic stenosis be at risk for syncope. From a intrinsic lung function and neuromuscular standpoint the patient meets criteria for extubation it was her unresponsiveness leading to hypoxia which led to the reintubation. Will need to further identify goals of care with the patient's on best treatment moving forward. Patient is critically ill at this point time with significant possibility of clinical deterioration and/or . A total of 70 minutes in critical care time was spent evaluation management coordination of care for this patient excluding procedures Admission and Anticipated Discharge Date Admission Date: October 22, 2024 Subjective Early this morning patient required reintubation after rapid loss of awareness and essentially respiratory arrest. Patient was not hypoxic nor appeared to be hypercarbic was compensating with nurse who walked out of the room and then patient promptly decompensated Physical Exam Physical Exam: General: Sedated. nontoxic. -On repeat evaluation patient was able to follow simple commands despite being sedated, no focal neurodeficits over the limited exam secondary to intubation and sedation Skin: Warm, dry, Head: Atraumatic Ears, nose, mouth and throat: airway obscured by endotracheal tube Cardiovascular: Normal peripheral perfusion Respiratory: Ventilator settings reviewed Gastrointestinal: Non distended Musculoskeletal: No deformity Results & Data Results & Data Vital Signs (Past 12 Hours) Vital Signs Temp Pulse Resp BP Pulse Ox O2 Del Method FiO2 10/24/24 08:39 99 H 18 99 10/24/24 08:30 108/58 L 10/24/24 08:15 105/62 10/24/24 08:15 105/62 10/24/24 07:51 106 H 18 96 Mechanical Vent 0.5 10/24/24 07:48 107 H 18 96 10/24/24 07:45 119/63 10/24/24 07:45 119/63 10/24/24 07:45 Mechanical Vent 0.5 10/24/24 07:39 110 H 18 96 10/24/24 07:33 110 H 18 95 10/24/24 07:30 129/69 10/24/24 07:30 129/69 10/24/24 07:21 117 H 18 96 10/24/24 07:00 152/78 H 10/24/24 07:00 152/78 H 10/24/24 07:00 123 H 18 97 10/24/24 06:53 151/80 H 10/24/24 06:53 151/80 H 10/24/24 06:53 151/80 H 10/24/24 06:50 16 16 10/24/24 06:30 156/72 H 10/24/24 06:30 156/72 H 10/24/24 06:30 109 H 16 100 10/24/24 06:27 116 H 12 100 10/24/24 06:12 146 H 16 10/24/24 06:11 129/65 10/24/24 06:06 159/82 H 10/24/24 06:00 53 L 17 10/24/24 06:00 96/54 L 10/24/24 05:33 121 H 25 H 10/24/24 05:27 85 L 10/24/24 05:00 118/46 L 10/24/24 05:00 118/46 L 10/24/24 04:48 60 24 93 10/24/24 04:42 67 22 93 10/24/24 04:21 68 25 H 93 10/24/24 04:03 69 21 93 10/24/24 04:00 126/69 10/24/24 04:00 147/48 H 10/24/24 03:51 91 H 20 94 10/24/24 03:42 67 18 93 10/24/24 03:39 72 21 93 10/24/24 03:12 72 22 93 10/24/24 03:06 67 20 94 10/24/24 03:00 129/67 10/24/24 03:00 129/67 10/24/24 02:48 67 20 92 10/24/24 02:42 65 24 94 10/24/24 02:33 78 22 93 10/24/24 02:00 116/44 L 02/18/25 02:00 116/44 L 10/24/24 01:24 68 22 91 10/24/24 01:21 70 23 91 10/24/24 01:15 69 22 90 10/24/24 01:00 117/48 L 10/24/24 00:57 71 23 90 10/24/24 00:42 66 22 90 10/24/24 00:24 82 25 H 89 L 10/24/24 00:00 80 24 94 10/24/24 00:00 143/78 H 10/24/24 00:00 143/78 H 10/24/24 00:00 143/78 H 10/24/24 00:00 143/78 H 10/24/24 00:00 36.7 C 143/78 H 10/24/24 00:00 70 10/24/24 00:00 132/50 L 10/23/24 23:54 63 23 93 10/23/24 23:18 87 23 93 10/23/24 23:00 120/58 L 10/23/24 22:54 77 24 91 10/23/24 22:45 70 22 92 10/23/24 22:30 77 18 94 10/23/24 22:21 83 21 95 10/23/24 22:00 131/56 L 10/23/24 22:00 71 23 92 10/23/24 21:51 77 24 93 10/23/24 21:42 86 23 92 Coding Level of Care Code 26147 CRITICAL CARE 1ST 30-74M Diagnoses Pneumonia J18.9 Acute heart failure with mildly reduced ejection fraction (HFmrEF, 41-49%) I50.21 Multiple pulmonary nodules determined by computed tomography of lung R91.8 Chronic obstructive pulmonary disease J44.9 Cardiomyopathy I42.9 Aortic stenosis I35.0
[2024-10-24] MEDS: AMPICILLIN/SULBACTAM SOD 3,000 MG/100 ML BAG IV SCH (11:57)
[2024-10-24] MEDS: GADOBUTROL 65ML VIAL IV ONE (13:14)
--- NOTE | 2024-10-24 13:25 | Cardiology Progress Note ---
Date of Service October 24, 2024 Assessment & Plan (1) Respiratory failure: (2) Coronary artery disease: (3) Elevated troponin I level: (4) Left bundle branch block: (5) Cardiomyopathy: (6) Congestive heart failure: (7) Aortic stenosis: Plan 1. Hypoxic respiratory failure: Extubated yesterday but reintubated early this morning. Unclear if this could be another aspiration event. She could also have element of pulmonary vascular congestion. Improving now. Anticipate extubation sometime today. 2. Coronary disease: She is known to have severe multivessel disease. Recent NSTEMI on continue dual antiplatelet therapy. She did not report symptoms of angina leading up to her episode or since. She was placed on systemic anticoagulation over concerns about her severe coronary disease in the setting of her critical illness. Heparin discontinued. No need to reinstitute heparin based on her coronary disease or recent event. 3. Left bundle branch block: Chronic. No worsening conduction disease on telemetry. No other arrhythmias. 4. Aortic stenosis: Mild in July 2024. None identified on her echocardiogram this admission 5. Elevated troponin: She definitely had an ischemic event. This is likely related to her acute illness in the setting of fixed coronary disease. Biomarkers have peaked and are improving. No chest pain. Not related to acute coronary syndrome. 6. Cardiomyopathy: Moderate reduced LV systolic function on echocardiogram this admission. Certainly improved to develop pulmonary vascular congestion especially with any significant stress or hemodynamic derangement. 7. Acute on chronic congestive heart failure: Improved yesterday. 1 dose of diuretic given yesterday afternoon. Certainly prone to pulmonary edema based on her overall LV dysfunction. Low threshold for additional diuretics. Admission and Anticipated Discharge Date Admission Date: October 22, 2024 Subjective Patient intubated but alert. Seems to follow commands. Extraocular movements intact. Review of Systems Review of Systems: Unobtainable due to endotracheal tube Physical Exam Physical Exam: Alert. Intubated HEENT: Sclerae are anicteric. Extraocular movements intact. Neuro: No focal deficits. Lungs: Reduced breath sounds bilaterally. Occasional crackle. Some bronchial breath sounds. Cardiac: The rhythm was regular. No murmur Extremities: Patient has bilateral radial pulses that are equal in intensity. There is no evidence cyanosis or clubbing. Mild lower extremity edema bilaterally. Bandage on the left tibia. Protective boots in place. Skin: There are no rashes noted on examination today. Results & Data Vital Signs (Past 12 Hours) Vital Signs Pulse Resp BP Pulse Ox O2 Del Method O2 Del Method FiO2 10/24/24 11:48 104 H 33 H 83 L 10/24/24 11:47 130/93 10/24/24 11:47 130/93 10/24/24 11:47 130/93 10/24/24 11:33 79 29 H 97 10/24/24 11:30 117/73 10/24/24 11:30 117/73 10/24/24 11:09 73 23 96 10/24/24 11:06 76 24 96 10/24/24 11:00 91/47 L 10/24/24 11:00 Mechanical Vent 10/24/24 10:45 89/43 L 10/24/24 10:45 89/43 L 10/24/24 10:39 78 18 98 10/24/24 10:33 75 18 97 10/24/24 10:30 92/48 L 10/24/24 10:30 92/48 L 10/24/24 10:27 80 18 98 10/24/24 10:15 86/52 L 10/24/24 10:15 86/52 L 10/24/24 10:15 86/52 L 10/24/24 10:15 82 18 98 10/24/24 10:00 80 18 100 10/24/24 10:00 88/48 L 10/24/24 09:45 80 18 100 10/24/24 09:36 79 19 100 10/24/24 09:24 84 18 100 10/24/24 09:15 88/48 L 10/24/24 09:00 131/62 10/24/24 08:54 106 H 6 L 99 10/24/24 08:48 96 H 18 100 10/24/24 08:45 130/62 10/24/24 08:45 130/62 10/24/24 08:42 97 H 18 100 10/24/24 08:39 99 H 18 99 10/24/24 08:30 108/58 L 10/24/24 08:15 105/62 10/24/24 08:15 105/62 10/24/24 07:51 106 H 18 96 Mechanical Vent 0.5 10/24/24 07:48 107 H 18 96 10/24/24 07:45 119/63 10/24/24 07:45 119/63 10/24/24 07:45 Mechanical Vent 0.5 10/24/24 07:39 110 H 18 96 10/24/24 07:33 110 H 18 95 10/24/24 07:30 129/69 10/24/24 07:30 129/69 10/24/24 07:21 117 H 18 96 10/24/24 07:00 152/78 H 10/24/24 07:00 152/78 H 10/24/24 07:00 123 H 18 97 10/24/24 06:53 151/80 H 10/24/24 06:53 151/80 H 10/24/24 06:53 151/80 H 10/24/24 06:50 16 16 10/24/24 06:30 156/72 H 10/24/24 06:30 156/72 H 10/24/24 06:30 109 H 16 100 10/24/24 06:27 116 H 12 100 10/24/24 06:12 146 H 16 10/24/24 06:11 129/65 10/24/24 06:06 159/82 H 10/24/24 06:00 53 L 17 10/24/24 06:00 96/54 L 10/24/24 05:33 121 H 25 H 10/24/24 05:27 85 L 10/24/24 05:00 118/46 L 10/24/24 05:00 118/46 L 10/24/24 04:48 60 24 93 10/24/24 04:42 67 22 93 10/24/24 04:21 68 25 H 93 10/24/24 04:03 69 21 93 10/24/24 04:00 126/69 10/24/24 04:00 147/48 H 10/24/24 03:51 91 H 20 94 10/24/24 03:42 67 18 93 10/24/24 03:39 72 21 93 10/24/24 03:12 72 22 93 10/24/24 03:06 67 20 94 10/24/24 03:00 129/67 10/24/24 03:00 129/67 10/24/24 02:48 67 20 92 10/24/24 02:42 65 24 94 10/24/24 02:33 78 22 93 10/24/24 02:00 116/44 L 10/24/24 02:00 116/44 L 10/24/24 01:24 68 22 91 10/24/24 01:21 70 23 91 Laboratory Results Abnormal Lab Results 10/23/24 10/23/24 10/24/24 17:35 23:59 05:16 WBC 14.95 H RBC 2.64 L Hgb 7.6 L POC Hgb Hct 23.2 L POC Hct MCV 87.9 MCH 28.8 MCHC 32.8 RDW Std Deviation 44.5 RDW Coeff of Rajiv 13.7 Plt Count 263 MPV 9.9 Immature Gran % (Auto) 0.5 Neut % (Auto) 83.8 Lymph % (Auto) 6.6 Prentiss % (Auto) 7.3 Eos % (Auto) 0.9 Baso % (Auto) 0.9 Neut # (Auto) 12.52 H Lymph # (Auto) 0.99 L Prentiss # (Auto) 1.09 H Eos # (Auto) 0.14 Baso # (Auto) 0.14 Immature Gran # (Auto) 0.07 Polychromasia 1+ Heparin Anti-Xa, Unfract 0.23 L Specimen Type Sample Site POC pH POC pCO2 POC pO2 POC HCO3 POC Total CO2 POC Base Excess O2 Sat Pulse Oximetry ABG pH (Temp Correct) ABG pCO2 (Temp Corrct POC ABG pO2 at Pt Temp POC ABG O2 Sat Tushar Test O2 Delivery Device Vent Mode POC FiO2 End Tidal CO2 POC Sodium Sodium 138 POC Potassium Potassium 3.4 L Chloride 106 Carbon Dioxide 26 Anion Gap 6 BUN 27 H Creatinine 1.01 Est Cr Clr Drug Dosing 34.7 eGFR 54.21 BUN/Creatinine Ratio 26.7 H Glucose 80 POC Glucose 99 101 H Calcium 8.5 L Phosphorus 2.7 D Magnesium 1.9 Total Bilirubin AST ALT Alkaline Phosphatase Total Protein Albumin Globulin Albumin/Globulin Ratio 10/24/24 10/24/24 10/24/24 05:16 06:30 11:37 WBC RBC Hgb POC Hgb 9.9 L Hct POC Hct 29 L MCV MCH MCHC RDW Std Deviation RDW Coeff of Rajiv Plt Count MPV Immature Gran % (Auto) Neut % (Auto) Lymph % (Auto) Prentiss % (Auto) Eos % (Auto) Baso % (Auto) Neut # (Auto) Lymph # (Auto) Prentiss # (Auto) Eos # (Auto) Baso # (Auto) Immature Gran # (Auto) Polychromasia Heparin Anti-Xa, Unfract Specimen Type Arterial Sample Site L Brachial POC pH 7.20 L POC pCO2 56 H POC pO2 227 H POC HCO3 22 POC Total CO2 23 L POC Base Excess -6.0 O2 Sat Pulse Oximetry 100 ABG pH (Temp Correct) 7.200 L ABG pCO2 (Temp Corrct 56 H POC ABG pO2 at Pt Temp 227 POC ABG O2 Sat 100.0 H Tushar Test NA O2 Delivery Device Ventilator Vent Mode AC POC FiO2 100 End Tidal CO2 29 POC Sodium 137 Sodium POC Potassium 3.2 L Potassium Chloride Carbon Dioxide Anion Gap BUN Creatinine Est Cr Clr Drug Dosing eGFR BUN/Creatinine Ratio Glucose POC Glucose 117 H Calcium Phosphorus Magnesium Cancelled Total Bilirubin 0.3 AST 31 ALT 26 Alkaline Phosphatase 74 Total Protein 5.0 L Albumin 2.6 L Globulin 2.4 L Albumin/Globulin Ratio 1.1 PG Care Time/CCT Total # of Minutes Spent Total Time Spent with Patient: Total time spent is greater than 50% in coordination of care (as documented) at patient's floor/unit and/or counseling patient: Coding Level of Care Code 63159 SUB INP/OBS CARE 2/35MIN Diagnoses Respiratory failure J96.90 Coronary artery disease I25.10 Elevated troponin I level R79.89 Left bundle branch block I44.7 Cardiomyopathy I42.9 Congestive heart failure I50.9 Aortic stenosis I35.0
--- NOTE | 2024-10-24 13:36 | Magnetic Resonance Report ---
MRI OF THE BRAIN WITHOUT AND WITH IV CONTRAST SEIZURE PROTOCOL CLINICAL HISTORY: Altered mental status. COMPARISON STUDY: Head CT and CTA of the head October 24, 2024. TECHNIQUE: Utilizing a 1.5 Bettie magnet and dedicated coil, multiplanar, multiecho imaging of the br ain was performed pre and postcontrast administration. IV administration of 5.5 mL of Gadavist contr ast was uneventful. Thin cut coronal T2 imaging was performed according to seizure protocol. FINDINGS: This exam is mildly compromised by motion artifact. There are no foci of restricted diffusi on to suggest acute infarct. No acute intracranial hemorrhage, midline shift or mass effect is presen t. Ventricular dilatation is likely due to central atrophy. There is moderate atrophy. White matter T 2 hyperintense foci suggest moderate small vessel disease. There is no intracranial mass or pathologi c enhancement. Basal cisterns are patent. There are no extra-axial fluid collections. Calvarial signa l is within normal limits. There is fluid within the bilateral mastoid air cells. This may be related to intubation. IMPRESSION: 1. No acute intracranial findings. Mild motion artifact. 2. No intracranial mass or pathologic enhancement. 3. Moderate atrophy and small vessel disease ACT 112: Negative or not required by law. Electronically signed by: William Pathak M.D. 10/24/2024 1:35 PM
--- NOTE | 2024-10-24 22:29 | Hospitalist Progress Note ---
Date of Service October 24, 2024 Assessment & Plan (1) Respiratory failure: Plan: Nevaeh Webster is an 84-year-old female with past medical history of NSTEMI, heart failure with midrange ejection fracture 45-50%, COPD, depression/anxiety, chronic aspiration presents to the ER with acute hypoxic respiratory failure who was initially suspected to have CHF and on further evluation was suspected to have septic Left PNA requiring intubation. Acute hypoxic respiratory failure s/p Intubation 2/2 suspected pneumonia, +/- CHF ETT placed for respiratory failure. Sedated on propofol. She is improving with fluids, Levophed available if needed/further fluid limited by CHF Chest x-ray with extensive left lung consolidation consistent with pneumonia. Pleural effusions are present, pulmonary edema is not excluded -Suspect most likely due to pneumonia. Left lung consolidations, leukocytosis are present. VBG 7.15/64/37/22 acute decompensated respiratory acidosis Patient does have pleural effusions and history of CHF with some lower extremity edema; heart rate down trended and blood pressures improved with 2 L of fluid. Per discussion with [facility] patient had a sudden decompensation this morning and had not reported infectious symptoms in the preceding week, did have a left leg injury last week with swelling. Doppler ordered. CTA deferred pending Doppler and clinical progression, can follow-up with CTA if indicated. Repeat VBG postintubation improving, 7.29//186/20 Patient was extubated and reintubated on 10/24 will remain in the ICU Consulted palliative care given reintubation Patient with baseline dementia that is worsening Sepsis, pneumonia Hypotension, tachycardic, respiratory failure Received 2 L NSS in the ER, sepsis target 1731 cc Lactate elevated 5.6, repeat pending Additional fluid limited by suspected CHF/cardiopulmonary overload - Antibiotics broadened to cefepime/vancomycin/azithromycin. QT normal. Renally adjusted for calculated creatinine clearance of approximately 1415, adjust as needed based on renal function -stopped vanco. CAD w/ hx RCA PCI, history of heart failure with midrange EF and severe residual multivessel disease, suspected demand ischemia Reviewed with cardiology. Wide-complex tachycardia on admission with baseline left bundle branch block. Improving post fluids heart rate in the 100s. Troponin is elevated, suspect demand that this is reactive to sepsis and hypoxia and not personal financial representative of ACS. Heparinization not recommended at this time from a cardiac standpoint but will monitor closely. Patient is high risk for intervention/cath and has known high risk residual disease. Has a history of PCI x 1. Brilinta continued through OG tube ETT in place. Patient did not take any medications this morning per the [facility]. Cardiac medicines including asa/ticagrelor continued via OG Hold ARB/hydrochlorothiazide for hypotension Troponin 125, repeat pending. BNP 734 cath 08/02/2024: Triple-vessel CAD, PCI to 90% mid RCA with DESIRAE. Residual coronary disease including severely stenosed lesions of the LMCALADLCx bifurcationLADD1 bifurcation 90%. Mild to moderate nonobstructive CAD. EKG with baseline left bundle branch block EKG on admission with wide QRS tachycardia, LBBB redemonstrated. QTc 439. NOBLE pending/ Last echo 2023 with EF 47%, lateral and inferior wall hypokin esis. Mild AAS with peak velocity 1.93 - Repeat EKG post fluids and rate improvement pending Left lower extremity swelling Bilateral but left greater than right lower extremity edema and with 2-3 cm of calf asymmetry greater on the left Patient did have a leg strike last week per [facility] staff. Dopplers ordered. Small overlying contusion with clot, dressing in place, no surrounding erythema/warmth suggestive of cellulitis COPD Home inhalers held Hypothyroidism Synthroid early held, may convert to IV 70% dose reduction if prolonged ability to tolerate p.o. Closed right femur fracture S/p total joint arthroplasty 07/2024. Per [facility] healed from this back in July however has generally poor mobility and mostly wheelchair-bound at their facility GERD PPI continued for hx and ulcer ppx, converted to IV DVT prophylaxis: Heparin subcu due to renal dysfunction CODE STATUS: Conditional code. Okay with temporary intubation while evaluating for potential reversible causes of respiratory failure (sepsis/pneumonia/CHF), but per conversation with she would not want resuscitation in the event of a complete arrest. No CPR, no electrical cardioversion, no cardiopulmonary resuscitation in the event of a respiratory/cardiac arrest. Diet: N.p.o., OG for meds Disposition: ICU discussed with pole inspector (2) Pneumonia: (3) Acute heart failure with mildly reduced ejection fraction (HFmrEF, 41-49%): Admission and Anticipated Discharge Date Admission Date: October 22, 2024 Subjective Patient is intubated Physical Exam Physical Exam: General: ETT in place, sedated. HEENT: Atraumatic, normocephalic. Pulm: Scattered slight crackles on L, good air movement bilaterally. Cardiac: Tachycardic, regular. Radial pulses intact and symmetrical. Abdominal: Soft, nondistended Extremities: Mild left calf asymmetry. Left briseno contusion/wound with overlying dressing, no warmth/erythema. Bilateral mild pitting edema left greater than right. Right briseno with small contusion but no overlying wound. Results & Data Results & Data Vital Signs (Past 12 Hours) Vital Signs Temp Pulse Resp BP Pulse Ox O2 Del Method O2 Del Method 10/24/24 21:12 64 17 98 10/24/24 21:00 103/47 L 10/24/24 21:00 62 17 10/24/24 20:48 61 18 99 10/24/24 20:31 111/48 L 10/24/24 20:31 111/48 L 10/24/24 20:30 18 96 10/24/24 20:21 69 18 98 10/24/24 20:20 68 18 98 10/24/24 20:12 68 18 97 10/24/24 20:03 69 18 98 10/24/24 20:00 100/44 L 10/24/24 20:00 Mechanical Vent 10/24/24 20:00 65 10/24/24 20:00 37.2 C 10/24/24 19:45 120/53 L 10/24/24 19:30 76 23 99 10/24/24 18:45 107/46 L 10/24/24 18:45 107/46 L 10/24/24 18:36 66 18 98 10/24/24 18:30 91/41 L 10/24/24 18:30 67 18 10/24/24 18:15 92/42 L 10/24/24 18:09 68 18 98 10/24/24 18:00 94/38 L 10/24/24 18:00 94/38 L 10/24/24 18:00 94/38 L 10/24/24 18:00 67 18 10/24/24 17:57 68 18 99 10/24/24 17:45 108/46 L 10/24/24 17:42 63 18 89 L 10/24/24 17:39 68 18 96 10/24/24 17:36 98/72 L 10/24/24 17:36 98/72 L 10/24/24 17:36 98/72 L 10/24/24 17:36 98/72 L 10/24/24 17:03 71 18 98 10/24/24 17:00 110/54 L 10/24/24 17:00 71 26 H 100 10/24/24 16:51 76 23 94 10/24/24 16:48 71 19 97 Mechanical Vent 10/24/24 16:45 100/61 10/24/24 16:45 100/61 10/24/24 16:45 100/61 10/24/24 16:45 100/61 10/24/24 16:30 106/54 L 10/24/24 16:30 106/54 L 10/24/24 16:27 71 20 100 10/24/24 16:15 71 20 100 10/24/24 16:15 110/48 L 10/24/24 16:14 37.2 C 10/24/24 16:03 70 20 100 10/24/24 16:00 104/46 L 10/24/24 16:00 104/46 L 10/24/24 16:00 104/46 L 10/24/24 16:00 104/46 L 10/24/24 16:00 10/24/24 15:54 69 20 100 10/24/24 15:45 73 19 10/24/24 15:45 100/45 L 10/24/24 15:45 100/45 L 10/24/24 15:45 100/45 L 10/24/24 15:36 72 19 98 Mechanical Vent 10/24/24 15:30 106/47 L 10/24/24 15:30 106/47 L 10/24/24 15:30 106/47 L 10/24/24 15:15 106/47 L 10/24/24 15:15 106/47 L 10/24/24 15:12 72 19 95 10/24/24 15:00 73 20 100 10/24/24 15:00 97/50 L 10/24/24 15:00 97/50 L 10/24/24 14:54 74 22 99 10/24/24 14:51 71 17 10/24/24 14:45 112/62 10/24/24 14:45 112/62 10/24/24 14:39 73 17 93 02/18/25 14:30 108/60 10/24/24 14:24 79 18 94 10/24/24 14:21 81 18 93 10/24/24 14:15 121/49 L 10/24/24 14:15 121/49 L 10/24/24 14:00 103/61 10/24/24 14:00 103/61 10/24/24 14:00 83 18 92 10/24/24 13:48 85 19 93 10/24/24 13:45 118/55 L 10/24/24 13:45 118/55 L 10/24/24 13:45 118/55 L 10/24/24 13:39 105/53 L 10/24/24 13:39 90 24 10/24/24 13:33 96 H 25 H 95 10/24/24 12:03 82 25 H 95 10/24/24 11:48 104 H 33 H 83 L 10/24/24 11:47 130/93 10/24/24 11:47 130/93 10/24/24 11:47 130/93 10/24/24 11:33 79 29 H 97 10/24/24 11:30 117/73 10/24/24 11:30 117/73 10/24/24 11:09 73 23 96 10/24/24 11:06 76 24 96 10/24/24 11:00 91/47 L 10/24/24 11:00 Mechanical Vent 10/24/24 10:45 89/43 L 10/24/24 10:45 89/43 L 10/24/24 10:39 78 18 98 10/24/24 10:33 75 18 97 10/24/24 10:30 92/48 L 10/24/24 10:30 92/48 L FiO2 10/24/24 21:12 10/24/24 21:00 10/24/24 21:00 10/24/24 20:48 10/24/24 20:31 10/24/24 20:31 10/24/24 20:30 10/24/24 20:21 10/24/24 20:20 40 10/24/24 20:12 10/24/24 20:03 10/24/24 20:00 10/24/24 20:00 40 10/24/24 20:00 10/24/24 20:00 10/24/24 19:45 10/24/24 19:30 10/24/24 18:45 10/24/24 18:45 10/24/24 18:36 10/24/24 18:30 10/24/24 18:30 10/24/24 18:15 10/24/24 18:09 10/24/24 18:00 10/24/24 18:00 10/24/24 18:00 10/24/24 18:00 10/24/24 17:57 10/24/24 17:45 10/24/24 17:42 10/24/24 17:39 10/24/24 17:36 10/24/24 17:36 10/24/24 17:36 10/24/24 17:36 10/24/24 17:03 10/24/24 17:00 10/24/24 17:00 10/24/24 16:51 10/24/24 16:48 0.4 10/24/24 16:45 10/24/24 16:45 10/24/24 16:45 10/24/24 16:45 10/24/24 16:30 10/24/24 16:30 10/24/24 16:27 10/24/24 16:15 10/24/24 16:15 10/24/24 16:14 10/24/24 16:03 10/24/24 16:00 10/24/24 16:00 10/24/24 16:00 10/24/24 16:00 10/24/24 16:00 0.4 10/24/24 15:54 10/24/24 15:45 10/24/24 15:45 10/24/24 15:45 10/24/24 15:45 10/24/24 15:36 0.5 10/24/24 15:30 10/24/24 15:30 10/24/24 15:30 10/24/24 15:15 10/24/24 15:15 10/24/24 15:12 10/24/24 15:00 10/24/24 15:00 10/24/24 15:00 10/24/24 14:54 40 10/24/24 14:51 10/24/24 14:45 10/24/24 14:45 10/24/24 14:39 10/24/24 14:30 10/24/24 14:24 10/24/24 14:21 10/24/24 14:15 10/24/24 14:15 10/24/24 14:00 10/24/24 14:00 10/24/24 14:00 10/24/24 13:48 10/24/24 13:45 10/24/24 13:45 10/24/24 13:45 10/24/24 13:39 10/24/24 13:39 10/24/24 13:33 10/24/24 12:03 10/24/24 11:48 10/24/24 11:47 10/24/24 11:47 10/24/24 11:47 10/24/24 11:33 10/24/24 11:30 10/24/24 11:30 10/24/24 11:09 10/24/24 11:06 10/24/24 11:00 10/24/24 11:00 10/24/24 10:45 10/24/24 10:45 10/24/24 10:39 10/24/24 10:33 10/24/24 10:30 10/24/24 10:30 PG Care Time/CCT Total # of Minutes Spent Total Time Spent with Patient: Total time spent is greater than 50% in coordination of care (as documented) at patient's floor/unit and/or counseling patient: Coding Level of Care Code 26235 SUB INP/OBS CARE 3/50MIN Diagnoses Respiratory failure J96.90 Pneumonia J18.9 Acute heart failure with mildly reduced ejection fraction (HFmrEF, 41-49%) I50.21
[2024-10-25 04:29] LABS: Basophils # (auto) 0.13 K/uL (0.00-0.20); Eosinophils # (auto) 0.22 K/uL (0.00-0.50); Eosinophils % (auto) 1.8 %; Hematocrit (blood only) 23.9 % (37.0-47.0); Hemoglobin 7.5 g/dl (12.0-16.0); Immature Granulocytes # (auto) 0.07 K/uL (0.01-0.20); Immature Granulocytes % (auto) 0.6 %; Lymphocytes % (auto) 7.2 %; Mean Corpuscular Hgb Conc 31.4 g/dL (32.0-36.0); Mean Corpuscular Volume 89.2 fL (80.0-100.0); Mean Platelet Volume 10.1 fL (9.4-12.4); Monocytes # (auto) 0.99 K/uL (0.11-0.59); Monocytes % (auto) 7.9 %; Neutrophils # (auto) 10.17 K/uL (1.40-6.50); Neutrophils % (auto) 81.5 %; Platelet Count 275 K/uL (130-400); RDW Coefficient of Variation 13.9 % (11.5-14.5); RDW Standard Deviation 44.9 fL (36.4-46.3); Red Blood Count 2.68 M/uL (4.20-5.40); White Blood Count 12.48 K/ul (4.8-10.8)
[2024-10-25 04:51] LABS: Polychromasia 1+
[2024-10-25 04:56] LABS: Albumin Globulin Ratio 1.1 (0.9-2); Albumin Level 2.7 gm/dl (3.4-5.0); BUN Creatinine Ratio 23.7 (10-20); Bilirubin,Total 0.4 mg/dl (0.2-1.0); Calcium 8.4 mg/dl (8.6-10.3); Globulin 2.4 gm/dl (2.5-4.0); Phosphorus 2.3 mg/dl (2.5-4.9); Potassium 3.9 mmol/L (3.5-5.1); Total Protein 5.1 gm/dl (6.0-8.3)
[2024-10-25] MEDS: POTASSIUM CHLORIDE CRTAB 20 MEQ TABCR PO ONE (05:27)
[2024-10-25] MEDS: POT PHOSPHATE MONOBASIC W/ SOD TAB PO SCH (05:27)
--- NOTE | 2024-10-25 07:17 | XRay Report ---
EXAM: XR chest 1V portable CLINICAL HISTORY: Eval tubes/lines/lung carrero. TECHNIQUE: An X-ray image of the chest is obtained in AP projection. COMPARISON: 10/24/2024 CR. FINDINGS: The endotracheal tube seen low-lying approximately 1.6 cm above the ruiz, needs to be repositioned. Left central line in place. Pulmonary Parenchyma: Homogeneous opacification redemonstrated in left mid and lower zones with blunting of left costophrenic recess. Mild interval worsening. Few small ill-defined opacities are seen in the right mid and lower zones. Small/minimal pleural reaction in the right costophrenic recess. Heart and Mediastinum: Cardiomegaly. No mediastinal widening or masses. No hilar or mediastinal lymphadenopathy. Bony Thorax: The bony thorax appears intact without fractures or deformities. Soft Tissues: Soft tissues overlying the chest wall are unremarkable. IMPRESSION: 1. The endotracheal tube seen low-lying approximately 1.6 cm above the ruiz, needs to be repositioned. 2. Homogeneous opacification redemonstrated in left mid and lower zones with blunting of left costophrenic recess. Mild interval worsening. 3. Few small ill-defined opacities are seen in the right mid and lower zones. 4. Small/minimal pleural reaction in the right costophrenic recess. 5. Clinical and lab correlation is advised. Electronically signed by Alissa Bond 10-25-2024 07:16 AM
[2024-10-25] MEDS: POTASSIUM CHLORIDE 20 MEQ/15 ML UDC NG STA (08:01)
--- NOTE | 2024-10-25 08:24 | Critical Care Progress Note ---
Date of Service October 25, 2024 Assessment & Plan (1) Pneumonia: (2) Acute heart failure with mildly reduced ejection fraction (HFmrEF, 41-49%): (3) Multiple pulmonary nodules determined by computed tomography of lung: (4) Chronic obstructive pulmonary disease: (5) Cardiomyopathy: (6) Aortic stenosis: Plan Impression: 84-year-old female with multiple medical issues admitted with acute onset of shortness of breath with leukocytosis and dense consolidation within the left lung. She was intubated with borderline hemodynamics. Recommendations: 1. Neurologic: Unresponsiveness: MRI largely unremarkable with moderate atrophy and small vessel disease -EEG completed 2. Cardiovascular: Known severe multivessel coronary disease: Agree with cardiology that she is unlikely to be a good candidate for intervention in the absence of overt cardiogenic shock or caleb ST elevations. - Reviewing echocardiogram notes 07/30 noted mild aortic stenosis this is not present on the 11/01 report. -Recent NSTEMI: Continue dual antiplatelet therapy Cardiomyopathy History of acute on chronic congestive heart failure -Known left bundle branch block 3. Pulmonary: Dense consolidation in the left lung: Consider bronchoscopy today On mechanical ventilation: Minimal settings. 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 GI: N.p.o. for now. -If unable to liberate from the ventilator would start enteral nutrition. Need to discuss goals with regarding allowing passive aspiration versus continuing enteral access long-term 5. Renal: Creatinine at baseline. Think the patient is a poor dialysis candidate in the event of progression to renal failure. 6. Endocrine: Glycemic control per protocol. 7. Heme-onc: anemia. No indication for transfusion and no evidence of acute blood loss currently. Thrombocytosis likely secondary to acute phase reactant/infection. 8. ID: Patient has been in and out of the hospital and multiple occasions in the last 90 days which places her at risk for resistant organisms. -No organisms on culture, remains afebrile, mild leukocytosis which can be reactionary -Finish course of his Zithromax and Unasyn for presumptive ongoing aspiration Discussed with the patient's at bedside. No other family locally. He is in agreement to intubation in the short-term in the hopes that she can be stabilized but does not want aggressive life-sustaining measures including additional ACLS/cardioversion or CPR. He would be okay with pressors in the short-term if needed. Will consult palliative care to assist in medical decision making and goals of care. Patient is critically ill at this point time with significant possibility of clinical deterioration and/or . A total of 50 minutes in critical care time was spent evaluation management coordination of care for this patient excluding procedures. Discussed with the patient's at bedside, patient at extremely high risk for recurrent respiratory failure and persistent mucoid impaction secondary to significant tracheomalacia. Patient has baseline dementia that is worsening and is requiring transition to care home memory care from her prior living condition. We discussed options including tracheostomy for ease of secretion clearance; however, patient's did not feel that that would align with the patient's long-term goals. Encouraged palliative care follow-up. Admission and Anticipated Discharge Date Admission Date: October 22, 2024 Subjective No overnight events Physical Exam Physical Exam: General: Sedated. nontoxic. Arousable and able to follow simple commands Skin: Warm, dry, Head: Atraumatic Ears, nose, mouth and throat: airway obscured by endotracheal tube Cardiovascular: Normal peripheral perfusion Respiratory: Ventilator settings reviewed Gastrointestinal: Non distended Musculoskeletal: No deformity Results & Data Results & Data Vital Signs (Past 12 Hours) Vital Signs Temp Pulse Resp BP Pulse Ox FiO2 10/25/24 07:35 62 18 96 35 10/25/24 07:33 35 10/25/24 07:27 61 18 96 10/25/24 07:00 59 L 18 98 10/25/24 07:00 106/52 L 10/25/24 07:00 106/52 L 10/25/24 05:53 91/36 L 10/25/24 05:52 91/33 L 10/25/24 05:51 66 18 96 10/25/24 05:45 66 21 96 10/25/24 05:30 89/38 L 10/25/24 05:30 63 18 10/25/24 05:24 65 18 97 10/25/24 05:06 69 22 97 10/25/24 05:00 116/43 L 10/25/24 05:00 116/43 L 10/25/24 04:51 71 23 97 10/25/24 04:45 72 20 97 10/25/24 04:30 118/51 L 10/25/24 04:30 118/51 L 10/25/24 04:21 70 19 98 10/25/24 04:15 68 19 98 10/25/24 04:03 66 18 97 10/25/24 04:00 106/48 L 10/25/24 04:00 106/48 L 10/25/24 04:00 106/48 L 10/25/24 03:54 35 10/25/24 03:45 67 18 97 10/25/24 03:42 69 18 98 10/25/24 03:30 118/47 L 10/25/24 03:30 118/47 L 10/25/24 03:30 118/47 L 10/25/24 03:30 71 18 96 10/25/24 03:21 70 18 96 10/25/24 03:15 67 18 96 35 10/25/24 03:12 70 18 96 10/25/24 03:09 71 18 96 10/25/24 02:51 71 18 96 10/25/24 02:30 67 18 10/25/24 02:30 96/43 L 10/25/24 02:24 67 18 97 10/25/24 02:15 64 18 97 10/25/24 02:00 70 18 10/25/24 02:00 122/51 L 10/25/24 02:00 36.8 C 10/25/24 01:51 75 21 98 10/25/24 01:42 70 20 98 10/25/24 01:30 123/54 L 10/25/24 01:30 123/54 L 10/25/24 01:30 123/54 L 10/25/24 01:30 65 18 99 10/25/24 01:12 66 18 100 10/25/24 01:03 63 18 99 10/25/24 01:00 109/41 L 10/25/24 01:00 109/41 L 10/25/24 01:00 109/41 L 10/25/24 00:51 64 18 98 10/25/24 00:48 63 18 97 0219/25 00:30 91/51 L 10/25/24 00:30 66 18 10/25/24 00:24 67 18 96 10/24/24 23:52 35 10/24/24 23:51 66 18 97 10/24/24 23:36 66 18 98 10/24/24 23:34 69 19 99 40 10/24/24 23:21 72 18 98 10/24/24 23:00 70 18 10/24/24 23:00 131/46 L 10/24/24 22:51 71 17 98 10/24/24 22:30 74 22 99 10/24/24 22:00 90/42 L 10/24/24 22:00 90/42 L 10/24/24 21:54 64 18 97 10/24/24 21:51 66 18 97 10/24/24 21:48 62 18 98 10/24/24 21:33 58 L 18 98 10/24/24 21:30 107/44 L 10/24/24 21:12 64 17 98 10/24/24 21:00 103/47 L 10/24/24 21:00 62 17 10/24/24 20:48 61 18 99 10/24/24 20:31 111/48 L 10/24/24 20:31 111/48 L 10/24/24 20:30 18 96 10/24/24 20:21 69 18 98 10/24/24 20:20 68 18 98 40 10/24/24 20:12 68 18 97 Critical Care Results & Data Vital Signs (Past 12 Hours) Vital Signs Temp Pulse Resp BP Pulse Ox FiO2 10/25/24 07:35 62 18 96 35 10/25/24 07:33 35 10/25/24 07:27 61 18 96 10/25/24 07:00 59 L 18 98 10/25/24 07:00 106/52 L 10/25/24 07:00 106/52 L 10/25/24 05:53 91/36 L 10/25/24 05:52 91/33 L 10/25/24 05:51 66 18 96 10/25/24 05:45 66 21 96 10/25/24 05:30 89/38 L 10/25/24 05:30 63 18 10/25/24 05:24 65 18 97 10/25/24 05:06 69 22 97 10/25/24 05:00 116/43 L 10/25/24 05:00 116/43 L 10/25/24 04:51 71 23 97 10/25/24 04:45 72 20 97 10/25/24 04:30 118/51 L 10/25/24 04:30 118/51 L 10/25/24 04:21 70 19 98 10/25/24 04:15 68 19 98 10/25/24 04:03 66 18 97 10/25/24 04:00 106/48 L 10/25/24 04:00 106/48 L 10/25/24 04:00 106/48 L 10/25/24 03:54 35 10/25/24 03:45 67 18 97 10/25/24 03:42 69 18 98 10/25/24 03:30 118/47 L 10/25/24 03:30 118/47 L 10/25/24 03:30 118/47 L 10/25/24 03:30 71 18 96 10/25/24 03:21 70 18 96 10/25/24 03:15 67 18 96 35 10/25/24 03:12 70 18 96 10/25/24 03:09 71 18 96 10/25/24 02:51 71 18 96 10/25/24 02:30 67 18 10/25/24 02:30 96/43 L 10/25/24 02:24 67 18 97 10/25/24 02:15 64 18 97 10/25/24 02:00 70 18 10/25/24 02:00 122/51 L 10/25/24 02:00 36.8 C 10/25/24 01:51 75 21 98 10/25/24 01:42 70 20 98 10/25/24 01:30 123/54 L 10/25/24 01:30 123/54 L 10/25/24 01:30 123/54 L 10/25/24 01:30 65 18 99 10/25/24 01:12 66 18 100 10/25/24 01:03 63 18 99 10/25/24 01:00 109/41 L 10/25/24 01:00 109/41 L 10/25/24 01:00 109/41 L 10/25/24 00:51 64 18 98 10/25/24 00:48 63 18 97 10/25/24 00:30 91/51 L 10/25/24 00:30 66 18 10/25/24 00:24 67 18 96 10/24/24 23:52 35 10/24/24 23:51 66 18 97 10/24/24 23:36 66 18 98 10/24/24 23:34 69 19 99 40 10/24/24 23:21 72 18 98 10/24/24 23:00 70 18 10/24/24 23:00 131/46 L 10/24/24 22:51 71 17 98 10/24/24 22:30 74 22 99 10/24/24 22:00 90/42 L 10/24/24 22:00 90/42 L 10/24/24 21:54 64 18 97 10/24/24 21:51 66 18 97 10/24/24 21:48 62 18 98 10/24/24 21:33 58 L 18 98 10/24/24 21:30 107/44 L 10/24/24 21:12 64 17 98 10/24/24 21:00 103/47 L 10/24/24 21:00 62 17 10/24/24 20:48 61 18 99 10/24/24 20:31 111/48 L 10/24/24 20:31 111/48 L 10/24/24 20:30 18 96 10/24/24 20:21 69 18 98 10/24/24 20:20 68 18 98 40 Lab & Micro Results (Past 24 Hours) RBC 2.68 M/uL (4.20-5.40) L 10/25/24 WBC 12.48 K/ul (4.8-10.8) H 10/25/24 Hgb 7.5 g/dl (12.0-16.0) L 10/25/24 Hct 23.9 % (37.0-47.0) L 10/25/24 MCV 89.2 fL (80.0-100.0) 10/25/24 MCH 28.0 pg (25.0-34.0) 10/25/24 MCHC 31.4 g/dL (32.0-36.0) L 10/25/24 RDW Standard Deviation 44.9 fL (36.4-46.3) 10/25/24 RDW Coefficient of Variation 13.9 % (11.5-14.5) 10/25/24 Plt Count 275 K/uL (130-400) 10/25/24 MPV 10.1 fL (9.4-12.4) 10/25/24 Neutrophils (%) (Auto) 81.5 % 10/25/24 Lymphocytes (%) (Auto) 7.2 % 10/25/24 Monocytes # (Auto) 0.99 K/uL (0.11-0.59) H 10/25/24 Eosinophils # (Auto) 0.22 K/uL (0.00-0.50) 10/25/24 Immature Granulocyte % (Auto) 0.6 % 10/25/24 Neutrophils # (Auto) 10.17 K/uL (1.40-6.50) H 10/25/24 Lymphocytes # (Auto) 0.90 K/uL (1.20-3.40) L 10/25/24 Monocytes # (Auto) 0.99 K/uL (0.11-0.59) H 10/25/24 Eosinophils # (Auto) 0.22 K/uL (0.00-0.50) 10/25/24 Basophils # (Auto) 0.13 K/uL (0.00-0.20) 10/25/24 Immature Granulocyte # (Auto) 0.07 K/uL (0.01-0.20) 5 Polychromasia 1+ 10/25/24 Na 139 mmol/L (136-145) 10/25/24 K 3.9 mmol/L (3.5-5.1) 10/25/24 Cl 108 mmol/L (98-107) H 10/25/24 CO2 24 mmol/L (21-32) 10/25/24 Anion Gap 7 (3-11) 10/25/24 BUN 27 mg/dl (6-23) H 10/25/24 Creatinine 1.14 mg/dl (0.6-1.2) 10/25/24 BUN/Creatinine Ratio 23.7 (10-20) H 10/25/24 Glu 74 mg/dl (70-99(Fasting)) 10/25/24 Ca 8.4 mg/dl (8.6-10.3) L 10/25/24 Phosphorus Level 2.3 mg/dl (2.5-4.9) L 10/25/24 Total Bilirubin 0.4 mg/dl (0.2-1.0) 10/25/24 AST 67 U/L (13-39) H 10/25/24 ALT 36 U/L (7-52) 10/25/24 Alkaline Phosphatase 96 U/L (34-104) 10/25/24 TP 5.1 gm/dl (6.0-8.3) L 10/25/24 Albumin 2.7 gm/dl (3.4-5.0) L 10/25/24 Globulin 2.4 gm/dl (2.5-4.0) L 10/25/24 Albumin/Globulin Ratio 1.1 (0.9-2) 10/25/24 Calcium Level 8.4 mg/dl (8.6-10.3) L 10/25/24 04:14 Microbiology 10/22/24 08:57 Aerobic Blood Culture - Preliminary Blood No growth in Aerobic bottle after 48 hours. Anaerobic Blood Culture - Final 10/22/24 08:15 Aerobic Blood Culture - Preliminary Blood No growth in Aerobic bottle after 48 hours. Anaerobic Blood Culture - Preliminary No growth in Anaerobic bottle after 48 hours. 10/22/24 11:50 Gram Stain - Final Ba Lavage,Left Upper Lobe Bronchial Culture - Final Light normal tha. 10/22/24 10:50 Gram Stain - Final Sputum,Vent Suction Sputum Culture - Final Light normal tha. Diagnostic Findings (Past 24 Hours) Brain MRI 10/24/24 09:32 MRI OF THE BRAIN WITHOUT AND WITH IV CONTRAST SEIZURE PROTOCOL CLINICAL HISTORY: Altered mental status. COMPARISON STUDY: Head CT and CTA of the head October 24, 2024. TECHNIQUE: Utilizing a 1.5 Bettie magnet and dedicated coil, multiplanar, multiecho imaging of the brain was performed pre and postcontrast administration. IV administration of 5.5 mL of Gadavist contrast was uneventful. Thin cut coronal T2 imaging was performed according to seizure protocol. FINDINGS: This exam is mildly compromised by motion artifact. There are no foci of restricted diffusion to suggest acute infarct. No acute intracranial hemorrhage, midline shift or mass effect is present. Ventricular dilatation is likely due to central atrophy. There is moderate atrophy. White matter T2 hyperintense foci suggest moderate small vessel disease. There is no intracranial mass or pathologic enhancement. Basal cisterns are patent. There are no extra-axial fluid collections. Calvarial signal is within normal limits. There is fluid within the bilateral mastoid air cells. This may be related to intubation. IMPRESSION: 1. No acute intracranial findings. Mild motion artifact. 2. No intracranial mass or pathologic enhancement. 3. Moderate atrophy and small vessel disease ACT 112: Negative or not required by law. Electronically signed by: William Pathak M.D. 10/24/2024 1:35 PM Chest X-Ray 10/25/24 06:00 EXAM: XR chest 1V portable CLINICAL HISTORY: Eval tubes/lines/lung carrero. TECHNIQUE: An X-ray image of the chest is obtained in AP projection. COMPARISON: 10/24/2024 CR. FINDINGS: The endotracheal tube seen low-lying approximately 1.6 cm above the ruiz, needs to be repositioned. Left central line in place. Pulmonary Parenchyma: Homogeneous opacification redemonstrated in left mid and lower zones with blunting of left costophrenic recess. Mild interval worsening. Few small ill-defined opacities are seen in the right mid and lower zones. Small/minimal pleural reaction in the right costophrenic recess. Heart and Mediastinum: Cardiomegaly. No mediastinal widening or masses. No hilar or mediastinal lymphadenopathy. Bony Thorax: The bony thorax appears intact without fractures or deformities. Soft Tissues: Soft tissues overlying the chest wall are unremarkable. IMPRESSION: 1. The endotracheal tube seen low-lying approximately 1.6 cm above the ruiz, needs to be repositioned. 2. Homogeneous opacification redemonstrated in left mid and lower zones with blunting of left costophrenic recess. Mild interval worsening. 3. Few small ill-defined opacities are seen in the right mid and lower zones. 4. Small/minimal pleural reaction in the right costophrenic recess. 5. Clinical and lab correlation is advised. Electronically signed by Alissa Bond 10-25-2024 07:16 AM I & O Totals 24 Hours 10/24/24 10/25/24 10/26/24 06:59 06:59 06:59 Intake Total 752.054 / 568.571 7350.115 / 1073.115 33.477 / 33.477 Output Total 3301 / 3301 927 / 927 Balance -2548.946 / -2548.946 146.115 / 146.115 33.477 / 33.477 Cumulative 10/22/24 08:02 thru 10/25/24 07:03 Intake Total 6564.061 Output Total 4999 Balance 1565.061 RT Ventilator Mngmt (Last Documented) Ventilator Ordered Settings Ventilator Support Mode Assist Control 10/25/24 07:35 Respiratory Rate 18 10/25/24 07:35 Ventilator Tidal Volume 400 10/25/24 07:35 Setting Minute Ventilation 7.4 10/25/24 07:35 Ventilator Positive Pressure 5 10/24/24 23:52 Support Setting Positive End Expiratory 5 10/25/24 07:35 Pressure Fraction of Inspired Oxygen 35 10/25/24 07:35 Machine Comment weaned to 35% at this time 10/24/24 23:34 Ventilator - PT Measurements Respiratory Rate 18 Exhaled Tidal Volume 400 Minute Ventilation 7.4 Peak Inspiratory Airway 20 Pressure Plateau Pressure 13 Respiratory Cycle Inspiratory: 1:2.7 Expiratory Ratio Inspiratory Phase Time 0.9 End-Tidal CO2 22 Static Lung Compliance 50.00 Dynamic Lung Compliance 26.67 Normal Static Lung Compliance 47.00 Patient Measurements Comment ETT PULLED BACK 2 CM PER MANAGER PRICING PA. ETT NOW AT 22 CM. Coding Level of Care Code 40272 CRITICAL CARE 1ST 30-74M Diagnoses Pneumonia J18.9 Acute heart failure with mildly reduced ejection fraction (HFmrEF, 41-49%) I50.21 Multiple pulmonary nodules determined by computed tomography of lung R91.8 Chronic obstructive pulmonary disease J44.9 Cardiomyopathy I42.9 Aortic stenosis I35.0
--- NOTE | 2024-10-25 08:25 | Electroencephalogram ---
EEG Procedure Note Date of Service October 25, 2024 Start / End Times Start Time: 6:14 AM End Time: 6:34 AM Referring Physician Tory History Unresponsiveness, altered mental status Home Medication List Medication Instructions Recorded Confirmed Type multivitamin 1 tab PO QAM 12/21/18 10/22/24 History levothyroxine 25 mcg tablet 25 mcg PO QAM 07/25/19 10/22/24 History (Synthroid) acetaminophen 500 mg tablet 1,000 mg PO TID 04/15/23 10/22/24 History albuterol sulfate 90 mcg/actuation 2 inh inhalation QID PRN shortness 06/09/23 10/22/24 Rx aerosol inhaler of breath or wheezing #8.5 grams pantoprazole 40 mg tablet,delayed 40 mg PO QAM #90 tabs 05/01/24 10/22/24 Rx release fluticasone fur. 100 mcg-umeclid 1 inh inhalation DAILY #3 Inhalers 05/29/24 10/22/24 Rx 62.5 mcg-vilant 25 mcg inhalat.powder (Trelegy Ellipta) vibegron 75 mg tablet 75 mg PO DAILY #90 tabs 07/13/24 10/22/24 Rx trazodone 100 mg tablet 50 mg (1/2 x 100 mg) PO HS #90 tabs 09/26/24 10/22/24 Rx aspirin 81 mg tablet,delayed 81 mg PO DAILY 09/28/24 10/22/24 History release atorvastatin 40 mg tablet 40 mg PO DAILY 09/28/24 10/22/24 History cholecalciferol (vitamin D3) 125 125 mcg PO DAILY 09/28/24 10/22/24 History mcg (5,000 unit) capsule oxycodone 5 mg tablet 2.5 - 5 mg PO .Q4-6H PRN Pain 09/28/24 10/22/24 History polyethylene glycol 3350 17 gram 17 g PO DAILY 09/28/24 10/22/24 History oral powder packet sennosides 8.6 mg tablet (senna) 8.6 mg PO DAILY 09/28/24 10/22/24 History ticagrelor 90 mg tablet 90 mg PO BID 09/28/24 10/22/24 History diclofenac sodium 1 % topical gel 2 g topical DIRECTED PRN Pain 10/22/24 10/22/24 History irbesartan 300 1 tab PO DAILY 10/22/24 10/22/24 History mg-hydrochlorothiazide 12.5 mg tablet sertraline 25 mg tablet 25 mg PO DAILY 10/22/24 10/22/24 History Inpatient Medication List Aspirin (Aspirin 81 Mg Chew) 81 mg OG DAILY [facility] Stop: 11/21/24 10:29 Last Admin: 10/25/24 08:03 Dose: 81 mg Documented By: Admin: 10/24/24 08:14 Dose: 81 mg Documented By: Admin: 10/23/24 08:00 Dose: 81 mg Documented By: Admin: 10/22/24 13:48 Dose: 81 mg Documented By: JUNITO Atorvastatin Calcium (Atorvastatin 40 Mg Tab) 40 mg OG QAM [facility] Stop: 11/22/24 08:59 Last Admin: 10/25/24 08:01 Dose: 40 mg Documented By: Admin: 10/24/24 08:13 Dose: 40 mg Documented By: Admin: 10/23/24 07:57 Dose: 40 mg Documented By: PERRI Fentanyl Citrate (Fentanyl Citrate Pf 100 Mcg/2 Ml Vial) 50 mcg IV Q2H PRN PRN Reason: Moderate Pain (4,5,6) on NRS Stop: 11/05/24 11:50 Last Admin: 10/24/24 19:57 Dose: 50 mcg Documented By: Admin: 10/24/24 06:26 Dose: 50 mcg Documented By: ISRAEL Propofol (Diprivan) 1,000 mg in 100 mls @ 12.117 mls/hr IV .Q8H16M [facility]; Protocol Stop: 10/25/24 08:59 Last Titration: 10/25/24 07:03 Dose: 35 mcg/kg/min, 12.1 mls/hr Documented By: DINAH Co-signed By: JENNY Admin: 10/25/24 06:04 Dose: Not Given Documented By: Admin: 10/25/24 04:17 Dose: 35 mcg/kg/min, 12.1 mls/hr Documented By: DINAH Co-signed By: ISRAEL Titration: 10/25/24 03:05 Dose: Infused Documented By: DINAH Co-signed By: ISRAEL Titration: 10/25/24 00:12 Dose: 35 mcg/kg/min, 12.1 mls/hr Documented By: Titration: 10/24/24 23:18 Dose: 40 mcg/kg/min, 13.8 mls/hr Documented By: Titration: 10/24/24 23:05 Dose: 35 mcg/kg/min, 12.1 mls/hr Documented By: Titration: 10/24/24 22:52 Dose: 30 mcg/kg/min, 10.4 mls/hr Documented By: Titration: 10/24/24 19:09 Dose: 25 mcg/kg/min, 8.7 mls/hr Documented By: CAM Co-signed By: JAAndrew Admin: 10/24/24 17:21 Dose: 25 mcg/kg/min, 8.7 mls/hr Documented By: CAM Co-signed By: LAF Titration: 10/24/24 17:21 Dose: Infused Documented By: CAM Co-signed By: LAF Titration: 10/24/24 14:00 Dose: 20 mcg/kg/min, 6.9 mls/hr Documented By: CAM Co-signed By: LAF Titration: 10/24/24 09:00 Dose: 10 mcg/kg/min, 3.5 mls/hr Documented By: Admin: 10/23/24 14:38 Dose: Not Given Documented By: Admin: 10/23/24 14:37 Dose: Not Given Documented By: Titration: 10/23/24 11:10 Dose: 0 mcg/kg/min, 0 mls/hr Documented By: Titration: 10/23/24 11:07 Dose: 10 mcg/kg/min, 3.5 mls/hr Documented By: Titration: 10/23/24 11:01 Dose: 20 mcg/kg/min, 6.9 mls/hr Documented By: Titration: 10/23/24 10:36 Dose: 25 mcg/kg/min, 8.7 mls/hr Documented By: Titration: 10/23/24 08:50 Dose: 30 mcg/kg/min, 10.4 mls/hr Documented By: Titration: 10/23/24 08:42 Dose: 35 mcg/kg/min, 12.1 mls/hr Documented By: Admin: 10/23/24 06:27 Dose: 40 mcg/kg/min, 13.8 mls/hr Documented By: REGINA Co-signed By: DINAH Titration: 10/23/24 06:27 Dose: Infused Documented By: REGINA Co-signed By: DINAH Admin: 10/23/24 00:48 Dose: 40 mcg/kg/min, 13.8 mls/hr Documented By: REGINA Co-signed By: DINAH Titration: 10/23/24 00:22 Dose: Infused Documented By: MNAmanda Co-signed By: DINAH Titration: 10/22/24 18:57 Dose: 40 mcg/kg/min, 13.8 mls/hr Documented By: DINAH Co-signed By: CB Admin: 10/22/24 17:07 Dose: 40 mcg/kg/min, 13.8 mls/hr Documented By: JUNITO Co-signed By: AMS Titration: 10/22/24 17:07 Dose: Infused Documented By: JUNITO Co-signed By: AMS Titration: 10/22/24 13:30 Dose: 40 mcg/kg/min, 13.8 mls/hr Documented By: Titration: 10/22/24 13:00 Dose: 40 mcg/kg/min, 13.8 mls/hr Documented By: Titration: 10/22/24 12:30 Dose: 35 mcg/kg/min, 12.1 mls/hr Documented By: Titration: 10/22/24 12:00 Dose: 30 mcg/kg/min, 10.4 mls/hr Documented By: Titration: 10/22/24 11:40 Dose: 25 mcg/kg/min, 8.7 mls/hr Documented By: Admin: 10/22/24 09:44 Dose: 20 mcg/kg/min, 6.9 mls/hr Documented By: KOFIK Co-signed By: ARACELI Norepinephrine Bitartrate (Levophed/D5w) 4 mg in 250 mls @ 0 mls/hr IV .Q0M [facility]; Protocol Stop: 11/21/24 09:44 Last Admin: 10/23/24 14:38 Dose: Not Given Documented By: Titration: 10/23/24 11:01 Dose: 0 mcg/kg/min, 0 mls/hr Documented By: PERRI Co-signed By: NENO Titration: 10/23/24 10:36 Dose: 0.03 mcg/kg/min, 6.5 mls/hr Documented By: JLM Co-signed By: LAF Admin: 10/23/24 06:27 Dose: 0.05 mcg/kg/min, 10.8 mls/hr Documented By: MNM Co-signed By: JAAndrew Titration: 10/23/24 06:27 Dose: Infused Documented By: MNM Co-signed By: JAA Titration: 10/23/24 06:14 Dose: 0.05 mcg/kg/min, 10.8 mls/hr Documented By: MNM Co-signed By: JAA Titration: 10/23/24 04:29 Dose: 0.03 mcg/kg/min, 6.5 mls/hr Documented By: MNAmanda Co-signed By: JAA Titration: 10/23/24 00:05 Dose: 0.05 mcg/kg/min, 10.8 mls/hr Documented By: MNM Co-signed By: JAA Titration: 10/22/24 23:00 Dose: 0.03 mcg/kg/min, 6.5 mls/hr Documented By: MNM Co-signed By: JAA Titration: 10/22/24 19:57 Dose: 0.05 mcg/kg/min, 10.8 mls/hr Documented By: MNM Co-signed By: JAA Titration: 10/22/24 19:41 Dose: 0 mcg/kg/min, 0 mls/hr Documented By: JAAndrew Co-signed By: MNM Titration: 10/22/24 18:57 Dose: 0.05 mcg/kg/min, 10.8 mls/hr Documented By: DINAH Co-signed By: CB Titration: 10/22/24 17:07 Dose: 0.05 mcg/kg/min, 10.8 mls/hr Documented By: CB Co-signed By: AMS Titration: 10/22/24 14:27 Dose: 0.07 mcg/kg/min, 15.1 mls/hr Documented By: CB Co-signed By: AMS Titration: 10/22/24 12:00 Dose: 0.07 mcg/kg/min, 15.1 mls/hr Documented By: CB Co-signed By: AMS Admin: 10/22/24 10:59 Dose: 0.05 mcg/kg/min, 10.8 mls/hr Documented By: MINE Co-signed By: EDDIE Azithromycin 250 mg/ Sodium (Chloride) 252.5 mls @ 126.25 mls/hr IV Q24H [facility] Stop: 10/26/24 10:59 Last Admin: 10/25/24 08:08 Dose: 126 mls/hr Documented By: Infusion: 10/24/24 19:10 Dose: Infused Documented By: Admin: 10/24/24 09:42 Dose: 126 mls/hr Documented By: Infusion: 10/23/24 12:59 Dose: Infused Documented By: Admin: 10/23/24 10:32 Dose: 126.3 mls/hr Documented By: PERRI Pantoprazole Sodium (Protonix) 40 mg in 10 mls @ 5 mls/min IV DAILY [facility] Stop: 11/21/24 11:59 Last Admin: 10/25/24 08:03 Dose: 5 mls/min Documented By: Admin: 10/24/24 08:14 Dose: 5 mls/min Documented By: Admin: 10/23/24 07:58 Dose: 5 mls/min Documented By: Admin: 10/22/24 13:18 Dose: 5 mls/min Documented By: JUNITO Ampicillin Sodium/Sulbactam Sodium (Unasyn) 3,000 mg in 100 mls @ 200 mls/hr IV Q6H [facility]; Protocol Stop: 10/29/24 11:59 Last Infusion: 10/25/24 06:04 Dose: Infused Documented By: Admin: 10/25/24 05:26 Dose: 200 mls/hr Documented By: Infusion: 10/25/24 00:49 Dose: Infused Documented By: Admin: 10/24/24 23:42 Dose: 200 mls/hr Documented By: Infusion: 10/24/24 19:09 Dose: Infused Documented By: Admin: 10/24/24 17:20 Dose: 200 mls/hr Documented By: Infusion: 10/24/24 14:02 Dose: Infused Documented By: Admin: 10/24/24 11:57 Dose: 200 mls/hr Documented By: JENNY Miscellaneous (Icu Electrolyte Replacement Protocol) 1 each N/A BID@ [facility]; Protocol Stop: 10/29/24 17:59 Last Admin: 10/25/24 05:08 Dose: 1 each Documented By: Admin: 10/24/24 17:00 Dose: Not Given Documented By: Admin: 10/24/24 06:41 Dose: 1 each Documented By: Admin: 10/23/24 17:38 Dose: 1 each Documented By: Admin: 10/23/24 06:14 Dose: 1 each Documented By: Admin: 10/22/24 17:43 Dose: Not Given Documented By: JUNITO Potassium Phosphate (Pot Phosphate Monobasic W/ Sod Tab) 1 tab PO Q4H [facility] Stop: 10/25/24 09:31 Last Admin: 10/25/24 08:01 Dose: 1 tab Documented By: Admin: 10/25/24 05:27 Dose: 1 tab Documented By: DINAH Propofol (Propofol Bolus From Bag) 20 mg IV Q5M PRN PRN Reason: Sedation Stop: 10/25/24 08:54 Last Admin: 10/22/24 19:41 Dose: 20 mg Documented By: DINAH Co-signed By: REGINA Ticagrelor (Ticagrelor 90 Mg Tab) 90 mg OG BID [facility] Stop: 11/21/24 12:27 Last Admin: 10/24/24 19:58 Dose: 90 mg Documented By: Admin: 10/24/24 08:13 Dose: 90 mg Documented By: Admin: 10/23/24 20:55 Dose: 90 mg Documented By: Admin: 10/23/24 08:00 Dose: 90 mg Documented By: Admin: 10/22/24 20:40 Dose: 90 mg Documented By: Admin: 10/22/24 13:48 Dose: 90 mg Documented By: JUNITO Discontinued Medications Fentanyl Citrate (Fentanyl Citrate Pf 100 Mcg/2 Ml Vial) 50 mcg IV NOW STA Stop: 10/22/24 12:28 Last Admin: 10/22/24 12:33 Dose: 50 mcg Documented By: ANATOLIY Furosemide (Furosemide Inj 20 Mg/2 Ml Vial) 20 mg IV ONE ONE Stop: 10/23/24 16:52 Last Admin: 10/23/24 17:46 Dose: 20 mg Documented By: PERRI Gadobutrol (Gadobutrol 65ml Vial) 5.5 ml IV ONCE ONE Stop: 10/24/24 13:14 Last Admin: 10/24/24 13:14 Dose: 5.5 ml Documented By: LILIBETH Heparin Sodium (Porcine) (Heparin Sod (Porcine) 1000 Unit/Ml) 3,000 units IV NOW ONE Stop: 10/22/24 15:46 Last Admin: 10/22/24 16:17 Dose: 3,000 units Documented By: JUNITO Co-signed By: KASSY Heparin Sodium/Dextrose (Heparin Iv Adult Wt-Based Low-Dose W/ Initial Bolus Protocol) 1 each IV NOW STA; Protocol Stop: 10/22/24 14:55 Last Admin: 10/22/24 16:17 Dose: Not Given Documented By: JUNITO Hydrocortisone Sodium Succinate (Hydrocortisone Sod Succinate 100 Mg/2 Ml Vial) Confirm Administered Dose 100 mg .ROUTE .STK-MED ONE Stop: 10/22/24 12:19 Last Admin: 10/22/24 12:20 Dose: 100 mg Documented By: DAXA Ceftriaxone Sodium (Rocephin) 2,000 mg in 50 mls @ 100 mls/hr IV NOW STA Stop: 10/22/24 08:55 Last Infusion: 10/22/24 09:31 Dose: Infused Documented By: Admin: 10/22/24 08:49 Dose: 100 mls/hr Documented By: LATANYA Sodium Chloride (Nss) 1,000 mls @ 999 mls/hr IV .Q1H1M ONE Stop: 10/22/24 10:10 Last Infusion: 10/22/24 09:31 Dose: Infused Documented By: Admin: 10/22/24 08:30 Dose: 999 mls/hr Documented By: MINE Sodium Chloride (Nss) 1,000 mls @ 999 mls/hr IV .Q1H1M ONE Stop: 10/22/24 10:13 Last Infusion: 10/22/24 10:18 Dose: Infused Documented By: Admin: 10/22/24 09:21 Dose: 999 mls/hr Documented By: MINE Vancomycin HCl 1,250 mg/ (Sodium Chloride) 525 mls @ 200 mls/hr IV NOW ONE Stop: 10/22/24 12:15 Last Infusion: 10/22/24 15:32 Dose: Infused Documented By: Admin: 10/22/24 10:16 Dose: 200 mls/hr Documented By: MINE Vancomycin HCl 750 mg/ Sodium (Chloride) 265 mls @ 200 mls/hr IV Q24H [facility] Stop: 10/27/24 17:59 Last Infusion: 10/22/24 19:57 Dose: Infused Documented By: Admin: 10/22/24 17:43 Dose: 200 mls/hr Documented By: JUNITO Azithromycin 500 mg/ Sodium (Chloride) 255 mls @ 127.5 mls/hr IV NOW ONE Stop: 10/22/24 13:14 Last Infusion: 10/22/24 15:32 Dose: Infused Documented By: Admin: 10/22/24 12:00 Dose: 127.5 mls/hr Documented By: JUNITO Cefepime HCl (Maxipime 2000mg) 1,000 mg in 10 mls @ 5 mls/min IV Q12H [facility] Stop: 10/25/24 00:00 Last Admin: 10/22/24 23:52 Dose: 5 mls/min Documented By: DINAH Cefepime HCl (Maxipime 2000mg) 2,000 mg in 20 mls @ 5 mls/min IV NOW ONE Stop: 10/22/24 12:33 Last Admin: 10/22/24 13:19 Dose: 5 mls/min Documented By: JUNITO Hydrocortisone Sodium (Succinate 100 mg/ Syringe) 2 mls @ 4 mls/min IV NOW STA Stop: 10/22/24 12:35 Last Admin: 10/22/24 12:20 Dose: 4 mls/min Documented By: JUNITO Lactated Ringer's (Lr) 1,000 mls @ 999 mls/hr IV .Q1H1M ONE Stop: 10/22/24 13:35 Last Infusion: 10/22/24 15:32 Dose: Infused Documented By: Admin: 10/22/24 12:20 Dose: 999 mls/hr Documented By: JUNITO Heparin Sodium/Dextrose (Heparin 15614 Unit/500 Ml D5w) 25,000 units in 500 mls @ 0 mls/hr IV .Q0M [facility]; Protocol Stop: 11/21/24 15:14 Last Titration: 10/24/24 06:32 Dose: 0 units/hr, 0 mls/hr Documented By: ISRAEL Co-signed By: RORO Admin: 10/24/24 04:10 Dose: 650 units/hr, 13 mls/hr Documented By: DINAH Co-signed By: ISRAEL Titration: 10/24/24 04:10 Dose: Infused Documented By: DINAH Co-signed By: ISRAEL Admin: 10/23/24 21:54 Dose: Not Given Documented By: Titration: 10/23/24 20:05 Dose: 650 units/hr, 13 mls/hr Documented By: ISRAEL Co-signed By: DINAH Titration: 10/23/24 00:02 Dose: 650 units/hr, 13 mls/hr Documented By: DINAH Co-signed By: REGINA Titration: 10/22/24 18:57 Dose: 650 units/hr, 13 mls/hr Documented By: DINAH Co-signed By: JUNITO Admin: 10/22/24 16:16 Dose: 650 units/hr, 13 mls/hr Documented By: JUNITO Co-signed By: KASSY Cefepime HCl (Maxipime 2000mg) 2,000 mg in 20 mls @ 5 mls/min IV Q12H [facility] Stop: 10/25/24 00:00 Last Admin: 10/24/24 11:20 Dose: 5 mls/min Documented By: Admin: 10/24/24 00:05 Dose: 5 mls/min Documented By: Admin: 10/23/24 12:00 Dose: 5 mls/min Documented By: PERRI Ioversol (Optiray 320 125ml) 112 ml IV ONCE ONE Stop: 10/24/24 07:00 Last Admin: 10/24/24 07:00 Dose: 112 ml Documented By: TAMIKA Magnesium Oxide (Magnesium Oxide 400 Mg Tab) 400 mg NG Q4H [facility] Stop: 10/23/24 09:16 Last Admin: 10/23/24 08:00 Dose: 400 mg Documented By: Admin: 10/23/24 06:14 Dose: 400 mg Documented By: DINAH Miscellaneous (Rapid Sequence Induction Bag) Confirm Administered Dose 1 each N/A .STK-MED ONE Stop: 10/22/24 08:27 Last Admin: 10/22/24 12:01 Dose: Not Given Documented By: JUNITO Miranda (Stat Iv Infusion Titration Per Protocol) 1 each N/A NOW STA Stop: 10/22/24 08:56 Last Admin: 10/22/24 12:01 Dose: Not Given Documented By: JUNITO Miranda (Icu Protocol For Hyperglycemia) 1 each N/A ACHS [facility] Stop: 10/24/24 12:27 Last Admin: 10/22/24 13:45 Dose: Not Given Documented By: JUNITO Miranda (Icu Protocol For Hyperglycemia) 1 each N/A Q6 [facility] Stop: 10/24/24 12:27 Last Admin: 10/24/24 11:57 Dose: Not Given Documented By: Admin: 10/24/24 06:26 Dose: 1 each Documented By: Admin: 10/24/24 00:05 Dose: Not Given Documented By: Admin: 10/23/24 17:39 Dose: 1 each Documented By: Admin: 10/23/24 12:49 Dose: 1 each Documented By: Admin: 10/23/24 05:04 Dose: Not Given Documented By: Admin: 10/22/24 23:52 Dose: Not Given Documented By: Admin: 10/22/24 17:44 Dose: 1 each Documented By: JUNITO Miranda (Rapid Sequence Induction Bag) Confirm Administered Dose 1 each N/A .STK-MED ONE Stop: 10/24/24 06:04 Last Admin: 10/24/24 06:26 Dose: 1 each Documented By: ISRAEL Nitroglycerin (Nitroglycerin 60 Sprays/4.9 Gm [place]) Confirm Administered Dose 1 sprays SL .STK-MED ONE Stop: 10/22/24 08:11 Last Admin: 10/22/24 08:12 Dose: 1 sprays Documented By: LATANYA Potassium Chloride (Potassium Chloride 20 Meq/15 Ml Udc) 40 meq NG Q4H [facility] Stop: 10/24/24 10:46 Last Admin: 10/24/24 11:19 Dose: 40 meq Documented By: Admin: 10/24/24 08:12 Dose: 40 meq Documented By: JENNY Potassium Chloride (Potassium Chloride Crtab 20 Meq Tabcr) 20 meq PO NOW ONE Stop: 10/25/24 05:31 Last Admin: 10/25/24 05:27 Dose: 20 meq Documented By: DIANH Potassium Chloride (Potassium Chloride 20 Meq/15 Ml Udc) 20 meq NG NOW STA Stop: 10/25/24 07:14 Last Admin: 10/25/24 08:01 Dose: 20 meq Documented By: JENNY Propofol (Propofol Iv Emulsion 10 Mg/Ml 100 Ml Vial) Confirm Administered Dose 1,000 mg IV .AYLIEN-FAD ? IO ONE Stop: 10/22/24 08:59 Last Admin: 10/22/24 09:44 Dose: Not Given Documented By: MINE Description This is a 21 electrode EEG with a single channel dedicated to limited EKG. The electrodes were placed in accordance with the International 10-20 system. There is a mix of 4.5 Hz theta and intermittent frontal 2.5 Hz delta activity. Intermittent triphasic waves are present. Photic stimulation does not induce any change in the observed rhythms. There is no focal slowing. There are no epileptiform abnormalities. Interpretation Abnormal awake/drowsy EEG consistent with a nonspecific encephalopathy. No evidence of subclinical seizure activity. [facility] EEG Procedure Codes Indication for Procedure (1) Encephalopathy: Neurology Neurology: 55684 EEG include record awake & drowsy
[2024-10-25] MEDS ORDERED: PROPOFOL BOLUS FROM BAG IV PRN (11:01)
[2024-10-25] MEDS ORDERED: STAT IV Infusion **Titration per Protocol STA (11:01)
--- NOTE | 2024-10-25 11:19 | Procedure Note ---
Procedure Note Date of Service October 25, 2024 Procedure date: Noted above Procedure: fiberoptic bronchoscopy Pre-procedure indication: Pulmonary infiltrate, recurrent respiratory failure Post-procedure Diagnosis: same as above Prior to Procedure: Informed Consent: The risks, benefits, indications, potential complications, and alternatives were explained to the patient's and informed consent obtained. Attending Staff: Bonnie Spears DO Resident/APC: Not applicable Skin Prep: Not applicable Anesthesia: Continuous infusion of propofol The identity of the patient was confirmed and a bedside time out was performed. Description of Procedure: Fiberoptic bronchoscopy was performed via endotracheal tube. Bronchioalveolar lavage left lower lobe was performed. Findings included: Minimal mucoid impactions. Of note there was significant excessive dynamic airway collapse nearly 100% from distal trachea into the proximal airways. Complications: None Specimens: None Estimated blood loss: Zero [facility] Procedure Codes (Charges) Pulmonary/Thoracic Procedure 1: Pulmonary and Thoracic: 66714 Dx bronchoscopy/BAL Coding CPT Codes Pulmonary/Thoracic - Pulmonary and Thoracic: 71125 Dx bronchoscopy/BAL ([id number]) Additional Codes Date of Service ([facility].SURGERY)
[2024-10-25] MEDS: propofoL 1,000 MG/100 ML VIAL IV SCH (11:26)
--- NOTE | 2024-10-25 12:26 | Palliative Care Consultation ---
Date of Consultation October 25, 2024 Assessment & Plan (1) Dyspnea and respiratory abnormalities: (2) Dementia: (3) Recurrent falls: (4) Failure to thrive in adult: (5) Palliative care by specialist: Introduced Palliative Medicine and explained our role in patient's care. Patient and/or family were receptive to palliative services for goals of care discussions. Reviewed we are different from hospice, a home health nurse visiting service. (6) Discussion about advance care planning held with family member: 30min face to face ACP with , together with Drs. Spears and Vikas, in family meeting room outside the ICU. pt unable to participate, lacks capacity/remains sedated and intubated. Clinical events to date reviewed, bronchoscopy findings discussed. Reviewed multiple body systems failing - lungs, heart, brain/neuro (d/t dementia) along with declining PS/recurrent falls and inability to follow PT d/t worsening dementia. She had been at rehab for 2 mos prior to this admission with "very little improvement" per . Goals and options for ACP discussed. 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 She would not want to live on machines and dependent on others for all her care. He admits there has not been much discussion about dementia as a progressive illness and what to expect but he knows she has been worsening for past 1.5 years. We reviewed progressive dementia and COPD. We reviewed her adv multivessel heart disease and the "unfixability" of all of these issues - these are chronically progressive illness which are going to continue to progress/worsen over time and they are not curable. Code status discussed. In light of the above information, her bronch findings and overall decline, agrees to no code and agrees to move her to comfort care, but asks that we wait for his daughter to be here before extubation. We agreed that if patient remains stable thru weekend, then plan to return to [facility] with hospice/no agency preference. Otherwise, consider GIP eval. acknowledges he is suffering. He is isolated and does not feel well supported. We discussed resources for support and offered additional support with [facility] occupational therapist home based as well as community groups. For now, declines all of the offered resources, states he wants to wait for his daughter. Plan As above Thank you for allowing us to participate in the ongoing care of this patient. Please page with any additional concerns. Washington Herrera DNP Director, Palliative Medicine History of Present Illness Reason for Consultation: [facility] Attending Physician: Say Reyes History of Present Illness 4-year-old female respiratory failure, leukocytosis,. Due to borderline asked, she does not. She has severe multivessel coronary disease. She is not a candidate for further intervention from a cardiothoracic perspective. Echocardiogram. Mild aortic stenosis. She had a recent NSTEMI. She has known cardiomyopathy and acute on chronic congestive heart failure with known left bundle branch block. Extensive CAD with a history of RCA, PCI, severe residual multivessel disease with demand ischemia. She had wide-complex tachycardia on admission. Troponin is elevated suspected to be demand related from sepsis and hypoxia and not true ACS. Heparinization was not recommended additional medical issues include COPD, hypothyroid, history of a close right femur fracture status post total joint arthroplasty 1124 with a general need for level of performance status poor mobility and mostly wheelchair-bound at the [facility]. Nutritional intake is poor. She has progressive dementia. She has been steadily declining per her for the last 1 years. She does not have any children. Her daughter from lung cancer a few years. notes that his daughter to provide additional support for him and he states "I know it does not look, it is not good for her and it certainly not going well. She has a dense consolidation in the left lung for which she underwent bronchoscopy today. She remains on mechanical ventilation and it is felt that her respiratory failure was likely secondary to mucoid impaction versus a true pneumonia. Bronchoscopy demonstrated minimal mucoid impaction on the left significant excessive dynamic airway collapse nearly 100%, distal trachea into the proximal airways. Allergies Allergy/AdvReac Type Severity Reaction Status Date / Time adhesive Allergy Mild LOCAL SKIN Verified 09/26/24 13:38 IRRITATION Home Medications Medication Instructions Recorded Confirmed Type multivitamin 1 tab PO QAM 12/21/18 10/22/24 History levothyroxine 25 mcg tablet 25 mcg PO QAM 07/25/19 10/22/24 History (Synthroid) acetaminophen 500 mg tablet 1,000 mg PO TID 04/15/23 10/22/24 History albuterol sulfate 90 mcg/actuation 2 inh inhalation QID PRN shortness 06/09/23 10/22/24 Rx aerosol inhaler of breath or wheezing #8.5 grams pantoprazole 40 mg tablet,delayed 40 mg PO QAM #90 tabs 05/01/24 10/22/24 Rx release fluticasone fur. 100 mcg-umeclid 1 inh inhalation DAILY #3 Inhalers 05/29/24 10/22/24 Rx 62.5 mcg-vilant 25 mcg inhalat.powder (Trelegy Ellipta) vibegron 75 mg tablet 75 mg PO DAILY #90 tabs 07/13/24 10/22/24 Rx trazodone 100 mg tablet 50 mg (1/2 x 100 mg) PO HS #90 tabs 09/26/24 10/22/24 Rx aspirin 81 mg tablet,delayed 81 mg PO DAILY 09/28/24 10/22/24 History release atorvastatin 40 mg tablet 40 mg PO DAILY 09/28/24 10/22/24 History cholecalciferol (vitamin D3) 125 125 mcg PO DAILY 09/28/24 10/22/24 History mcg (5,000 unit) capsule oxycodone 5 mg tablet 2.5 - 5 mg PO .Q4-6H PRN Pain 09/28/24 10/22/24 History polyethylene glycol 3350 17 gram 17 g PO DAILY 09/28/24 10/22/24 History oral powder packet sennosides 8.6 mg tablet (senna) 8.6 mg PO DAILY 09/28/24 10/22/24 History ticagrelor 90 mg tablet 90 mg PO BID 09/28/24 10/22/24 History diclofenac sodium 1 % topical gel 2 g topical DIRECTED PRN Pain 10/22/24 10/22/24 History irbesartan 300 1 tab PO DAILY 10/22/24 10/22/24 History mg-hydrochlorothiazide 12.5 mg tablet sertraline 25 mg tablet 25 mg PO DAILY 10/22/24 10/22/24 History Patient History Medical History History of non-ST elevation myocardial infarction (NSTEMI) 07/2024 [facility]. PCI to RCA History of femur fracture (06/17/22) comminuted intratrochanteric fracture of the left femur from a fall Fall Closed intertrochanteric fracture of left femur Surgical History Hx of cardiac cath 07/2024 [facility]. PCI to RCA History of repair of right rotator cuff History of bladder surgery bladder tack History of hysterectomy History of dilatation and curettage History of bunionectomy of right great toe History of open reduction and internal fixation (ORIF) procedure left wrist, hardware removed History of carpal tunnel surgery of left wrist History of lumbar spinal fusion x4--T12-S1 fusion Hx of cervical spine surgery normal ROM History of total right knee replacement (TKR) History of colonoscopy History of esophagogastroduodenoscopy (EGD) History of appendectomy History of tooth extraction all teeth History of bilateral cataract extraction Hx of cataract surgery H/O rotator cuff surgery H/O Spinal surgery Family History Sister Family history of diabetes mellitus 2 Other No family history of adverse response to anesthesia Social History Smoking Status: Never smoker Second Hand Exposure: Yes; Do You Dip or Chew Tobacco: No; Hx Alcohol Use: No Hx Substance Use: No Preferred Language: Thai Communication Ability: Unable Visual Impairment: Partially Limited Hearing Ability: Normal General Assignment Reporter Required: No Beliefs That Will Affect Care: Spiritual marital status: Current Living Situation: Prison Current Living Situation Comment: Lives with and grandson Feels Safe at Home: Declines to Answer Diet: regular caffeine: Yes during the past year weight has: remained stable Assistive Devices: Oxygen - at Night, Walker and Wheelchair Review of Systems Review of Systems: All systems reviewed & are unremarkable except as noted in Subjective Physical Exam Physical Exam: Chronically, chronically ill-appearing elderly female, mechanically ventilated, sedated. Unable to follow commands. Skin is pale, warm to touch. Respiratory effort within acceptable limits/mechanically ventilated. Results & Data Vital Signs (Past 12 Hours) Vital Signs Temp Pulse Resp BP Pulse Ox O2 Del Method FiO2 10/25/24 11:23 0.35 10/25/24 11:10 127/56 L 10/25/24 11:06 62 18 98 10/25/24 11:03 60 18 98 Mechanical Vent 1.0 10/25/24 11:00 108/49 L 10/25/24 11:00 60 18 97 10/25/24 10:55 56 L 18 98 35 10/25/24 10:39 57 L 18 97 10/25/24 10:30 109/49 L 10/25/24 10:30 109/49 L 10/25/24 10:24 58 L 18 97 10/25/24 10:03 61 18 96 10/25/24 10:00 91/42 L 10/25/24 10:00 91/42 L 10/25/24 09:51 60 18 96 10/25/24 09:30 99/45 L 10/25/24 09:30 99/45 L 10/25/24 09:30 63 18 96 10/25/24 09:00 102/46 L 10/25/24 09:00 102/46 L 10/25/24 09:00 102/46 L 10/25/24 09:00 60 18 96 10/25/24 08:33 60 18 99 Mechanical Vent 0.35 10/25/24 08:30 118/49 L 10/25/24 08:30 118/49 L 10/25/24 08:24 67 18 98 10/25/24 08:22 37.6 C H 10/25/24 08:18 67 20 98 10/25/24 08:01 129/41 L 10/25/24 08:01 129/41 L 10/25/24 08:01 129/41 L 10/25/24 08:01 129/41 L 10/25/24 08:00 66 19 97 10/25/24 08:00 Mechanical Vent 0.35 10/25/24 07:51 65 19 98 10/25/24 07:42 64 19 98 10/25/24 07:35 62 18 96 35 10/25/24 07:33 35 10/25/24 07:27 61 18 96 10/25/24 07:00 59 L 18 98 10/25/24 07:00 106/52 L 10/25/24 07:00 106/52 L 10/25/24 05:53 91/36 L 10/25/24 05:52 91/33 L 10/25/24 05:51 66 18 96 10/25/24 05:45 66 21 96 10/25/24 05:30 89/38 L 10/25/24 05:30 63 18 10/25/24 05:24 65 18 97 10/25/24 05:06 69 22 97 10/25/24 05:00 116/43 L 10/25/24 05:00 116/43 L 10/25/24 04:51 71 23 97 10/25/24 04:45 72 20 97 10/25/24 04:30 118/51 L 10/25/24 04:30 118/51 L 10/25/24 04:21 70 19 98 10/25/24 04:15 68 19 98 10/25/24 04:03 66 18 97 10/25/24 04:00 106/48 L 10/25/24 04:00 106/48 L 10/25/24 04:00 106/48 L 10/25/24 03:54 35 10/25/24 03:45 67 18 97 10/25/24 03:42 69 18 98 10/25/24 03:30 118/47 L 10/25/24 03:30 118/47 L 10/25/24 03:30 118/47 L 10/25/24 03:30 71 18 96 10/25/24 03:21 70 18 96 10/25/24 03:15 67 18 96 35 10/25/24 03:12 70 18 96 10/25/24 03:09 71 18 96 10/25/24 02:51 71 18 96 10/25/24 02:30 67 18 10/25/24 02:30 96/43 L 10/25/24 02:24 67 18 97 10/25/24 02:15 64 18 97 10/25/24 02:00 70 18 10/25/24 02:00 122/51 L 10/25/24 02:00 36.8 C 10/25/24 01:51 75 21 98 10/25/24 01:42 70 20 98 10/25/24 01:30 123/54 L 10/25/24 01:30 123/54 L 10/25/24 01:30 123/54 L 10/25/24 01:30 65 18 99 10/25/24 01:12 66 18 100 10/25/24 01:03 63 18 99 10/25/24 01:00 109/41 L 10/25/24 01:00 109/41 L 10/25/24 01:00 109/41 L 10/25/24 00:51 64 18 98 10/25/24 00:48 63 18 97 10/25/24 00:30 91/51 L 10/25/24 00:30 66 18 10/25/24 00:24 67 18 96 Laboratory Results 10/25/24 10/25/24 10/25/24 Range/Units 12:09 04:14 00:16 WBC 12.48 H (4.8-10.8) K/ul RBC 2.68 L (4.20-5.40) M/uL Hgb 7.5 L (12.0-16.0) g/dl POC Hgb (12.0-16.0) g/dl Hct 23.9 L (37.0-47.0) % POC Hct (37-47) % MCV 89.2 (80.0-100.0) fL MCH 28.0 (25.0-34.0) pg MCHC 31.4 L (32.0-36.0) g/dL RDW Std Deviation 44.9 (36.4-46.3) fL RDW Coeff of Rajiv 13.9 (11.5-14.5) % Plt Count 275 (130-400) K/uL MPV 10.1 (9.4-12.4) fL Immature Gran % (Auto) 0.6 % Neut % (Auto) 81.5 % Lymph % (Auto) 7.2 % [place] % (Auto) 7.9 % Eos % (Auto) 1.8 % Baso % (Auto) 1.0 % Neut # (Auto) 10.17 H (1.40-6.50) K/uL Lymph # (Auto) 0.90 L (1.20-3.40) K/uL [place] # (Auto) 0.99 H (0.11-0.59) K/uL Eos # (Auto) 0.22 (0.00-0.50) K/uL Baso # (Auto) 0.13 (0.00-0.20) K/uL Immature Gran # (Auto) 0.07 (0.01-0.20) K/uL Polychromasia 1+ PT (9.0-12.0) Seconds INR (0.9-1.1) APTT (21-31) Seconds PTT Ratio Heparin Anti-Xa, Unfract (0.3-0.7) IU/ml Specimen Type Sample Site POC pH (7.35-7.45) POC pCO2 (35-46) mmHg POC pO2 (80-95) mmHg POC HCO3 (19-24) sonja/L POC Base Excess (-9-1.8) sonja/L O2 Sat Pulse Oximetry ABG pH (Temp Correct) (7.35-7.45) ABG pCO2 (Temp Corrct (35-46) mmHg POC ABG pO2 at Pt Temp POC ABG O2 Sat (90-95) % Tushar Test VBG pH (7.36-7.41) VBG pCO2 (38-50) mmHg VBG pO2 mmHg VBG HCO3 mmol/L VBG O2 Saturation % VBG Base Excess mEq/L O2 Delivery Device Vent Mode POC FiO2 % End Tidal CO2 POC Sodium (135-144) mmol/L Sodium 139 (136-145) mmol/L POC Potassium (3.3-5.0) mmol/L Potassium 3.9 (3.5-5.1) mmol/L POC Chloride (101-112) mmol/L Chloride 108 H (98-107) mmol/L Carbon Dioxide 24 (21-32) mmol/L POC Total CO2 (24-31) mmol/L Anion Gap 7 (3-11) POC Anion Gap (16-25) mmol/L POC BUN (7-18) mg/dl BUN 27 H (6-23) mg/dl Creatinine 1.14 (0.6-1.2) mg/dl POC Creatinine (0.6-1.3) mg/dl Est Cr Clr Drug Dosing 28.0 eGFR 46.88 BUN/Creatinine Ratio 23.7 H (10-20) Glucose 74 (70-99(Fasting)) mg/dl POC Glucose 89 82 (70-99) mg/dl POC Glucose (other) (70-99) mg/dl Lactate (0.4-2.0) mmol/L Calcium 8.4 L (8.6-10.3) mg/dl POC Ioniz Calcium Leatha (1.12-1.32) mmol/l Phosphorus 2.3 L (2.5-4.9) mg/dl Magnesium (1.7-2.4) mg/dl Total Bilirubin 0.4 (0.2-1.0) mg/dl Direct Bilirubin (0-0.2) mg/dl AST 67 H (13-39) U/L ALT 36 (7-52) U/L Alkaline Phosphatase 96 (34-104) U/L Troponin I High Sens (0-14) pg/ml B-Natriuretic Peptide (0-100) pg/ml Total Protein 5.1 L (6.0-8.3) gm/dl Albumin 2.7 L (3.4-5.0) gm/dl Globulin 2.4 L (2.5-4.0) gm/dl Albumin/Globulin Ratio 1.1 (0.9-2) Procalcitonin (0-0.5) ng/ml Random Cortisol mcg/dl Urine Color Urine Appearance (Clear) Urine pH (4.5-7.5) Ur Specific Grand Chain (1.000-1.030) Urine Protein (Negative) Urine Glucose (UA) (Negative) Urine Ketones (Negative) Urine Blood (Negative) Urine Nitrite (Negative) Urine Bilirubin (Negative) Urine Urobilinogen (Negative) Ur Leukocyte Esterase (Negative) Urine WBC (Auto) (0-5) /hpf Urine RBC (Auto) (0-2) /hpf U Hyaline Cast (Auto) (0-2) /lpf U Epithel Cells (Auto) (0-2) /hpf Urine Bacteria (Auto) (None Seen) Fluid Neutrophils % % Fluid Lymphocytes % % Fl Monocyt/Macrophag % % Fluid Comment Nasal Screen MRSA (PCR) (Negative) Adenovirus (PCR) (NotDetected) B. pertussis DNA (PCR) (NotDetected) B.parapertussis DNA PCR (NotDetected) C. pneumoniae DNA (PCR) (NotDetected) Coronavirus OC43 (PCR) (NotDetected) Coronavirus HKU1 (PCR) (NotDetected) Coronavirus 229E (PCR) (NotDetected) SARS-CoV-2 (PCR) (NotDetected) Coronavirus NL63 (PCR) (NotDetected) Human Metapneumovir PCR (NotDetected) Influenza Type A (PCR) (NotDetected) Influenza Type B (PCR) (NotDetected) Legionella Source Legionella Culture Urine Legionella Ag M. pneumoniae (PCR) (NotDetected) Parainfluenza 1 (PCR) (NotDetected) Parainfluenza 2 (PCR) (NotDetected) Parainfluenza 3 (PCR) (NotDetected) Parainfluenza 4 (PCR) (NotDetected) RSV (PCR) (NotDetected) Resp Virus Cult Rapid Entero/Rhino (PCR) (NotDetected) Viral Specimen Source 10/24/24 10/24/24 10/24/24 Range/Units 17:49 11:37 06:30 WBC (4.8-10.8) K/ul RBC (4.20-5.40) M/uL Hgb (12.0-16.0) g/dl POC Hgb 9.9 L (12.0-16.0) g/dl Hct (37.0-47.0) % POC Hct 29 L (37-47) % MCV (80.0-100.0) fL MCH (25.0-34.0) pg MCHC (32.0-36.0) g/dL RDW Std Deviation (36.4-46.3) fL RDW Coeff of Rajiv (11.5-14.5) % Plt Count (130-400) K/uL MPV (9.4-12.4) fL Immature Gran % (Auto) % Neut % (Auto) % Lymph % (Auto) % [place] % (Auto) % Eos % (Auto) % Baso % (Auto) % Neut # (Auto) (1.40-6.50) K/uL Lymph # (Auto) (1.20-3.40) K/uL [place] # (Auto) (0.11-0.59) K/uL Eos # (Auto) (0.00-0.50) K/uL Baso # (Auto) (0.00-0.20) K/uL Immature Gran # (Auto) (0.01-0.20) K/uL Polychromasia PT (9.0-12.0) Seconds INR (0.9-1.1) APTT (21-31) Seconds PTT Ratio Heparin Anti-Xa, Unfract (0.3-0.7) IU/ml Specimen Type Arterial Sample Site L Brachial POC pH 7.20 L (7.35-7.45) POC pCO2 56 H (35-46) mmHg POC pO2 227 H (80-95) mmHg POC HCO3 22 (19-24) sonja/L POC Base Excess -6.0 (-9-1.8) sonja/L O2 Sat Pulse Oximetry 100 ABG pH (Temp Correct) 7.200 L (7.35-7.45) ABG pCO2 (Temp Corrct 56 H (35-46) mmHg POC ABG pO2 at Pt Temp 227 POC ABG O2 Sat 100.0 H (90-95) % Tushar Test NA VBG pH (7.36-7.41) VBG pCO2 (38-50) mmHg VBG pO2 mmHg VBG HCO3 mmol/L VBG O2 Saturation % VBG Base Excess mEq/L O2 Delivery Device Ventilator Vent Mode AC POC FiO2 100 % End Tidal CO2 29 POC Sodium 137 (135-144) mmol/L Sodium (136-145) mmol/L POC Potassium 3.2 L (3.3-5.0) mmol/L Potassium (3.5-5.1) mmol/L POC Chloride (101-112) mmol/L Chloride (98-107) mmol/L Carbon Dioxide (21-32) mmol/L POC Total CO2 23 L (24-31) mmol/L Anion Gap (3-11) POC Anion Gap (16-25) mmol/L POC BUN (7-18) mg/dl BUN (6-23) mg/dl Creatinine (0.6-1.2) mg/dl POC Creatinine (0.6-1.3) mg/dl Est Cr Clr Drug Dosing eGFR BUN/Creatinine Ratio (10-20) Glucose (70-99(Fasting)) mg/dl POC Glucose 80 117 H (70-99) mg/dl POC Glucose (other) (70-99) mg/dl Lactate (0.4-2.0) mmol/L Calcium (8.6-10.3) mg/dl POC Ioniz Calcium Leatha (1.12-1.32) mmol/l Phosphorus (2.5-4.9) mg/dl Magnesium (1.7-2.4) mg/dl Total Bilirubin (0.2-1.0) mg/dl Direct Bilirubin (0-0.2) mg/dl AST (13-39) U/L ALT (7-52) U/L Alkaline Phosphatase (34-104) U/L Troponin I High Sens (0-14) pg/ml B-Natriuretic Peptide (0-100) pg/ml Total Protein (6.0-8.3) gm/dl Albumin (3.4-5.0) gm/dl Globulin (2.5-4.0) gm/dl Albumin/Globulin Ratio (0.9-2) Procalcitonin (0-0.5) ng/ml Random Cortisol mcg/dl Urine Color Urine Appearance (Clear) Urine pH (4.5-7.5) Ur Specific Grand Chain (1.000-1.030) Urine Protein (Negative) Urine Glucose (UA) (Negative) Urine Ketones (Negative) Urine Blood (Negative) Urine Nitrite (Negative) Urine Bilirubin (Negative) Urine Urobilinogen (Negative) Ur Leukocyte Esterase (Negative) Urine WBC (Auto) (0-5) /hpf Urine RBC (Auto) (0-2) /hpf U Hyaline Cast (Auto) (0-2) /lpf U Epithel Cells (Auto) (0-2) /hpf Urine Bacteria (Auto) (None Seen) Fluid Neutrophils % % Fluid Lymphocytes % % Fl Monocyt/Macrophag % % Fluid Comment Nasal Screen MRSA (PCR) (Negative) Adenovirus (PCR) (NotDetected) B. pertussis DNA (PCR) (NotDetected) B.parapertussis DNA PCR (NotDetected) C. pneumoniae DNA (PCR) (NotDetected) Coronavirus OC43 (PCR) (NotDetected) Coronavirus HKU1 (PCR) (NotDetected) Coronavirus 229E (PCR) (NotDetected) SARS-CoV-2 (PCR) (NotDetected) Coronavirus NL63 (PCR) (NotDetected) Human Metapneumovir PCR (NotDetected) Influenza Type A (PCR) (NotDetected) Influenza Type B (PCR) (NotDetected) Legionella Source Legionella Culture Urine Legionella Ag M. pneumoniae (PCR) (NotDetected) Parainfluenza 1 (PCR) (NotDetected) Parainfluenza 2 (PCR) (NotDetected) Parainfluenza 3 (PCR) (NotDetected) Parainfluenza 4 (PCR) (NotDetected) RSV (PCR) (NotDetected) Resp Virus Cult Rapid Entero/Rhino (PCR) (NotDetected) Viral Specimen Source 10/24/24 10/24/24 10/23/24 Range/Units 05:16 05:16 23:59 WBC 14.95 H (4.8-10.8) K/ul RBC 2.64 L (4.20-5.40) M/uL Hgb 7.6 L (12.0-16.0) g/dl POC Hgb (12.0-16.0) g/dl Hct 23.2 L (37.0-47.0) % POC Hct (37-47) % MCV 87.9 (80.0-100.0) fL MCH 28.8 (25.0-34.0) pg MCHC 32.8 (32.0-36.0) g/dL RDW Std Deviation 44.5 (36.4-46.3) fL RDW Coeff of Rajiv 13.7 (11.5-14.5) % Plt Count 263 (130-400) K/uL MPV 9.9 (9.4-12.4) fL Immature Gran % (Auto) 0.5 % Neut % (Auto) 83.8 % Lymph % (Auto) 6.6 % [place] % (Auto) 7.3 % Eos % (Auto) 0.9 % Baso % (Auto) 0.9 % Neut # (Auto) 12.52 H (1.40-6.50) K/uL Lymph # (Auto) 0.99 L (1.20-3.40) K/uL [place] # (Auto) 1.09 H (0.11-0.59) K/uL Eos # (Auto) 0.14 (0.00-0.50) K/uL Baso # (Auto) 0.14 (0.00-0.20) K/uL Immature Gran # (Auto) 0.07 (0.01-0.20) K/uL Polychromasia 1+ PT (9.0-12.0) Seconds INR (0.9-1.1) APTT (21-31) Seconds PTT Ratio Heparin Anti-Xa, Unfract 0.23 L (0.3-0.7) IU/ml Specimen Type Sample Site POC pH (7.35-7.45) POC pCO2 (35-46) mmHg POC pO2 (80-95) mmHg POC HCO3 (19-24) sonja/L POC Base Excess (-9-1.8) sonja/L O2 Sat Pulse Oximetry ABG pH (Temp Correct) (7.35-7.45) ABG pCO2 (Temp Corrct (35-46) mmHg POC ABG pO2 at Pt Temp POC ABG O2 Sat (90-95) % Tushar Test VBG pH (7.36-7.41) VBG pCO2 (38-50) mmHg VBG pO2 mmHg VBG HCO3 mmol/L VBG O2 Saturation % VBG Base Excess mEq/L O2 Delivery Device Vent Mode POC FiO2 % End Tidal CO2 POC Sodium (135-144) mmol/L Sodium 138 (136-145) mmol/L POC Potassium (3.3-5.0) mmol/L Potassium 3.4 L (3.5-5.1) mmol/L POC Chloride (101-112) mmol/L Chloride 106 (98-107) mmol/L Carbon Dioxide 26 (21-32) mmol/L POC Total CO2 (24-31) mmol/L Anion Gap 6 (3-11) POC Anion Gap (16-25) mmol/L POC BUN (7-18) mg/dl BUN 27 H (6-23) mg/dl Creatinine 1.01 (0.6-1.2) mg/dl POC Creatinine (0.6-1.3) mg/dl Est Cr Clr Drug Dosing 34.7 eGFR 54.21 BUN/Creatinine Ratio 26.7 H (10-20) Glucose 80 (70-99(Fasting)) mg/dl POC Glucose 101 H (70-99) mg/dl POC Glucose (other) (70-99) mg/dl Lactate (0.4-2.0) mmol/L Calcium 8.5 L (8.6-10.3) mg/dl POC Ioniz Calcium Leatha (1.12-1.32) mmol/l Phosphorus 2.7 D (2.5-4.9) mg/dl Magnesium Cancelled 1.9 (1.7-2.4) mg/dl Total Bilirubin 0.3 (0.2-1.0) mg/dl Direct Bilirubin (0-0.2) mg/dl AST 31 (13-39) U/L ALT 26 (7-52) U/L Alkaline Phosphatase 74 (34-104) U/L Troponin I High Sens (0-14) pg/ml B-Natriuretic Peptide (0-100) pg/ml Total Protein 5.0 L (6.0-8.3) gm/dl Albumin 2.6 L (3.4-5.0) gm/dl Globulin 2.4 L (2.5-4.0) gm/dl Albumin/Globulin Ratio 1.1 (0.9-2) Procalcitonin (0-0.5) ng/ml Random Cortisol mcg/dl Urine Color Urine Appearance (Clear) Urine pH (4.5-7.5) Ur Specific Grand Chain (1.000-1.030) Urine Protein (Negative) Urine Glucose (UA) (Negative) Urine Ketones (Negative) Urine Blood (Negative) Urine Nitrite (Negative) Urine Bilirubin (Negative) Urine Urobilinogen (Negative) Ur Leukocyte Esterase (Negative) Urine WBC (Auto) (0-5) /hpf Urine RBC (Auto) (0-2) /hpf U Hyaline Cast (Auto) (0-2) /lpf U Epithel Cells (Auto) (0-2) /hpf Urine Bacteria (Auto) (None Seen) Fluid Neutrophils % % Fluid Lymphocytes % % Fl Monocyt/Macrophag % % Fluid Comment Nasal Screen MRSA (PCR) (Negative) Adenovirus (PCR) (NotDetected) B. pertussis DNA (PCR) (NotDetected) B.parapertussis DNA PCR (NotDetected) C. pneumoniae DNA (PCR) (NotDetected) Coronavirus OC43 (PCR) (NotDetected) Coronavirus HKU1 (PCR) (NotDetected) Coronavirus 229E (PCR) (NotDetected) SARS-CoV-2 (PCR) (NotDetected) Coronavirus NL63 (PCR) (NotDetected) Human Metapneumovir PCR (NotDetected) Influenza Type A (PCR) (NotDetected) Influenza Type B (PCR) (NotDetected) Legionella Source Legionella Culture Urine Legionella Ag M. pneumoniae (PCR) (NotDetected) Parainfluenza 1 (PCR) (NotDetected) Parainfluenza 2 (PCR) (NotDetected) Parainfluenza 3 (PCR) (NotDetected) Parainfluenza 4 (PCR) (NotDetected) RSV (PCR) (NotDetected) Resp Virus Cult Rapid Entero/Rhino (PCR) (NotDetected) Viral Specimen Source 10/23/24 10/23/24 10/23/24 Range/Units 17:35 12:28 09:54 WBC (4.8-10.8) K/ul RBC (4.20-5.40) M/uL Hgb (12.0-16.0) g/dl POC Hgb (12.0-16.0) g/dl Hct (37.0-47.0) % POC Hct (37-47) % MCV (80.0-100.0) fL MCH (25.0-34.0) pg MCHC (32.0-36.0) g/dL RDW Std Deviation (36.4-46.3) fL RDW Coeff of Rajiv (11.5-14.5) % Plt Count (130-400) K/uL MPV (9.4-12.4) fL Immature Gran % (Auto) % Neut % (Auto) % Lymph % (Auto) % [place] % (Auto) % Eos % (Auto) % Baso % (Auto) % Neut # (Auto) (1.40-6.50) K/uL Lymph # (Auto) (1.20-3.40) K/uL [place] # (Auto) (0.11-0.59) K/uL Eos # (Auto) (0.00-0.50) K/uL Baso # (Auto) (0.00-0.20) K/uL Immature Gran # (Auto) (0.01-0.20) K/uL Polychromasia PT (9.0-12.0) Seconds INR (0.9-1.1) APTT (21-31) Seconds PTT Ratio Heparin Anti-Xa, Unfract (0.3-0.7) IU/ml Specimen Type Sample Site POC pH (7.35-7.45) POC pCO2 (35-46) mmHg POC pO2 (80-95) mmHg POC HCO3 (19-24) sonja/L POC Base Excess (-9-1.8) sonja/L O2 Sat Pulse Oximetry ABG pH (Temp Correct) (7.35-7.45) ABG pCO2 (Temp Corrct (35-46) mmHg POC ABG pO2 at Pt Temp POC ABG O2 Sat (90-95) % Tushar Test VBG pH (7.36-7.41) VBG pCO2 (38-50) mmHg VBG pO2 mmHg VBG HCO3 mmol/L VBG O2 Saturation % VBG Base Excess mEq/L O2 Delivery Device Vent Mode POC FiO2 % End Tidal CO2 POC Sodium (135-144) mmol/L Sodium (136-145) mmol/L POC Potassium (3.3-5.0) mmol/L Potassium (3.5-5.1) mmol/L POC Chloride (101-112) mmol/L Chloride (98-107) mmol/L Carbon Dioxide (21-32) mmol/L POC Total CO2 (24-31) mmol/L Anion Gap (3-11) POC Anion Gap (16-25) mmol/L POC BUN (7-18) mg/dl BUN (6-23) mg/dl Creatinine (0.6-1.2) mg/dl POC Creatinine (0.6-1.3) mg/dl Est Cr Clr Drug Dosing eGFR BUN/Creatinine Ratio (10-20) Glucose (70-99(Fasting)) mg/dl POC Glucose 99 92 (70-99) mg/dl POC Glucose (other) (70-99) mg/dl Lactate 0.8 (0.4-2.0) mmol/L Calcium (8.6-10.3) mg/dl POC Ioniz Calcium Leatha (1.12-1.32) mmol/l Phosphorus (2.5-4.9) mg/dl Magnesium (1.7-2.4) mg/dl Total Bilirubin (0.2-1.0) mg/dl Direct Bilirubin (0-0.2) mg/dl AST (13-39) U/L ALT (7-52) U/L Alkaline Phosphatase (34-104) U/L Troponin I High Sens (0-14) pg/ml B-Natriuretic Peptide (0-100) pg/ml Total Protein (6.0-8.3) gm/dl Albumin (3.4-5.0) gm/dl Globulin (2.5-4.0) gm/dl Albumin/Globulin Ratio (0.9-2) Procalcitonin (0-0.5) ng/ml Random Cortisol mcg/dl Urine Color Urine Appearance (Clear) Urine pH (4.5-7.5) Ur Specific Grand Chain (1.000-1.030) Urine Protein (Negative) Urine Glucose (UA) (Negative) Urine Ketones (Negative) Urine Blood (Negative) Urine Nitrite (Negative) Urine Bilirubin (Negative) Urine Urobilinogen (Negative) Ur Leukocyte Esterase (Negative) Urine WBC (Auto) (0-5) /hpf Urine RBC (Auto) (0-2) /hpf U Hyaline Cast (Auto) (0-2) /lpf U Epithel Cells (Auto) (0-2) /hpf Urine Bacteria (Auto) (None Seen) Fluid Neutrophils % % Fluid Lymphocytes % % Fl Monocyt/Macrophag % % Fluid Comment Nasal Screen MRSA (PCR) (Negative) Adenovirus (PCR) (NotDetected) B. pertussis DNA (PCR) (NotDetected) B.parapertussis DNA PCR (NotDetected) C. pneumoniae DNA (PCR) (NotDetected) Coronavirus OC43 (PCR) (NotDetected) Coronavirus HKU1 (PCR) (NotDetected) Coronavirus 229E (PCR) (NotDetected) SARS-CoV-2 (PCR) (NotDetected) Coronavirus NL63 (PCR) (NotDetected) Human Metapneumovir PCR (NotDetected) Influenza Type A (PCR) (NotDetected) Influenza Type B (PCR) (NotDetected) Legionella Source Legionella Culture Urine Legionella Ag M. pneumoniae (PCR) (NotDetected) Parainfluenza 1 (PCR) (NotDetected) Parainfluenza 2 (PCR) (NotDetected) Parainfluenza 3 (PCR) (NotDetected) Parainfluenza 4 (PCR) (NotDetected) RSV (PCR) (NotDetected) Resp Virus Cult Rapid Entero/Rhino (PCR) (NotDetected) Viral Specimen Source 10/23/24 10/23/24 10/23/24 Range/Units 06:05 04:22 04:11 WBC 31.89 H* (4.8-10.8) K/ul RBC 2.95 L (4.20-5.40) M/uL Hgb 8.4 L (12.0-16.0) g/dl POC Hgb 9.2 L (12.0-16.0) g/dl Hct 26.0 L (37.0-47.0) % POC Hct 27 L (37-47) % MCV 88.1 D (80.0-100.0) fL MCH 28.5 (25.0-34.0) pg MCHC 32.3 (32.0-36.0) g/dL RDW Std Deviation 44.0 (36.4-46.3) fL RDW Coeff of Rajiv 13.6 (11.5-14.5) % Plt Count 392 (130-400) K/uL MPV 10.1 (9.4-12.4) fL Immature Gran % (Auto) 0.8 % Neut % (Auto) 89.9 % Lymph % (Auto) 3.2 % [place] % (Auto) 5.8 % Eos % (Auto) 0.0 % Baso % (Auto) 0.3 % Neut # (Auto) 28.65 H (1.40-6.50) K/uL Lymph # (Auto) 1.02 L (1.20-3.40) K/uL [place] # (Auto) 1.86 H (0.11-0.59) K/uL Eos # (Auto) 0.01 (0.00-0.50) K/uL Baso # (Auto) 0.11 (0.00-0.20) K/uL Immature Gran # (Auto) 0.24 H (0.01-0.20) K/uL Polychromasia 1+ PT (9.0-12.0) Seconds INR (0.9-1.1) APTT (21-31) Seconds PTT Ratio Heparin Anti-Xa, Unfract 0.50 (0.3-0.7) IU/ml Specimen Type Arterial Sample Site POC pH 7.46 H (7.35-7.45) POC pCO2 30 L (35-46) mmHg POC pO2 127 H (80-95) mmHg POC HCO3 21 (19-24) sonja/L POC Base Excess -3.0 (-9-1.8) sonja/L O2 Sat Pulse Oximetry ABG pH (Temp Correct) 7.411 (7.35-7.45) ABG pCO2 (Temp Corrct 33 L (35-46) mmHg POC ABG pO2 at Pt Temp 147 POC ABG O2 Sat 99.0 H (90-95) % Tushar Test VBG pH (7.36-7.41) VBG pCO2 (38-50) mmHg VBG pO2 mmHg VBG HCO3 mmol/L VBG O2 Saturation % VBG Base Excess mEq/L O2 Delivery Device Vent Mode POC FiO2 40 % End Tidal CO2 POC Sodium 134 L (135-144) mmol/L Sodium 134 L (136-145) mmol/L POC Potassium 4.1 (3.3-5.0) mmol/L Potassium 4.1 (3.5-5.1) mmol/L POC Chloride (101-112) mmol/L Chloride 105 (98-107) mmol/L Carbon Dioxide 22 (21-32) mmol/L POC Total CO2 22 L (24-31) mmol/L Anion Gap 7 (3-11) POC Anion Gap (16-25) mmol/L POC BUN (7-18) mg/dl BUN 29 H (6-23) mg/dl Creatinine 1.03 (0.6-1.2) mg/dl POC Creatinine (0.6-1.3) mg/dl Est Cr Clr Drug Dosing 31.0 eGFR 52.95 BUN/Creatinine Ratio 28.2 H (10-20) Glucose 134 H (70-99(Fasting)) mg/dl POC Glucose (70-99) mg/dl POC Glucose (other) (70-99) mg/dl Lactate (0.4-2.0) mmol/L Calcium 8.5 L (8.6-10.3) mg/dl POC Ioniz Calcium Leatha (1.12-1.32) mmol/l Phosphorus 4.1 (2.5-4.9) mg/dl Magnesium 1.9 (1.7-2.4) mg/dl Total Bilirubin 0.3 (0.2-1.0) mg/dl Direct Bilirubin (0-0.2) mg/dl AST 63 H (13-39) U/L ALT 34 (7-52) U/L Alkaline Phosphatase 81 (34-104) U/L Troponin I High Sens 8012.7 H* (0-14) pg/ml B-Natriuretic Peptide (0-100) pg/ml Total Protein 5.1 L D (6.0-8.3) gm/dl Albumin 2.7 L (3.4-5.0) gm/dl Globulin 2.4 L (2.5-4.0) gm/dl Albumin/Globulin Ratio 1.1 (0.9-2) Procalcitonin (0-0.5) ng/ml Random Cortisol mcg/dl Urine Color Urine Appearance (Clear) Urine pH (4.5-7.5) Ur Specific Grand Chain (1.000-1.030) Urine Protein (Negative) Urine Glucose (UA) (Negative) Urine Ketones (Negative) Urine Blood (Negative) Urine Nitrite (Negative) Urine Bilirubin (Negative) Urine Urobilinogen (Negative) Ur Leukocyte Esterase (Negative) Urine WBC (Auto) (0-5) /hpf Urine RBC (Auto) (0-2) /hpf U Hyaline Cast (Auto) (0-2) /lpf U Epithel Cells (Auto) (0-2) /hpf Urine Bacteria (Auto) (None Seen) Fluid Neutrophils % % Fluid Lymphocytes % % Fl Monocyt/Macrophag % % Fluid Comment Nasal Screen MRSA (PCR) (Negative) Adenovirus (PCR) (NotDetected) B. pertussis DNA (PCR) (NotDetected) B.parapertussis DNA PCR (NotDetected) C. pneumoniae DNA (PCR) (NotDetected) Coronavirus OC43 (PCR) (NotDetected) Coronavirus HKU1 (PCR) (NotDetected) Coronavirus 229E (PCR) (NotDetected) SARS-CoV-2 (PCR) (NotDetected) Coronavirus NL63 (PCR) (NotDetected) Human Metapneumovir PCR (NotDetected) Influenza Type A (PCR) (NotDetected) Influenza Type B (PCR) (NotDetected) Legionella Source Legionella Culture Urine Legionella Ag M. pneumoniae (PCR) (NotDetected) Parainfluenza 1 (PCR) (NotDetected) Parainfluenza 2 (PCR) (NotDetected) Parainfluenza 3 (PCR) (NotDetected) Parainfluenza 4 (PCR) (NotDetected) RSV (PCR) (NotDetected) Resp Virus Cult Rapid Entero/Rhino (PCR) (NotDetected) Viral Specimen Source 10/23/24 10/22/24 10/22/24 Range/Units 00:27 23:49 22:22 WBC (4.8-10.8) K/ul RBC (4.20-5.40) M/uL Hgb (12.0-16.0) g/dl POC Hgb (12.0-16.0) g/dl Hct (37.0-47.0) % POC Hct (37-47) % MCV (80.0-100.0) fL MCH (25.0-34.0) pg MCHC (32.0-36.0) g/dL RDW Std Deviation (36.4-46.3) fL RDW Coeff of Rajiv (11.5-14.5) % Plt Count (130-400) K/uL MPV (9.4-12.4) fL Immature Gran % (Auto) % Neut % (Auto) % Lymph % (Auto) % [place] % (Auto) % Eos % (Auto) % Baso % (Auto) % Neut # (Auto) (1.40-6.50) K/uL Lymph # (Auto) (1.20-3.40) K/uL [place] # (Auto) (0.11-0.59) K/uL Eos # (Auto) (0.00-0.50) K/uL Baso # (Auto) (0.00-0.20) K/uL Immature Gran # (Auto) (0.01-0.20) K/uL Polychromasia PT (9.0-12.0) Seconds INR (0.9-1.1) APTT (21-31) Seconds PTT Ratio Heparin Anti-Xa, Unfract 0.62 (0.3-0.7) IU/ml Specimen Type Sample Site POC pH (7.35-7.45) POC pCO2 (35-46) mmHg POC pO2 (80-95) mmHg POC HCO3 (19-24) sonja/L POC Base Excess (-9-1.8) sonja/L O2 Sat Pulse Oximetry ABG pH (Temp Correct) (7.35-7.45) ABG pCO2 (Temp Corrct (35-46) mmHg POC ABG pO2 at Pt Temp POC ABG O2 Sat (90-95) % Tushar Test VBG pH (7.36-7.41) VBG pCO2 (38-50) mmHg VBG pO2 mmHg VBG HCO3 mmol/L VBG O2 Saturation % VBG Base Excess mEq/L O2 Delivery Device Vent Mode POC FiO2 % End Tidal CO2 POC Sodium (135-144) mmol/L Sodium (136-145) mmol/L POC Potassium (3.3-5.0) mmol/L Potassium (3.5-5.1) mmol/L POC Chloride (101-112) mmol/L Chloride (98-107) mmol/L Carbon Dioxide (21-32) mmol/L POC Total CO2 (24-31) mmol/L Anion Gap (3-11) POC Anion Gap (16-25) mmol/L POC BUN (7-18) mg/dl BUN (6-23) mg/dl Creatinine (0.6-1.2) mg/dl POC Creatinine (0.6-1.3) mg/dl Est Cr Clr Drug Dosing eGFR BUN/Creatinine Ratio (10-20) Glucose (70-99(Fasting)) mg/dl POC Glucose (70-99) mg/dl POC Glucose (other) 149 H (70-99) mg/dl Lactate (0.4-2.0) mmol/L Calcium (8.6-10.3) mg/dl POC Ioniz Calcium Leatha (1.12-1.32) mmol/l Phosphorus (2.5-4.9) mg/dl Magnesium (1.7-2.4) mg/dl Total Bilirubin (0.2-1.0) mg/dl Direct Bilirubin (0-0.2) mg/dl AST (13-39) U/L ALT (7-52) U/L Alkaline Phosphatase (34-104) U/L Troponin I High Sens 9756.5 H* (0-14) pg/ml B-Natriuretic Peptide (0-100) pg/ml Total Protein (6.0-8.3) gm/dl Albumin (3.4-5.0) gm/dl Globulin (2.5-4.0) gm/dl Albumin/Globulin Ratio (0.9-2) Procalcitonin (0-0.5) ng/ml Random Cortisol mcg/dl Urine Color Urine Appearance (Clear) Urine pH (4.5-7.5) Ur Specific Grand Chain (1.000-1.030) Urine Protein (Negative) Urine Glucose (UA) (Negative) Urine Ketones (Negative) Urine Blood (Negative) Urine Nitrite (Negative) Urine Bilirubin (Negative) Urine Urobilinogen (Negative) Ur Leukocyte Esterase (Negative) Urine WBC (Auto) (0-5) /hpf Urine RBC (Auto) (0-2) /hpf U Hyaline Cast (Auto) (0-2) /lpf U Epithel Cells (Auto) (0-2) /hpf Urine Bacteria (Auto) (None Seen) Fluid Neutrophils % % Fluid Lymphocytes % % Fl Monocyt/Macrophag % % Fluid Comment Nasal Screen MRSA (PCR) (Negative) Adenovirus (PCR) (NotDetected) B. pertussis DNA (PCR) (NotDetected) B.parapertussis DNA PCR (NotDetected) C. pneumoniae DNA (PCR) (NotDetected) Coronavirus OC43 (PCR) (NotDetected) Coronavirus HKU1 (PCR) (NotDetected) Coronavirus 229E (PCR) (NotDetected) SARS-CoV-2 (PCR) (NotDetected) Coronavirus NL63 (PCR) (NotDetected) Human Metapneumovir PCR (NotDetected) Influenza Type A (PCR) (NotDetected) Influenza Type B (PCR) (NotDetected) Legionella Source Legionella Culture Urine Legionella Ag M. pneumoniae (PCR) (NotDetected) Parainfluenza 1 (PCR) (NotDetected) Parainfluenza 2 (PCR) (NotDetected) Parainfluenza 3 (PCR) (NotDetected) Parainfluenza 4 (PCR) (NotDetected) RSV (PCR) (NotDetected) Resp Virus Cult Rapid Entero/Rhino (PCR) (NotDetected) Viral Specimen Source 10/22/24 10/22/24 10/22/24 Range/Units 21:06 18:31 17:43 WBC (4.8-10.8) K/ul RBC (4.20-5.40) M/uL Hgb (12.0-16.0) g/dl POC Hgb 9.2 L (12.0-16.0) g/dl Hct (37.0-47.0) % POC Hct 27 L (37-47) % MCV (80.0-100.0) fL MCH (25.0-34.0) pg MCHC (32.0-36.0) g/dL RDW Std Deviation (36.4-46.3) fL RDW Coeff of Rajiv (11.5-14.5) % Plt Count (130-400) K/uL MPV (9.4-12.4) fL Immature Gran % (Auto) % Neut % (Auto) % Lymph % (Auto) % [place] % (Auto) % Eos % (Auto) % Baso % (Auto) % Neut # (Auto) (1.40-6.50) K/uL Lymph # (Auto) (1.20-3.40) K/uL [place] # (Auto) (0.11-0.59) K/uL Eos # (Auto) (0.00-0.50) K/uL Baso # (Auto) (0.00-0.20) K/uL Immature Gran # (Auto) (0.01-0.20) K/uL Polychromasia PT (9.0-12.0) Seconds INR (0.9-1.1) APTT (21-31) Seconds PTT Ratio Heparin Anti-Xa, Unfract (0.3-0.7) IU/ml Specimen Type Arterial Sample Site Art Line POC pH 7.52 H* (7.35-7.45) POC pCO2 24 L (35-46) mmHg POC pO2 222 H (80-95) mmHg POC HCO3 20 (19-24) sonja/L POC Base Excess -3.0 (-9-1.8) sonja/L O2 Sat Pulse Oximetry 100 ABG pH (Temp Correct) 7.517 H* (7.35-7.45) ABG pCO2 (Temp Corrct 24 L (35-46) mmHg POC ABG pO2 at Pt Temp 222 POC ABG O2 Sat 100.0 H (90-95) % Tushar Test NA VBG pH (7.36-7.41) VBG pCO2 (38-50) mmHg VBG pO2 mmHg VBG HCO3 mmol/L VBG O2 Saturation % VBG Base Excess mEq/L O2 Delivery Device Ventilator Vent Mode AC POC FiO2 60 % End Tidal CO2 16 POC Sodium 133 L (135-144) mmol/L Sodium (136-145) mmol/L POC Potassium 4.0 (3.3-5.0) mmol/L Potassium (3.5-5.1) mmol/L POC Chloride (101-112) mmol/L Chloride (98-107) mmol/L Carbon Dioxide (21-32) mmol/L POC Total CO2 20 L (24-31) mmol/L Anion Gap (3-11) POC Anion Gap (16-25) mmol/L POC BUN (7-18) mg/dl BUN (6-23) mg/dl Creatinine (0.6-1.2) mg/dl POC Creatinine (0.6-1.3) mg/dl Est Cr Clr Drug Dosing eGFR BUN/Creatinine Ratio (10-20) Glucose (70-99(Fasting)) mg/dl POC Glucose (70-99) mg/dl POC Glucose (other) 171 H (70-99) mg/dl Lactate (0.4-2.0) mmol/L Calcium (8.6-10.3) mg/dl POC Ioniz Calcium Leatha (1.12-1.32) mmol/l Phosphorus (2.5-4.9) mg/dl Magnesium (1.7-2.4) mg/dl Total Bilirubin (0.2-1.0) mg/dl Direct Bilirubin (0-0.2) mg/dl AST (13-39) U/L ALT (7-52) U/L Alkaline Phosphatase (34-104) U/L Troponin I High Sens 9114.5 H* D (0-14) pg/ml B-Natriuretic Peptide (0-100) pg/ml Total Protein (6.0-8.3) gm/dl Albumin (3.4-5.0) gm/dl Globulin (2.5-4.0) gm/dl Albumin/Globulin Ratio (0.9-2) Procalcitonin (0-0.5) ng/ml Random Cortisol mcg/dl Urine Color Urine Appearance (Clear) Urine pH (4.5-7.5) Ur Specific Grand Chain (1.000-1.030) Urine Protein (Negative) Urine Glucose (UA) (Negative) Urine Ketones (Negative) Urine Blood (Negative) Urine Nitrite (Negative) Urine Bilirubin (Negative) Urine Urobilinogen (Negative) Ur Leukocyte Esterase (Negative) Urine WBC (Auto) (0-5) /hpf Urine RBC (Auto) (0-2) /hpf U Hyaline Cast (Auto) (0-2) /lpf U Epithel Cells (Auto) (0-2) /hpf Urine Bacteria (Auto) (None Seen) Fluid Neutrophils % % Fluid Lymphocytes % % Fl Monocyt/Macrophag % % Fluid Comment Nasal Screen MRSA (PCR) (Negative) Adenovirus (PCR) (NotDetected) B. pertussis DNA (PCR) (NotDetected) B.parapertussis DNA PCR (NotDetected) C. pneumoniae DNA (PCR) (NotDetected) Coronavirus OC43 (PCR) (NotDetected) Coronavirus HKU1 (PCR) (NotDetected) Coronavirus 229E (PCR) (NotDetected) SARS-CoV-2 (PCR) (NotDetected) Coronavirus NL63 (PCR) (NotDetected) Human Metapneumovir PCR (NotDetected) Influenza Type A (PCR) (NotDetected) Influenza Type B (PCR) (NotDetected) Legionella Source Legionella Culture Urine Legionella Ag M. pneumoniae (PCR) (NotDetected) Parainfluenza 1 (PCR) (NotDetected) Parainfluenza 2 (PCR) (NotDetected) Parainfluenza 3 (PCR) (NotDetected) Parainfluenza 4 (PCR) (NotDetected) RSV (PCR) (NotDetected) Resp Virus Cult Rapid Entero/Rhino (PCR) (NotDetected) Viral Specimen Source 10/22/24 10/22/24 10/22/24 Range/Units 13:27 12:58 11:50 WBC (4.8-10.8) K/ul RBC (4.20-5.40) M/uL Hgb (12.0-16.0) g/dl POC Hgb (12.0-16.0) g/dl Hct (37.0-47.0) % POC Hct (37-47) % MCV (80.0-100.0) fL MCH (25.0-34.0) pg MCHC (32.0-36.0) g/dL RDW Std Deviation (36.4-46.3) fL RDW Coeff of Rajiv (11.5-14.5) % Plt Count (130-400) K/uL MPV (9.4-12.4) fL Immature Gran % (Auto) % Neut % (Auto) % Lymph % (Auto) % [place] % (Auto) % Eos % (Auto) % Baso % (Auto) % Neut # (Auto) (1.40-6.50) K/uL Lymph # (Auto) (1.20-3.40) K/uL [place] # (Auto) (0.11-0.59) K/uL Eos # (Auto) (0.00-0.50) K/uL Baso # (Auto) (0.00-0.20) K/uL Immature Gran # (Auto) (0.01-0.20) K/uL Polychromasia PT (9.0-12.0) Seconds INR (0.9-1.1) APTT (21-31) Seconds PTT Ratio Heparin Anti-Xa, Unfract (0.3-0.7) IU/ml Specimen Type Sample Site POC pH (7.35-7.45) POC pCO2 (35-46) mmHg POC pO2 (80-95) mmHg POC HCO3 (19-24) sonja/L POC Base Excess (-9-1.8) sonja/L O2 Sat Pulse Oximetry ABG pH (Temp Correct) (7.35-7.45) ABG pCO2 (Temp Corrct (35-46) mmHg POC ABG pO2 at Pt Temp POC ABG O2 Sat (90-95) % Tushar Test VBG pH (7.36-7.41) VBG pCO2 (38-50) mmHg VBG pO2 mmHg VBG HCO3 mmol/L VBG O2 Saturation % VBG Base Excess mEq/L O2 Delivery Device Vent Mode POC FiO2 % End Tidal CO2 POC Sodium (135-144) mmol/L Sodium (136-145) mmol/L POC Potassium (3.3-5.0) mmol/L Potassium (3.5-5.1) mmol/L POC Chloride (101-112) mmol/L Chloride (98-107) mmol/L Carbon Dioxide (21-32) mmol/L POC Total CO2 (24-31) mmol/L Anion Gap (3-11) POC Anion Gap (16-25) mmol/L POC BUN (7-18) mg/dl BUN (6-23) mg/dl Creatinine (0.6-1.2) mg/dl POC Creatinine (0.6-1.3) mg/dl Est Cr Clr Drug Dosing eGFR BUN/Creatinine Ratio (10-20) Glucose (70-99(Fasting)) mg/dl POC Glucose (70-99) mg/dl POC Glucose (other) 144 H (70-99) mg/dl Lactate (0.4-2.0) mmol/L Calcium (8.6-10.3) mg/dl POC Ioniz Calcium Leatha (1.12-1.32) mmol/l Phosphorus (2.5-4.9) mg/dl Magnesium (1.7-2.4) mg/dl Total Bilirubin (0.2-1.0) mg/dl Direct Bilirubin (0-0.2) mg/dl AST (13-39) U/L ALT (7-52) U/L Alkaline Phosphatase (34-104) U/L Troponin I High Sens 4393.8 H* D (0-14) pg/ml B-Natriuretic Peptide (0-100) pg/ml Total Protein (6.0-8.3) gm/dl Albumin (3.4-5.0) gm/dl Globulin (2.5-4.0) gm/dl Albumin/Globulin Ratio (0.9-2) Procalcitonin (0-0.5) ng/ml Random Cortisol mcg/dl Urine Color Urine Appearance (Clear) Urine pH (4.5-7.5) Ur Specific Grand Chain (1.000-1.030) Urine Protein (Negative) Urine Glucose (UA) (Negative) Urine Ketones (Negative) Urine Blood (Negative) Urine Nitrite (Negative) Urine Bilirubin (Negative) Urine Urobilinogen (Negative) Ur Leukocyte Esterase (Negative) Urine WBC (Auto) (0-5) /hpf Urine RBC (Auto) (0-2) /hpf U Hyaline Cast (Auto) (0-2) /lpf U Epithel Cells (Auto) (0-2) /hpf Urine Bacteria (Auto) (None Seen) Fluid Neutrophils % 88 % Fluid Lymphocytes % 0 % Fl Monocyt/Macrophag % 12 % Fluid Comment Nasal Screen MRSA (PCR) (Negative) Adenovirus (PCR) (NotDetected) B. pertussis DNA (PCR) (NotDetected) B.parapertussis DNA PCR (NotDetected) C. pneumoniae DNA (PCR) (NotDetected) Coronavirus OC43 (PCR) (NotDetected) Coronavirus HKU1 (PCR) (NotDetected) Coronavirus 229E (PCR) (NotDetected) SARS-CoV-2 (PCR) (NotDetected) Coronavirus NL63 (PCR) (NotDetected) Human Metapneumovir PCR (NotDetected) Influenza Type A (PCR) (NotDetected) Influenza Type B (PCR) (NotDetected) Legionella Source Pending Legionella Culture Pending Urine Legionella Ag M. pneumoniae (PCR) (NotDetected) Parainfluenza 1 (PCR) (NotDetected) Parainfluenza 2 (PCR) (NotDetected) Parainfluenza 3 (PCR) (NotDetected) Parainfluenza 4 (PCR) (NotDetected) RSV (PCR) (NotDetected) Resp Virus Cult Rapid Pending Entero/Rhino (PCR) (NotDetected) Viral Specimen Source Pending 10/22/24 10/22/24 10/22/24 Range/Units 10:48 10:37 10:27 WBC (4.8-10.8) K/ul RBC (4.20-5.40) M/uL Hgb (12.0-16.0) g/dl POC Hgb (12.0-16.0) g/dl Hct (37.0-47.0) % POC Hct (37-47) % MCV (80.0-100.0) fL MCH (25.0-34.0) pg MCHC (32.0-36.0) g/dL RDW Std Deviation (36.4-46.3) fL RDW Coeff of Rajiv (11.5-14.5) % Plt Count (130-400) K/uL MPV (9.4-12.4) fL Immature Gran % (Auto) % Neut % (Auto) % Lymph % (Auto) % [place] % (Auto) % Eos % (Auto) % Baso % (Auto) % Neut # (Auto) (1.40-6.50) K/uL Lymph # (Auto) (1.20-3.40) K/uL [place] # (Auto) (0.11-0.59) K/uL Eos # (Auto) (0.00-0.50) K/uL Baso # (Auto) (0.00-0.20) K/uL Immature Gran # (Auto) (0.01-0.20) K/uL Polychromasia PT (9.0-12.0) Seconds INR (0.9-1.1) APTT (21-31) Seconds PTT Ratio Heparin Anti-Xa, Unfract (0.3-0.7) IU/ml Specimen Type Sample Site POC pH (7.35-7.45) POC pCO2 (35-46) mmHg POC pO2 (80-95) mmHg POC HCO3 (19-24) sonja/L POC Base Excess (-9-1.8) sonja/L O2 Sat Pulse Oximetry ABG pH (Temp Correct) (7.35-7.45) ABG pCO2 (Temp Corrct (35-46) mmHg POC ABG pO2 at Pt Temp POC ABG O2 Sat (90-95) % Tushar Test VBG pH (7.36-7.41) VBG pCO2 (38-50) mmHg VBG pO2 mmHg VBG HCO3 mmol/L VBG O2 Saturation % VBG Base Excess mEq/L O2 Delivery Device Vent Mode POC FiO2 % End Tidal CO2 POC Sodium (135-144) mmol/L Sodium (136-145) mmol/L POC Potassium (3.3-5.0) mmol/L Potassium (3.5-5.1) mmol/L POC Chloride (101-112) mmol/L Chloride (98-107) mmol/L Carbon Dioxide (21-32) mmol/L POC Total CO2 (24-31) mmol/L Anion Gap (3-11) POC Anion Gap (16-25) mmol/L POC BUN (7-18) mg/dl BUN (6-23) mg/dl Creatinine (0.6-1.2) mg/dl POC Creatinine (0.6-1.3) mg/dl Est Cr Clr Drug Dosing eGFR BUN/Creatinine Ratio (10-20) Glucose (70-99(Fasting)) mg/dl POC Glucose (70-99) mg/dl POC Glucose (other) (70-99) mg/dl Lactate 3.7 H* (0.4-2.0) mmol/L Calcium (8.6-10.3) mg/dl POC Ioniz Calcium [place] (1.12-1.32) mmol/l Phosphorus (2.5-4.9) mg/dl Magnesium (1.7-2.4) mg/dl Total Bilirubin (0.2-1.0) mg/dl Direct Bilirubin (0-0.2) mg/dl AST (13-39) U/L ALT (7-52) U/L Alkaline Phosphatase (34-104) U/L Troponin I High Sens 1490.5 H* D (0-14) pg/ml B-Natriuretic Peptide (0-100) pg/ml Total Protein (6.0-8.3) gm/dl Albumin (3.4-5.0) gm/dl Globulin (2.5-4.0) gm/dl Albumin/Globulin Ratio (0.9-2) Procalcitonin (0-0.5) ng/ml Random Cortisol 45.88 mcg/dl Urine Color Urine Appearance (Clear) Urine pH (4.5-7.5) Ur Specific Grand Chain (1.000-1.030) Urine Protein (Negative) Urine Glucose (UA) (Negative) Urine Ketones (Negative) Urine Blood (Negative) Urine Nitrite (Negative) Urine Bilirubin (Negative) Urine Urobilinogen (Negative) Ur Leukocyte Esterase (Negative) Urine WBC (Auto) (0-5) /hpf Urine RBC (Auto) (0-2) /hpf U Hyaline Cast (Auto) (0-2) /lpf U Epithel Cells (Auto) (0-2) /hpf Urine Bacteria (Auto) (None Seen) Fluid Neutrophils % % Fluid Lymphocytes % % Fl Monocyt/Macrophag % % Fluid Comment Nasal Screen MRSA (PCR) Negative (Negative) Adenovirus (PCR) (NotDetected) B. pertussis DNA (PCR) (NotDetected) B.parapertussis DNA PCR (NotDetected) C. pneumoniae DNA (PCR) (NotDetected) Coronavirus OC43 (PCR) (NotDetected) Coronavirus HKU1 (PCR) (NotDetected) Coronavirus 229E (PCR) (NotDetected) SARS-CoV-2 (PCR) (NotDetected) Coronavirus NL63 (PCR) (NotDetected) Human Metapneumovir PCR (NotDetected) Influenza Type A (PCR) (NotDetected) Influenza Type B (PCR) (NotDetected) Legionella Source Legionella Culture Urine Legionella Ag M. pneumoniae (PCR) (NotDetected) Parainfluenza 1 (PCR) (NotDetected) Parainfluenza 2 (PCR) (NotDetected) Parainfluenza 3 (PCR) (NotDetected) Parainfluenza 4 (PCR) (NotDetected) RSV (PCR) (NotDetected) Resp Virus Cult Rapid Entero/Rhino (PCR) (NotDetected) Viral Specimen Source 10/22/24 10/22/24 10/22/24 Range/Units 09:29 09:20 08:57 WBC (4.8-10.8) K/ul RBC (4.20-5.40) M/uL Hgb (12.0-16.0) g/dl POC Hgb 8.8 L (12.0-16.0) g/dl Hct (37.0-47.0) % POC Hct 26 L (37-47) % MCV (80.0-100.0) fL MCH (25.0-34.0) pg MCHC (32.0-36.0) g/dL RDW Std Deviation (36.4-46.3) fL RDW Coeff of Rajiv (11.5-14.5) % Plt Count (130-400) K/uL MPV (9.4-12.4) fL Immature Gran % (Auto) % Neut % (Auto) % Lymph % (Auto) % [place] % (Auto) % Eos % (Auto) % Baso % (Auto) % Neut # (Auto) (1.40-6.50) K/uL Lymph # (Auto) (1.20-3.40) K/uL [place] # (Auto) (0.11-0.59) K/uL Eos # (Auto) (0.00-0.50) K/uL Baso # (Auto) (0.00-0.20) K/uL Immature Gran # (Auto) (0.01-0.20) K/uL Polychromasia PT (9.0-12.0) Seconds INR (0.9-1.1) APTT (21-31) Seconds PTT Ratio Heparin Anti-Xa, Unfract (0.3-0.7) IU/ml Specimen Type Arterial Sample Site POC pH 7.29 L (7.35-7.45) POC pCO2 41 (35-46) mmHg POC pO2 186 H (80-95) mmHg POC HCO3 20 (19-24) sonja/L POC Base Excess -7.0 (-9-1.8) sonja/L O2 Sat Pulse Oximetry ABG pH (Temp Correct) (7.35-7.45) ABG pCO2 (Temp Corrct (35-46) mmHg POC ABG pO2 at Pt Temp POC ABG O2 Sat 100.0 H (90-95) % Tushar Test VBG pH (7.36-7.41) VBG pCO2 (38-50) mmHg VBG pO2 mmHg VBG HCO3 mmol/L VBG O2 Saturation % VBG Base Excess mEq/L O2 Delivery Device Vent Mode POC FiO2 % End Tidal CO2 POC Sodium 137 (135-144) mmol/L Sodium (136-145) mmol/L POC Potassium 3.5 (3.3-5.0) mmol/L Potassium (3.5-5.1) mmol/L POC Chloride (101-112) mmol/L Chloride (98-107) mmol/L Carbon Dioxide (21-32) mmol/L POC Total CO2 21 L (24-31) mmol/L Anion Gap (3-11) POC Anion Gap (16-25) mmol/L POC BUN (7-18) mg/dl BUN (6-23) mg/dl Creatinine (0.6-1.2) mg/dl POC Creatinine (0.6-1.3) mg/dl Est Cr Clr Drug Dosing eGFR BUN/Creatinine Ratio (10-20) Glucose (70-99(Fasting)) mg/dl POC Glucose (70-99) mg/dl POC Glucose (other) (70-99) mg/dl Lactate 5.6 H* (0.4-2.0) mmol/L Calcium (8.6-10.3) mg/dl POC Ioniz Calcium [place] (1.12-1.32) mmol/l Phosphorus (2.5-4.9) mg/dl Magnesium (1.7-2.4) mg/dl Total Bilirubin (0.2-1.0) mg/dl Direct Bilirubin (0-0.2) mg/dl AST (13-39) U/L ALT (7-52) U/L Alkaline Phosphatase (34-104) U/L Troponin I High Sens (0-14) pg/ml B-Natriuretic Peptide (0-100) pg/ml Total Protein (6.0-8.3) gm/dl Albumin (3.4-5.0) gm/dl Globulin (2.5-4.0) gm/dl Albumin/Globulin Ratio (0.9-2) Procalcitonin (0-0.5) ng/ml Random Cortisol mcg/dl Urine Color Yellow Urine Appearance Clear (Clear) Urine pH 7.0 (4.5-7.5) Ur Specific Grand Chain 1.018 (1.000-1.030) Urine Protein 1+ H (Negative) Urine Glucose (UA) Negative (Negative) Urine Ketones Negative (Negative) Urine Blood Negative (Negative) Urine Nitrite Negative (Negative) Urine Bilirubin Negative (Negative) Urine Urobilinogen Negative (Negative) Ur Leukocyte Esterase Negative (Negative) Urine WBC (Auto) 0-5 (0-5) /hpf Urine RBC (Auto) 0-2 (0-2) /hpf U Hyaline Cast (Auto) 0-2 (0-2) /lpf U Epithel Cells (Auto) 0-2 (0-2) /hpf Urine Bacteria (Auto) None Seen (None Seen) Fluid Neutrophils % % Fluid Lymphocytes % % Fl Monocyt/Macrophag % % Fluid Comment Nasal Screen MRSA (PCR) (Negative) Adenovirus (PCR) (NotDetected) B. pertussis DNA (PCR) (NotDetected) B.parapertussis DNA PCR (NotDetected) C. pneumoniae DNA (PCR) (NotDetected) Coronavirus OC43 (PCR) (NotDetected) Coronavirus HKU1 (PCR) (NotDetected) Coronavirus 229E (PCR) (NotDetected) SARS-CoV-2 (PCR) (NotDetected) Coronavirus NL63 (PCR) (NotDetected) Human Metapneumovir PCR (NotDetected) Influenza Type A (PCR) (NotDetected) Influenza Type B (PCR) (NotDetected) Legionella Source Legionella Culture Urine Legionella Ag SEE NOTE M. pneumoniae (PCR) (NotDetected) Parainfluenza 1 (PCR) (NotDetected) Parainfluenza 2 (PCR) (NotDetected) Parainfluenza 3 (PCR) (NotDetected) Parainfluenza 4 (PCR) (NotDetected) RSV (PCR) (NotDetected) Resp Virus Cult Rapid Entero/Rhino (PCR) (NotDetected) Viral Specimen Source 10/22/24 10/22/24 10/22/24 Range/Units 08:53 08:21 08:15 WBC 25.71 H (4.8-10.8) K/ul RBC 3.81 L (4.20-5.40) M/uL Hgb 11.0 L (12.0-16.0) g/dl POC Hgb 11.9 L (12.0-16.0) g/dl Hct 35.7 L (37.0-47.0) % POC Hct 35 L (37-47) % MCV 93.7 (80.0-100.0) fL MCH 28.9 (25.0-34.0) pg MCHC 30.8 L (32.0-36.0) g/dL RDW Std Deviation 46.4 H (36.4-46.3) fL RDW Coeff of Rajiv 13.6 (11.5-14.5) % Plt Count 524 H (130-400) K/uL MPV 10.2 (9.4-12.4) fL Immature Gran % (Auto) 0.6 % Neut % (Auto) 87.2 % Lymph % (Auto) 7.4 % [place] % (Auto) 3.1 % Eos % (Auto) 1.0 % Baso % (Auto) 0.7 % Neut # (Auto) 22.44 H (1.40-6.50) K/uL Lymph # (Auto) 1.90 (1.20-3.40) K/uL [place] # (Auto) 0.80 H (0.11-0.59) K/uL Eos # (Auto) 0.25 (0.00-0.50) K/uL Baso # (Auto) 0.17 (0.00-0.20) K/uL Immature Gran # (Auto) 0.15 (0.01-0.20) K/uL Polychromasia 1+ PT 10.4 (9.0-12.0) Seconds INR 1.0 (0.9-1.1) APTT 22 (21-31) Seconds PTT Ratio 0.8 Heparin Anti-Xa, Unfract (0.3-0.7) IU/ml Specimen Type Sample Site POC pH (7.35-7.45) POC pCO2 (35-46) mmHg POC pO2 (80-95) mmHg POC HCO3 (19-24) sonja/L POC Base Excess (-9-1.8) sonja/L O2 Sat Pulse Oximetry ABG pH (Temp Correct) (7.35-7.45) ABG pCO2 (Temp Corrct (35-46) mmHg POC ABG pO2 at Pt Temp POC ABG O2 Sat (90-95) % Tushar Test VBG pH 7.15 L (7.36-7.41) VBG pCO2 64 H (38-50) mmHg VBG pO2 37 mmHg VBG HCO3 22 mmol/L VBG O2 Saturation < 60.0 % VBG Base Excess -7.5 mEq/L O2 Delivery Device Vent Mode POC FiO2 % End Tidal CO2 POC Sodium 133 L (135-144) mmol/L Sodium 134 L (136-145) mmol/L POC Potassium 4.8 (3.3-5.0) mmol/L Potassium 4.7 (3.5-5.1) mmol/L POC Chloride 100 L (101-112) mmol/L Chloride 98 (98-107) mmol/L Carbon Dioxide 24 (21-32) mmol/L POC Total CO2 26 (24-31) mmol/L Anion Gap 12 H (3-11) POC Anion Gap 13.0 L (16-25) mmol/L POC BUN 27 H (7-18) mg/dl BUN 30 H (6-23) mg/dl Creatinine 1.21 H (0.6-1.2) mg/dl POC Creatinine 1.4 H (0.6-1.3) mg/dl Est Cr Clr Drug Dosing Not Reportable eGFR 43.65 BUN/Creatinine Ratio 24.8 H (10-20) Glucose 253 H (70-99(Fasting)) mg/dl POC Glucose (70-99) mg/dl POC Glucose (other) 254 H (70-99) mg/dl Lactate (0.4-2.0) mmol/L Calcium 9.4 (8.6-10.3) mg/dl POC Ioniz Calcium Leatha 1.21 (1.12-1.32) mmol/l Phosphorus (2.5-4.9) mg/dl Magnesium 2.2 (1.7-2.4) mg/dl Total Bilirubin 0.3 (0.2-1.0) mg/dl Direct Bilirubin 0.0 (0-0.2) mg/dl AST 45 H (13-39) U/L ALT 36 (7-52) U/L Alkaline Phosphatase 126 H (34-104) U/L Troponin I High Sens 125.1 H* (0-14) pg/ml B-Natriuretic Peptide 734 H (0-100) pg/ml Total Protein 6.4 (6.0-8.3) gm/dl Albumin 3.3 L (3.4-5.0) gm/dl Globulin (2.5-4.0) gm/dl Albumin/Globulin Ratio (0.9-2) Procalcitonin 0.13 (0-0.5) ng/ml Random Cortisol mcg/dl Urine Color Urine Appearance (Clear) Urine pH (4.5-7.5) Ur Specific Grand Chain (1.000-1.030) Urine Protein (Negative) Urine Glucose (UA) (Negative) Urine Ketones (Negative) Urine Blood (Negative) Urine Nitrite (Negative) Urine Bilirubin (Negative) Urine Urobilinogen (Negative) Ur Leukocyte Esterase (Negative) Urine WBC (Auto) (0-5) /hpf Urine RBC (Auto) (0-2) /hpf U Hyaline Cast (Auto) (0-2) /lpf U Epithel Cells (Auto) (0-2) /hpf Urine Bacteria (Auto) (None Seen) Fluid Neutrophils % % Fluid Lymphocytes % % Fl Monocyt/Macrophag % % Fluid Comment Nasal Screen MRSA (PCR) (Negative) Adenovirus (PCR) Not Detected (NotDetected) B. pertussis DNA (PCR) Not Detected (NotDetected) B.parapertussis DNA PCR Not Detected (NotDetected) C. pneumoniae DNA (PCR) Not Detected (NotDetected) Coronavirus OC43 (PCR) Not Detected (NotDetected) Coronavirus HKU1 (PCR) Not Detected (NotDetected) Coronavirus 229E (PCR) Not Detected (NotDetected) SARS-CoV-2 (PCR) Not Detected (NotDetected) Coronavirus NL63 (PCR) Not Detected (NotDetected) Human Metapneumovir PCR Not Detected (NotDetected) Influenza Type A (PCR) Not Detected (NotDetected) Influenza Type B (PCR) Not Detected (NotDetected) Legionella Source Legionella Culture Urine Legionella Ag M. pneumoniae (PCR) Not Detected (NotDetected) Parainfluenza 1 (PCR) Not Detected (NotDetected) Parainfluenza 2 (PCR) Not Detected (NotDetected) Parainfluenza 3 (PCR) Not Detected (NotDetected) Parainfluenza 4 (PCR) Not Detected (NotDetected) RSV (PCR) Not Detected (NotDetected) Resp Virus Cult Rapid Entero/Rhino (PCR) Not Detected (NotDetected) Viral Specimen Source Diagnostic Findings Laboratory Results WBC 12.48 K/ul (4.8-10.8) H 10/25/24 04:14 RBC 2.68 M/uL (4.20-5.40) L 10/25/24 04:14 Hgb 7.5 g/dl (12.0-16.0) L 10/25/24 04:14 POC Hgb 9.9 g/dl (12.0-16.0) L 10/24/24 06:30 Hct 23.9 % (37.0-47.0) L 10/25/24 04:14 POC Hct 29 % (37-47) L 10/24/24 06:30 MCV 89.2 fL (80.0-100.0) 10/25/24 04:14 MCH 28.0 pg (25.0-34.0) 10/25/24 04:14 MCHC 31.4 g/dL (32.0-36.0) L 10/25/24 04:14 RDW Std Deviation 44.9 fL (36.4-46.3) 10/25/24 04:14 RDW Coeff of Rajiv 13.9 % (11.5-14.5) 10/25/24 04:14 Plt Count 275 K/uL (130-400) 10/25/24 04:14 MPV 10.1 fL (9.4-12.4) 10/25/24 04:14 Immature Gran % (Auto) 0.6 % 10/25/24 04:14 Neut % (Auto) 81.5 % 10/25/24 04:14 Lymph % (Auto) 7.2 % 10/25/24 04:14 [place] % (Auto) 7.9 % 10/25/24 04:14 Eos % (Auto) 1.8 % 10/25/24 04:14 Baso % (Auto) 1.0 % 10/25/24 04:14 Neut # (Auto) 10.17 K/uL (1.40-6.50) H 10/25/24 04:14 Lymph # (Auto) 0.90 K/uL (1.20-3.40) L 10/25/24 04:14 [place] # (Auto) 0.99 K/uL (0.11-0.59) H 10/25/24 04:14 Eos # (Auto) 0.22 K/uL (0.00-0.50) 10/25/24 04:14 Baso # (Auto) 0.13 K/uL (0.00-0.20) 10/25/24 04:14 Immature Gran # (Auto) 0.07 K/uL (0.01-0.20) 10/25/24 04:14 Polychromasia 1+ 10/25/24 04:14 PT 10.4 Seconds (9.0-12.0) 10/22/24 08:15 INR 1.0 (0.9-1.1) 10/22/24 08:15 APTT 22 Seconds (21-31) 10/22/24 08:15 PTT Ratio 0.8 10/22/24 08:15 Heparin Anti-Xa, Unfract 0.23 IU/ml (0.3-0.7) L 10/24/24 05:16 Specimen Type Arterial 10/24/24 06:30 Sample Site L Brachial 10/24/24 06:30 POC pH 7.20 (7.35-7.45) L 10/24/24 06:30 POC pCO2 56 mmHg (35-46) H 10/24/24 06:30 POC pO2 227 mmHg (80-95) H 10/24/24 06:30 POC HCO3 22 sonja/L (19-24) 10/24/24 06:30 POC Total CO2 23 mmol/L (24-31) L 10/24/24 06:30 POC Base Excess -6.0 sonja/L (-9-1.8) 10/24/24 06:30 O2 Sat Pulse Oximetry 100 10/24/24 06:30 ABG pH (Temp Correct) 7.200 (7.35-7.45) L 10/24/24 06:30 ABG pCO2 (Temp Corrct 56 mmHg (35-46) H 10/24/24 06:30 POC ABG pO2 at Pt Temp 227 10/24/24 06:30 POC ABG O2 Sat 100.0 % (90-95) H 10/24/24 06:30 Tushar Test NA 10/24/24 06:30 VBG pH 7.15 (7.36-7.41) L 10/22/24 08:15 VBG pCO2 64 mmHg (38-50) H 10/22/24 08:15 VBG pO2 37 mmHg 10/22/24 08:15 VBG HCO3 22 mmol/L 10/22/24 08:15 VBG O2 Saturation < 60.0 % 10/22/24 08:15 VBG Base Excess -7.5 mEq/L 10/22/24 08:15 O2 Delivery Device Ventilator 10/24/24 06:30 Vent Mode AC 10/24/24 06:30 POC FiO2 100 % 10/24/24 06:30 End Tidal CO2 29 10/24/24 06:30 POC Sodium 137 mmol/L (135-144) 10/24/24 06:30 Sodium 139 mmol/L (136-145) 10/25/24 04:14 POC Potassium 3.2 mmol/L (3.3-5.0) L 10/24/24 06:30 Potassium 3.9 mmol/L (3.5-5.1) 10/25/24 04:14 POC Chloride 100 mmol/L (101-112) L 10/22/24 08:21 Chloride 108 mmol/L (98-107) H 10/25/24 04:14 Carbon Dioxide 24 mmol/L (21-32) 10/25/24 04:14 POC Total CO2 26 mmol/L (24-31) 10/22/24 08:21 Anion Gap 7 (3-11) 10/25/24 04:14 POC Anion Gap 13.0 mmol/L (16-25) L 10/22/24 08:21 POC BUN 27 mg/dl (7-18) H 10/22/24 08:21 BUN 27 mg/dl (6-23) H 10/25/24 04:14 Creatinine 1.14 mg/dl (0.6-1.2) 10/25/24 04:14 POC Creatinine 1.4 mg/dl (0.6-1.3) H 10/22/24 08:21 Est Cr Clr Drug Dosing 28.0 ml/min 10/25/24 04:14 eGFR 46.88 10/25/24 04:14 BUN/Creatinine Ratio 23.7 (10-20) H 10/25/24 04:14 Glucose 74 mg/dl (70-99(Fasting)) 10/25/24 04:14 POC Glucose 89 mg/dl (70-99) 10/25/24 12:09 POC Glucose (other) 149 mg/dl (70-99) H 10/22/24 23:49 Lactate 0.8 mmol/L (0.4-2.0) 10/23/24 09:54 Calcium 8.4 mg/dl (8.6-10.3) L 10/25/24 04:14 POC Ioniz Calcium Leatha 1.21 mmol/l (1.12-1.32) 10/22/24 08:21 Phosphorus 2.3 mg/dl (2.5-4.9) L 10/25/24 04:14 Magnesium 1.9 mg/dl (1.7-2.4) 10/24/24 05:16 Magnesium Cancelled 10/24/24 05:16 Total Bilirubin 0.4 mg/dl (0.2-1.0) 10/25/24 04:14 Direct Bilirubin 0.0 mg/dl (0-0.2) 10/22/24 08:15 AST 67 U/L (13-39) H 10/25/24 04:14 ALT 36 U/L (7-52) 10/25/24 04:14 Alkaline Phosphatase 96 U/L (34-104) 10/25/24 04:14 Troponin I High Sens 8012.7 pg/ml (0-14) H* 10/23/24 06:05 B-Natriuretic Peptide 734 pg/ml (0-100) H 10/22/24 08:15 Total Protein 5.1 gm/dl (6.0-8.3) L 10/25/24 04:14 Albumin 2.7 gm/dl (3.4-5.0) L 10/25/24 04:14 Globulin 2.4 gm/dl (2.5-4.0) L 10/25/24 04:14 Albumin/Globulin Ratio 1.1 (0.9-2) 10/25/24 04:14 Procalcitonin 0.13 ng/ml (0-0.5) 10/22/24 08:15 Random Cortisol 45.88 mcg/dl 10/22/24 10:27 Urine Color Yellow 10/22/24 09:20 Urine Appearance Clear (Clear) 10/22/24 09:20 Urine pH 7.0 (4.5-7.5) 10/22/24 09:20 Ur Specific Grand Chain 1.018 (1.000-1.030) 10/22/24 09:20 Urine Protein 1+ (Negative) H 10/22/24 09:20 Urine Glucose (UA) Negative (Negative) 10/22/24 09:20 Urine Ketones Negative (Negative) 10/22/24 09:20 Urine Blood Negative (Negative) 10/22/24 09:20 Urine Nitrite Negative (Negative) 10/22/24 09:20 Urine Bilirubin Negative (Negative) 10/22/24 09:20 Urine Urobilinogen Negative (Negative) 10/22/24 09:20 Ur Leukocyte Esterase Negative (Negative) 10/22/24 09:20 Urine WBC (Auto) 0-5 /hpf (0-5) 10/22/24 09:20 Urine RBC (Auto) 0-2 /hpf (0-2) 10/22/24 09:20 U Hyaline Cast (Auto) 0-2 /lpf (0-2) 10/22/24 09:20 U Epithel Cells (Auto) 0-2 /hpf (0-2) 10/22/24 09:20 Urine Bacteria (Auto) None Seen (None Seen) 10/22/24 09:20 Fluid Neutrophils % 88 % 10/22/24 11:50 Fluid Lymphocytes % 0 % 10/22/24 11:50 Fl Monocyt/Macrophag % 12 % 10/22/24 11:50 Fluid Comment 10/22/24 11:50 Nasal Screen MRSA (PCR) Negative (Negative) 10/22/24 10:37 Adenovirus (PCR) Not Detected (NotDetected) 10/22/24 08:53 B. pertussis DNA (PCR) Not Detected (NotDetected) 10/22/24 08:53 B.parapertussis DNA PCR Not Detected (NotDetected) 10/22/24 08:53 C. pneumoniae DNA (PCR) Not Detected (NotDetected) 10/22/24 08:53 Coronavirus OC43 (PCR) Not Detected (NotDetected) 10/22/24 08:53 Coronavirus HKU1 (PCR) Not Detected (NotDetected) 10/22/24 08:53 Coronavirus 229E (PCR) Not Detected (NotDetected) 10/22/24 08:53 SARS-CoV-2 (PCR) Not Detected (NotDetected) 10/22/24 08:53 Coronavirus NL63 (PCR) Not Detected (NotDetected) 10/22/24 08:53 Human Metapneumovir PCR Not Detected (NotDetected) 10/22/24 08:53 Influenza Type A (PCR) Not Detected (NotDetected) 10/22/24 08:53 Influenza Type B (PCR) Not Detected (NotDetected) 10/22/24 08:53 Urine Legionella Ag SEE NOTE 10/22/24 09:20 M. pneumoniae (PCR) Not Detected (NotDetected) 10/22/24 08:53 Parainfluenza 1 (PCR) Not Detected (NotDetected) 10/22/24 08:53 Parainfluenza 2 (PCR) Not Detected (NotDetected) 10/22/24 08:53 Parainfluenza 3 (PCR) Not Detected (NotDetected) 10/22/24 08:53 Parainfluenza 4 (PCR) Not Detected (NotDetected) 10/22/24 08:53 RSV (PCR) Not Detected (NotDetected) 10/22/24 08:53 Entero/Rhino (PCR) Not Detected (NotDetected) 10/22/24 08:53 Impressions Venous Doppler Study 10/22/24 10:07 LEFT LOWER EXTREMITY VENOUS DOPPLER CLINICAL HISTORY: LLE swelling, injury. R/o DVT COMPARISON STUDY: Left lower extremity venous Doppler ultrasound August 16, 2009. TECHNIQUE: Sonography of the deep venous system of the left lower extremity was performed. Compression and augmentation were evaluated. FINDINGS: The left common femoral, superficial femoral and popliteal veins were compressible. Augmentation was normal. Flow was shown within the deep calf vessels. IMPRESSION: No evidence of deep venous thrombus within the left lower extremity. ACT 112: Negative or not required by law. Electronically signed by: William Pathak M.D. 10/22/2024 11:45 AM KUB X-Ray 10/22/24 13:07 KUB CLINICAL HISTORY: OG placement COMPARISON STUDY: KUB August 19, 2014. FINDINGS: Tip of nasogastric tube is within the distal body of the stomach. Bowel gas pattern is normal. There are postoperative findings within the spine as well as both femurs. Suspected central line projects over the left groin. IMPRESSION: Tip of nasogastric tube within the body of the stomach. ACT 112: Negative or not required by law. Electronically signed by: William Pathak M.D. 10/22/2024 1:[address] 10/24/24 06:12 EXAM: CT head/brain wo con CLINICAL HISTORY: confusion TECHNIQUE: Multiple axial images are obtained from the skull base to the vertex without contrast. CT scan was performed according to ALARA (as low as reasonable achievable). COMPARISON: 17 June 2022. FINDINGS: There is cerebral atrophy. No evidence of space occupying lesion, hemorrhage, edema, mass effect, midline shift, extra axial collection, or hydrocephalus is noted. Basal cisterns are symmetric and normal in size and configuration. There are scattered periventricular hypodensities as can be seen with chronic microvascular ischemic changes. The joe-white matter differentiation is preserved. Visualized paranasal sinuses and mastoid air cells are well aerated. Orbital contents are within normal limits. Bony structures are intact. IMPRESSION: 1. No evidence of acute intracranial abnormality is demonstrated. 2. Chronic microvascular ischemic changes. 3. Cerebral atrophy. No other new interval abnormality since prior study. Electronically signed by Deandre Carlson 10-24-2024 07:29 AM Head CTA 10/24/24 06:12 EXAM: CT angio head w con CLINICAL HISTORY: confusion TECHNIQUE: Contrast enhanced thin slice CT angiography scan of the cerebral vessels was performed with intravenous contrast. Angiographic images were processed, 3D MIP images were acquired for interpretation. Contiguous axial images were obtained. Reformatted coronal and sagittal images were also reviewed. If IV contrast material had not been administered, the likelihood of detecting abnormalities relevant to the patients condition would have been substantially decreased. CT scan was performed according to ALARA (as low as reasonable achievable). COMPARISON: none. FINDINGS: Atherosclerotic calcifications are noted involving cavernous, glenoid and supraclinoid segments of bilateral internal carotid arteries. Bilateral internal carotid arteries show normal course, calibre and opacification in the canalicular and cavernous part. Their division into the anterior cerebral artery and middle cerebral artery is defined. A1, A2 and M1, M2 segments are normal on both the sides. Left vertebral artery is dominant and is forming the basilar artery. Absent V4 segment of right vertebral artery with right vertebral artery terminating into posterior inferior cerebellar artery. Basilar artery shows normal course, caliber and opacification. Its division into the posterior cerebral arteries is defined. Bilateral P1 and P2 segments are normal. Visualized venous structures show normal opacification. No evidence of intracranial aneurysm or AV malformation is seen. IMPRESSION: 1. Atherosclerotic calcifications are noted involving cavernous, glenoid and supraclinoid segments of bilateral internal carotid arteries. 2. No evidence of stenosis or aneurysm. No evidence of dissection. Electronically signed by Deandre Carlson 10-24-2024 07:29 AM Brain MRI 10/24/24 09:32 MRI OF THE BRAIN WITHOUT AND WITH IV CONTRAST SEIZURE PROTOCOL CLINICAL HISTORY: Altered mental status. COMPARISON STUDY: Head CT and CTA of the head October 24, 2024. TECHNIQUE: Utilizing a 1.5 Bettie magnet and dedicated coil, multiplanar, multiecho imaging of the brain was performed pre and postcontrast administration. IV administration of 5.5 mL of Gadavist contrast was uneventful. Thin cut coronal T2 imaging was performed according to seizure protocol. FINDINGS: This exam is mildly compromised by motion artifact. There are no foci of restricted diffusion to suggest acute infarct. No acute intracranial hemo rrhage, midline shift or mass effect is present. Ventricular dilatation is likely due to central atrophy. There is moderate atrophy. White matter T2 hyperintense foci suggest moderate small vessel disease. There is no intracranial mass or pathologic enhancement. Basal cisterns are patent. There are no extra-axial fluid collections. Calvarial signal is within normal limits. There is fluid within the bilateral mastoid air cells. This may be related to intubation. IMPRESSION: 1. No acute intracranial findings. Mild motion artifact. 2. No intracranial mass or pathologic enhancement. 3. Moderate atrophy and small vessel disease ACT 112: Negative or not required by law. Electronically signed by: William Pathak M.D. 10/24/2024 1:35 PM Chest X-Ray 10/25/24 06:00 EXAM: XR chest 1V portable CLINICAL HISTORY: Eval tubes/lines/lung carrero. TECHNIQUE: An X-ray image of the chest is obtained in AP projection. COMPARISON: 10/24/2024 CR. FINDINGS: The endotracheal tube seen low-lying approximately 1.6 cm above the ruiz, needs to be repositioned. Left central line in place. Pulmonary Parenchyma: Homogeneous opacification redemonstrated in left mid and lower zones with blunting of left costophrenic recess. Mild interval worsening. Few small ill-defined opacities are seen in the right mid and lower zones. Small/minimal pleural reaction in the right costophrenic recess. Heart and Mediastinum: Cardiomegaly. No mediastinal widening or masses. No hilar or mediastinal lymphadenopathy. Bony Thorax: The bony thorax appears intact without fractures or deformities. Soft Tissues: Soft tissues overlying the chest wall are unremarkable. IMPRESSION: 1. The endotracheal tube seen low-lying approximately 1.6 cm above the ruiz, needs to be repositioned. 2. Homogeneous opacification redemonstrated in left mid and lower zones with blunting of left costophrenic recess. Mild interval worsening. 3. Few small ill-defined opacities are seen in the right mid and lower zones. 4. Small/minimal pleural reaction in the right costophrenic recess. 5. Clinical and lab correlation is advised. Electronically signed by Alissa Bond 10-25-2024 07:16 AM Medications Administered Vital Signs Temp 37.6 C H 10/25/24 08:22 Pulse 62 10/25/24 11:06 Resp 18 10/25/24 11:06 BP 127/56 L 10/25/24 11:10 Pulse Ox 98 10/25/24 11:06 O2 Del Method Mechanical Vent 10/25/24 11:03 O2 Flow Rate 100 10/22/24 11:51 FiO2 0.35 10/25/24 11:23 Intake & Output 10/24/24 10/25/24 10/25/24 18:59 06:59 18:59 Intake Total 420.615 / 1073.115 652.500 / 1073.115 285.977 / 285.977 Output Total 352 / 927 575 / 927 Balance 68.615 / 146.115 77.500 / 146.115 285.977 / 285.977 Weight 57.8 kg 57.8 kg Intake: IV 140.615 / 793.115 652.500 / 793.115 285.977 / 285.977 Ampicillin/Sulbactam Sod 3,000 100 / 400 300 / 400 mg In 100 ml @ 200 mls/hr IV Q6H [facility] Rx#:[id number] Azithromycin 250 mg In Sodium 252.5 / 252.5 252.5 / 252.5 Chloride 0.9% 250 ml @ 126.25 mls/hr IV Q24H [facility] Rx#:[id number] propofoL 1,000 mg In 100 ml @ 40.615 / 140.615 100.000 / 140.615 33.477 / 33.477 35 MCG/KG/MIN 12.117 mls/hr IV .Q8H16M [facility] Rx#:[id number] Tube Irrigant 280 / 280 Output: Urine Amount (Catheter) 350 / 850 500 / 850 Harper/Indwelling 350 / 850 500 / 850 Gastric Drainage 75 / 75 Orogastric 75 / 75 # Bowel Movements 2 / 2 Other: Weight Measurement Method Built in [facility] PG Care Time/CCT Total # of Minutes Spent Total Time Spent with Patient: Total time spent is greater than 50% in coordination of care (as documented) at patient's floor/unit and/or counseling patient: I spent 90 minutes overall addressing this case: 20 min in medical data review/discussion with referring provider(s) and/or preparation for the visit d/w CCM 10 min in direct interaction with the patient/exam 30 min in Advance Care Planning/Goals of Care discussions as detailed above in note (must be >16min) 15 min in subsequent review and synthesis of assessment and plan 15 min communicating with other providers regarding the patient's case: CCM, nursing, care mgt Advanced Care Planning 58100 Advanced Care Planning 30 [place] [address] IN/OBS CONSULT LVL 4,60M (25 - SIGNIFICANT, SEPARATELY IDENTIFIABLE ) Patient Type New Medical Decision Making High Complexity Diagnoses Dyspnea and respiratory abnormalities R06.00; R06.89 Dementia F03.90 Recurrent falls R29.6 Failure to thrive in adult R62.7 Palliative care by specialist Z51.5 Discussion about advance care planning held with family member Z71.0 Additional Codes Advanced Care Planning - 28508 Advanced Care Planning 30 Min: [id number] Advanced C are Planning 30 Min ([id number]) Comment [id number], [id number]
--- NOTE | 2024-10-25 16:30 | Cardiology Progress Note ---
Date of Service October 25, 2024 Assessment & Plan (1) Respiratory failure: (2) Coronary artery disease: (3) Elevated troponin I level: (4) Left bundle branch block: (5) Cardiomyopathy: (6) Congestive heart failure: (7) Aortic stenosis: Plan 1. Hypoxic respiratory failure: Patient required reintubation yesterday. Etiology of her decompensation was felt to be a change in her cognitive status. Currently improving with progression towards extubation. 2. Coronary disease: She is known to have severe multivessel disease. Recent NSTEMI on continue dual antiplatelet therapy. She did not report symptoms of angina leading up to her episode or since. She was placed on systemic anticoagulation over concerns about her severe coronary disease in the setting of her critical illness. Heparin discontinued. No need to reinstitute heparin based on her coronary disease or recent event. 3. Left bundle branch block: Chronic. No worsening conduction disease on telemetry. No other arrhythmias. 4. Aortic stenosis: Mild in July 2024. None identified on her ech ocardiogram this admission 5. Elevated troponin: She definitely had an ischemic event. This is likely related to her acute illness in the setting of fixed coronary disease. Biomarkers have peaked and are improving. No chest pain. Not related to acute coronary syndrome. 6. Cardiomyopathy: Moderate reduced LV systolic function on echocardiogram this admission. Certainly improved to develop pulmonary vascular congestion especially with any significant stress or hemodynamic derangement. 7. Acute on chronic congestive heart failure: Improved yesterday. 1 dose of diuretic given yesterday afternoon. Certainly prone to pulmonary edema based on her overall LV dysfunction. Low threshold for additional diuretics. Continuing dual antiplatelet therapy. When she is extubated we can assess her hemodynamic stability and determine the appropriateness of medical therapy for her cardiomyopathy. Admission and Anticipated Discharge Date Admission Date: October 22, 2024 Subjective Patient intubated and sedated. Events over the past 24 hours reviewed. Patient required reintubation due to an episode of unresponsiveness. Brain imaging unremarkable. EEG completed and consistent with an encephalopathy. Review of Systems Review of Systems: Unobtainable due to endotracheal tube Physical Exam Physical Exam: Alert. Intubated. Sedated. HEENT: Sclerae are anicteric. Neuro: Unobtainable Lungs: Good aeration with some bronchial breath sounds. Cardiac: The rhythm was regular. No murmur Extremities: Patient has bilateral radial pulses that are equal in intensity. There is no evidence cyanosis or clubbing. Mild lower extremity edema bilaterally. Bandage on the left tibia. Protective boots in place. Skin: There are no rashes noted on examination today. Results & Data Vital Signs (Past 12 Hours) Vital Signs Temp Pulse Resp BP Pulse Ox O2 Del Method FiO2 10/25/24 15:00 71 26 H 97 10/25/24 14:30 110/47 L 10/25/24 14:30 110/47 L 10/25/24 14:27 60 18 98 10/25/24 14:00 65 18 97 10/25/24 14:00 121/49 L 10/25/24 14:00 121/49 L 10/25/24 13:30 69 22 97 10/25/24 13:30 132/55 L 10/25/24 13:30 132/55 L 10/25/24 13:30 132/55 L 10/25/24 13:00 64 19 98 10/25/24 13:00 122/58 L 10/25/24 13:00 122/58 L 10/25/24 12:30 103/40 L 10/25/24 12:30 103/40 L 10/25/24 12:30 103/40 L 10/25/24 12:30 62 18 10/25/24 12:03 66 20 99 10/25/24 12:00 130/53 L 10/25/24 11:54 133/55 L 10/25/24 11:54 133/55 L 10/25/24 11:54 133/55 L 10/25/24 11:54 133/55 L 10/25/24 11:54 67 22 98 10/25/24 11:42 120/77 10/25/24 11:40 130/51 L 10/25/24 11:34 127/52 L 10/25/24 11:32 121/49 L 10/25/24 11:23 0.35 10/25/24 11:21 66 23 99 10/25/24 11:20 132/58 L 10/25/24 11:10 127/56 L 10/25/24 11:06 62 18 98 10/25/24 11:03 60 18 98 Mechanical Vent 1.0 10/25/24 11:00 108/49 L 10/25/24 11:00 60 18 97 10/25/24 10:55 56 L 18 98 35 10/25/24 10:39 57 L 18 97 10/25/24 10:30 109/49 L 10/25/24 10:30 109/49 L 10/25/24 10:24 58 L 18 97 10/25/24 10:03 61 18 96 10/25/24 10:00 91/42 L 10/25/24 10:00 91/42 L 10/25/24 09:51 60 18 96 10/25/24 09:30 99/45 L 10/25/24 09:30 99/45 L 10/25/24 09:30 63 18 96 10/25/24 09:00 102/46 L 10/25/24 09:00 102/46 L 10/25/24 09:00 102/46 L 10/25/24 09:00 60 18 96 10/25/24 08:33 60 18 99 Mechanical Vent 0.35 10/25/24 08:30 118/49 L 10/25/24 08:30 118/49 L 10/25/24 08:24 67 18 98 10/25/24 08:22 37.6 C H 10/25/24 08:18 67 20 98 10/25/24 08:01 129/41 L 10/25/24 08:01 129/41 L 10/25/24 08:01 129/41 L 10/25/24 08:01 129/41 L 10/25/24 08:00 66 19 97 10/25/24 08:00 Mechanical Vent 0.35 10/25/24 07:51 65 19 98 10/25/24 07:42 64 19 98 10/25/24 07:35 62 18 96 35 10/25/24 07:33 35 10/25/24 07:27 61 18 96 10/25/24 07:00 59 L 18 98 10/25/24 07:00 106/52 L 10/25/24 07:00 106/52 L 10/25/24 05:53 91/36 L 10/25/24 05:52 91/33 L 10/25/24 05:51 66 18 96 10/25/24 05:45 66 21 96 10/25/24 05:30 89/38 L 10/25/24 05:30 63 18 10/25/24 05:24 65 18 97 10/25/24 05:06 69 22 97 10/25/24 05:00 116/43 L 10/25/24 05:00 116/43 L 10/25/24 04:51 71 23 97 10/25/24 04:45 72 20 97 10/25/24 04:30 118/51 L 10/25/24 04:30 118/51 L Laboratory Results Abnormal Lab Results 10/24/24 10/25/24 10/25/24 17:49 00:16 04:14 WBC 12.48 H RBC 2.68 L Hgb 7.5 L Hct 23.9 L MCV 89.2 MCH 28.0 MCHC 31.4 L RDW Std Deviation 44.9 RDW Coeff of Rajiv 13.9 Plt Count 275 MPV 10.1 Immature Gran % (Auto) 0.6 Neut % (Auto) 81.5 Lymph % (Auto) 7.2 Montgomery % (Auto) 7.9 Eos % (Auto) 1.8 Baso % (Auto) 1.0 Neut # (Auto) 10.17 H Lymph # (Auto) 0.90 L Montgomery # (Auto) 0.99 H Eos # (Auto) 0.22 Baso # (Auto) 0.13 Immature Gran # (Auto) 0.07 Polychromasia 1+ Sodium 139 Potassium 3.9 Chloride 108 H Carbon Dioxide 24 Anion Gap 7 BUN 27 H Creatinine 1.14 Est Cr Clr Drug Dosing 28.0 eGFR 46.88 BUN/Creatinine Ratio 23.7 H Glucose 74 POC Glucose 80 82 Calcium 8.4 L Phosphorus 2.3 L Total Bilirubin 0.4 AST 67 H ALT 36 Alkaline Phosphatase 96 Total Protein 5.1 L Albumin 2.7 L Globulin 2.4 L Albumin/Globulin Ratio 1.1 10/25/24 12:09 WBC RBC Hgb Hct MCV MCH MCHC RDW Std Deviation RDW Coeff of Rajiv Plt Count MPV Immature Gran % (Auto) Neut % (Auto) Lymph % (Auto) Montgomery % (Auto) Eos % (Auto) Baso % (Auto) Neut # (Auto) Lymph # (Auto) Montgomery # (Auto) Eos # (Auto) Baso # (Auto) Immature Gran # (Auto) Polychromasia Sodium Potassium Chloride Carbon Dioxide Anion Gap BUN Creatinine Est Cr Clr Drug Dosing eGFR BUN/Creatinine Ratio Glucose POC Glucose 89 Calcium Phosphorus Total Bilirubin AST ALT Alkaline Phosphatase Total Protein Albumin Globulin Albumin/Globulin Ratio PG Care Time/CCT Total # of Minutes Spent Total Time Spent with Patient: Total time spent is greater than 50% in coordination of care (as documented) at patient's floor/unit and/or counseling patient: Coding Level of Care Code 80898 SUB INP/OBS CARE 2/35MIN Diagnoses Respiratory failure J96.90 Coronary artery disease I25.10 Elevated troponin I level R79.89 Left bundle branch block I44.7 Cardiomyopathy I42.9 Congestive heart failure I50.9 Aortic stenosis I35.0
[2024-10-25] MEDS: AMPICILLIN/SULBACTAM SOD 3,000 MG/100 ML BAG IV SCH (17:12)
[2024-10-25] MEDS ORDERED: ACETAMINOPHEN 325 MG TAB PO PRN (19:22)
[2024-10-25] MEDS ORDERED: MoRPHine SULFATE 2 MG/ML CARP IV PRN (19:22)
[2024-10-25] MEDS: ACETAMINOPHEN 1,000 MG/100 ML VIAL IV PRN (19:41)
--- NOTE | 2024-10-25 22:48 | Hospitalist Progress Note ---
Date of Service October 25, 2024 Assessment & Plan (1) Respiratory failure: Plan: Nevaeh Webster is an 84-year-old female with past medical history of NSTEMI, heart failure with midrange ejection fracture 45-50%, COPD, depression/anxiety, chronic aspiration presents to the ER with acute hypoxic respiratory failure who was initially suspected to have CHF and on further evluation was suspected to have septic Left PNA requiring intubation. Acute hypoxic respiratory failure s/p Intubation 2/2 suspected pneumonia, +/- CHF ETT placed for respiratory failure. Sedated on propofol. She is improving with fluids, Levophed available if needed/further fluid limited by CHF Chest x-ray with extensive left lung consolidation consistent with pneumonia. Pleural effusions are present, pulmonary edema is not excluded -Suspect most likely due to pneumonia. Left lung consolidations, leukocytosis are present. VBG 7.15/64/37/22 acute decompensated respiratory acidosis Patient does have pleural effusions and history of CHF with some lower extremity edema; heart rate down trended and blood pressures improved with 2 L of fluid. Per discussion with [facility] patient had a sudden decompensation this morning and had not reported infectious symptoms in the preceding week, did have a left leg injury last week with swelling. Doppler ordered. CTA deferred pending Doppler and clinical progression, can follow-up with CTA if indicated. Repeat VBG postintubation improving, 7.29///20 Patient was extubated and reintubated on 10/24 will remain in the ICU Consulted palliative care given reintubation Patient with baseline dementia that is worsening Plan for extubation later today. Sepsis, pneumonia Hypotension, tachycardic, respiratory failure Received 2 L NSS in the ER, sepsis target 1731 cc Lactate elevated 5.6, repeat pending Additional fluid limited by suspected CHF/cardiopulmonary overload - Antibiotics broadened to cefepime/vancomycin/azithromycin. QT normal. Renally adjusted for calculated creatinine clearance of approximately 1415, adjust as needed based on renal function -stopped vanco. CAD w/ hx RCA PCI, history of heart failure with midrange EF and severe residual multivessel disease, suspected demand ischemia Reviewed with cardiology. Wide-complex tachycardia on admission with baseline left bundle branch block. Improving post fluids heart rate in the 100s. Troponin is elevated, suspect demand that this is reactive to sepsis and hypoxia and not claim service representative of ACS. Heparinization not recommended at this time from a cardiac standpoint but will monitor closely. Patient is high risk for intervention/cath and has known high risk residual disease. Has a history of PCI x 1. Brilinta continued through OG tube ETT in place. Patient did not take any medications this morning per the [facility]. Cardiac medicines including asa/ticagrelor continued via OG Hold ARB/hydrochlorothiazide for hypotension Troponin 125, repeat pending. BNP 734 cath 08/02/2024: Triple-vessel CAD, PCI to 90% mid RCA with DESIRAE. Residual coronary disease including severely stenosed lesions of the LMCALADLCx bifurcationLADD1 bifurcation 90%. Mild to moderate nonobstructive CAD. EKG with baseline left bundle branch block EKG on admission with wide QRS tachycardia, LBBB redemonstrated. QTc 439. NOBLE pending/ Last echo 2023 with EF 47%, lateral and inferior wall hypokinesis. Mild AAS with peak velocity 1.93 - Repeat EKG post fluids and rate improvement pending Left lower extremity swelling Bilateral but left greater than right lower extremity edema and with 2-3 cm of calf asymmetry greater on the left Patient did have a leg strike last week per [facility] staff. Dopplers ordered. Small overlying contusion with clot, dressing in place, no surrounding erythema/warmth suggestive of cellulitis COPD Home inhalers held Hypothyroidism Synthroid early held, may convert to IV 70% dose reduction if prolonged ability to tolerate p.o. Closed right femur fracture S/p total joint arthroplasty 07/2024. Per [facility] healed from this back in July however has generally poor mobility and mostly wheelchair-bound at their facility GERD PPI continued for hx and ulcer ppx, converted to IV DVT prophylaxis: Heparin subcu due to renal dysfunction CODE STATUS: Conditional code. Okay with temporary intubation while evaluating for potential reversible causes of respiratory failure (sepsis/pneumonia/CHF), but per conversation with she would not want resuscitation in the event of a complete arrest. No CPR, no electrical cardioversion, no cardiopulmonary resuscitation in the event of a respiratory/cardiac arrest. 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 Physical Exam Physical Exam: General: ETT in place, sedated. HEENT: Atraumatic, normocephalic. Pulm: Scattered slight crackles on L, good air movement bilaterally. Cardiac: Tachycardic, regular. Radial pulses intact and symmetrical. Abdominal: Soft, nondistended Extremities: Mild left calf asymmetry. Left briseno contusion/wound with overlying dressing, no warmth/erythema. Bilateral mild pitting edema left greater than right. Right briseno with small contusion but no overlying wound. Results & Data Results & Data Vital Signs (Past 12 Hours) Vital Signs Temp Pulse Resp BP Pulse Ox Pulse Ox O2 Del Method 10/25/24 22:00 60 22 121/48 L 92 Room Air 10/25/24 21:00 62 23 108/37 L 91 Room Air 10/25/24 20:00 36.8 C 88 24 134/56 L 91 Room Air 10/25/24 20:00 Room Air 10/25/24 20:00 91 10/25/24 19:01 71 22 140/64 97 Nasal Cannula 10/25/24 18:06 70 25 H 100 10/25/24 18:00 137/57 L 10/25/24 18:00 137/57 L 10/25/24 17:48 68 21 100 10/25/24 17:42 71 24 100 10/25/24 17:30 141/58 H 10/25/24 17:27 74 24 98 10/25/24 17:01 128/99 10/25/24 17:01 128/99 10/25/24 17:00 70 25 H 10/25/24 16:40 37.6 C H 10/25/24 16:30 70 20 100 10/25/24 16:30 139/60 10/25/24 16:30 139/60 10/25/24 16:03 72 24 99 10/25/24 16:00 135/85 10/25/24 16:00 135/85 10/25/24 16:00 135/85 10/25/24 15:42 76 22 95 10/25/24 15:30 136/82 10/25/24 15:03 70 31 H 96 10/25/24 15:00 71 26 H 97 10/25/24 14:30 110/47 L 10/25/24 14:30 110/47 L 10/25/24 14:27 60 18 98 10/25/24 14:00 65 18 97 10/25/24 14:00 121/49 L 10/25/24 14:00 121/49 L 10/25/24 13:30 69 22 97 10/25/24 13:30 132/55 L 10/25/24 13:30 132/55 L 10/25/24 13:30 132/55 L 10/25/24 13:00 64 19 98 10/25/24 13:00 122/58 L 10/25/24 13:00 122/58 L 10/25/24 12:30 103/40 L 10/25/24 12:30 103/40 L 10/25/24 12:30 103/40 L 10/25/24 12:30 62 18 10/25/24 12:26 37.5 C 10/25/24 12:03 66 20 99 10/25/24 12:00 130/53 L 10/25/24 11:54 133/55 L 10/25/24 11:54 133/55 L 10/25/24 11:54 133/55 L 10/25/24 11:54 133/55 L 10/25/24 11:54 67 22 98 10/25/24 11:42 120/77 10/25/24 11:40 130/51 L 10/25/24 11:34 127/52 L 10/25/24 11:32 121/49 L 10/25/24 11:23 10/25/24 11:21 66 23 99 10/25/24 11:20 132/58 L 10/25/24 11:10 127/56 L 10/25/24 11:06 62 18 98 10/25/24 11:03 60 18 98 Mechanical Vent 10/25/24 11:00 108/49 L 10/25/24 11:00 60 18 97 10/25/24 10:55 56 L 18 98 O2 Del Method O2 Flow Rate FiO2 10/25/24 22:00 10/25/24 21:00 10/25/24 20:00 10/25/24 20:00 10/25/24 20:00 Room Air 10/25/24 19:01 2 10/25/24 18:06 10/25/24 18:00 10/25/24 18:00 10/25/24 17:48 10/25/24 17:42 10/25/24 17:30 10/25/24 17:27 10/25/24 17:01 10/25/24 17:01 10/25/24 17:00 10/25/24 16:40 10/25/24 16:30 10/25/24 16:30 10/25/24 16:30 10/25/24 16:03 10/25/24 16:00 10/25/24 16:00 10/25/24 16:00 10/25/24 15:42 10/25/24 15:30 10/25/24 15:03 10/25/24 15:00 10/25/24 14:30 10/25/24 14:30 10/25/24 14:27 10/25/24 14:00 10/25/24 14:00 10/25/24 14:00 10/25/24 13:30 10/25/24 13:30 10/25/24 13:30 10/25/24 13:30 10/25/24 13:00 10/25/24 13:00 10/25/24 13:00 10/25/24 12:30 10/25/24 12:30 10/25/24 12:30 10/25/24 12:30 10/25/24 12:26 10/25/24 12:03 10/25/24 12:00 10/25/24 11:54 10/25/24 11:54 10/25/24 11:54 10/25/24 11:54 10/25/24 11:54 10/25/24 11:42 10/25/24 11:40 10/25/24 11:34 10/25/24 11:32 10/25/24 11:23 0.35 10/25/24 11:21 10/25/24 11:20 10/25/24 11:10 10/25/24 11:06 10/25/24 11:03 1.0 10/25/24 11:00 10/25/24 11:00 10/25/24 10:55 35 PG Care Time/CCT Total # of Minutes Spent Total Time Spent with Patient: Total time spent is greater than 50% in coordination of care (as documented) at patient's floor/unit and/or counseling patient: Coding Level of Care Code 27764 SUB INP/OBS CARE 50MIN Diagnoses Respiratory failure J96.90 Pneumonia J18.9 Acute heart failure with mildly reduced ejection fraction (HFmrEF, 41-49%) I50.21
[2024-10-26] MEDS: D5W AND 1/2NSS + 20MEQ KCL 20 MEQ/1,000 ML BAG IV SCH (00:55)
[2024-10-26 04:54] LABS: BUN Creatinine Ratio 22.2 (10-20); Calcium 8.6 mg/dl (8.6-10.3); Creatinine Clr Calc Pharmacy 29.6 ml/min; Phosphorus 2.8 mg/dl (2.5-4.9); Potassium 3.8 mmol/L (3.5-5.1)
[2024-10-26 05:08] LABS: Basophils # (auto) 0.15 K/uL (0.00-0.20); Basophils % (auto) 1.4 %; Eosinophils # (auto) 0.65 K/uL (0.00-0.50); Eosinophils % (auto) 6.1 %; Hematocrit (blood only) 24.8 % (37.0-47.0); Hemoglobin 7.8 g/dl (12.0-16.0); Immature Granulocytes # (auto) 0.06 K/uL (0.01-0.20); Immature Granulocytes % (auto) 0.6 %; Lymphocytes # (auto) 1.17 K/uL (1.20-3.40); Lymphocytes % (auto) 10.9 %; Mean Corpuscular Hemoglobin 28.3 pg (25.0-34.0); Mean Corpuscular Hgb Conc 31.5 g/dL (32.0-36.0); Mean Corpuscular Volume 89.9 fL (80.0-100.0); Mean Platelet Volume 10.5 fL (9.4-12.4); Monocytes # (auto) 0.97 K/uL (0.11-0.59); Neutrophils # (auto) 7.74 K/uL (1.40-6.50); Platelet Count 264 K/uL (130-400); RDW Coefficient of Variation 13.7 % (11.5-14.5); RDW Standard Deviation 45.3 fL (36.4-46.3); Red Blood Count 2.76 M/uL (4.20-5.40); White Blood Count 10.74 K/ul (4.8-10.8)
[2024-10-26] MEDS: POTASSIUM CHLORIDE / WTR 20 MEQ/100 ML PLCT IV ONE (05:28)
[2024-10-26] MEDS: MAGNESIUM SULFATE / D5W 1 GM/100 ML BAG IV ONE (05:28)
[2024-10-26 05:43] LABS: RBC Morphology Unremarkable
--- NOTE | 2024-10-26 08:13 | Critical Care Progress Note ---
Date of Service October 26, 2024 Assessment & Plan (1) Pneumonia: (2) Acute heart failure with mildly reduced ejection fraction (HFmrEF, 41-49%): (3) Multiple pulmonary nodules determined by computed tomography of lung: (4) Chronic obstructive pulmonary disease: (5) Cardiomyopathy: (6) Dementia: (7) Tracheomalacia: Plan Impression: 84-year-old female with multiple medical issues admitted with acute onset of shortness of breath with leukocytosis and dense consolidation within the left lung. She was intubated with borderline hemodynamics. Recommendations: 1. Neurologic: Episode of unresponsiveness: MRI largely unremarkable, EEG completed did not demonstrate seizure activity 2. Cardiovascular: Known severe multivessel coronary disease: Agree with cardiology that she is unlikely to be a good candidate for intervention in the absence of overt cardiogenic shock or caleb ST elevations. - Reviewing echocardiogram notes 07/30 noted mild aortic stenosis this is not present on the 11/01 report. - Recent NSTEMI: Continue dual antiplatelet therapy Cardiomyopathy History of acute on chronic congestive heart failure -Known left bundle branch block 3. Pulmonary: Dense consolidation in the left lung: Underwent bronchoscopy 10/22 and 10/25 Tracheomalacia -Suspect significant tracheomalacia complicates patient's secretion clearance -Initial intubation 10/22 extubation 10/23 reintubation 10/24 extubation 10/25: DNI in event of respiratory arrest or insufficiency -Suspect severe tracheomalacia contributed to respiratory failure 4. GI: In discussion with patient's , long-term enteral access nor na sogastric tube consistent with patient's overall goals, will allow for diet and passive aspiration 5. Renal: Creatinine at baseline. Think the patient is a poor dialysis candidate in the event of progression to renal failure. 6. Endocrine: Glycemic control per protocol. 7. Heme-onc: anemia. No indication for transfusion and no evidence of acute blood loss currently. Thrombocytosis likely secondary to acute phase reactant/infection. 8. ID: Patient has been in and out of the hospital and multiple occasions in the last 90 days which places her at risk for resistant organisms. -No organisms on culture, remains afebrile, mild leukocytosis which can be reactionary -Finish course of his Zithromax (last dose today) and rocephin: Transition to Augmentin for 4 additional doses after today's IV Unasyn CODE STATUS: DNR in event of cardiac arrest DNI in event of respiratory arrest and respiratory insufficiency -Palliative care notes reviewed Patient's critical care needs have resolved stable for downgrade out of ICU. Admission and Anticipated Discharge Date Admission Date: October 22, 2024 Subjective No overnight events, patient was liberated from ventilator yesterday. Physical Exam Physical Exam: General: Alert. nontoxic. Skin: Warm, dry, Head: Atraumatic Ears, nose, mouth and throat: airway patent Cardiovascular: Normal peripheral perfusion Respiratory: no respiratory distress Gastrointestinal: Non distended Musculoskeletal: No deformity Results & Data Results & Data Vital Signs (Past 12 Hours) Vital Signs Temp Pulse Pulse Resp BP BP Pulse Ox 10/26/24 06:00 65 19 169/67 H 92 10/26/24 05:01 62 19 139/50 L 93 10/26/24 04:00 36.5 C 68 20 149/51 H 91 10/26/24 03:01 67 22 147/53 H 93 10/26/24 02:00 60 24 113/44 L 92 10/26/24 01:00 62 24 133/48 L 92 10/26/24 00:00 36.8 C 61 21 126/52 L 93 10/25/24 23:00 62 22 114/42 L 92 10/25/24 22:00 60 22 121/48 L 92 10/25/24 21:00 62 23 108/37 L 91 O2 Del Method 10/26/24 06:00 Room Air 10/26/24 05:01 Room Air 10/26/24 04:00 Room Air 10/26/24 03:01 Room Air 10/26/24 02:00 Room Air 10/26/24 01:00 Room Air 10/26/24 00:00 Room Air 10/25/24 23:00 Room Air 10/25/24 22:00 Room Air 10/25/24 21:00 Room Air Critical Care Results & Data Vital Signs (Past 12 Hours) Vital Signs Temp Pulse Pulse Resp BP BP Pulse Ox 10/26/24 06:00 65 19 169/67 H 92 10/26/24 05:01 62 19 139/50 L 93 10/26/24 04:00 36.5 C 68 20 149/51 H 91 10/26/24 03:01 67 22 147/53 H 93 10/26/24 02:00 60 24 113/44 L 92 10/26/24 01:00 62 24 133/48 L 92 10/26/24 00:00 36.8 C 61 21 126/52 L 93 10/25/24 23:00 62 22 114/42 L 92 10/25/24 22:00 60 22 121/48 L 92 10/25/24 21:00 62 23 108/37 L 91 O2 Del Method 10/26/24 06:00 Room Air 10/26/24 05:01 Room Air 10/26/24 04:00 Room Air 10/26/24 03:01 Room Air 10/26/24 02:00 Room Air 10/26/24 01:00 Room Air 10/26/24 00:00 Room Air 10/25/24 23:00 Room Air 10/25/24 22:00 Room Air 10/25/24 21:00 Room Air Lab & Micro Results (Past 24 Hours) RBC 2.76 M/uL (4.20-5.40) L 10/26/24 WBC 10.74 K/ul (4.8-10.8) 10/26/24 Hgb 7.8 g/dl (12.0-16.0) L 10/26/24 Hct 24.8 % (37.0-47.0) L 10/26/24 MCV 89.9 fL (80.0-100.0) 10/26/24 MCH 28.3 pg (25.0-34.0) 10/26/24 MCHC 31.5 g/dL (32.0-36.0) L 10/26/24 RDW Standard Deviation 45.3 fL (36.4-46.3) 10/26/24 RDW Coefficient of Variation 13.7 % (11.5-14.5) 10/26/24 Plt Count 264 K/uL (130-400) 10/26/24 MPV 10.5 fL (9.4-12.4) 10/26/24 Neutrophils (%) (Auto) 72.0 % 10/26/24 Lymphocytes (%) (Auto) 10.9 % 10/26/24 Monocytes # (Auto) 0.97 K/uL (0.11-0.59) H 10/26/24 Eosinophils # (Auto) 0.65 K/uL (0.00-0.50) H 10/26/24 Immature Granulocyte % (Auto) 0.6 % 10/26/24 Neutrophils # (Auto) 7.74 K/uL (1.40-6.50) H 10/26/24 Lymphocytes # (Auto) 1.17 K/uL (1.20-3.40) L 10/26/24 Monocytes # (Auto) 0.97 K/uL (0.11-0.59) H 10/26/24 Eosinophils # (Auto) 0.65 K/uL (0.00-0.50) H 10/26/24 Basophils # (Auto) 0.15 K/uL (0.00-0.20) 10/26/24 Immature Granulocyte # (Auto) 0.06 K/uL (0.01-0.20) 5 Red Blood Cell Morphology Unremarkable 10/26/24 Na 140 mmol/L (136-145) 10/26/24 K 3.8 mmol/L (3.5-5.1) 10/26/24 Cl 110 mmol/L (98-107) H 10/26/24 CO2 23 mmol/L (21-32) 10/26/24 Anion Gap 7 (3-11) 10/26/24 BUN 24 mg/dl (6-23) H 10/26/24 Creatinine 1.08 mg/dl (0.6-1.2) 10/26/24 BUN/Creatinine Ratio 22.2 (10-20) H 10/26/24 Glu 88 mg/dl (70-99(Fasting)) 10/26/24 Ca 8.6 mg/dl (8.6-10.3) 10/26/24 Phosphorus Level 2.8 mg/dl (2.5-4.9) 10/26/24 Mg 2.0 mg/dl (1.7-2.4) 10/26/24 04:24 Calcium Level 8.6 mg/dl (8.6-10.3) 10/26/24 04:24 I & O Totals 24 Hours 10/25/24 10/26/24 10/27/24 06:59 06:59 06:59 Intake Total 1073.115 / 1073.115 845.657 / 845.657 200 / 200 Output Total 927 / 927 546 / 546 Balance 146.115 / 146.115 299.657 / 299.657 200 / 200 Cumulative 10/22/24 08:02 thru 10/26/24 07:36 Intake Total 7576.241 Output Total 5545 Balance 2031.241 RT Ventilator Mngmt (Last Documented) Ventilator Ordered Settings Ventilator Support Mode Assist Control 10/25/24 11:23 Respiratory Rate 19 10/26/24 06:00 Ventilator Tidal Volume 400 10/25/24 11:23 Setting Minute Ventilation 7.2 10/25/24 10:55 Ventilator Positive Pressure 5 10/24/24 23:52 Support Setting Positive End Expiratory 5 10/25/24 11:23 Pressure Fraction of Inspired Oxygen 0.35 10/25/24 11:23 Machine Comment weaned to 35% at this time 10/24/24 23:34 Ventilator - PT Measurements Respiratory Rate 19 Exhaled Tidal Volume 400 Minute Ventilation 7.2 Peak Inspiratory Airway 22 Pressure Plateau Pressure 15 Respiratory Cycle Inspiratory: 1:2.7 Expiratory Ratio Inspiratory Phase Time 0.9 End-Tidal CO2 21 Static Lung Compliance 40.00 Dynamic Lung Compliance 23.53 Normal Static Lung Compliance 46.00 Patient Measurements Comment PT EXTUBATED PER ORDER FROM DR WANG AT THIS TIME. PT WAS PLACED ON CPAP BY MD JUST PRIOR TO EXTUBATION. PT ORALLY SX AND THRU ETT. PT TOLERATED EXTUBATION WELL, EXPECTORATED LARGE AMOUNT OF CLEAR BLOOD STREAKED SECRETIONS. PLACED ON 4L NC. SPO2 WNL Coding Level of Care Code 77494 SUB INP/OBS CARE 3/50MIN Diagnoses Pneumonia J18.9 Acute heart failure with mildly reduced ejection fraction (HFmrEF, 41-49%) I 50.21 Multiple pulmonary nodules determined by computed tomography of lung R91.8 Chronic obstructive pulmonary disease J44.9 Cardiomyopathy I42.9 Dementia F03.90 Tracheomalacia J39.8
--- NOTE | 2024-10-26 08:14 | XRay Report ---
EXAM: XR chest 1V portable CLINICAL HISTORY: Eval tubes/lines/lung carrero. TECHNIQUE: An X-ray image of the chest is obtained in AP projection. COMPARISON: Comparison with the previous study dated 10/25/2024. FINDINGS: Pulmonary Parenchyma: Non-visualization of the previously noted ETT tube. Slight regression of the previously noted bilateral scattered air space filling opacity mainly left middle and lower lung zones. Stable left-sided pleural effusion. Minimal blunting of the right costophrenic angle suggesting minimal right-sided pleural effusion. Heart and Mediastinum: Heart size is enlarged. Left central line in place. Bony Thorax: Thoracic and cervical spine fixation is noted. Bony thorax appears intact without fractures or deformities. Soft Tissues: Soft tissues overlying the chest wall are unremarkable. IMPRESSION: 1. Slight regression of the previously noted bilateral scattered air space filling opacity mainly left middle and lower lung zone. 2. Stable left-sided pleural effusion. 3. Minimal blunting of the right costophrenic angle suggesting minimal right-sided pleural effusion. (stable) 4. Cardiomegaly. (stable) 5. Removed ETT, Stable left CVL. Electronically signed by Alissa Bond 10-26-2024 08:13 AM
--- NOTE | 2024-10-26 10:00 | Palliative Care Progress Note ---
Date of Service October 26, 2024 Assessment & Plan (1) Palliative care by specialist: Plan: met with pt and spouse at bedside. Introduced Palliative Medicine and explained our role in advanced care planning, symptom management and navigation through the progression of life limiting disease. Patient and/or family were receptive to palliative services for goals of care discussions. Reviewed we are different from hospice, a home health nurse visiting service. (2) Discussion about advance care planning held with family member: Plan: As continuation of care offered from previous palliative car practitioner, met with pt's spouse for 30min to discuss plan of care and pt goals. Spouse shared that he has a bed hold at [facility] but is unclear where his arely sorto go after discharge. He questioned rehab vs return to [facility]. He was unclear on the logistics around hospice care and expectations for end of life care. Discussed hospice as an interdisciplinary program offered by nurses, nurses aides, social workers, chaplains and a curator medical museum for patients with a terminal condition and a life expectancy of less than 6 months. This is covered by Medicare at 100%/no out of pocket expense to patient and all meds/supplies needed by patient for the reason they are on hospice are paid for/covered by hospice. The goal is assure quality of life of the patient in their home setting (home, skilled nursing, inpatient hospice setting) by providing symptoms management, psychosocial and spiritual support. However, they cannot offer 24 h ours care and if the family is unable to provide that care, they will have to consider personal care with out of pocket cost vs. skilled nursing placement. We discussed the goals of hospice as a patient service and the goals of care; we discussed EOL trajectories and transitions tere the emotional impact of realizing mortality as a concrete reality from prior abstract considerations. Pt was reassured that no matter where they are along this trajectory, they are not alone - their medical team will remain by their side through their journey. Discussed the pros/cons of accepting help when especially weakened and distressed by pain-which would also help provide relief/decrease caregiver burden/strain. He confirmed desire to transition to comfort directed care and hopeful for discharge back to [facility]. Discussed with attending and CM made aware. (3) Comfort measures only status: Plan: transitioned to [facility] today. [facility] Symptom manamgement: Pain/dyspnea/tachypnea morphine 2mg IVP PRN [id number] Consider titratable morphine drip if pt requires >3 PRN doses in under two consecutive hours. Nausea/vomitting zofran 4mg IVP q4h PRN Agitation ativan 0.5mg IVP q4h PRN Hyperactive delirium haldol 5mg IVP q6h PRN Secretions - if repositioning not effective robinul 0.4mg IV q4h PRN atropine SL 3 drops Q1h PRN Nursing care: Discontinue all medications not directed towards comfort. Detether pt from IV tubing, monitor cables, and check vitals once per shift. Please continue HFNC and titrate down as able for patient comfort. Use medications above PRN for dyspnea/tachypnea and do not increase oxygen once titrated down. Assess q1h for pain/dyspnea and treat accordingly. Plan see above Admission and Anticipated Discharge Date Admission Date: October 22, 2024 Subjective Assessed pt at bedside, she has been extubated to room air overnight and is in NAD on room air. She is awake and alert and pleasantly confused. Her spouse is at bedside. Review of Systems Review of Systems: All systems reviewed & are unremarkable except as noted in Subjective Physical Exam Physical Exam: Constitutional: well developed, + frail appearing, cooperative and comfortable; not in distress Eyes: PERRL, conjunctivae normal, anicteric sclerae Neck: trachea midline, no thyromegaly Respiratory: normal respiratory effort and symmetric chest movement Cardiovascular: RRR, no murmur, no edema Gastrointestinal (Abdomen): normal bowel sounds, soft, nontender, no hepatosplenomegaly Musculoskeletal: SANTILLAN Skin: no rashes, warm and dry Results & Data Vital Signs (Past 12 Hours) Vital Signs Temp Pulse Pulse Resp BP BP Pulse Ox 10/26/24 08:06 72 21 94 10/26/24 08:01 151/57 H 10/26/24 08:00 10/26/24 08:00 36.8 C 10/26/24 07:54 68 19 93 10/26/24 07:03 67 19 93 10/26/24 07:00 158/64 H 10/26/24 06:00 65 19 169/67 H 92 10/26/24 05:01 62 19 139/50 L 93 10/26/24 04:00 36.5 C 68 20 149/51 H 91 10/26/24 03:01 67 22 147/53 H 93 10/26/24 02:00 60 24 113/44 L 92 10/26/24 01:00 62 24 133/48 L 92 10/26/24 00:00 36.8 C 61 21 126/52 L 93 10/25/24 23:00 62 22 114/42 L 92 O2 Del Method 10/26/24 08:06 10/26/24 08:01 10/26/24 08:00 Room Air 10/26/24 08:00 10/26/24 07:54 10/26/24 07:03 10/26/24 07:00 10/26/24 06:00 Room Air 10/26/24 05:01 Room Air 10/26/24 04:00 Room Air 10/26/24 03:01 Room Air 10/26/24 02:00 Room Air 10/26/24 01:00 Room Air 10/26/24 00:00 Room Air 10/25/24 23:00 Room Air Laboratory Results No further labs or diagnostics in concert with comfort directed care. Diagnostic Findings No further labs or diagnostics in concert with comfort directed care. Medications Administered Current Inpatient Medications Acetaminophen (Acetaminophen 325 Mg Tab) 650 mg PO Q4H PRN PRN Reason: pain or fever Stop: 11/24/24 19:21 Amoxicillin/Clavulanate Potassium (Amoxicillin/Clavulanate 875 Mg Tab) 1 tab PO BIDM [facility]; Protocol Stop: 10/28/24 17:01 Aspirin (Aspirin 81 Mg Chew) 81 mg OG DAILY [facility] Stop: 11/21/24 10:29 Last Admin: 10/26/24 08:05 Dose: 81 mg Atorvastatin Calcium (Atorvastatin 40 Mg Tab) 40 mg OG QAM [facility] Stop: 11/22/24 08:59 Last Admin: 10/26/24 08:04 Dose: 40 mg Atropine Sulfate (Atropine Sulfate 1% Op Soln 5 Ml Btl) 4 drops SL Q1H PRN PRN Reason: Secretions or pulm congestion Stop: 11/25/24 16:18 Fluticasone/Vilanterol (Fluticasone/Vilanterol 100/25mcg 14 Puffs/Inhaler) 1 puffs INH DAILY [facility] Stop: 11/26/24 08:59 Glycopyrrolate (Glycopyrrolate 0.2 Mg/Ml Vial) 0.4 mg IV Q4H PRN PRN Reason: Rattling Secretions or Pulm Congestion Stop: 11/25/24 16:18 Haloperidol (Haloperidol Oral Soln 2 Mg/Ml) 0.5 mg PO Q4H PRN PRN Reason: Anxiety/Agitation Stop: 11/25/24 16:18 Ampicillin Sodium/Sulbactam Sodium (Unasyn) 3,000 mg in 100 mls @ 200 mls/hr IV Q12H [facility]; Protocol Stop: 10/26/24 23:59 Last Admin: 10/26/24 18:02 Dose: 200 mls/hr Acetaminophen (Ofirmev) 1,000 mg in 100 mls @ 400 mls/hr IV Q8H PRN PRN Reason: pain/fever unable to take PO Stop: 10/28/24 19:21 Last Infusion: 10/26/24 15:15 Dose: Infused Levothyroxine Sodium (Levothyroxine Sodium 25 Mcg Tablet) [facility] Stop: 11/26/24 06:29 Lorazepam (Lorazepam 0.5 Mg Tab) 0.5 mg PO Q4H PRN PRN Reason: Anxiety/Agitation Stop: 11/25/24 16:18 Morphine Sulfate (Morphine Sulfate 2 Mg/Ml Carp) 2 mg IV Q6 PRN PRN Reason: Severe Pain (Scale 7, 8, 9,10) Stop: 11/08/24 19:21 Morphine Sulfate (Morphine Sulfate 10 Mg/0.5 Ml Udp) 5 mg PO Q3H PRN PRN Reason: Pain or Respiratory Distress Stop: 11/09/24 16:18 Ondansetron HCl (Ondansetron 4 Mg Od Tab) 4 mg SL Q4H PRN PRN Reason: Nausea &/or Vomiting Stop: 11/25/24 16:18 Pantoprazole Sodium (Pantoprazole 40 Mg Tab) 40 mg PO QAM [facility] Stop: 11/26/24 08:59 Sertraline HCl (Sertraline Hcl 50 Mg Tablet) 25 mg PO DAILY [facility] Stop: 11/26/24 08:59 Ticagrelor (Ticagrelor 90 Mg Tab) 90 mg OG BID [facility] Stop: 11/21/24 12:27 Last Admin: 10/26/24 08:05 Dose: 90 mg Trazodone HCl (Trazodone Hcl 50 Mg Tab) 50 mg PO HS [facility] Stop: 11/25/24 20:59 Vibegron (Vibegron 75 Mg Tab) 75 mg PO DAILY [facility] Stop: 11/26/24 08:59 PG Care Time/CCT Total # of Minutes Spent Total Time Spent with Patient: Total time spent is greater than 50% in coordination of care (as documented) at patient's floor/unit and/or counseling patient: Advanced Care Planning 36708 Advanced Care Planning 30 Min C[place] [address] SUB INP/OBS CARE 09/30MIN Patient Type Established History Problem Focused Exam Problem Focused Medical Decision Making Moderate Complexity Diagnoses Palliative care by specialist Z51.5 Discussion about advance care planning held with family member Z71.0 Comfort measures only status Z51.5 Additional Codes Advanced Care Planning - 70215 Advanced Care Planning 30 Min: 20917 Advanced Care Planning 30 Min ([id number])
[2024-10-26 14:55] VITALS: TEMP 98.8
[2024-10-26] MEDS ORDERED: HALOPERIDOL ORAL SOLN 2 MG/ML PO PRN (16:19)
[2024-10-26] MEDS ORDERED: MoRPHine SULFATE 10 MG/0.5 ML UDP PO PRN (16:19)
[2024-10-26] MEDS ORDERED: LORazepam 0.5 MG TAB PO PRN (16:19)
[2024-10-26] MEDS ORDERED: GLYCOPYRROLATE 0.2 MG/ML VIAL IV PRN (16:19)
[2024-10-26] MEDS ORDERED: ONDANSETRON 4 MG OD TAB SL PRN (16:19)
[2024-10-26] MEDS ORDERED: ATROPINE SULFATE 1% OP SOLN 5 ML BTL SL PRN (16:19)
[2024-10-26] MEDS: traZODone HCL 50 MG TAB PO SCH (21:33)
--- NOTE | 2024-10-26 22:49 | Hospitalist Progress Note ---
Date of Service October 26, 2024 Assessment & Plan (1) Respiratory failure: Plan: Nevaeh Webster is an 84-year-old female with past medical history of NSTEMI, heart failure with midrange ejection fracture 45-50%, COPD, depression/anxiety, chronic aspiration presents to the ER with acute hypoxic respiratory failure who was initially suspected to have CHF and on further evluation was suspected to have septic Left PNA requiring intubation. Acute hypoxic respiratory failure s/p Intubation 2/2 suspected pneumonia, +/- CHF ETT placed for respiratory failure. Sedated on propofol. She is improving with fluids, Levophed available if needed/further fluid limited by CHF Chest x-ray with extensive left lung consolidation consistent with pneumonia. Pleural effusions are present, pulmonary edema is not excluded -Suspect most likely due to pneumonia. Left lung consolidations, leukocytosis are present. VBG 7.15//37/22 acute decompensated respiratory acidosis Patient does have pleural effusions and history of CHF with some lower extremity edema; heart rate down trended and blood pressures improved with 2 L of fluid. Per discussion with [facility] patient had a sudden decompensation this morning and had not reported infectious symptoms in the preceding week, did have a left leg injury last week with swelling. Doppler ordered. CTA deferred pending Doppler and clinical progression, can follow-up with CTA if indicated. Repeat VBG postintubation improving, 7.//20 Patient was extubated and reintubated on 10/24 now extubated. appreciate input from palliative care: will transition to comfort care. Sepsis, pneumonia Hypotension, tachycardic, respiratory failure Received 2 L NSS in the ER, sepsis target 1731 cc Lactate elevated 5.6, repeat pending Additional fluid limited by suspected CHF/cardiopulmonary overload - Antibiotics broadened to cefepime/vancomycin/azithromycin. QT normal. Renally adjusted for calculated creatinine clearance of approximately 1415, adjust as needed based on renal function -stopped vanco. will switch to augmentin in AM. CAD w/ hx RCA PCI, history of heart failure with midrange EF and severe residual multivessel disease, suspected demand ischemia Reviewed with cardiology. Wide-complex tachycardia on admission with baseline left bundle branch block. Improving post fluids heart rate in the 100s. Troponin is elevated, suspect demand that this is reactive to sepsis and hypoxia and not risk control field representative of ACS. Heparinization not recommended at this time from a cardiac standpoint but will monitor closely. Patient is high risk for intervention/cath and has known high risk residual disease. Has a history of PCI x 1. Brilinta continued through OG tube ETT in place. Patient did not take any medications this morning per the [facility]. Cardiac medicines including asa/ticagrelor continued via OG Hold ARB/hydrochlorothiazide for hypotension Troponin 125, repeat pending. BNP 734 cath 08/02/2024: Triple-vessel CAD, PCI to 90% mid RCA with DESIRAE. Residual coronary disease including severely stenosed lesions of the [id number] bifurcation 90%. Mild to moderate nonobstructive CAD. EKG with baseline left bundle branch block EKG on admission with wide QRS tachycardia, LBBB redemonstrated. QTc 439. NOBLE pending/ Last echo 2023 with EF 47%, lateral and inferior wall hypoki nesis. Mild AAS with peak velocity 1.93 - Repeat EKG post fluids and rate improvement pending Left lower extremity swelling Bilateral but left greater than right lower extremity edema and with 2-3 cm of calf asymmetry greater on the left Patient did have a leg strike last week per [facility] staff. Dopplers ordered. Small overlying contusion with clot, dressing in place, no surrounding erythema/warmth suggestive of cellulitis COPD Home inhalers held Hypothyroidism Synthroid early held, may convert to IV 70% dose reduction if prolonged ability to tolerate p.o. Closed right femur fracture S/p total joint arthroplasty 07/2024. Per [facility] healed from this back in July however has generally poor mobility and mostly wheelchair-bound at their facility GERD PPI continued for hx and ulcer ppx, converted to IV DVT prophylaxis: Heparin subcu due to renal dysfunction CODE STATUS: Conditional code. Okay with temporary intubation while evaluating for potential reversible causes of respiratory failure (sepsis/pneumonia/CHF), but per conversation with she would not want resuscitation in the event of a complete arrest. No CPR, no electrical cardioversion, no cardiopulmonary resuscitation in the event of a respiratory/cardiac arrest. Diet: resume diet Disposition: transfer to [facility] discussed with manager construction (2) Pneumonia: (3) Acute heart failure with mildly reduced ejection fraction (HFmrEF, 41-49%): Admission and Anticipated Discharge Date Admission Date: October 22, 2024 Subjective Patient is pleasantly confused. Physical Exam Physical Exam: HEENT: Atraumatic, normocephalic. Pulm: Scattered slight crackles on L, good air movement bilaterally. Cardiac: Tachycardic, regular. Abdominal: Soft, nondistended Extremities: Mild left calf asymmetry. Left briseno contusion/wound with overlying dressing, no warmth/erythema. Bilateral mild pitting edema left greater than right. Right briseno with small contusion but no overlying wound. Results & Data Results & Data Vital Signs (Past 12 Hours) Vital Signs Temp Pulse Resp BP Pulse Ox O2 Del Method 10/26/24 15:30 Room Air 10/26/24 14:54 37.1 C 71 26 H 152/64 H 95 Room Air 10/26/24 12:22 74 24 150/65 H 96 Room Air PG Care Time/CCT Total # of Minutes Spent Total Time Spent with Patient: Total time spent is greater than 50% in coordination of care (as documented) at patient's floor/unit and/or counseling patient: Coding Level of Care Code 13756 SUB INP/OBS CARE 3/50MIN Diagnoses Respiratory failure J96.90 Pneumonia J18.9 Acute heart failure with mildly reduced ejection fraction (HFmrEF, 41-49%) I50.21
[2024-10-27] MEDS: LEVOTHYROXINE SODIUM 25 MCG TABLET PO SCH (05:33)
[2024-10-27] MEDS: FLUTICASONE/VILANTEROL 100/25MCG 14 PUFFS/INHALER INH SCH (07:30)
[2024-10-27] MEDS: SERTRALINE HCL 50 MG TABLET PO SCH (07:30)
[2024-10-27] MEDS: PANTOprazole 40 MG TAB PO SCH (07:30)
[2024-10-27] MEDS: AMOXICILLIN/CLAVULANATE 875 MG TAB PO SCH (07:30)
[2024-10-27] MEDS: VIBEGRON 75 MG TAB PO SCH (07:31)
[2024-10-27 14:03] VITALS: RESP 14
[2024-10-27] MEDS ORDERED: AMOXICILLIN/CLAVULANATE 875 MG TAB PO SCH (17:00)
[2024-10-27 17:07] VITALS: BP 170/66; PULSE 77; O2SAT 93
--- NOTE | 2024-10-29 09:07 | Discharge Summary ---
Discharge Summary Date of Service October 27, 2024 Principal Dx & Hospital Course #1 = Principal Diagnosis (1) Respiratory failure: Nevaeh Webster is an 84-year-old female with past medical history of NSTEMI, heart failure with midrange ejection fracture 45-50%, COPD, depression/anxiety, chronic aspiration presents to the ER with acute hypoxic respiratory failure who was initially suspected to have CHF and on further evluation was suspected to have septic Left PNA requiring intubation. Acute hypoxic respiratory failure s/p Intubation 2/2 suspected pneumonia, +/- CHF ETT placed for respiratory failure. Sedated on propofol. She is improving with fluids, Levophed available if needed/further fluid limited by CHF Chest x-ray with extensive left lung consolidation consistent with pneumonia. Pleural effusions are present, pulmonary edema is not excluded -Suspect most likely due to pneumonia. Left lung consolidations, leukocytosis are present. VBG 7.15/64/37/22 acute decompensated respiratory acidosis Patient does have pleural effusions and history of CHF with some lower extremity edema; heart rate down trended and blood pressures improved with 2 L of fluid. Per discussion with the [facility] patient had a sudden decompensation this morning and had not reported infectious symptoms in the preceding week, did have a left leg injury last week with swelling. Doppler ordered. CTA deferred pending Doppler and clinical progression, can follow-up with CTA if indicated. Repeat VBG postintubation improving, 7.29//186/20 Patient was extubated and reintubated on 10/24 now extubated. appreciate input from palliative care: will transition to comfort care. Sepsis, pneumonia Hypotension, tachycardic, respiratory failure Received 2 L NSS in the ER, sepsis target 1731 cc Lactate elevated 5.6, repeat pending Additional fluid limited by suspected CHF/cardiopulmonary overload - Antibiotics broadened to cefepime/vancomycin/azithromycin. QT normal. Renally adjusted for calculated creatinine clearance of approximately 1415, adjust as needed based on renal function -stopped vanco. will switch to augmentin in AM. CAD w/ hx RCA PCI, history of heart failure with midrange EF and severe residual multivessel disease, suspected demand ischemia Reviewed with cardiology. Wide-complex tachycardia on admission with baseline left bundle branch block. Improving post fluids heart rate in the 100s. Troponin is elevated, suspect demand that this is reactive to sepsis and hypoxia and not off premise service representative of ACS. Heparinization not recommended at this time from a cardiac standpoint but will monitor closely. Patient is high risk for intervention/cath and has known high risk residual disease. Has a history of PCI x 1. Brilinta continued through OG tube ETT in place. Patient did not take any medications this morning per the [facility]. Cardiac medicines including asa/ticagrelor continued via OG Hold ARB/hydrochlorothiazide for hypotension Troponin 125, repeat pending. BNP 734 cath 08/02/2024: Triple-vessel CAD, PCI to 90% mid RCA with DESIRAE. Residual coronary disease including severely stenosed lesions of the LMCALADLCx bifurcationLADD1 bifurcation 90%. Mild to moderate nonobstructive CAD. EKG with baseline left bundle branch block EKG on admission with wide QRS tachycardia, LBBB redemonstrated. QTc 439. NOBLE pending/ Last echo 2023 with EF 47%, lateral and inferior wall hypokinesis. Mild AAS with peak velocity 1.93 - Repeat EKG post fluids and rate improvement pending Left lower extremity swelling Bilateral but left greater than right lower extremity edema and with 2-3 cm of calf asymmetry greater on the left Patient did have a leg strike last week per [facility]. Dopplers ordered. Small overlying contusion with clot, dressing in place, no surrounding erythema/warmth suggestive of cellulitis COPD Home inhalers held Hypothyroidism Synthroid early held, may convert to IV 70% dose reduction if prolonged ability to tolerate p.o. Closed right femur fracture S/p total joint arthroplasty 07/2024. Per [facility] healed from this back in July however has generally poor mobility and mostly wheelchair-bound at their facility GERD PPI continued for hx and ulcer ppx, converted to IV DVT prophylaxis: Heparin subcu due to renal dysfunction CODE STATUS: Conditional code. Okay with temporary intubation while evaluating for potential reversible causes of respiratory failure (sepsis/pneumonia/CHF), but per conversation with she would not want resuscitation in the event of a complete arrest. No CPR, no electrical cardioversion, no cardiopulmonary resuscitation in the event of a respiratory/cardiac arrest. Diet: resume diet Disposition: transfer to 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 History collected from patient's and from the [facility] nurse, history is not available from patient due to ETT and sedation. Nevaeh is a 84-year-old female resident of [facility] with a history of heart failure with midrange EF, CAD with 1 stent to RCA, history of wheelchair-bound status with recent right hip fracture ORIF last April per but with poor mobility and pain since. She was in her otherwise state of health and had not been complaining of fever, chills, or dyspnea either this morning the preceding few days. This morning she did feel little bit nauseous when she was down to breakfast but had no episodes of vomiting. She was subsequently found by nursing staff a short time later minimally responsive in her wheelchair and was brought emergently to the ER for assessment. On ER assessment she was tachycardic, hypotensive and intubated for acute hypoxic respiratory failure. No recent complaints of chest pain but does have a complicated cardiac history with a history of PCI to RCA and residual multivessel disease on medical therapy. High risk for further catheterization/intervention on prior assessments. Does have a history of heart failure but has not had an exacerbation recently. Some swelling in the lower extremities at baseline. Per staff does not take Lasix regularly. Medical History: Reviewed with facility Medications: Reviewed reviewed with facility. Did not take medications this morning Surgical History: Reviewed Allergies: Reviewed with facility. No known drug allergies Social History: Reviewed Code Status: Conditional code. Okay with intubation for airway protection/ventilation while pursuing reversible causes however would not want CPR/cardiopulmonary resuscitation/shocks/meds in the event of an arrest/CODE BLUE situation. Discharge Exam HEENT: Atraumatic, normocephalic. Pulm: Scattered slight crackles on L, good air movement bilaterally. Cardiac: Tachycardic, regular. Abdominal: Soft, nondistended Extremities: Mild left calf asymmetry. Left briseno contusion/wound with overlying dressing, no warmth/erythema. Bilateral mild pitting edema left greater than right. Right briseno with small contusion but no overlying wound. Discharge Plan Discharge Items Patient Disposition: Transfer Shelter Fac Reason For Visit: AHRF, SEPSIS PNA, ?CHF Discharge Diagnosis: sepsis PNA, CHF Activity: Resume your previous activity Non-emergency contact: Primary Care Provider Call non-emergency contact if: you have any medication questions Follow-up/Referrals: Renita Shanks MD [Primary Care Provider] - Diet: Heart Healthy Diet Texture: Easy to Chew Addtl Attending Provider Instructions: Comfort measures Pending Studies at Discharge: No Stand-Alone Forms: My [facility], Smoking Cessation Skilled Items Lines: None Urinary Catheter: Yes Medications and DC Order Prescriptions: New amoxicillin-pot clavulanate 875-125 mg Tablet 1 tab PO BIDM Qty: 3 0RF morphine concentrate 100 mg/5 mL (20 mg/mL) solution 5 mg PO Q6H PRN (Reason: pain/ sob) Qty: 30 0RF Continued Trelegy Ellipta 100-62.5-25 mcg blister with device 1 inh INH DAILY Qty: 3 1RF vibegron 75 mg tablet 75 mg PO DAILY Qty: 90 3RF polyethylene glycol 3350 17 gram powder in packet 17 g PO DAILY cholecalciferol (vitamin D3) 125 mcg (5,000 unit) capsule 125 mcg PO DAILY aspirin 81 mg tablet,delayed release (DR/EC) 81 mg PO DAILY sennosides [senna] 8.6 mg tablet 8.6 mg PO DAILY atorvastatin 40 mg tablet 40 mg PO DAILY ticagrelor 90 mg tablet 90 mg PO BID oxycodone 5 mg tablet 2.5 - 5 mg PO .Q4-6H PRN (Reason: Pain) Rx Instructions: 2.5 mg po for moderate pain, 5 mg po for severe pain albuterol sulfate 90 mcg/actuation HFA aerosol inhaler 2 inh inhalation QID PRN (Reason: shortness of breath or wheezing) Qty: 8.5 3RF acetaminophen 500 mg tablet 1,000 mg PO TID pantoprazole 40 mg tablet,delayed release (DR/EC) 40 mg PO QAM Qty: 90 3RF trazodone 100 mg tablet 50 mg PO HS Qty: 90 3RF levothyroxine [Synthroid] 25 mcg tablet 25 mcg PO QAM multivitamin Tablet 1 tab PO QAM irbesartan-hydrochlorothiazide 300-12.5 mg tablet 1 tab PO DAILY sertraline 25 mg Tablet 25 mg PO DAILY diclofenac sodium 1 % Gel 2 g TOPICAL DIRECTED PRN (Reason: Pain) Rx Instructions: knee pain Discharge Orders: Discharge Order (Routine); Ordered 10/27/24 Ordered By: Say Reyes Admission Data Admit Date/Time: 10/22/24 10:10 Attending Provider: Say Reyes Admit Provider: Andre Mckeon Primary Care Provider: Renita Shanks Other Providers: Andre Mckeon; Toño Ochoa; Renita Carrion; Yudi Herrera; [facility] Other Interventions: Discharge Summary Assessment (RN) Last Done: 10/27/24 16:46 Hospital Stay Data Consultations 10/22/24 09:23 ED Decision to Admit Stat 10/22/24 10:11 Consult Card Folder Routine 10/25/24 08:24 Consult Palliative Care Routine Diagnostic Imagining Performed 10/22/24 10:07 US venous doppler LE LT Stat 10/24/24 06:12 CT angio head w con Stat CT head/brain wo con Stat 10/24/24 09:32 MRI Brain [MR brain seizure wo/w con] Routine Pending Results Patient Have Any Pending Studies at Discharge: No Discharge Instructions Given to Patient (Per Discharging Provider) Comfort measures Coding Diagnoses Respiratory failure J96.90 Pneumonia J18.9 Acute heart failure with mildly reduced ejection fraction (HFmrEF, 41-49%) I50.21
== END 2024-10-27 17:22 | disposition hospice, inpatient (51) | DRG 871 ==
LOC: ED 08:06 → SUATTDRO 10:10 → 1E 10:10 → 3E 10-26 21:05